=== PATIENT | female | born 1970 ===

== ENCOUNTER 2016-12-01 20:08 | Observation (INO) | payer OTHER ==
[2016-12-01 20:08] VITALS: BMI 27.4
--- NOTE | 2016-12-01 21:21 | ED PDOC ---
HPI: Chest Pain Time Seen by Provider: 12/01/16 20:57 Chief Complaint (Nursing): Pain, Chronic Chief Complaint (Provider): Chest Pain History Per: Patient History/Exam Limitations: no limitations Onset/Duration Of Symptoms: Hrs (since this morning) Current Symptoms Are (Timing): Still Present Severity: Moderate Quality: Pressure Associated Symptoms: Other (palpitations, dizziness, left arm numbness). denies : Syncope (near syncope, no LOC) Additional Complaint(s): Missy Medina is a 46 year old female, with a past medical history inclusive of CAD (s/p coronary stent placement and cardiac catheterization) and Rheumatic fever, who presents to the ED on 12/01/16 for the evaluation of moderate, left- sided chest pressure that she has experienced since earlier today. Associated palpitations, left arm numbness and dizziness also reported, in addition to an episode of near syncope; though patient denies a complete loss of consciousness. Of note, patient reportedly underwent cardiac catheterization yesterday, unchanged from previous catheterization. PMD: eJnifer Diaz Sleeve Baster: Vance Past Medical History Reviewed: Historical Data, Nursing Documentation, Vital Signs Vital Signs: Last Vital Signs Temp 98.2 F 12/01/16 20:16 Pulse 72 12/01/16 20:16 Resp 18 12/01/16 20:16 BP 122/80 12/01/16 20:16 Pulse Ox 98 12/01/16 22:32 - Medical History PMH: Asthma, CAD, Crohn's Disease, Fractures (right arm), Gall Bladder Disease ( removed 2002), HTN, Hyperlipidemia, Mitral Valve Prolapse, Pneumonia, Rheumatoid Arthritis Denies: Chronic Kidney Disease Other PMH: PID, ovarian cyst, Rheumatic Fever - Surgical History Surgical History: Appendectomy (at 8 years old), Cholecystectomy (2002), Coronary Stent (x1; Left circumflex (January 2016)), Tonsillectomy ("at young age") , (x1) Denies: Pacemaker Other surgeries: colonoscopy, hysterectomy, right forearm repair (hardware), cardiac catheterization - Family History Family History: States: Unknown Family Hx - Social History Ex-Smoker (has not smoked in the last 12 months): Yes Alcohol: Occasional Drugs: Denies - Immunization History Hx Tetanus Toxoid Vaccination: No Hx Influenza Vaccination: Yes Hx Pneumococcal Vaccination: No - Home Medications Home Medications: Ambulatory Orders Medication Instructions Recorded Aspirin [Ecotrin] 81 mg PO DAILY #0 tabec 06/25/16 Clopidogrel [Plavix] 75 mg PO DAILY #0 tab 06/25/16 Albuterol 0.083% [Albuterol 0.083% 1 inh INH PRN PRN 08/31/16 Inhal Orin (2.5 mg/3 ml) UD] Albuterol HFA [Ventolin HFA 90 2 puff IH PRN PRN #1 inhaler 09/02/16 mcg/actuation (8 g)] Prednisone [Deltasone] 5 mg PO DAILY 10/29/16 Nitroglycerin 0.4 mg SL Q5MIN PRN 11/02/16 - Allergies Allergies/Adverse Reactions: Allergies Allergy/AdvReac Type Severity Reaction Status Date / Time ceftriaxone Allergy RASH Verified 08/31/16 19:51 Iodine and Iodide Containing Allergy SHORTNESS Verified 08/31/16 19:51 Produc OF BREATH iohexol [From Omnipaque] AdvReac SWELLING Verified 08/31/16 19:51 Review of Systems ROS Statement: Except As Marked, All Systems Reviewed And Found Negative Cardiovascular: Positive for: Chest Pain (left-sided chest pressure), Palpitations Neurological: Positive for: Numbness (left arm), Dizziness (near syncope) Physical Exam - Reviewed Nursing Documentation Reviewed: Yes Vital Signs Reviewed: Yes - Physical Exam Appears: Positive for: Non-toxic, No Acute Distress Head Exam: Positive for: ATRAUMATIC, NORMOCEPHALIC Skin: Positive for: Normal Color, Warm, Dry Neck: Positive for: Normal, Painless ROM, Supple Cardiovascular/Chest: Positive for: Regular Rate, Rhythm. Negative for: Edema Respiratory: Positive for: Normal Breath Sounds. Negative for: Respiratory Distress Gastrointestinal/Abdominal: Positive for: Normal Exam, Soft. Negative for: Tenderness Extremity: Positive for: Normal ROM. Negative for: Tenderness, Swelling Neurologic/Psych: Positive for: Alert, Oriented (x3). Negative for: Motor/ Sensory Deficits - Laboratory Results Result Diagrams: 12/01/16 21:24 12/01/16 21:24 - ECG O2 Sat by Pulse Oximetry: 98 (RA) Pulse Ox Interpretation: Normal Medical Decision Making Medical Decision Makin:57 Initial Impression: chest pressure Initial Plan: * EKG * CT Head w/o Contrast * CXR * Labs * Troponin I * PT/INR * Reevaluation Scribe Attestation: Documented by Lizabeth Dowling, acting as a scribe for Jeramie Kent MD. Provider Scribe Attestation: All medical record entries made by the Scribe were at my direction and personally dictated by me. I have reviewed the chart and agree that the record accurately reflects my personal performance of the history, physical exam, medical decision making, and the department course for this patient. I have also personally directed, reviewed, and agree with the discharge instructions and disposition. Disposition - Clinical Impression Clinical Impression: Chest pain, Pre-syncope - Patient ED Disposition Is Patient to be Admitted: Yes - Disposition Disposition Time: 23:34 Condition: FAIR - Pt Status Changed To: Hospital Disposition Of: Observation - POA Present On Arrival: None
[2016-12-01 21:29] LABS: BASO # 0.1 K/uL (0.0-0.2); BASO % 0.6 % (0.0-2.0); EOS # 0.2 K/uL (0.0-0.7); EOS % 1.2 % (0.0-4.0); HEMATOCRIT 39.9 % (34.0-47.0); LYMPH # 3.9 K/uL (1.0-4.3); LYMPH % 29.2 % (20.0-40.0); MEAN CORPUSCULAR HEMOGLOBIN 28.9 pg (27.0-31.0); MEAN CORPUSCULAR HGB CONC 32.5 g/dL (33.0-37.0); MEAN PLATELET VOLUME 7.2 fl (7.2-11.7); MONO % 7.7 % (0.0-10.0); NEUT # 8.3 K/uL (1.8-7.0); NEUT % 61.3 % (50.0-75.0); NRBC % 0.1 % (0.0-0.0); RED CELL DISTRIBUTION WIDTH 13.9 % (11.5-14.5); WHITE BLOOD COUNT 13.5 K/uL (4.8-10.8)
[2016-12-01 21:46] LABS: ALB/GLOB RATIO 1.1 (1.0-2.1); ALKALINE PHOSPHATASE 79 U/L (38-126); ALT/SGPT 27 U/L (9-52); AST/SGOT 23 U/L (14-36); BILIRUBIN,TOTAL 0.6 mg/dl (0.2-1.3); BLOOD UREA NITROGEN 22 mg/dl (7-17); CALCIUM 9.4 mg/dL (8.4-10.2); CARBON DIOXIDE 19 mmol/L (22-30); CHLORIDE 107 mmol/L (98-107); GFR AFRICAN-AMERICAN > 60; GLUCOSE,RANDOM 91 mg/dL (65-105); POTASSIUM 3.6 MMOL/L (3.6-5.0); SODIUM 143 mmol/l (132-148); TOTAL PROTEIN 7.8 G/DL (6.3-8.2)
--- NOTE | 2016-12-01 22:16 | CT ---
EXAM: CT Head Without Intravenous Contrast. CLINICAL HISTORY: 46 years old, female; Signs and symptoms; Weakness, extremity; Left; Additional info: Dizziness, near syncope. Pt states: Left arm numbness. TECHNIQUE: Axial computed tomography images of the head/brain without intravenous contrast. This CT exam was performed using one or more of the following dose reduction techniques: automated exposure control, adjustment of the mA and/or kV according to patient size, and/or use of iterative reconstruction technique. Coronal and sagittal reformatted images were created and reviewed. COMPARISON: CT - HEAD W/O CONTRAST 02/25/2016 4:43:01 AM FINDINGS: Brain: Unremarkable. No hemorrhage. No significant white matter disease. No edema. Ventricles: Unremarkable. No ventriculomegaly. Bones/joints: Unremarkable. No acute fracture. Soft tissues: Unremarkable. Sinuses: Unremarkable as visualized. No acute sinusitis. Mastoid air cells: Unremarkable as visualized. No mastoid effusion. IMPRESSION: Normal head/brain CT.
[2016-12-02] MEDS: Sodium Chloride 0.9% 1,000 ML IV SCH ×2 (00:07→10:16)
--- NOTE | 2016-12-02 01:40 | CP.PCM.HP ---
History of Present Illness - History of Present Illness History of Present Illness: 45 yo F w PMHx of CAD s/p LCA stent placement (January), rheumatic heart disease , presented to ED with recurring moderate, left-sided chest pressure that worsened today with associated left arm numbness and dizziness. Patient also had an episode of near syncope; though denies loss of consciousness. Patient states left arm numbness/tingling originates from neck/head and goes throughout left arm. Patient states left-sided chest pressure is a pain she has been having for quite some time that has been evaluated extensively though no etiology has been found. Patient states left sided posterior headache present at this time as well. Nitrostat x 2 during the day, no real effect of pain. Patient denies abdominal pain, chills, fever, recent illnesses, diarrhea, urinary changes, or changes to meds/diet/stressors. PMD: Dr Diaz Tower Operator: Dr Woodard PMHx: CAD s/p stent (January), rheumatic heart disease Medications: Aspirin 81mg po daily, Plavix 75mg po daily, Nitrostat 0.4mg PRN Allergies : ceftriaxone, iodine (hives) SHx: appendectomy (1980), cholecystectomy (2002), tonsillectomy, total hysterectomy (2014), Stent placement (2015) SocHx: drinks wine socially; former social smoker, 2 cigarettes with wine for 22 yrs; denies illicit drug use; unemployed, lives with her son FHx: father, CAD/DM, ED Course: Vitals stable, afebrile EKG unremarkable CXR NAD CT Head - negative Labs notable for mild leukocytosis, troponin x 1 neg Nitrostat x 1 Present on Admission - Present on Admission Any Indicators Present on Admission: No Review of Systems - Review of Systems All systems: reviewed and no additional remarkable complaints except (mentioned in HPI) Past Patient History - Infectious Disease Hx of Infectious Diseases: None - Tetanus Immunizations Tetanus Immunization: Unknown - Past Medical History & Family History Past Medical History?: Yes - Past Social History Alcohol: Occasional Drugs: Denies - CARDIAC Hx Hypertension: Yes Hx Mitral Valve Prolapse: Yes Hx Pacemaker: No - PULMONARY Hx Asthma: Yes Hx Pneumonia: Yes - NEUROLOGICAL Hx Paralysis: No - HEENT Hx HEENT Problems: No - RENAL Hx Chronic Kidney Disease: No - ENDOCRINE/METABOLIC Hx Endocrine Disorders: No - INTEGUMENTARY Hx Dermatological Problems: No - MUSCULOSKELETAL/RHEUMATOLOGICAL Hx Fractures: Yes (right arm) Hx Rheumatoid Arthritis: Yes - GASTROINTESTINAL Hx Crohn's Disease: Yes Hx Gall Bladder Disease: Yes (removed 2002) - GENITOURINARY/GYNECOLOGICAL Hx Genitourinary Disorders: Yes (Ovarian cysts, PID, Hysterectomy) - PSYCHIATRIC Hx Emotional Abuse: No Hx Physical Abuse: No Hx Substance Use: No - SURGICAL HISTORY Hx Appendectomy: Yes (at 8 years old) Hx Cholecystectomy: Yes (2002) Hx Coronary Stent: Yes (x1; Left circumflex (January 2016)) Hx Tonsillectomy: Yes ("at young age") - ANESTHESIA Hx Anesthesia Reactions: No Hx Malignant Hyperthermia: No Meds Allergies/Adverse Reactions: Allergies Allergy/AdvReac Type Severity Reaction Status Date / Time ceftriaxone Allergy RASH Verified 08/31/16 19:51 Iodine and Iodide Containing Allergy SHORTNESS Verified 08/31/16 19:51 Produc OF BREATH iohexol [From Omnipaque] AdvReac SWELLING Verified 08/31/16 19:51 Physical Exam - Constitutional Appears: Well, Non-toxic, In Acute Distress (moderate discomfort) - Head Exam Head Exam: ATRAUMATIC, NORMAL INSPECTION, NORMOCEPHALIC - Eye Exam Eye Exam: EOMI, Normal appearance, PERRL - ENT Exam ENT Exam: Mucous Membranes Moist, Normal Exam - Neck Exam Neck exam: Positive for: Full Rom, Normal Inspection. Negative for: Meningismus , Tenderness - Respiratory Exam Respiratory Exam: Clear to Auscultation Bilateral, NORMAL BREATHING PATTERN. absent: Decreased Breath Sounds, Rales, Rhonchi, Wheezes - Cardiovascular Exam Cardiovascular Exam: REGULAR RHYTHM, RRR, +S1, +S2 - GI/Abdominal Exam GI & Abdominal Exam: Normal Bowel Sounds, Soft. absent: Distended, Firm, Rebound, Tenderness - Extremities Exam Extremities exam: Positive for: normal inspection, pedal pulses present. Negative for: calf tenderness, pedal edema - Back Exam Back exam: NORMAL INSPECTION - Neurological Exam Neurological exam: Alert, CN II-XII Intact, Oriented x3 - Expanded Neurological Exam Expanded Patient oriented to: person, place, time Cranial nerves: EOM's Intact: Normal, Tongue Deviation: Normal Neuro motor strength exam: Left Upper Extremity: 4 (though poor effort), Right Upper Extremity: 5, Left Lower Extremity: 5, Right Lower Extremity: 5 Coma Scale Eye Opening: SPONTANEOUS Coma Scale Motor Response: OBEYS COMMANDS Coma Scale Verbal: Oriented Coma Scale Total: 15 - Psychiatric Exam Psychiatric exam: Normal Affect, Normal Mood - Skin Skin Exam: Dry, Intact, Normal Color, Warm Results - Vital Signs Recent Vital Signs: Last Vital Signs Temp 98.2 F 12/01/16 20:16 Pulse 72 12/01/16 20:16 Resp 18 12/01/16 20:16 BP 122/80 12/01/16 20:16 Pulse Ox 98 12/01/16 23:34 - Labs Result Diagrams: 12/01/16 21:24 12/01/16 21:24 Assessment & Plan - Assessment and Plan (Free Text) Assessment: 45 yo F w PMHx of CAD s/p LCA stent placement (January), rheumatic heart disease , 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 * CT angio showed the origin of the LCX from the right sinus of Valsalva appears to be acute particularly with the upper/proximal edge/end of the PCI stent thus dynamic ostial stenosis of bending cannot be excluded. * Nuclear stress test 10/29/16 step-elizondo increase of symptoms were suggestive of ischemia though no objective evidence noted. 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 Denis Woodard, consulted, appreciate recommendations 2) Numbness/tingling of left upper extremity - Labs ordered for AM - Spurlings test was equivocal as it elicited pain with bilateral stressors - DDx includes vitamin def, cervical radiculopathy, thoracic outlet syndrome or other obstructing brachial plexus etiology, or brain lesion - CT Head unremarkable in ED 3) DVT Prophylaxis -Lovenox 40mg SC Daily
[2016-12-02 07:03] VITALS: TEMP 97.8
--- NOTE | 2016-12-02 07:08 | CARD ---
APPROVED REPORT EKG Measurement Heart [id number] <Conclusion> Normal sinus rhythm Cannot rule out Anterior infarct, age undetermined Abnormal ECG
[2016-12-02 07:52] LABS: BLOOD UREA NITROGEN 21 mg/dl (7-17); CALCIUM 8.7 mg/dL (8.4-10.2); CARBON DIOXIDE 23 mmol/L (22-30); CHLORIDE 110 mmol/L (98-107); CHOLESTEROL 172 mg/dL (0-199); GFR AFRICAN-AMERICAN > 60; GLUCOSE,RANDOM 96 mg/dL (65-105); POTASSIUM 3.6 MMOL/L (3.6-5.0); SODIUM 145 mmol/l (132-148)
[2016-12-02 08:17] LABS: THYROID STIMULATING HORMONE 1.75 mIU/ML (0.46-4.68)
--- NOTE | 2016-12-02 08:28 | CP.PCM.CON ---
History of Present Illness - History of Present Illness History of Present Illness: Full Note Dictated. Chest Pain (No objective evidence of myocardial ischemia) H/O LCX cor Stenting in 2013 Multiple somatic symptoms (e.g. head aches, dizziness, heart burn,legs buckling, near blackout) of uncertain origin Nuclear strss test, Cor AngioX2 have not shown any objective evidence of myocardial ischemia Continuous chest pain for 48 hrs without EKG changes and normal Troponin levels, lack of response to SL NTG with stable hemodynamic status strongly suggests noncoronary aetiology of this chest pain syndrom Will get an addl EKG to confirm persistent absence of ST-T changes and Q waves Serial troponin levels are being obtained Past Patient History - Infectious Disease Hx of Infectious Diseases: None - Tetanus Immunizations Tetanus Immunization: Unknown - Past Medical History & Family History Past Medical History?: Yes - Past Social History Alcohol: Occasional Drugs: Denies - CARDIAC Hx Hypertension: Yes Hx Mitral Valve Prolapse: Yes Hx Pacemaker: No - PULMONARY Hx Asthma: Yes Hx Pneumonia: Yes - NEUROLOGICAL Hx Paralysis: No - HEENT Hx HEENT Problems: No - RENAL Hx Chronic Kidney Disease: No - ENDOCRINE/METABOLIC Hx Endocrine Disorders: No - INTEGUMENTARY Hx Dermatological Problems: No - MUSCULOSKELETAL/RHEUMATOLOGICAL Hx Fractures: Yes (right arm) Hx Rheumatoid Arthritis: Yes - GASTROINTESTINAL Hx Crohn's Disease: Yes Hx Gall Bladder Disease: Yes (removed 2002) - GENITOURINARY/GYNECOLOGICAL Hx Genitourinary Disorders: Yes (Ovarian cysts, PID, Hysterectomy) - PSYCHIATRIC Hx Emotional Abuse: No Hx Physical Abuse: No Hx Substance Use: No - SURGICAL HISTORY Hx Appendectomy: Yes (at 8 years old) Hx Cholecystectomy: Yes (2002) Hx Coronary Stent: Yes (x1; Left circumflex (January 2016)) Hx Tonsillectomy: Yes ("at young age") - ANESTHESIA Hx Anesthesia Reactions: No Hx Malignant Hyperthermia: No Meds Allergies/Adverse Reactions: Allergies Allergy/AdvReac Type Severity Reaction Status Date / Time ceftriaxone Allergy RASH Verified 08/31/16 19:51 Iodine and Iodide Containing Allergy SHORTNESS Verified 08/31/16 19:51 Produc OF BREATH iohexol [From Omnipaque] AdvReac SWELLING Verified 08/31/16 19:51 - Medications Medications: Current Medications Aspirin (Ecotrin) 81 mg PO DAILY DEB Clopidogrel Bisulfate (Plavix) 75 mg PO DAILY DEB Enoxaparin Sodium (Lovenox) 40 mg SC DAILY DEB PRN Reason: Protocol Sodium Chloride (Sodium Chloride 0.9%) 1,000 mls @ 100 mls/hr IV .Q10H DEB Stop: 12/02/16 23:46 Last Admin: 12/02/16 00:07 Dose: 100 mls/hr Nitroglycerin (Nitrostat Sl Tab) 0.4 mg SL Q5MIN PRN PRN Reason: chest pain x 3 doses Results - Vital Signs Recent Vital Signs: Last Vital Signs Temp 97.8 F 12/02/16 07:02 Pulse 63 12/02/16 07:02 Resp 17 12/02/16 07:02 BP 104/47 L 12/02/16 07:02 Pulse Ox 96 12/02/16 07:02 - Labs Result Diagrams: 12/01/16 21:24 12/02/16 07:16 Labs: Laboratory Results - last 24 hr 12/02/16 07:16 Sodium 145 Potassium 3.6 Chloride 110 H Carbon Dioxide 23 Anion Gap 16 BUN 21 H Creatinine 0.5 L Est GFR ( Amer) > 60 Est GFR (Non-Af Amer) > 60 Random Glucose 96 Calcium 8.7 Triglycerides 81 D Cholesterol 172 LDL Cholesterol Direct 106 HDL Cholesterol 38
--- NOTE | 2016-12-02 08:28 | RAD ---
HISTORY: chest pain COMPARISON: Comparison is made to 08/31/2016 TECHNIQUE: Chest PA and lateral FINDINGS: LUNGS: No active pulmonary disease. PLEURA: The cardiac silhouette is mildly enlarged. CARDIOVASCULAR: Normal. OSSEOUS STRUCTURES: No significant abnormalities. VISUALIZED UPPER ABDOMEN: Normal. OTHER FINDINGS: None. IMPRESSION: No active disease. The cardiac silhouette is mildly enlarged.
[2016-12-02 08:45] LABS: HEMATOCRIT 36.1 % (34.0-47.0); MEAN CELL VOLUME 88.7 fl (81.0-99.0); MEAN CORPUSCULAR HEMOGLOBIN 29.2 pg (27.0-31.0); MEAN CORPUSCULAR HGB CONC 32.9 g/dL (33.0-37.0); RED CELL DISTRIBUTION WIDTH 14.2 % (11.5-14.5); WHITE BLOOD COUNT 7.8 K/uL (4.8-10.8)
[2016-12-02] MEDS ORDERED: Enoxaparin 40 mg Syringe SC SCH (09:00)
--- NOTE | 2016-12-02 12:25 | CON ---
DATE: 12/02/2016 The patient is being hospitalized from the Emergency Room under Dr. Menon ' care on 12/02/2016. HISTORY OF PRESENT ILLNESS: This 46-year-old female is known to me. She arrived in the Emergency Room complaining of a left pectoral pain which she describes as a balloon inflating, which also then spreads to the left side of her neck and to her left shoulder and down her left arm. The pain, by her account, has continued virtually unabated for the last 48 hours. It waxes and wanes, but has never left her. She denies any particular physical activity that precipitates it. She has a long medical history that includes a stenting of her left circumflex artery in late 2013. Subsequently, she remained without any symptoms for almost a year and then the symptoms of left pectoral discomfort returned and mimicked the initial symptoms before insertion of the stent and acute myocardial infarction was ruled out, was sent for a coronary angiogram promptly, which turned out to be negative for any evidence of stenotic lesions in coronary arteries and left circumflex artery stent was patent. 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 It was found to be passing behind the aorta. Because the chest discomfort continued, she eventually was subjected to a nuclear stress test during which she developed chest pain while exercising at the level of stage I of Serjio protocol , but neither ST changes of ischemia nor abnormal sestamibi distribution indicative of effort induced myocardial ischemia was detected. Because her symptoms were so convincing, even though there was no EKG or SPECT evidence of ischemia, she underwent a second coronary angiogram on 11/02, which also showed no evidence of coronary stenosis and a well functioning left ventricle. This was at the end of 10/2016. Subsequently, the patient has had periods of chest discomfort quite unconnected to physical activity. This particular episode that brought her to the Emergency Room has persisted for almost 48 hours with no relief after taking sublingual nitroglycerin. She continues to experience this discomfort, without any area of tenderness on her chest wall. The patient also describes multiple somatic symptoms such as a burning sensation in the retrosternal area, an urge to burp and nauseous feeling, as well as lightheadedness that nearly made her pass out, sudden buckling of her legs, but she has not fallen and there has been no syncopal episode. PHYSICAL EXAMINATION: GENERAL: This is a young female distraught at her symptoms and being hospitalized repeatedly. VITAL SIGNS: Heart rate of 68 beats per minute, regular, and a blood pressure of 100/70 mmHg. There were no orthostatic changes to her blood pressure. NECK: Her JVP was not elevated. EXTREMITIES: There was no edema over lower extremity. The pedal pulses were well felt. There were no carotid bruits. HEART: The apex was vaguely felt in the fifth space. The first and second heart sounds were normal. There was no murmur, no gallop. LUNGS: No rales. ABDOMEN: Soft. Liver and spleen were not palpable. DIAGNOSTIC DATA: Her electrocardiogram taken on admission yesterday showed sinus rhythm at 75 beats per minute with poor R-wave progression from V2-V3 which is most likely due to improper placement of lead V3 on chest wall. Numerous earlier electrocardiograms do not show any evidence of an anterior wall infarct. Her troponin levels x 2 were negative for any evidence of myocyte injury. Her BUN and creatinine were 21 and 0.5 mg percent. Her electrolytes were essentially normal. Her lipid profile and TSH were normal as well. IMPRESSION AND PLAN: No objective evidence of myocardial ischemia in a patient with known coronary artery disease requiring coronary stenting more than 2-1/2 years back, abnormal origin of left circumflex artery with multiple somatic symptoms which are quite unconnected to her cardiac symptoms. The fact that the patient has had virtually unrelenting chest pain for 48 hours without any hemodynamic instability, without any ST-T abnormalities, without any troponin indicator of myocyte injury, strongly goes against the possibility that her symptoms are due to myocardial ischemia. I have discussed her case at length with the resident. She may benefit from workup to rule out connective tissue disorder or the possibility of cervical radiculopathy. Another strong possibility is that this could be of a psychosomatic origin due to multiple tests that the patient has endured in an attempt to establish absence of myocardial ischemia causing her symptoms. Bobby Woodard MD cc: 23 TT: 12/02/2016 12:25:32 Confirmation # [id number] Dictation # [id number] MTDD
--- NOTE | 2016-12-02 12:51 | CARD ---
APPROVED REPORT EKG Measurement Heart [id number] [place] [id number] <Conclusion> Normal sinus rhythm Inferior infarct, age undetermined Abnormal ECG
[2016-12-02 13:00] VITALS: BP 102/62; PULSE 75; RESP 20; O2SAT 98
--- NOTE | 2016-12-02 16:37 | CP.PCM.DIS ---
Provider - Provider Date of Admission: 12/01/16 23:08 Attending physician: Odette Menon MD Primary care physician: Dr. Diaz Consults: Dr. Woodard-Cardiology Time Spent in preparation of Discharge (in minutes): 45 Diagnosis - Discharge Diagnosis (1) Chest pain Status: Resolved Hospital Course - Lab Results Lab Results: Most Recent Lab Values WBC 7.8 K/uL (4.8-10.8) 12/02/16 06:00 RBC 4.06 Mil/uL (3.80-5.20) 12/02/16 06:00 Hgb 11.9 g/dL (12.0-16.0) L 12/02/16 06:00 Hct 36.1 % (34.0-47.0) 12/02/16 06:00 MCV 88.7 fl (81.0-99.0) 12/02/16 06:00 MCH 29.2 pg (27.0-31.0) 12/02/16 06:00 MCHC 32.9 g/dL (33.0-37.0) L 12/02/16 06:00 RDW 14.2 % (11.5-14.5) 12/02/16 06:00 Plt Count 283 K/uL (130-400) 12/02/16 06:00 MPV 7.2 fl (7.2-11.7) 12/01/16 21:24 Neut % (Auto) 61.3 % (50.0-75.0) 12/01/16 21:24 Lymph % (Auto) 29.2 % (20.0-40.0) 12/01/16 21:24 Ashe % (Auto) 7.7 % (0.0-10.0) 12/01/16 21:24 Eos % (Auto) 1.2 % (0.0-4.0) 12/01/16 21:24 Baso % (Auto) 0.6 % (0.0-2.0) 12/01/16 21:24 Neut # 8.3 K/uL (1.8-7.0) H 12/01/16 21:24 Lymph # 3.9 K/uL (1.0-4.3) 12/01/16 21:24 Ashe # 1.0 K/uL (0.0-0.8) H 12/01/16 21:24 Eos # 0.2 K/uL (0.0-0.7) 12/01/16 21:24 Baso # 0.1 K/uL (0.0-0.2) 12/01/16 21:24 PT 10.3 SECONDS (9.6-11.2) 12/01/16 21:24 INR 0.99 (0.92-1.08) 12/01/16 21:24 Sodium 145 mmol/l (132-148) 12/02/16 07:16 Potassium 3.6 MMOL/L (3.6-5.0) 12/02/16 07:16 Chloride 110 mmol/L (98-107) H 12/02/16 07:16 Carbon Dioxide 23 mmol/L (22-30) 12/02/16 07:16 Anion Gap 16 (10-20) 12/02/16 07:16 BUN 21 mg/dl (7-17) H 12/02/16 07:16 Creatinine 0.5 mg/dL (0.7-1.2) L 12/02/16 07:16 Est GFR ( Amer) > 60 12/02/16 07:16 Est GFR (Non-Af Amer) > 60 12/02/16 07:16 Random Glucose 96 mg/dL (65-105) 12/02/16 07:16 Calcium 8.7 mg/dL (8.4-10.2) 12/02/16 07:16 Total Bilirubin 0.6 mg/dl (0.2-1.3) 12/01/16 21:24 AST 23 U/L (14-36) 12/01/16 21:24 ALT 27 U/L (9-52) 12/01/16 21:24 Alkaline Phosphatase 79 U/L (38-126) 12/01/16 21:24 Troponin I < 0.0120 ng/mL (0.00-0.120) 12/02/16 07:16 Total Protein 7.8 G/DL (6.3-8.2) 12/01/16 21:24 Albumin 4.1 g/dL (3.5-5.0) 12/01/16 21:24 Globulin 3.7 gm/dL (2.2-3.9) 12/01/16 21:24 Albumin/Globulin Ratio 1.1 (1.0-2.1) 12/01/16 21:24 Triglycerides 81 mg/DL (0-149) D 12/02/16 07:16 Cholesterol 172 mg/dL (0-199) 12/02/16 07:16 LDL Cholesterol Direct 106 mg/dL (0-129) 12/02/16 07:16 HDL Cholesterol 38 MG/DL (30-70) 12/02/16 07:16 Vitamin B12 390 pg/mL (239-931) 12/02/16 07:16 TSH 3rd Generation 1.75 mIU/ML (0.46-4.68) 12/02/16 07:16 - Hospital Course Hospital Course: 45 year old female with PMHx of CAD s/p LCA stent placement (January), rheumatic heart disease, presented to ED with recurring moderate, left-sided chest pressure that worsened yesterday with associated left arm numbness and dizziness. Dr. Woodard cardiology was consulted, EKG was ordered and no new changes noted. [address] ordered in ED- normal head/ brain CT. Patient's symptoms have improved. Patient may benefit from outpatient physical therapy. Case discussed in length with patient. Patient to follow up with Dr. Diaz and Dr. Woodard as outpatient. Discharge Exam - Head Exam Head Exam: ATRAUMATIC, NORMAL INSPECTION, NORMOCEPHALIC - Eye Exam Eye Exam: EOMI, Normal appearance - ENT Exam ENT Exam: Mucous Membranes Moist - Respiratory Exam Respiratory Exam: NORMAL BREATHING PATTERN. absent: Rales, Rhonchi, Wheezes - Cardiovascular Exam Cardiovascular Exam: REGULAR RHYTHM, +S1, +S2 - GI/Abdominal Exam GI & Abdominal Exam: Normal Bowel Sounds, Soft. absent: Tenderness - Extremities Exam Extremities exam: normal inspection - Back Exam Back exam: NORMAL INSPECTION - Neurological Exam Neurological exam: Alert, CN II-XII Intact, Oriented x3 - Psychiatric Exam Psychiatric exam: Normal Affect, Normal Mood - Skin Skin Exam: Dry, Normal Color, Warm Discharge Plan - Follow Up Plan Condition: GOOD Disposition: HOME/ ROUTINE Additional Instructions: Patient to follow up with Dr. Diaz for schedule appointment next week Patient to follow up with Dr. Woodard cardiology Medications: Nitroglycerin 0.4 mg Sublingual PRN Albuterol 2.5 mg/3 mL Neb Prednisone 5mg PO daily Aspirin 81 mg PO daily Clopidogrel 75 mg PO daily Albuterol HFA 2 puff IH PRN Referrals: Jenifer Diaz MD [Family Provider] -
[2016-12-02 19:10] LABS: FOLATE > 20.0 ng/mL
== END 2016-12-02 18:00 | disposition home or self-care (01) ==
LOC: H.ER 20:08 → H.ERHOLD 23:08 → H.MEDSURG1 12-02 16:01
PROVIDERS: ADMIT Family Medicine Geriatric Medicine; ATTEND Family Medicine Geriatric Medicine
DX: R07.89 Other chest pain (principal); R55 Syncope and collapse; E78.5 Hyperlipidemia, unspecified; I10 Essential (primary) hypertension; I25.10 Atherosclerotic heart disease of native coronary artery without angina pectoris; I34.1 Nonrheumatic mitral (valve) prolapse; I00 Rheumatic fever without heart involvement; K50.90 Crohn's disease, unspecified, without complications; J45.909 Unspecified asthma, uncomplicated; M06.9 Rheumatoid arthritis, unspecified; Z79.82 Long term (current) use of aspirin; Z87.891 Personal history of nicotine dependence; Z95.5 Presence of coronary angioplasty implant and graft

== ENCOUNTER 2017-01-11 18:00 | Emergency (ER) | payer OTHER ==
[2017-01-11 18:00] VITALS: BMI 27.4
[2017-01-11 18:07] VITALS: BP 134/82; PULSE 78; RESP 20; TEMP 98.1; O2SAT 98
--- NOTE | 2017-01-11 18:32 | ED PDOC ---
Upper Extremity Pain/Injury Time Seen by Provider: 01/11/17 18:16 Chief Complaint (Nursing): Upper Extremity Problem/Injury Chief Complaint (Provider): bilateral hand pain History Per: Patient History/Exam Limitations: no limitations Onset/Duration Of Symptoms: Days (3-4 months) Current Symptoms Are (Timing): Still Present Quality: "Pain" Severity: Moderate Pain Scale Rating Of: 10 Additional Complaint(s): 46 year old female with a pertinent medical history of coronary artery disease and questionable arthritis has been experiencing bilateral hand and finger pain for the past 3-4x months. She reports that she was taking steroids for her symptoms but ran out 3-4x weeks ago, but they were only giving her mild relief. She has also tried taking ibuprofen and motrin with no relief and reports that she cannot move her thumbs because of the pain. She denies any injury to the area, and she denies having any numbness or tingling. No pain elsewhere. Same pain she has been having. PMD: Jenifer Diaz MD Past Medical History Reviewed: Historical Data, Nursing Documentation, Vital Signs Vital Signs: Last Vital Signs Temp 98.1 F 01/11/17 18:04 Pulse 78 01/11/17 18:04 Resp 20 01/11/17 18:04 BP 134/82 01/11/17 18:04 Pulse Ox 98 01/11/17 18:04 - Medical History PMH: Arthritis, Asthma, Bronchitis, CAD, Crohn's Disease, Fractures (right arm) , Gall Bladder Disease (removed 2002), HTN, Hyperlipidemia, Mitral Valve Prolapse, Pneumonia, Rheumatoid Arthritis Denies: HIV, Chronic Kidney Disease - Surgical History Surgical History: Appendectomy (at 8 years old), Cholecystectomy (2002), Coronary Stent (x1; Left circumflex (January 2016)), Tonsillectomy ("at young age") , (x1) Denies: Pacemaker - Family History Family History: States: Unknown Family Hx - Social History Alcohol: None Drugs: Denies - Immunization History Hx Tetanus Toxoid Vaccination: No Hx Influenza Vaccination: Yes Hx Pneumococcal Vaccination: No - Home Medications Home Medications: Ambulatory Orders Medication Instructions Recorded Aspirin [Ecotrin] 81 mg PO DAILY #0 tabec 06/25/16 Clopidogrel [Plavix] 75 mg PO DAILY #0 tab 06/25/16 Albuterol 0.083% [Albuterol 0.083% 1 inh INH PRN PRN 08/31/16 Inhal Orin (2.5 mg/3 ml) UD] Albuterol HFA [Ventolin HFA 90 2 puff IH PRN PRN #1 inhaler 09/02/16 mcg/actuation (8 g)] Prednisone [Deltasone] 5 mg PO DAILY 10/29/16 Nitroglycerin 0.4 mg SL Q5MIN PRN 11/02/16 predniSONE [predniSONE Tab] 20 mg PO DAILY 5 Days 01/11/17 - Allergies Allergies/Adverse Reactions: Allergies Allergy/AdvReac Type Severity Reaction Status Date / Time ceftriaxone Allergy RASH Verified 01/11/17 18:03 Iodine and Iodide Containing Allergy SHORTNESS Verified 01/11/17 18:03 Produc OF BREATH iohexol [From Omnipaque] AdvReac SWELLING Verified 01/11/17 18:03 Review of Systems ROS Statement: Except As Marked, All Systems Reviewed And Found Negative Cardiovascular: Negative for: Chest Pain Respiratory: Negative for: Shortness of Breath Musculoskeletal: Positive for: Hand Pain (bilateral hand and finger pain). Negative for: Neck Pain, Shoulder Pain, Arm Pain Neurological: Negative for: Numbness (no tingling) Physical Exam - Reviewed Nursing Documentation Reviewed: Yes Vital Signs Reviewed: Yes - Physical Exam Appears: Positive for: Non-toxic, Uncomfortable, In Acute Distress (moderate painful distress) Head Exam: Positive for: ATRAUMATIC, NORMOCEPHALIC Skin: Positive for: Normal Color, Warm, Dry Cardiovascular/Chest: Positive for: Regular Rate, Rhythm Respiratory: Positive for: Normal Breath Sounds. Negative for: Respiratory Distress Pulses-Radial (L): 2+ Pulses-Radial (R): 2+ Extremity: Positive for: Tenderness, Capillary Refill (wnl), Other (bilateral hands: diffuse tenderness to palpation. Right thumb: abrasion medially towards tip. Right index finger: abrasion to lateral surface towards tip. Right middle finger: abrasion to lateral surface towards tip. Left thumb: abrasion medially towards tip. No swelling. Normal radial pulses). Negative for: Normal ROM ( limited due to pain in hands) Neurologic/Psych: Positive for: Alert, Oriented (3x) - ECG O2 Sat by Pulse Oximetry: 98 (RA) Pulse Ox Interpretation: Normal - Progress ED Course And Treament: 1957: Chronic pain. Taking steroids which helped. Will rx prednisone for 5 days, 20mg daily. Fu with pcp. Medical Decision Making Medical Decision Makin:16 Initial impression: 46 year old female with bilateral hand pain Initial plan: * morphine 4mg IM * reevaluation Scribe Attestation: Documented by Edwige Teague, acting as a scribe for Lewis Koch MD. Provider Scribe Attestation: All medical record entries made by the Scribe were at my direction and personally dictated by me. I have reviewed the chart and agree that the record accurately reflects my personal performance of the history, physical exam, medical decision making, and the department course for this patient. I have also personally directed, reviewed, and agree with the discharge instructions and disposition. Disposition - Clinical Impression Clinical Impression: Chronic pain - Patient ED Disposition Is Patient to be Admitted: No Counseled Patient/Family Regarding: Diagnosis, Need For Followup, Rx Given - Disposition Referrals: Farhana Martinez MD [Primary Care Provider] - 01/12/17 Disposition: Routine/Home Disposition Time: 19:58 Condition: FAIR Additional Instructions: Return if not better in 3 days. Prescriptions: predniSONE [predniSONE Tab] 20 mg PO DAILY 5 Days Instructions: Chronic Pain (ED)
[2017-01-11] MEDS ORDERED: Oxycodone/Acetaminophen 5/325 mg Tab PO ONE (19:39)
[2017-01-11] MEDS ORDERED: Oxycodone/Acetaminophen 5/325 mg Tab ONE (19:45)
== END 2017-01-11 20:20 | disposition home or self-care (01) ==
LOC: H.ER 18:00
DX: G89.29 Other chronic pain (principal); M79.642 Pain in left hand; M79.641 Pain in right hand

== ENCOUNTER 2017-01-26 18:37 | Emergency (ER) | payer OTHER ==
[2017-01-26 18:37] VITALS: BMI 27.4
[2017-01-26 18:58] VITALS: TEMP 98.3; O2SAT 100
[2017-01-26 19:58] LABS: BASO # 0.1 K/uL (0.0-0.2); BASO % 0.5 % (0.0-2.0); EOS # 0.1 K/uL (0.0-0.7); HEMATOCRIT 39.7 % (34.0-47.0); LYMPH # 3.2 K/uL (1.0-4.3); LYMPH % 27.9 % (20.0-40.0); MEAN CELL VOLUME 88.4 fl (81.0-99.0); MEAN CORPUSCULAR HEMOGLOBIN 28.9 pg (27.0-31.0); MEAN CORPUSCULAR HGB CONC 32.7 g/dL (33.0-37.0); MEAN PLATELET VOLUME 7.2 fl (7.2-11.7); MONO # 0.8 K/uL (0.0-0.8); MONO % 7.1 % (0.0-10.0); NEUT # 7.3 K/uL (1.8-7.0); NEUT % 63.5 % (50.0-75.0); RED CELL DISTRIBUTION WIDTH 13.9 % (11.5-14.5); WHITE BLOOD COUNT 11.4 K/uL (4.8-10.8)
[2017-01-26 20:08] LABS: ALB/GLOB RATIO 1.2 (1.0-2.1); ALKALINE PHOSPHATASE 68 U/L (38-126); ALT/SGPT 27 U/L (9-52); AST/SGOT 35 U/L (14-36); BILIRUBIN,TOTAL 0.8 mg/dl (0.2-1.3); BLOOD UREA NITROGEN 24 mg/dl (7-17); CALCIUM 9.7 mg/dL (8.4-10.2); CARBON DIOXIDE 25 mmol/L (22-30); CHLORIDE 106 mmol/L (98-107); GFR AFRICAN-AMERICAN > 60; GLUCOSE,RANDOM 85 mg/dL (65-105); LIPASE 43 U/L (23-300); POTASSIUM 4.4 MMOL/L (3.6-5.0); SODIUM 141 mmol/l (132-148); TOTAL PROTEIN 8.5 G/DL (6.3-8.2)
--- NOTE | 2017-01-26 21:37 | ED PDOC ---
HPI: Chest Pain Time Seen by Provider: 01/26/17 19:15 Chief Complaint (Nursing): Chest Pain Chief Complaint (Provider): Chest Pain History Per: Patient History/Exam Limitations: no limitations Onset/Duration Of Symptoms: Days (ongoing for 2 days) Current Symptoms Are (Timing): Constant Severity: Moderate Quality: "Pain" Associated Symptoms: denies: Dyspnea, Syncope, Other (dizziness) Exacerbating Factors: None Nitro Therapy Administered: Per Own Supply, No Relief Additional Complaint(s): Missy Medina is a 46 year old female, with a past medical history of coronary artery disease, who presents to the emergency department for the evaluation of constant, non-exacerbating left-sided chest pain, radiating to her left shoulder, that the patient has been experiencing for 2 days. Patient takes Aspirin and Plavix daily. Nitrostat was taken prior to arrival, but provided no relief, prompting her visit to the emergency room. Denies dizziness , shortness of breath, or syncope. Old chart was reviewed showing that the patient was admit 2 months ago under cardiology who did an extensive workup, inclusive of imaging and a cardiac catheterization. Cardiology believed patient' s symptoms to be somatic in nature and recommended a connective tissue workup. Of note, patient had a coronary stent placed several years ago. PMD: Jenifer Diaz Past Medical History Reviewed: Historical Data, Nursing Documentation, Vital Signs Vital Signs: Last Vital Signs Temp 98.3 F 01/26/17 18:55 Pulse 67 01/26/17 21:10 Resp 16 01/26/17 21:10 BP 118/80 01/26/17 21:10 Pulse Ox 100 01/26/17 21:58 - Medical History PMH: Arthritis, Asthma, Bronchitis, CAD, Crohn's Disease, Fractures (right arm) , Gall Bladder Disease (removed 2002), HTN, Hyperlipidemia, Mitral Valve Prolapse, Pneumonia, Rheumatoid Arthritis Denies: HIV, Chronic Kidney Disease - Surgical History Surgical History: Appendectomy (at 8 years old), Cholecystectomy (2002), Coronary Stent (x1; Left circumflex (January 2016)), Tonsillectomy ("at young age") , (x1) Denies: Pacemaker - Family History Family History: States: No Known Family Hx - Living Arrangements Living Arrangements: With Family - Social History Current smoker - smoking cessation education provided: No - Immunization History Hx Tetanus Toxoid Vaccination: No Hx Influenza Vaccination: Yes Hx Pneumococcal Vaccination: No - Home Medications Home Medications: Ambulatory Orders Medication Instructions Recorded Aspirin [Ecotrin] 81 mg PO DAILY 01/28/17 Clopidogrel [Plavix] 75 mg PO DAILY 01/28/17 Nitroglycerin [Nitrostat] 0.4 mg SL Q5MIN PRN 01/28/17 DULoxetine [Cymbalta] 30 mg PO HS #30 ecc 02/01/17 Gabapentin [Neurontin] 600 mg PO TID #30 tablet 02/01/17 traMADol [Ultram] 50 mg PO Q6 PRN #30 tab 02/01/17 - Allergies Allergies/Adverse Reactions: Allergies Allergy/AdvReac Type Severity Reaction Status Date / Time ceftriaxone Allergy RASH Verified 01/11/17 18:03 Iodine and Iodide Containing Allergy SHORTNESS Verified 01/11/17 18:03 Produc OF BREATH iohexol [From Omnipaque] AdvReac SWELLING Verified 01/11/17 18:03 Review of Systems ROS Statement: Except As Marked, All Systems Reviewed And Found Negative Cardiovascular: Positive for: Chest Pain (L-sided) Respiratory: Negative for: Shortness of Breath Musculoskeletal: Positive for: Shoulder Pain (L) Neurological: Negative for: Dizziness, Other (syncope) Physical Exam - Reviewed Nursing Documentation Reviewed: Yes Vital Signs Reviewed: Yes - Physical Exam Appears: Positive for: Non-toxic, No Acute Distress Head Exam: Positive for: ATRAUMATIC, NORMOCEPHALIC Skin: Positive for: Normal Color, Warm, Dry Eye Exam: Positive for: Normal appearance, EOMI, PERRL Neck: Positive for: Normal, Painless ROM, Supple Cardiovascular/Chest: Positive for: Regular Rate, Rhythm. Negative for: Chest Non Tender (reproducible, left-sided chest wall tenderness), Edema, Murmur Respiratory: Positive for: Normal Breath Sounds. Negative for: Respiratory Distress Gastrointestinal/Abdominal: Positive for: Normal Exam, Soft. Negative for: Tenderness Back: Positive for: Normal Inspection. Negative for: L CVA Tenderness, R CVA Tenderness Extremity: Positive for: Normal ROM, Tenderness (reproducible left shoulder tenderness). Negative for: Swelling Neurologic/Psych: Positive for: Alert, Oriented, Mood/Affect (anxious affect and appearance) - Laboratory Results Result Diagrams: 01/26/17 19:52 01/26/17 19:52 - ECG O2 Sat by Pulse Oximetry: 100 (RA) Pulse Ox Interpretation: Normal - Radiology X-Ray: Interpreted by Me, Viewed By Me, Read By Radiologist X-Ray Interpretation: No Acute Disease Nexus Criteria: Negative Medical Decision Making Medical Decision Makin:15 Initial Impression: * Chest X-Ray * Left Shoulder X-Ray * Complete Blood Count * Comprehensive Metabolic Panel * Lipase * Troponin I * Morphine 2 mg IV * Reevaluation 19:45 Troponin I came back negative. Chest x-ray reviewed by provider, which came back with unremarkable results. 2 milligrams of Morphine provided the patient with significant improvement. 21:02 Patient is choosing to sign out against medical advice. I have personally explained to the patient that this may result in worsening of current condition and the inability to exclude other diagnoses. Patient has verbalized understanding of these risks and still wishes to refuse further testing and sign out AMA. The patient is alert, oriented, and shows the mental capacity to make clear decisions regarding her health at this time. In light of her decision to sign out AMA, the patient was urged to follow up with their PMD or clinic [facility]. Patient has been advised that they should return to the emergency department immediately if her condition begins to change or worsen in any way. Scribe Attestation: Documented by Fer Purdy, acting as a scribe for Ronald Marie III, MD. Provider Scribe Attestation: All medical record entries made by the Scribe were at my direction and personally dictated by me. I have reviewed the chart and agree that the record accurately reflects my personal performance of the history, physical exam, medical decision making, and the department course for this patient. I have also personally directed, reviewed, and agree with the discharge instructions and disposition. Disposition - Clinical Impression Clinical Impression: Chest pain, Left against medical advice - Patient ED Disposition Is Patient to be Admitted: No Counseled Patient/Family Regarding: Studies Performed, Diagnosis, Need For Followup - Disposition Disposition: Against Medical Advice Disposition Time: 21:00 Condition: STABLE
[2017-01-26 21:43] VITALS: BP 118/80; PULSE 67; RESP 16
--- NOTE | 2017-01-27 11:00 | RAD ---
HISTORY: SOB COMPARISON: Comparison chest 12/01/2016 TECHNIQUE: Chest PA and lateral FINDINGS: LUNGS: No acute consolidation. . Vague nodular density seen right upper lobe between the right posterior 4th and 5th ribs. This most likely represents summation of shadow artifact (as this was not visualized on chest radiograph 12/01/2016) however the possibility of a small parenchymal nodule should be excluded. Followup nonemergent CT scan of the chest recommended. PLEURA: No significant pleural effusion identified. No pneumothorax apparent. CARDIOVASCULAR: Heart size is upper limits of normal. OSSEOUS STRUCTURES: Minor multilevel degenerative spondylosis of the thoracic spine. VISUALIZED UPPER ABDOMEN: Normal. OTHER FINDINGS: None. IMPRESSION: No acute consolidation. . Vague nodular density seen right upper lobe between the right posterior 4th and 5th ribs. This could represent summation of shadow artifact however the possibility of a small parenchymal nodule should be excluded. Followup nonemergent CT scan of the chest recommended. Note that this report was placed in PA review folder for followup.
--- NOTE | 2017-01-27 13:16 | RAD ---
PROCEDURE: Radiographs of the Left Shoulder HISTORY: L shoulder pain COMPARISON: No prior. FINDINGS: BONES: Normal. No fracture. JOINTS: Normal. Glenohumeral and acromioclavicular joints preserved. No osteoarthritis. SOFT TISSUES: Normal. OTHER FINDINGS: None. IMPRESSION: Normal radiographs of the left shoulder.
--- NOTE | 2017-01-28 18:56 | CARD ---
APPROVED REPORT EKG Measurement Heart [id number] <Conclusion> Normal sinus rhythm Cannot rule out Anterior infarct, age undetermined Abnormal ECG
== END 2017-01-26 21:45 | disposition left against medical advice (07) ==
LOC: H.ER 18:37 → H.ERHOLD 21:02 → UNDOADMOB 21:02 → UNDODISOB 21:43
DX: R07.9 Chest pain, unspecified (principal)

== ENCOUNTER 2017-01-28 14:20 | Inpatient (IN) | payer OTHER ==
[2017-01-28 14:20] VITALS: BMI 27.4
--- NOTE | 2017-01-28 15:26 | RAD ---
HISTORY: Chest pressure COMPARISON: Comparison is made to 01/26/2017 FINDINGS: LUNGS: No active pulmonary disease. PLEURA: No significant pleural effusion identified, no pneumothorax apparent. CARDIOVASCULAR: Normal. OSSEOUS STRUCTURES: No significant abnormalities. VISUALIZED UPPER ABDOMEN: Normal. OTHER FINDINGS: None. IMPRESSION: No active disease.
[2017-01-28 15:54] LABS: HEMATOCRIT 39.9 % (34.0-47.0); MEAN CELL VOLUME 89.3 fl (81.0-99.0); MEAN CORPUSCULAR HEMOGLOBIN 29.2 pg (27.0-31.0); MEAN CORPUSCULAR HGB CONC 32.7 g/dL (33.0-37.0); RED CELL DISTRIBUTION WIDTH 14.1 % (11.5-14.5); WHITE BLOOD COUNT 11.8 K/uL (4.8-10.8)
[2017-01-28 16:05] LABS: ALB/GLOB RATIO 1.2 (1.0-2.1); ALKALINE PHOSPHATASE 59 U/L (38-126); ALT/SGPT 26 U/L (9-52); AST/SGOT 38 U/L (14-36); BLOOD UREA NITROGEN 22 mg/dl (7-17); CALCIUM 9.3 mg/dL (8.4-10.2); CARBON DIOXIDE 24 mmol/L (22-30); CHLORIDE 104 mmol/L (98-107); GFR AFRICAN-AMERICAN > 60; GLUCOSE,RANDOM 130 mg/dL (65-105); SODIUM 142 mmol/l (132-148); TOTAL PROTEIN 8.6 G/DL (6.3-8.2)
[2017-01-28 16:20] LABS: POTASSIUM 4.1 MMOL/L (3.6-5.0)
--- NOTE | 2017-01-28 17:57 | ED PDOC ---
HPI: Chest Pain Time Seen by Provider: 01/28/17 14:36 Chief Complaint (Nursing): Chest Pain Chief Complaint (Provider): Left sided chest pain x 4 days History Per: Patient History/Exam Limitations: no limitations Onset/Duration Of Symptoms: Days Current Symptoms Are (Timing): Still Present Severity: Severe Pain Scale Rating Of: 10 Front/Back of Body, Lg (Color): 1 - Pain, burning Quality: Sharp, Burning Associated Symptoms: denies: Nausea, Dyspnea, Diaphoresis, Syncope Modifying Factors: None Exacerbating Factors: Movement Additional Complaint(s): Pt was seen in ER 2 days ago and left AMA. Pt states she was unable to stay because she was with her son. Pt states the pain continued the lsat 2 days and she has been taking motrin at home but it is not helping. Denies similar in the past. Past Medical History Reviewed: Historical Data, Nursing Documentation, Vital Signs Vital Signs: Last Vital Signs Temp 98.4 F 01/28/17 14:35 Pulse 82 01/28/17 15:01 Resp 19 01/28/17 14:35 BP 118/64 01/28/17 14:35 Pulse Ox 100 01/28/17 17:58 - Medical History PMH: Arthritis, Asthma, Bronchitis, CAD, Crohn's Disease, Fractures (right arm) , Gall Bladder Disease (removed 2002), HTN, Hyperlipidemia, Mitral Valve Prolapse, Pneumonia, Rheumatoid Arthritis Denies: HIV, Chronic Kidney Disease - Surgical History Surgical History: Appendectomy (at 8 years old), Cholecystectomy (2002), Coronary Stent (x1; Left circumflex (January 2016)), Tonsillectomy ("at young age") , (x1) Denies: Pacemaker - Family History Family History: States: Unknown Family Hx - Immunization History Hx Tetanus Toxoid Vaccination: No Hx Influenza Vaccination: Yes Hx Pneumococcal Vaccination: No - Home Medications Home Medications: Ambulatory Orders Medication Instructions Recorded Aspirin [Ecotrin] 81 mg PO DAILY #0 tabec 06/25/16 Clopidogrel [Plavix] 75 mg PO DAILY #0 tab 06/25/16 Albuterol 0.083% [Albuterol 0.083% 1 inh INH PRN PRN 08/31/16 Inhal Orin (2.5 mg/3 ml) UD] Albuterol HFA [Ventolin HFA 90 2 puff IH PRN PRN #1 inhaler 09/02/16 mcg/actuation (8 g)] Prednisone [Deltasone] 5 mg PO DAILY 10/29/16 Nitroglycerin 0.4 mg SL Q5MIN PRN 11/02/16 predniSONE [predniSONE Tab] 20 mg PO DAILY 5 Days 01/11/17 - Allergies Allergies/Adverse Reactions: Allergies Allergy/AdvReac Type Severity Reaction Status Date / Time ceftriaxone Allergy RASH Verified 01/11/17 18:03 Iodine and Iodide Containing Allergy SHORTNESS Verified 01/11/17 18:03 Produc OF BREATH iohexol [From Omnipaque] AdvReac SWELLING Verified 01/11/17 18:03 Review of Systems ROS Statement: Except As Marked, All Systems Reviewed And Found Negative Constitutional: Negative for: Fever, Chills Cardiovascular: Positive for: Chest Pain Physical Exam - Reviewed Nursing Documentation Reviewed: Yes Vital Signs Reviewed: Yes - Physical Exam Appears: Positive for: Well, Non-toxic, No Acute Distress Head Exam: Positive for: ATRAUMATIC, NORMAL INSPECTION, NORMOCEPHALIC Skin: Positive for: Normal Color, Warm, DRY Eye Exam: Positive for: Normal appearance, PERRL ENT: Positive for: Normal ENT Inspection Neck: Positive for: Normal, Painless ROM Cardiovascular/Chest: Positive for: Regular Rate, Rhythm, Murmur Respiratory: Positive for: CNT, Normal Breath Sounds Gastrointestinal/Abdominal: Positive for: Normal Exam, Bowel Sounds, Soft Back: Positive for: Normal Inspection Extremity: Positive for: Normal ROM Neurologic/Psych: Positive for: Alert, Oriented - Laboratory Results Result Diagrams: 01/28/17 15:25 01/28/17 15:25 - ECG O2 Sat by Pulse Oximetry: 100 Pulse Ox Interpretation: Normal Medical Decision Making Medical Decision Making: On re-evaluation pt reports pain going down the left arm with swelling. No fever /chills. Admission for chest pain - Telemetry Disposition - Clinical Impression Clinical Impression: Chest pain at rest, Left arm swelling - Patient ED Disposition Is Patient to be Admitted: Yes - Disposition Disposition Time: 17:59 Condition: GOOD - Pt Status Changed To: Hospital Disposition Of: Inpatient - Admit Certification Admit to Inpatient:: After my assessment, the patient will require hospitalization for at least two midnights. This is because of the severity of symptoms shown, intensity of services needed, and/or the medical risk in this patient being treated as an outpatient. - POA Present On Arrival: None
--- NOTE | 2017-01-28 18:56 | CP.PCM.HP ---
History of Present Illness - History of Present Illness History of Present Illness: This is a 46 yo female with pmhx of rheumatic fever, CAD s/p LCA stent placement (Jan, 2016) presents to ED for sudden onset, left sternal border throbbing, 8/10 chest pain; radiating to left shoulder/arm for past couple of days has been taking motrin with temporary relief. Patient reports chest pain similar to previous chest pain, when patient required catheterization. Not association with food. Pt was seen and evaluated in [facility] ED two nights ago with same complaints, and left AMA when told she was being admitted because she had to take her son to his concert for school the next morning. Pt is presenting today with the same complaints, pt has had a lot of Ed visits with same complaint and have had thorough cardiac work up. Today at ED during the evaluation for inpatient admission, pt left arm appears to be swollen compared to the right arm, made ED PA aware to order duplex of upper extremity to rule out DVT. Otherwise patient denies nausea, vomiting, fever, chills,dizziness, weakness, numbness, palpitations, headache. Denies cough, runny nose, sore throat, diarrhea, constipation. Denies recent travel hx or sick contact. . 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: Dr Biggs Allergy: ceftriaxone, iodine (hives) PMHx: as above SHx: appendectomy (1980), cholecystectomy (2002), tonsillectomy, total hysterectomy (2014), Stent placement (2015) SocHx: drinks wine socially; former social smoker, 2 cigarettes with wine for 22 yrs; denies illicit drug use; unemployed, lives with her son FHx: father, CAD, Present on Admission - Present on Admission Any Indicators Present on Admission: No Review of Systems - Review of Systems All systems: reviewed and no additional remarkable complaints except Review of Systems: per HPI Past Patient History - Infectious Disease Hx of Infectious Diseases: None - Tetanus Immunizations Tetanus Immunization: Unknown - Past Medical History & Family History Past Medical History?: Yes - Past Social History Smoking Status: Never Smoked - CARDIAC Hx Hypertension: Yes Hx Mitral Valve Prolapse: Yes Hx Pacemaker: No - PULMONARY Hx Asthma: Yes Hx Bronchitis: Yes Hx Pneumonia: Yes - NEUROLOGICAL Hx Dizziness: Yes - HEENT Hx HEENT Problems: No - RENAL Hx Chronic Kidney Disease: No - ENDOCRINE/METABOLIC Hx Endocrine Disorders: No - HEMATOLOGICAL/ONCOLOGICAL Hx Human Immunodeficiency Virus (HIV): No - INTEGUMENTARY Hx Dermatological Problems: No - MUSCULOSKELETAL/RHEUMATOLOGICAL Hx Arthritis: Yes Hx Fractures: Yes (right arm) Hx Rheumatoid Arthritis: Yes - GASTROINTESTINAL Hx Crohn's Disease: Yes Hx Gall Bladder Disease: Yes (removed 2002) - GENITOURINARY/GYNECOLOGICAL Hx Genitourinary Disorders: Yes (Ovarian cysts, PID, Hysterectomy) - PSYCHIATRIC Hx Psychophysiologic Disorder: No Hx Substance Use: No - SURGICAL HISTORY Hx Appendectomy: Yes (at 8 years old) Hx Cholecystectomy: Yes (2002) Hx Coronary Stent: Yes (x1; Left circumflex (January 2016)) Hx Tonsillectomy: Yes ("at young age") - ANESTHESIA Hx Anesthesia: Yes Hx Anesthesia Reactions: No Hx Malignant Hyperthermia: No Meds Allergies/Adverse Reactions: Allergies Allergy/AdvReac Type Severity Reaction Status Date / Time ceftriaxone Allergy RASH Verified 01/11/17 18:03 Iodine and Iodide Containing Allergy SHORTNESS Verified 01/11/17 18:03 Produc OF BREATH iohexol [From Omnipaque] AdvReac SWELLING Verified 01/11/17 18:03 Results - Vital Signs Recent Vital Signs: Last Vital Signs Temp 98.3 F 01/28/17 18:52 Pulse 78 01/28/17 18:52 Resp 18 01/28/17 18:52 BP 118/66 01/28/17 18:52 Pulse Ox 99 01/28/17 18:52 - Labs Result Diagrams: 01/28/17 15:25 01/28/17 15:25 Assessment & Plan - Assessment and Plan (Free Text) Assessment: This is a 45 yo female with pmhx of rheumatic fever, CAD s/p LCA stent placement will be admitted to telemetry for chest pain. Plan: Plan: 1)Chest pain, r/o ACS -stable -admit to telemetry -heart healthy diet -vitals -reviewed labs: troponin x 1 neg; slight elevation of BUN [22] -reviewed myocardial perfusion report [02/09/16]: there is reversible defect noted in the mid anterior wall and apical wall suggestive of ischemia; left ventricle systolic function is normal; ef 60-65% -reviewed RL [01/06/16]: normal left atrium, left ventricle; ef 50%; no vegetations, no pfos; moderate mitral and tricuspid regurgitation; mild to moderate aortic regurgitation; no thrombus, mildly atherosclerotic aorta -morphine prn for pain -c/w aspirin and plavix -f/u troponin x2 -Off note: last cardiology note on pt recommends a connective tissue work up, pt cardiology believe pt's symptoms to be somatic in nature and not cardiac 2) Left Arm Swelling f/u DVT of upper extremity Morphine 4mg Q6hrs for pain 8-10 Toradol Q6hrs for pain 4-7 3)CAD, s/p stent LCA in 01/18 -reviewed myocardial perfusion scan, RL, catheterization reports -c/w ASA, plavix 4)Prophylactic measures: -DVT: lovenox 40mg SC -GI; not indicated Diet- Heart Healthy
--- NOTE | 2017-01-28 19:56 | US ---
EXAM: US Duplex Left Upper Extremity Veins CLINICAL HISTORY: 46 years old, female; Signs and symptoms; Swelling of limb; Upper extremity, left; Additional info: Pain, swelling TECHNIQUE: Real-time ultrasound scan of the veins of the left upper extremity with color Doppler flow, spectral waveform analysis and compression. EXAM DATE/TIME: 01/28/2017 6:13 PM COMPARISON: There are no prior studies for comparison. FINDINGS: Deep veins: Jugular, subclavian, axillary, brachial, ulnar and radial veins were examined. Superficial veins: Cephalic and antecubital veins were also imaged. The basilic vein could not be identified. All veins examined are compressible. There are no intraluminal filling defects. There is expected blood flow on Doppler imaging. There is change in waveform with augmentation. Soft tissues: There is a heterogeneous collection in the left antecubital fossa. This measures approximately 2.7 x 0.9 x 2.4 cm Impression: No deep venous thrombosis in the visualized vascular segments of the lower extremity; complex collection in the left antecubital fossa
[2017-01-29] MEDS: Clindamycin 300 MG in Sodium Chloride 0.9% 100 ML IVPB SCH ×3 (01:02→16:21)
[2017-01-29] MEDS: Enoxaparin 40 mg Syringe SC SCH (08:26)
--- NOTE | 2017-01-29 11:41 | RAD ---
PROCEDURE: Left elbow dated 01/29/2017 HISTORY: elbow pain and swelling COMPARISON: . No prior study available for comparison however correlation made with radiographs right elbow 01/08/2012. TECHNIQUE: Three standard views of the left elbow performed FINDINGS: Current study reveals no definitive radiographic evidence of acute displaced fracture nor dislocation. Them appears to be small joint effusion with dorsal soft tissue swelling. Rule out posttraumatic soft tissue swelling however the possibility of a posttraumatic or nonspecific inflammatory - infectious olecranon bursitis should be excluded. Consider followup MRI if further evaluation is required IMPRESSION: No definitive radiographic evidence of acute displaced fracture nor dislocation. Them appears to be small joint effusion with dorsal soft tissue swelling. Rule out posttraumatic soft tissue swelling however the possibility of a posttraumatic or nonspecific inflammatory - infectious olecranon bursitis should be excluded. Consider followup MRI if further evaluation is required Note that the this report was placed in PA review folder followup
--- NOTE | 2017-01-29 13:37 | CP.PCM.PN ---
Subjective - Date & Time of Evaluation Date of Evaluation: 01/29/17 Time of Evaluation: 10:15 - Subjective Subjective: Patient seen and examined at bedside, in acute pain in left upper chest, armpit radiated to left arm. Afebrile, + redeness localized in left elbow. Patient states that this pain is different to prior episodes of chest pain that she had in the past. Troponin x 3 negatives. Denies: recent fall, recent viral infection, palpitations, dizziness, SOB. Patient described pain as burning associated numbness and swollen in left arm. Objective - Vital Signs/Intake and Output Vital Signs (last 24 hours): Temp Pulse Resp BP Pulse Ox 98.3 F 70 18 98/60 L 95 01/29/17 12:37 01/29/17 12:37 01/29/17 12:37 01/29/17 12:37 01/29/17 12:37 - Medications Medications: Current Medications Aspirin (Ecotrin) 81 mg PO DAILY [facility] [place] Last Admin: 01/29/17 08:26 Dose: 81 mg Clopidogrel Bisulfate (Plavix) 75 mg PO DAILY [facility] Last Admin: 01/29/17 08:26 Dose: 75 mg Enoxaparin Sodium (Lovenox) 40 mg SC DAILY [facility] PRN Reason: Protocol Last Admin: 01/29/17 08:26 Dose: 40 mg Clindamycin Phosphate 300 mg/ (Sodium Chloride) 102 mls @ 102 mls/hr IVPB Q8 [facility] Last Admin: 01/29/17 08:25 Dose: 102 mls/hr Ketorolac Tromethamine (Toradol) 30 mg IVP Q6 PRN PRN Reason: Pain, moderate (4-7) Last Admin: 01/29/17 08:24 Dose: 30 mg Morphine Sulfate (Morphine) 4 mg IVP Q4 PRN PRN Reason: Pain, severe (8-10) Nitroglycerin (Nitrostat Sl Tab) 0.4 mg SL Q5MIN PRN PRN Reason: chest pain - Constitutional Appears: In Acute Distress (secondary to pain in left upper chest, armpit, arm) - Head Exam Head Exam: ATRAUMATIC, NORMOCEPHALIC - Eye Exam Eye Exam: PERRL - ENT Exam ENT Exam: Mucous Membranes Moist - Neck Exam Neck Exam: Full ROM - Respiratory Exam Respiratory Exam: NORMAL BREATHING PATTERN. absent: Rhonchi, Wheezes - Cardiovascular Exam Cardiovascular Exam: RRR, +S1, +S2. absent: JVD - GI/Abdominal Exam GI & Abdominal Exam: Soft, Normal Bowel Sounds. absent: Tenderness - Extremities Exam Additional comments: left elbow: + erythema, swelling, warmth, ROM limited due to pain. - Neurological Exam Neurological Exam: Alert, Oriented x3 - Skin Skin Exam: Erythema (left elbow) Assessment and Plan - Assessment and Plan (Free Text) Plan: 46 yo F admitted with chest pain and left arm pain. Chest pain etiology likely MSK ACS ruled out ( Troponin x3 negatives) pain management: Morphine/toradol. will transfer pt to Med/Surg. Left arm pain limited ROM due to gregory Doppler: negative for DVT ( No deep venous thrombosis in the visualized vascular segments of the lower extremity; complex collection in the left antecubital fossa) likely neuropathy pain will consult Neuro for futrher evaluation. Left elbow swelling etiology: skin abscess/cellulitis vs Joint ( septic/inflammatory arthritis). left elbow X-ray: No definitive radiographic evidence of acute displaced fracture nor dislocation. Them appears to be small joint effusion with dorsal soft tissue swelling. Rule out posttraumatic soft tissue swelling however the possibility of a posttraumatic or nonspecific inflammatory - infectious olecranon bursitis should be excluded. Consider followup MRI if further eval. Ortho Consult: Dr. Almeida, input appreciated. Clindamycin 300 mg IV q 8 hrs. NSAIDs (Toradol 30 mg IV q 8hrs) Labs: ESR: mildly increased (34), mild leukocytosis, uric acid WNL F/U CRP, lyme serology continue to monitor. 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 -c/w ASA, plavix DVT prophylaxis SCD Lovenox 40 mg SC daily
[2017-01-29] MEDS: Saccharomyces Boulardi 250 mg Cap PO SCH (16:21)
--- NOTE | 2017-01-29 21:04 | CP.PCM.CON ---
History of Present Illness - History of Present Illness History of Present Illness: Mrs. Medina is a 46-year-old woman with a past medical history of rheumatic fever, CAD (s/p stent placement), who initially presented to the ED complaining of left sided chest pain. 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 She states that her joints are painful and swollen and she has developed deviation of her fingers. At times, the hands become cold and turn dark blue colored. She has a rash on her face that becomes erythematous. She has a skin rash on her hands, where the skin cracks and this had responded to a steroid taper in the past. She also complains of neck pain on the left side and states that the pain radiates down the left shoulder and arm region. She denies headaches, visual changes, nausea, vertigo, vomiting, weakness other than described. She does admit to sensory changes in her upper and lower extremity on the left side. Review of Systems - Review of Systems All systems: reviewed and no additional remarkable complaints except Past Patient History - Infectious Disease Hx of Infectious Diseases: None - Tetanus Immunizations Tetanus Immunization: Unknown - Past Medical History & Family History Past Medical History?: Yes - Past Social History Smoking Status: Never Smoked - CARDIAC Hx Hypertension: Yes Hx Mitral Valve Prolapse: Yes Hx Pacemaker: No - PULMONARY Hx Asthma: Yes Hx Bronchitis: Yes Hx Pneumonia: Yes - NEUROLOGICAL Hx Neurological Disorder: No - HEENT Hx HEENT Problems: No - RENAL Hx Chronic Kidney Disease: No - ENDOCRINE/METABOLIC Hx Endocrine Disorders: No - HEMATOLOGICAL/ONCOLOGICAL Hx Blood Disorders: No Hx AIDS: No Hx Human Immunodeficiency Virus (HIV): No - INTEGUMENTARY Hx Dermatological Problems: No - MUSCULOSKELETAL/RHEUMATOLOGICAL Hx Arthritis: Yes Hx Falls: No Hx Fractures: Yes (right arm) Hx Rheumatoid Arthritis: Yes - GASTROINTESTINAL Hx Crohn's Disease: Yes Hx Gall Bladder Disease: Yes (removed 2002) - GENITOURINARY/GYNECOLOGICAL Hx Genitourinary Disorders: Yes (Ovarian cysts, Hysterectomy) - PSYCHIATRIC Hx Psychophysiologic Disorder: No Hx Substance Use: No - SURGICAL HISTORY Hx Appendectomy: Yes (at 8 years old) Hx Cholecystectomy: Yes (2002) Hx Coronary Stent: Yes (x1; Left circumflex (January 2016)) Hx Tonsillectomy: Yes ("at young age") - ANESTHESIA Hx Anesthesia: Yes Hx Anesthesia Reactions: No Hx Malignant Hyperthermia: No Meds Allergies/Adverse Reactions: Allergies Allergy/AdvReac Type Severity Reaction Status Date / Time ceftriaxone Allergy RASH Verified 01/11/17 18:03 Iodine and Iodide Containing Allergy SHORTNESS Verified 01/11/17 18:03 Produc OF BREATH iohexol [From Omnipaque] AdvReac SWELLING Verified 01/11/17 18:03 - Medications Medications: Current Medications Aspirin (Ecotrin) 81 mg PO DAILY [facility] Last Admin: 01/29/17 08:26 Dose: 81 mg Clopidogrel Bisulfate (Plavix) 75 mg PO DAILY [facility] Last Admin: 01/29/17 08:26 Dose: 75 mg Enoxaparin Sodium (Lovenox) 40 mg SC DAILY [facility] PRN Reason: Protocol Last Admin: 01/29/17 08:26 Dose: 40 mg Gabapentin (Neurontin) 300 mg PO TID [facility] Clindamycin Phosphate 300 mg/ (Sodium Chloride) 102 mls @ 102 mls/hr IVPB Q8 [facility] Last Admin: 01/29/17 16:21 Dose: 102 mls/hr Ketorolac Tromethamine (Toradol) 30 mg IVP Q8 [facility] Last Admin: 01/29/17 18:02 Dose: 30 mg Morphine Sulfate (Morphine) 4 mg IVP Q4 PRN PRN Reason: Pain, severe (8-10) Last Admin: 01/29/17 16:22 Dose: 4 mg Nitroglycerin (Nitrostat Sl Tab) 0.4 mg SL Q5MIN PRN PRN Reason: chest pain Saccharomyces Boulardii (Florastor) 250 mg PO BID [facility] Last Admin: 01/29/17 16:21 Dose: 250 mg Physical Exam - Constitutional Appears: Well - Head Exam Head Exam: ATRAUMATIC, NORMAL INSPECTION, NORMOCEPHALIC - Eye Exam Eye Exam: EOMI, Normal appearance, PERRL Pupil Exam: NORMAL ACCOMODATION, PERRL - ENT Exam ENT Exam: Mucous Membranes Moist, Normal Exam - Neck Exam Neck exam: Positive for: Tenderness - Respiratory Exam Respiratory Exam: Clear to Auscultation Bilateral, NORMAL BREATHING PATTERN - Cardiovascular Exam Cardiovascular Exam: REGULAR RHYTHM, +S1, +S2 - GI/Abdominal Exam GI & Abdominal Exam: Normal Bowel Sounds, Soft. absent: Tenderness - Rectal Exam Rectal Exam: Deferred - Extremities Exam Additional comments: Bilateral hand Reynauds. Rash at the left elbow region with erythema and underlying edema. Fingers of the left hand are deviated toward the ulnar region. - Back Exam Back exam: NORMAL INSPECTION - Neurological Exam Neurological exam: Alert, CN II-XII Intact, Normal Gait, Oriented x3 - Expanded Neurological Exam Expanded Patient oriented to: person, place, time Cranial nerves: EOM's Intact: Normal, Facial Sensation: Normal Cerebellar Function: Finger to Nose: Normal, Heel to Miller: Normal Upper motor neuron: Babinski Sign: Normal Sensory exam: Lower Extremity 2 Point Discrimination: Abnormal Left, Lower Extremity Light Touch: Abnormal Left, Lower Extremity Pin Prick: Abnormal Left, Lower Extremity Temperature: Abnormal Left, Upper Extremity 2 Point Discrimination: Abnormal Left, Upper Extremity Light Touch: Abnormal Left, Upper Extremity Pin Prick: Abnormal Left, Upper Extremity Temperature: Abnormal Left Neuro motor strength exam: Left Upper Extremity: 4, Right Upper Extremity: 5, Left Lower Extremity: 5, Right Lower Extremity: 5 DTR: Achilles Tendon Left: 3+, Achilles Tendon Right: 2+, Bicep Left: 3+, Bicep Right: 2+, Brachioradialis Left: 3+, Brachioradialis Right: 2+, Patellar Left: 3 +, Patellar Right: 2+, Tricep Left: 3+, Tricep Right: 2+ - Psychiatric Exam Psychiatric exam: Normal Affect, Normal Mood - Skin Skin Exam: Erythema, Petechiae, Rash, Warm Results - Vital Signs Recent Vital Signs: Last Vital Signs Temp 98.3 F 01/29/17 18:50 Pulse 81 01/29/17 18:50 Resp 20 01/29/17 18:50 BP 109/71 01/29/17 18:50 Pulse Ox 96 01/29/17 18:50 - Labs Result Diagrams: 01/28/17 15:25 01/28/17 15:25 Assessment & Plan (1) Left-sided weakness Assessment and Plan: The weakness on the left side seems to be related to the painful joints and swelling. However, the pain she describes is also neuropathic and she seems to have hyper-reflexia on the left side. I recommend gabapentin for the pain at 300 mg TID. For evaluation, an MRI of the brain and neck with and without contrast is recommended. Furthermore, the patient should be worked up for auto- immune disease and possible infectious etiology. Thank you for this consultation. Status: Acute Priority: High
[2017-01-29 22:29] LABS: RBC URINE 9 /hpf (0-3); URINE BILIRUBIN SMALL (NEGATIVE); URINE BLOOD NEGATIVE (NEGATIVE); URINE COLOR YELLOW (YELLOW); URINE GLUCOSE (UA) NEG (Normal); URINE KETONE NEGATIVE (NEGATIVE); URINE LEUKOCYTE ESTERASE NEG Leu/uL (Negative); URINE PROTEIN 30 mg/dL (NEGATIVE); WBC CLUMPS MANY /hpf; WBC URINE 190 /hpf (0-5)
[2017-01-30] MEDS: Clindamycin 300 MG in Sodium Chloride 0.9% 100 ML IVPB SCH ×3 (00:03→17:48)
[2017-01-30] MEDS ORDERED: Sodium Chloride 0.9% 0 ML IV ONE (09:16)
[2017-01-30] MEDS ORDERED: Gadodiamide 287 MG/ML VIAL (15ML) IV ONE (09:16)
[2017-01-30] MEDS: Saccharomyces Boulardi 250 mg Cap PO SCH ×2 (10:12→17:04)
[2017-01-30] MEDS: Enoxaparin 40 mg Syringe SC SCH (12:12)
--- NOTE | 2017-01-30 12:45 | MRI ---
PROCEDURE: MRI brain dated 01/22/2017 HISTORY: Headache, left arm swelling COMPARISON: Comparison made with CT scan brain dated 12/01/2016 TECHNIQUE: Multiplanar, multisequence MR images of the brain were obtained without intravenous contrast enhancement. FINDINGS: HEMORRHAGE: No acute parenchymal, subarachnoid or extra-axial hemorrhage. The no hemosiderin deposition identified on gradient echo weighted sequence. DWI: No evidence of an acute or early subacute infarction diffusion-weighted imaging. . BRAIN PARENCHYMA: No mass effect or edema. No atrophy or chronic microvascular ischemic changes. VENTRICLES: Ventricular and sulcal size are within range of normal for this patient's stated age. Oropeza oropeza oropzea CRANIUM: Unremarkable. ORBITS: Grossly unremarkable. PARANASAL SINUSES/MASTOIDS: Partial opacification of the mastoid air complexes bilaterally consistent with mastoiditis. Clinical correlation recommended. . VASCULAR SYSTEM: Major vascular flow voids at skull base are patent. OTHER FINDINGS: None. IMPRESSION: No acute intracranial hemorrhage or infarct. Partial opacification both mastoid air complexes consistent with mastoiditis. Clinical correlation recommended
--- NOTE | 2017-01-30 13:17 | MRI ---
PROCEDURE: MRI cervical spine 01/30/2017 HISTORY: Shooting pain left arm COMPARISON: No prior TECHNIQUE: Multiecho multiplanar sequences were performed through the cervical spine without the use of intravenous contrast. Study is limited by motion artifact. FINDINGS: Current study reveals no acute compression fractures no retropulsed fragments. The vertebral bodies exhibit normal stature. Vertebral bodies and facets normally aligned. Mild multilevel degenerative spondylosis. At the C2-C3 level, there is mild age related disc desiccation. Disc space height maintained. No disc herniation or significant disc bulge. Facet joints are slightly prominent. Central canal and exit foramina appear adequate. At the C3-C4 level, there is mild disc desiccation. Disc space height maintained. The minor broad-based bulge of the posterior annulus results in some flattening of the ventral surface of the thecal sac however does not cause any significant canal compromise nor cord compression. The facets also slightly prominent left greater than right. Exit foramina are adequate. At the C4-C5 level, there is mild disc desiccation. Disc space height maintained. Minimal broad-based bulge of the posterior annulus on contiguous with slightly overgrown uncovertebral joints. Facets also slightly hypertrophic. Central canal appears adequate. Left exit foramen is adequate. Right exit foramen is marginal to adequate. At the C5-C6 level, there is new disc desiccation. Disc space height maintained. Minor broad-based disc bulge ridge complex contiguous with slightly overgrown uncovertebral joints. Facets are mildly hypertrophic left greater than right. Central canal and exit foramina appear adequate. There are no intrinsic signal changes seen within the visualized spinal cord. Cervicomedullary junction unremarkable. Impression: Minor multilevel degenerative spondylosis without significant canal no foraminal compromise. No evidence of cord significant cord compression.
--- NOTE | 2017-01-30 14:00 | CP.PCM.PN ---
Subjective - Date & Time of Evaluation Date of Evaluation: 01/30/17 Time of Evaluation: 11:15 - Subjective Subjective: Patient seen at bedside, c/o moderate pain at this time in left armpit/arm. She states that she is feeling a little bit better, the redness in left elbow has been significantly improving w/ Clindamycin, but continues with the pain. Afebrile overnight. ROS: Denies: SOB, palpitations, cough, sore throat, abdominal pain, N/V/D. Pt was started on Gabapentin yesterday by Neurologist for neuropathy pain. Autoimmune work up to F/U. Objective - Vital Signs/Intake and Output Vital Signs (last 24 hours): Temp Pulse Resp BP Pulse Ox 97.7 F 66 18 96/57 L 96 01/30/17 07:36 01/30/17 07:36 01/30/17 07:36 01/30/17 07:36 01/30/17 07:36 - Medications Medications: Current Medications Aspirin (Ecotrin) 81 mg PO DAILY [facility] Last Admin: 01/30/17 12:14 Dose: 81 mg Clopidogrel Bisulfate (Plavix) 75 mg PO DAILY [facility] Last Admin: 01/30/17 12:13 Dose: 75 mg Enoxaparin Sodium (Lovenox) 40 mg SC DAILY [facility] PRN Reason: Protocol Last Admin: 01/30/17 12:12 Dose: 40 mg Gabapentin (Neurontin) 300 mg PO TID [facility] Last Admin: 01/30/17 10:13 Dose: 300 mg Clindamycin Phosphate 300 mg/ (Sodium Chloride) 102 mls @ 102 mls/hr IVPB Q8 [facility] Last Admin: 01/30/17 11:06 Dose: 102 mls/hr Ketorolac Tromethamine (Toradol) 30 mg IVP Q8 [facility] Last Admin: 01/30/17 09:14 Dose: 30 mg Morphine Sulfate (Morphine) 4 mg IVP Q4 PRN PRN Reason: Pain, severe (8-10) Last Admin: 01/30/17 13:17 Dose: 4 mg Nitroglycerin (Nitrostat Sl Tab) 0.4 mg SL Q5MIN PRN PRN Reason: chest pain Saccharomyces Boulardii (Florastor) 250 mg PO BID [facility] Last Admin: 01/30/17 10:12 Dose: 250 mg - Additional Findings Additional findings: Constitutional Appears: In Acute Distress (secondary to pain in left upper chest, armpit, arm) - Head Exam Head Exam: ATRAUMATIC, NORMOCEPHALIC - Eye Exam Eye Exam: PERRL - ENT Exam ENT Exam: Mucous Membranes Moist - Neck Exam Neck Exam: Full ROM - Respiratory Exam Respiratory Exam: NORMAL BREATHING PATTERN. absent: Rhonchi, Wheezes - Cardiovascular Exam Cardiovascular Exam: RRR, +S1, +S2. absent: JVD - GI/Abdominal Exam GI & Abdominal Exam: Soft, Normal Bowel Sounds. absent: Tenderness - Extremities Exam Additional comments: left elbow: erythema improved, + swelling, +warmth, ROM limited due to pain. - Neurological Exam Neurological Exam: Alert, Oriented x3 - Skin Skin Exam: Erythema (left elbow) improved Assessment and Plan - Assessment and Plan (Free Text) Plan: 46 yo F admitted with chest pain and left arm pain. Left arm pain etiology unclear, ? brachial plexopathies limited ROM due to pain Doppler: negative for DVT ( No deep venous thrombosis in the visualized vascular segments of the lower extremity; complex collection in the left antecubital fossa) likely neuropathy pain Neuro Dr. Larry on board. Gabapentin 300 mg TID as per Neuro recommendation. will start steroid ( Prednisone 60mg PO daily), d/c toradol Flexeril 10 mg PO HS. F/U labs for autoimmune diseases. Left elbow swelling etiology: skin abscess/cellulitis vs Joint ( septic/inflammatory arthritis). improving with ABx IV left elbow X-ray: No definitive radiographic evidence of acute displaced fracture nor dislocation. Them appears to be small joint effusion with dorsal soft tissue swelling. Rule out posttraumatic soft tissue swelling however the possibility of a posttraumatic or nonspecific inflammatory - infectious olecranon bursitis should be excluded. Consider followup MRI if further eval. Ortho Consult: Dr. Almeida, input appreciated. Clindamycin 300 mg IV q 8 hrs. c/w pain management: Morphine Labs: ESR: mildly increased (34), CRP elevated, mild leukocytosis, uric acid WNL F/U CRP, lyme serology continue to monitor. 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 -c/w ASA, plavix DVT prophylaxis SCD Lovenox 40 mg SC daily
--- NOTE | 2017-01-30 15:37 | CP.PCM.PN ---
Objective - Vital Signs/Intake and Output Vital Signs (last 24 hours): Temp Pulse Resp BP Pulse Ox 97.7 F 66 18 96/57 L 96 01/30/17 07:36 01/30/17 07:36 01/30/17 07:36 01/30/17 07:36 01/30/17 07:36 - Medications Medications: Current Medications Aspirin (Ecotrin) 81 mg PO DAILY [facility] Last Admin: 01/30/17 12:14 Dose: 81 mg Clopidogrel Bisulfate (Plavix) 75 mg PO DAILY [facility] Last Admin: 01/30/17 12:13 Dose: 75 mg Cyclobenzaprine HCl (Flexeril) 10 mg PO [facility] Enoxaparin Sodium (Lovenox) 40 mg SC DAILY [facility] PRN Reason: Protocol Last Admin: 01/30/17 12:12 Dose: 40 mg Gabapentin (Neurontin) 300 mg PO TID [facility] Last Admin: 01/30/17 10:13 Dose: 300 mg Clindamycin Phosphate 300 mg/ (Sodium Chloride) 102 mls @ 102 mls/hr IVPB Q8 [facility] Last Admin: 01/30/17 11:06 Dose: 102 mls/hr Morphine Sulfate (Morphine) 4 mg IVP Q4 PRN PRN Reason: Pain, severe (8-10) Last Admin: 01/30/17 13:17 Dose: 4 mg Nitroglycerin (Nitrostat Sl Tab) 0.4 mg SL Q5MIN PRN PRN Reason: chest pain Prednisone (Prednisone Tab) 60 mg PO DAILY [facility] Saccharomyces Boulardii (Florastor) 250 mg PO BID [facility] Last Admin: 01/30/17 10:12 Dose: 250 mg
--- NOTE | 2017-01-30 17:58 | CP.PCM.PN ---
Subjective - Date & Time of Evaluation Date of Evaluation: 01/30/17 Time of Evaluation: 17:56 - Subjective Subjective: Mrs. Medina was seen and examined today at bedside. She continued to complain of muscular and soft tissue pain in the neck, left chest and arm. I discussed the benign results of the MRI of the brain and neck with her and told her that she definitely does not have MS. Objective - Vital Signs/Intake and Output Vital Signs (last 24 hours): Temp Pulse Resp BP Pulse Ox 97.6 F 67 20 107/68 98 01/30/17 16:39 01/30/17 16:39 01/30/17 16:39 01/30/17 16:39 01/30/17 16:39 - Medications Medications: Current Medications Aspirin (Ecotrin) 81 mg PO DAILY [facility] Last Admin: 01/30/17 12:14 Dose: 81 mg Clopidogrel Bisulfate (Plavix) 75 mg PO DAILY [facility] Last Admin: 01/30/17 12:13 Dose: 75 mg Cyclobenzaprine HCl (Flexeril) [address] [facility] Enoxaparin Sodium (Lovenox) 40 mg SC DAILY [facility] PRN Reason: Protocol Last Admin: 01/30/17 12:12 Dose: 40 mg Gabapentin (Neurontin) 300 mg PO TID [facility] Last Admin: 01/30/17 17:05 Dose: 300 mg Clindamycin Phosphate 300 mg/ (Sodium Chloride) 102 mls @ 102 mls/hr IVPB Q8 [facility] Last Admin: 01/30/17 17:48 Dose: 102 mls/hr Morphine Sulfate (Morphine) 4 mg IVP Q4 PRN PRN Reason: Pain, severe (8-10) Last Admin: 01/30/17 13:17 Dose: 4 mg Nitroglycerin (Nitrostat Sl Tab) 0.4 mg SL Q5MIN PRN PRN Reason: chest pain Prednisone (Prednisone Tab) 60 mg PO DAILY [facility] Saccharomyces Boulardii (Florastor) 250 mg PO BID [facility] Last Admin: 01/30/17 17:04 Dose: 250 mg - Neurological Exam Additional comments: Neurologically unchanged compared with previous examination. Assessment and Plan (1) Left-sided weakness Assessment & Plan: Likely due to the pain she is having, which may be rheumatologic or infectious in origin. No further recommendations from a neurological perspective at this time until the underlying cause is managed. Status: Acute
[2017-01-31 05:15] LABS: RBC URINE 3 /hpf (0-3); URINE BACTERIA RARE (<OCC); URINE BILIRUBIN NEGATIVE (NEGATIVE); URINE BLOOD NEGATIVE (NEGATIVE); URINE COLOR YELLOW (YELLOW); URINE GLUCOSE (UA) NEG (Normal); URINE KETONE NEGATIVE (NEGATIVE); URINE LEUKOCYTE ESTERASE NEG Leu/uL (Negative); URINE PROTEIN NEGATIVE (NEGATIVE); URINE UROBILINOGEN 0.2-1.0 mg/dL (0.2-1.0); WBC URINE < 1 /hpf (0-5)
[2017-01-31 07:24] LABS: HEMATOCRIT 37.8 % (34.0-47.0); MEAN CELL VOLUME 89.2 fl (81.0-99.0); MEAN CORPUSCULAR HEMOGLOBIN 29.5 pg (27.0-31.0); MEAN CORPUSCULAR HGB CONC 33.1 g/dL (33.0-37.0); RED CELL DISTRIBUTION WIDTH 13.6 % (11.5-14.5)
[2017-01-31] MEDS: Clindamycin 300 MG in Sodium Chloride 0.9% 100 ML IVPB SCH ×2 (09:02)
[2017-01-31] MEDS: Saccharomyces Boulardi 250 mg Cap PO SCH ×2 (09:03→16:52)
[2017-01-31] MEDS: Enoxaparin 40 mg Syringe SC SCH (09:03)
[2017-01-31] MEDS: Docusate-Senna 50 mg-8.6 mg Tab PO SCH ×2 (09:05→21:32)
[2017-01-31 15:32] VITALS: RESP 18
--- NOTE | 2017-01-31 16:01 | CP.PCM.PN ---
Subjective - Date & Time of Evaluation Date of Evaluation: 01/31/17 Time of Evaluation: 09:45 - Subjective Subjective: Patient seen and examined at bedside, states that she could not sleep well last night due to the pain. she decribed the pain as burning and pressure localized to left armpit and radiated to left arm and neck/jaw. Afebrile during hospitalization, erythema in elbow improving. Denies: SOB, FERGUSON, abdominal pain, N/V/D. PO diet well tolerated. Yesterday Prednisone was started, as well as flexeril. Objective - Vital Signs/Intake and Output Vital Signs (last 24 hours): Temp Pulse Resp BP Pulse Ox 98.4 F 91 H 18 112/67 96 01/31/17 15:31 01/31/17 15:31 01/31/17 15:31 01/31/17 15:31 01/31/17 15:31 - Medications Medications: Current Medications Aspirin (Ecotrin) 81 mg PO DAILY [facility] Last Admin: 01/31/17 09:03 Dose: 81 mg Clopidogrel Bisulfate (Plavix) 75 mg PO DAILY [facility] Last Admin: 01/31/17 09:03 Dose: 75 mg Cyclobenzaprine HCl (Flexeril) 10 mg PO HS [facility] Last Admin: 01/30/17 22:18 Dose: 10 mg Enoxaparin Sodium (Lovenox) 40 mg SC DAILY [facility] PRN Reason: Protocol Last Admin: 01/31/17 09:03 Dose: 40 mg Gabapentin (Neurontin) 300 mg PO TID [facility] Last Admin: 01/31/17 13:09 Dose: 300 mg Clindamycin Phosphate 300 mg/ (Sodium Chloride) 102 mls @ 102 mls/hr IVPB Q8 [facility] Last Admin: 01/31/17 09:02 Dose: 102 mls/hr Morphine Sulfate (Morphine) 4 mg IVP Q4 PRN PRN Reason: Pain, severe (8-10) Last Admin: 01/31/17 12:19 Dose: 4 mg Nitroglycerin (Nitrostat Sl Tab) 0.4 mg SL Q5MIN PRN PRN Reason: chest pain Prednisone (Prednisone Tab) 60 mg PO DAILY [facility] Last Admin: 01/31/17 09:03 Dose: 60 mg Saccharomyces Boulardii (Florastor) 250 mg PO BID [facility] Last Admin: 01/31/17 09:03 Dose: 250 mg Senna/Docusate Sodium (Senokot S 50 Mg-8.6 Mg) 2 tab PO HS [facility] Last Admin: 01/31/17 09:05 Dose: 2 tab - Labs Labs: 01/31/17 06:30 - Additional Findings Additional findings: Constitutional Appears: In Acute Distress (secondary to pain in left upper chest, armpit, arm) - Head Exam Head Exam: ATRAUMATIC, NORMOCEPHALIC - Eye Exam Eye Exam: PERRL - ENT Exam ENT Exam: Mucous Membranes Moist - Neck Exam Neck Exam: Full ROM - Respiratory Exam Respiratory Exam: NORMAL BREATHING PATTERN. absent: Rhonchi, Wheezes - Cardiovascular Exam Cardiovascular Exam: RRR, +S1, +S2. absent: JVD - GI/Abdominal Exam GI & Abdominal Exam: Soft, Normal Bowel Sounds. absent: Tenderness - Extremities Exam Additional comments: left elbow: erythema improved, + swelling, +warmth, ROM limited due to pain. - Neurological Exam Neurological Exam: Alert, Oriented x3 - Skin Skin Exam: Erythema (left elbow) improved Assessment and Plan - Assessment and Plan (Free Text) Plan: 46 yo F admitted with chest pain and left arm pain. Left arm pain etiology unclear, ? brachial plexopathies limited ROM due to pain Doppler: negative for DVT ( No deep venous thrombosis in the visualized vascular segments of the lower extremity; complex collection in the left antecubital fossa) likely neuropathy pain Neuro Dr. Larry on board Gabapentin 300 mg TID as per Neuro recommendation. c/w Prednisone 60mg PO daily Flexeril 10 mg PO HS. will consult Pain management for possible neck block F/U labs for autoimmune diseases. Left elbow swelling etiology: skin abscess/cellulitis vs Joint ( septic/inflammatory arthritis). improving with ABx IV left elbow X-ray: No definitive radiographic evidence of acute displaced fracture nor dislocation. Them appears to be small joint effusion with dorsal soft tissue swelling. Rule out posttraumatic soft tissue swelling however the possibility of a posttraumatic or nonspecific inflammatory - infectious olecranon bursitis should be excluded. Consider followup MRI if further eval. Ortho Consult: Dr. Almeida, input appreciated. will change Clindamycin to PO (300 mg Q8Hrs) c/w pain management: Morphine Labs: ESR: mildly increased (34), CRP elevated, mild leukocytosis, uric acid WNL F/U lyme serology continue to monitor. 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 -c/w ASA, plavix DVT prophylaxis SCD Lovenox 40 mg SC daily
[2017-01-31] MEDS ORDERED: DiphenhydrAMINE 50 mg/ml Inj IVP ONE (20:50)
--- NOTE | 2017-02-01 08:22 | CP.PCM.CON ---
History of Present Illness - History of Present Illness History of Present Illness: 46 yo woman w/ acute on chronic neck/shoulder/bilateral arm pain is referred for pain management. Patient has a history of CAD, s/p stent, but this current episode has been determined to be non-cardiac. She denies a chronic pain history but does state this has been bothering her for more than a year. The arms can become cold/edematous, with weakness and numbness, and are always painful. She denies any identifiable triggers or trauma. Since admission she's been placed on Neurontin, which she denies taking before. She's on Plavix. Past Patient History - Infectious Disease Hx of Infectious Diseases: None - Tetanus Immunizations Tetanus Immunization: Unknown - Past Medical History & Family History Past Medical History?: Yes - Past Social History Smoking Status: Never Smoked - CARDIAC Hx Hypertension: Yes Hx Mitral Valve Prolapse: Yes Hx Pacemaker: No - PULMONARY Hx Asthma: Yes Hx Bronchitis: Yes Hx Pneumonia: Yes - NEUROLOGICAL Hx Neurological Disorder: No - HEENT Hx HEENT Problems: No - RENAL Hx Chronic Kidney Disease: No - ENDOCRINE/METABOLIC Hx Endocrine Disorders: No - HEMATOLOGICAL/ONCOLOGICAL Hx Blood Disorders: No Hx AIDS: No Hx Human Immunodeficiency Virus (HIV): No - INTEGUMENTARY Hx Dermatological Problems: No - MUSCULOSKELETAL/RHEUMATOLOGICAL Hx Arthritis: Yes Hx Falls: No Hx Fractures: Yes (right arm) Hx Rheumatoid Arthritis: Yes - GASTROINTESTINAL Hx Crohn's Disease: Yes Hx Gall Bladder Disease: Yes (removed 2002) - GENITOURINARY/GYNECOLOGICAL Hx Genitourinary Disorders: Yes (Ovarian cysts, Hysterectomy) - PSYCHIATRIC Hx Psychophysiologic Disorder: No Hx Substance Use: No - SURGICAL HISTORY Hx Appendectomy: Yes (at 8 years old) Hx Cholecystectomy: Yes (2002) Hx Coronary Stent: Yes (x1; Left circumflex (January 2016)) Hx Tonsillectomy: Yes ("at young age") - ANESTHESIA Hx Anesthesia: Yes Hx Anesthesia Reactions: No Hx Malignant Hyperthermia: No Meds Allergies/Adverse Reactions: Allergies Allergy/AdvReac Type Severity Reaction Status Date / Time ceftriaxone Allergy RASH Verified 01/11/17 18:03 Iodine and Iodide Containing Allergy SHORTNESS Verified 01/11/17 18:03 Produc OF BREATH iohexol [From Omnipaque] AdvReac SWELLING Verified 01/11/17 18:03 - Medications Medications: Current Medications Aspirin (Ecotrin) 81 mg PO DAILY [facility] Last Admin: 01/31/17 09:03 Dose: 81 mg Clindamycin HCl (Cleocin) 300 mg PO Q8 [facility] Last Admin: 02/01/17 01:04 Dose: 300 mg Clopidogrel Bisulfate (Plavix) 75 mg PO DAILY [facility] Last Admin: 01/31/17 09:03 Dose: 75 mg Cyclobenzaprine HCl (Flexeril) 10 mg PO HS [facility] Last Admin: 01/31/17 21:32 Dose: 10 mg Enoxaparin Sodium (Lovenox) 40 mg SC DAILY [facility] PRN Reason: Protocol Last Admin: 01/31/17 09:03 Dose: 40 mg Gabapentin (Neurontin) 300 mg PO BID [facility] Gabapentin (Neurontin) 600 mg PO [facility] Last Admin: 01/31/17 21:32 Dose: 600 mg Morphine Sulfate (Morphine) 4 mg IVP Q6 PRN PRN Reason: Pain, severe (8-10) Last Admin: 02/01/17 07:11 Dose: 4 mg Nitroglycerin (Nitrostat Sl Tab) 0.4 mg SL Q5MIN PRN PRN Reason: chest pain Prednisone (Prednisone Tab) 60 mg PO DAILY [facility] Last Admin: 01/31/17 09:03 Dose: 60 mg Saccharomyces Boulardii (Florastor) 250 mg PO BID [facility] Last Admin: 01/31/17 16:52 Dose: 250 mg Senna/Docusate Sodium (Senokot S 50 Mg-8.6 Mg) 2 tab PO [facility] Last Admin: 01/31/17 21:32 Dose: 2 tab Physical Exam - Neck Exam Neck exam: Positive for: Normal Inspection, Tenderness - Respiratory Exam Respiratory Exam: Clear to Auscultation Bilateral - Cardiovascular Exam Cardiovascular Exam: REGULAR RHYTHM - GI/Abdominal Exam GI & Abdominal Exam: Soft Results - Vital Signs Recent Vital Signs: Last Vital Signs Temp 97.6 F 02/01/17 08:16 Pulse 67 02/01/17 08:16 Resp 18 02/01/17 08:16 BP 90/55 L 02/01/17 08:16 Pulse Ox 99 02/01/17 08:16 - Labs Result Diagrams: 01/31/17 06:30 01/28/17 15:25 Labs: Laboratory Results - last 24 hr 01/31/17 11:55 Hepatitis C Antibody Negative Assessment & Plan (1) Left arm swelling Assessment and Plan: 46 yo woman w/ acute on chronic pain involving the upper extremities. Patient is not a candidate for injection due to anticoagulation, Plavix, so management will involve titration of neuropathic medications and therapy. MRI's of brain and cervical spine didn't reveal significant pathologies that would explain her presentation. Her exam also doesn't suggest cervical radiculopathy. It's possible that she may have complex regional pain syndrome vs other neuropathies. - titrate NEurontin as tolerated, can increase to 600mg q8h - trial of Cymbalta 30mg qhs, titrate to 60mg as tolerated - can consider Tramadol for outpatient management - f/u neuro rec's Status: Acute
--- NOTE | 2017-02-01 08:42 | CON ---
DATE: 01/29/2017 REASON FOR CONSULTATION: Left elbow pain and numbness. HISTORY OF PRESENT ILLNESS: A 46-year-old female who woke up with pain diffusely over her left upper extremity a couple of days ago. Localizes the pain diffusely in her axilla, elbow, left chest wall. Also, complaining of numbness of all digits. The patient denies trauma to the extremity. Denies fevers or night sweats. She has a history of a rheumatoid fever as a child. PMH of CAD. PAST MEDICAL HISTORY: The patient has a history of coronary artery disease and stent placement. PHYSICAL EXAMINATION: Left upper extremity, there is mild diffuse erythema over the proximal forearm, dorsal elbow and mid arm level. No swelling noted. Compartments are soft. The patient has painless range of motion of elbow, 0- 140 degrees, with no instability. She has weakness in hand intrinsics, wrist extensor muscles, elbow extension and wrist extension. Distal pulses +2. She wrist with passive range of motion _ Shoulder forward flexion is 160 degrees abduction, 100 degrees external rotation, 90 degrees internal rotation 45 degrees. Elbow x-ray was seen and reviewed, shows no fracture, dislocation or joint effusion. ASSESSMENT: Left upper extremity pain, most likely secondary neuropathic pain, rule out brachial plexopathy. PLAN: I discussed the above findings with the patient and primary team. There is low suspicion for septic joint. Recommended she be evaluated by neurology and rheumatology for possible autoimmune disease versus neuropathic pain. No orthopedic surgical intervention needed at this time. Christo Almeida M.D. cc: [id number] TT: 01/29/2017 22:11:44 Confirmation # [id number] Dictation # [id number] ritika SAEED
[2017-02-01] MEDS: Enoxaparin 40 mg Syringe SC SCH (08:45)
[2017-02-01] MEDS: Saccharomyces Boulardi 250 mg Cap PO SCH (08:45)
--- NOTE | 2017-02-01 11:30 | CP.PCM.DIS ---
Provider - Provider Date of Admission: 01/29/17 14:11 Attending physician: Jenifer Diaz MD Hospital Course - Lab Results Lab Results: Most Recent Lab Values WBC 11.0 K/uL (4.8-10.8) H 01/31/17 06:30 RBC 4.24 Mil/uL (3.80-5.20) 01/31/17 06:30 Hgb 12.5 g/dL (12.0-16.0) 01/31/17 06:30 Hct 37.8 % (34.0-47.0) 01/31/17 06:30 MCV 89.2 fl (81.0-99.0) 01/31/17 06:30 MCH 29.5 pg (27.0-31.0) 01/31/17 06:30 MCHC 33.1 g/dL (33.0-37.0) 01/31/17 06:30 RDW 13.6 % (11.5-14.5) 01/31/17 06:30 Plt Count 339 K/uL (130-400) 01/31/17 06:30 ESR 34 mm/hr (0-20) H 01/28/17 20:35 Sodium 142 mmol/l (132-148) 01/28/17 15:25 Potassium 4.1 MMOL/L (3.6-5.0) 01/28/17 15:25 Chloride 104 mmol/L (98-107) 01/28/17 15:25 Carbon Dioxide 24 mmol/L (22-30) 01/28/17 15:25 Anion Gap 18 (10-20) 01/28/17 15:25 BUN 22 mg/dl (7-17) H 01/28/17 15:25 Creatinine 0.5 mg/dL (0.7-1.2) L 01/28/17 15:25 Est GFR ( Amer) > 60 01/28/17 15:25 Est GFR (Non-Af Amer) > 60 01/28/17 15:25 Random Glucose 130 mg/dL (65-105) H 01/28/17 15:25 Uric Acid 5.7 mg/Dl (2.2-7.5) 01/29/17 06:30 Calcium 9.3 mg/dL (8.4-10.2) 01/28/17 15:25 Total Bilirubin 1.0 mg/dl (0.2-1.3) 01/28/17 15:25 AST 38 U/L (14-36) H 01/28/17 15:25 ALT 26 U/L (9-52) 01/28/17 15:25 Alkaline Phosphatase 59 U/L (38-126) 01/28/17 15:25 Total Creatine Kinase 68 U/L (30-135) 01/29/17 06:30 Troponin I < 0.0120 ng/mL (0.00-0.120) 01/29/17 07:25 C-React Prot High Sens 14.69 mg/L (1.00-3.00) H 01/29/17 06:30 Total Protein 8.6 G/DL (6.3-8.2) H 01/28/17 15:25 Albumin 4.6 g/dL (3.5-5.0) 01/28/17 15:25 Globulin 3.9 gm/dL (2.2-3.9) 01/28/17 15:25 Albumin/Globulin Ratio 1.2 (1.0-2.1) 01/28/17 15:25 Urine Color Yellow (YELLOW) 01/31/17 04:37 Urine Clarity Clear (Clear) 01/31/17 04:37 Urine pH 7.0 (5.0-8.0) 01/31/17 04:37 Ur Specific [place] 1.013 (1.003-1.030) 01/31/17 04:37 Urine Protein Negative mg/dL (NEGATIVE) 01/31/17 04:37 Urine Glucose (UA) Neg mg/dL (Normal) 01/31/17 04:37 Urine Ketones Negative mg/dL (NEGATIVE) 01/31/17 04:37 Urine Blood Negative (NEGATIVE) 01/31/17 04:37 Urine Nitrate Negative (NEGATIVE) 01/31/17 04:37 Urine Bilirubin Negative (NEGATIVE) 01/31/17 04:37 Urine Urobilinogen 0.2-1.0 mg/dL (0.2-1.0) 01/31/17 04:37 Ur Leukocyte Esterase Neg Karen/uL (Negative) 01/31/17 04:37 Urine RBC (Auto) 3 /hpf (0-3) 01/31/17 04:37 Urine WBC Clumps (Auto) Many /hpf (NONE) H 01/29/17 22:07 Urine Microscopic WBC < 1 /hpf (0-5) 01/31/17 04:37 Ur Squamous Epith Cells 1 /hpf (0-5) 01/31/17 04:37 Urine Bacteria Rare (<OCC) 01/31/17 04:37 Urine Yeast (Budding) Mod /hpf (NEGATIVE) H 01/29/17 22:07 Hepatitis C Antibody Negative (NEGATIVE) 01/31/17 11:55 Discharge Exam - Head Exam Head Exam: ATRAUMATIC, NORMAL INSPECTION, NORMOCEPHALIC Discharge Plan - Follow Up Plan Condition: GOOD Disposition: HOME/ ROUTINE
[2017-02-01 15:55] VITALS: BP 124/77; PULSE 75; TEMP 97.3; O2SAT 92
[2017-02-01 18:37] LABS: Interpretation Negative (Negative)
[2017-02-01 18:37] LABS: RNP Interpretation Negative (Negative)
[2017-02-02 04:31] LABS: HB E AB Nonreactive (Nonreactive)
[2017-02-02 04:57] LABS: HB E AG Nonreactive (Nonreactive)
[2017-02-02 22:21] LABS: RHEUMATOID FACTOR 8 IU/mL (<14)
[2017-02-03 00:08] LABS: SM ANTIBODY <1.0 NEG AI (<1.0 NEGATIVE)
[2017-02-03 01:45] LABS: DNA AB (DS) CRITH NEGATIVE (NEGATIVE)
[2017-02-03 08:23] LABS: HLA-B27 ANTIGEN Negative (Negative)
[2017-02-03 08:23] LABS: LYME DISEASE SCREEN <0.90 index
[2017-02-03 13:35] LABS: RETICULIN AB IGA NEGATIVE (NEGATIVE)
[2017-02-04 03:48] LABS: MYOCARDIAL AB IF NEGATIVE (NEGATIVE); PARIETAL CELL AB 20.2 U
== END 2017-02-01 16:43 | disposition home or self-care (01) | DRG 19 ==
LOC: H.ER 14:20 → H.ERHOLD 17:47 → H.TEL 21:47 → OBSVTOIN 01-29 14:11 → H.MEDSURG1 01-29 18:37
PROVIDERS: ADMIT Family Medicine; ATTEND Family Medicine
DX: G54.0 Brachial plexus disorders (principal); K50.90 Crohn's disease, unspecified, without complications; I10 Essential (primary) hypertension; M25.422 Effusion, left elbow; G62.9 Polyneuropathy, unspecified; I25.10 Atherosclerotic heart disease of native coronary artery without angina pectoris; Z95.5 Presence of coronary angioplasty implant and graft; R53.1 Weakness; E78.5 Hyperlipidemia, unspecified; I34.1 Nonrheumatic mitral (valve) prolapse; J45.909 Unspecified asthma, uncomplicated; M06.9 Rheumatoid arthritis, unspecified; Z88.3 Allergy status to other anti-infective agents; Z91.041 Radiographic dye allergy status; M19.90 Unspecified osteoarthritis, unspecified site

== ENCOUNTER 2017-03-23 15:09 | Emergency (ER) | payer OTHER ==
[2017-03-23 15:10] VITALS: BMI 27.4
[2017-03-23 15:54] VITALS: BP 122/65; PULSE 78; RESP 16; TEMP 98.2; O2SAT 100
[2017-03-23 17:17] LABS: BASO % 0.3 % (0.0-2.0); EOS # 0.2 K/uL (0.0-0.7); EOS % 1.3 % (0.0-4.0); LYMPH # 2.6 K/uL (1.0-4.3); LYMPH % 22.4 % (20.0-40.0); MEAN CELL VOLUME 89.9 fl (81.0-99.0); MEAN CORPUSCULAR HEMOGLOBIN 28.8 pg (27.0-31.0); MEAN PLATELET VOLUME 7.5 fl (7.2-11.7); MONO # 0.9 K/uL (0.0-0.8); MONO % 7.4 % (0.0-10.0); NEUT # 7.9 K/uL (1.8-7.0); NEUT % 68.6 % (50.0-75.0); RED CELL DISTRIBUTION WIDTH 13.8 % (11.5-14.5); WHITE BLOOD COUNT 11.6 K/uL (4.8-10.8)
--- NOTE | 2017-03-23 17:23 | ED PDOC ---
HPI: General Adult Time Seen by Provider: 03/23/17 15:57 Chief Complaint (Nursing): Upper Extremity Problem/Injury Chief Complaint (Provider): b/l arm pain Additional Complaint(s): 46yo F in ED for eval of b/l arm pain noted 3 ago. pt has hx of various joint or body pain. Pt was admitted in January for chest pain. Pt was r/o for acute cardiac disease, but has a hx of CAD. Pt is currently being assessed for MS and RSD. Pt currently admits tthe pain in her arm radiaited to her chest-describes it as achy sharp. takes torodol form pain mngt specialist, but states its not working, Past Medical History Reviewed: Historical Data, Nursing Documentation, Vital Signs Vital Signs: Last Vital Signs Temp 98.2 F 03/23/17 15:51 Pulse 78 03/23/17 15:51 Resp 16 03/23/17 15:51 BP 122/65 03/23/17 15:51 Pulse Ox 100 03/23/17 17:26 - Medical History PMH: Arthritis, Asthma, Bronchitis, CAD, Crohn's Disease, Fractures (right arm) , Gall Bladder Disease (removed 2002), HTN, Hyperlipidemia, Mitral Valve Prolapse, Pneumonia, Rheumatoid Arthritis Denies: HIV, Chronic Kidney Disease - Surgical History Surgical History: Appendectomy (at 8 years old), Cholecystectomy (2002), Coronary Stent (x1; Left circumflex (January 2016)), Tonsillectomy ("at young age") , (x1) Denies: Pacemaker - Family History Family History: States: Unknown Family Hx - Immunization History Hx Tetanus Toxoid Vaccination: No Hx Influenza Vaccination: Yes Hx Pneumococcal Vaccination: No - Home Medications Home Medications: Ambulatory Orders Medication Instructions Recorded Aspirin [Ecotrin] 81 mg PO DAILY 01/28/17 Clopidogrel [Plavix] 75 mg PO DAILY 01/28/17 traMADol [Ultram] 50 mg PO Q6 PRN #30 tab 02/01/17 Gabapentin [Neurontin] 600 mg PO HS 03/23/17 predniSONE [predniSONE Tab] 20 mg PO BID #16 tab 03/23/17 - Allergies Allergies/Adverse Reactions: Allergies Allergy/AdvReac Type Severity Reaction Status Date / Time ceftriaxone Allergy RASH Verified 01/11/17 18:03 Iodine and Iodide Containing Allergy SHORTNESS Verified 05/09/17 18:03 Produc OF BREATH iohexol [From Omnipaque] AdvReac SWELLING Verified 01/11/17 18:03 Review of Systems ROS Statement: Except As Marked, All Systems Reviewed And Found Negative Constitutional: Negative for: Fever, Chills, Weakness, Malaise Respiratory: Negative for: Cough, Shortness of Breath Musculoskeletal: Positive for: Arm Pain Physical Exam - Reviewed Nursing Documentation Reviewed: Yes Vital Signs Reviewed: Yes - Physical Exam Appears: Positive for: Non-toxic, No Acute Distress, Uncomfortable Skin: Positive for: Normal Color, Warm, DRY Neck: Positive for: Normal, Painless ROM Cardiovascular/Chest: Positive for: Regular Rate, Rhythm Respiratory: Positive for: CNT, Normal Breath Sounds Gastrointestinal/Abdominal: Positive for: Normal Exam, Bowel Sounds, Soft. Negative for: Tenderness Back: Positive for: Normal Inspection Extremity: Positive for: Normal ROM, Swelling (mild noted to left arm, warmth noted tenderness to joints noted on left. right tenderness noted to elbow. no straeaking no wamrth.) Neurologic/Psych: Positive for: Alert, Oriented - Laboratory Results Result Diagrams: 03/23/17 16:55 03/23/17 16:55 - ECG O2 Sat by Pulse Oximetry: 100 - Progress ED Course And Treament: will draw labs: cbc/cmp/ESR/CRP/ Medical Decision Making Medical Decision Making: PT improved somewhat in ED. Family medicine consulted on case, suggest pt to have putpt f/u and pt is advised to have neurology f.u for further eval. pt will be d/c with prednsione and advised to continue monitoring with pain mgnt. Disposition - Clinical Impression Clinical Impression: Joint pain - Patient ED Disposition Is Patient to be Admitted: No Counseled Patient/Family Regarding: Studies Performed, Diagnosis, Need For Followup, Rx Given - Disposition Referrals: [facility] [Outside] Disposition: Routine/Home Disposition Time: 19:07 Condition: STABLE Prescriptions: predniSONE [predniSONE Tab] 20 mg PO BID #16 tab Instructions: Arthritis (ED)
[2017-03-23 17:33] LABS: ALB/GLOB RATIO 1.3 (1.0-2.1); ALKALINE PHOSPHATASE 65 U/L (38-126); ALT/SGPT 34 U/L (9-52); AST/SGOT 22 U/L (14-36); BILIRUBIN,TOTAL 0.3 mg/dl (0.2-1.3); BLOOD UREA NITROGEN 20 mg/dl (7-17); CALCIUM 9.8 mg/dL (8.4-10.2); CARBON DIOXIDE 28 mmol/L (22-30); GFR AFRICAN-AMERICAN > 60; GLUCOSE,RANDOM 81 mg/dL (65-105); TOTAL PROTEIN 7.9 G/DL (6.3-8.2)
[2017-03-23 18:14] LABS: CHLORIDE 105 mmol/L (98-107); POTASSIUM 3.6 MMOL/L (3.6-5.0); SODIUM 144 mmol/l (132-148)
--- NOTE | 2017-03-24 10:07 | RAD ---
PROCEDURE: Radiographs of the Right Shoulder HISTORY: pain COMPARISON: No prior. FINDINGS: BONES: Normal. No fracture. JOINTS: Normal. Glenohumeral and acromioclavicular joints preserved. No osteoarthritis. SOFT TISSUES: Small calcification adjacent to the humeral head consistent with calcific tendonitis OTHER FINDINGS: None. IMPRESSION: Small calcification adjacent to the humeral head consistent with calcific tendonitis
--- NOTE | 2017-03-24 10:07 | RAD ---
PROCEDURE: Radiographs of the Left Shoulder HISTORY: shoulder pain COMPARISON: No prior. FINDINGS: BONES: Normal. No fracture. JOINTS: Normal. Glenohumeral and acromioclavicular joints preserved. No osteoarthritis. SOFT TISSUES: Normal. OTHER FINDINGS: None. IMPRESSION: Normal radiographs of the left shoulder.
--- NOTE | 2017-03-24 10:09 | RAD ---
HISTORY: CP COMPARISON: 01/28/2017 TECHNIQUE: Chest PA and lateral FINDINGS: LUNGS: No active pulmonary disease. PLEURA: No significant pleural effusion identified. No pneumothorax apparent. CARDIOVASCULAR: Normal. OSSEOUS STRUCTURES: No significant abnormalities. VISUALIZED UPPER ABDOMEN: Normal. OTHER FINDINGS: None. IMPRESSION: No active disease.
--- NOTE | 2017-03-24 13:04 | CARD ---
APPROVED REPORT EKG Measurement Heart [id number] <Conclusion> Normal sinus rhythm Possible Inferior infarct, age undetermined Abnormal ECG
== END 2017-03-23 19:08 | disposition home or self-care (01) ==
LOC: H.ER 15:09
DX: M25.50 Pain in unspecified joint (principal); E78.5 Hyperlipidemia, unspecified; I10 Essential (primary) hypertension; I25.10 Atherosclerotic heart disease of native coronary artery without angina pectoris; I34.1 Nonrheumatic mitral (valve) prolapse; J45.909 Unspecified asthma, uncomplicated; K50.90 Crohn's disease, unspecified, without complications; Z79.82 Long term (current) use of aspirin; Z95.5 Presence of coronary angioplasty implant and graft

== ENCOUNTER 2017-04-17 00:51 | Observation (INO) | payer OTHER ==
[2017-04-17 00:52] VITALS: BMI 27.4
--- NOTE | 2017-04-17 01:45 | ED PDOC ---
HPI: Chest Pain Time Seen by Provider: 04/17/17 01:06 Chief Complaint (Nursing): Chest Pain Chief Complaint (Provider): Chest pain History Per: Patient History/Exam Limitations: no limitations Onset/Duration Of Symptoms: Hrs (3 hrs ago) Current Symptoms Are (Timing): Still Present Severity: Moderate Pain Scale Rating Of: 7 Quality: Sharp, Tightness, "Pain" Modifying Factors: None Exacerbating Factors: None Additional History Per: Patient Additional Complaint(s): 46 y/o female with medical history significant for rheumatic fever, CAD s/p LCA stent placement (Jan, 2016) presents to ED for sudden onset, mid sternal border throbbing, 7/10 chest pain; radiating to left breast and upper chest to her throat. States pain started about 3hrs ago, she took 1 tablet of Tramadol which did not help so decided to come to ED given her extensive cardiac problems. Denies any associated sob, dizziness, nausea, vomiting, numbness or tingling Past Medical History Vital Signs: Last Vital Signs Temp 98.9 F 04/17/17 01:12 Pulse 66 04/17/17 01:32 Resp 16 04/17/17 01:12 BP 110/68 04/17/17 01:32 Pulse Ox 100 04/17/17 03:08 - Medical History PMH: Arthritis, Asthma, Bronchitis, CAD, Crohn's Disease, Fractures (right arm) , Gall Bladder Disease (removed 2002), HTN, Hyperlipidemia, Mitral Valve Prolapse, Pneumonia, Rheumatoid Arthritis Denies: HIV, Chronic Kidney Disease - Surgical History Surgical History: Appendectomy (at 8 years old), Cholecystectomy (2002), Coronary Stent (x1; Left circumflex (January 2016)), Tonsillectomy ("at young age") , (x1) Denies: Pacemaker - Family History Family History: States: Unknown Family Hx - Immunization History Hx Tetanus Toxoid Vaccination: No Hx Influenza Vaccination: Yes Hx Pneumococcal Vaccination: No - Home Medications Home Medications: Ambulatory Orders Medication Instructions Recorded Aspirin [Ecotrin] 81 mg PO DAILY 01/28/17 Clopidogrel [Plavix] 75 mg PO DAILY 01/28/17 traMADol [Ultram] 50 mg PO Q6 PRN #30 tab 02/01/17 Gabapentin [Neurontin] 600 mg PO HS 03/23/17 predniSONE [predniSONE Tab] 20 mg PO BID #16 tab 03/23/17 - Allergies Allergies/Adverse Reactions: Allergies Allergy/AdvReac Type Severity Reaction Status Date / Time ceftriaxone Allergy RASH Verified 01/11/17 18:03 Iodine and Iodide Containing Allergy SHORTNESS Verified 01/11/17 18:03 Produc OF BREATH iohexol [From Omnipaque] AdvReac SWELLING Verified 01/11/17 18:03 MARLEE Risk Score for UA/NSTEMI - MARLEE Risk Score Age > 64: NO 3 or more CAD Risk Factors: YES Aspirin use in past 7 days: YES MARLEE Score: 2 Risk %: 8% Review of Systems Constitutional: Negative for: Fever, Chills Eyes: Negative for: Pain, Vision Change Cardiovascular: Positive for: Chest Pain. Negative for: Palpitations, Light Headedness Respiratory: Negative for: Shortness of Breath, SOB with Exertion Gastrointestinal: Negative for: Nausea, Abdominal Pain Genitourinary Female: Negative for: Dysuria, Frequency Neurological: Negative for: Weakness, Numbness Physical Exam - Physical Exam Appears: Positive for: Uncomfortable Head Exam: Positive for: ATRAUMATIC, NORMOCEPHALIC Skin: Positive for: Normal Color. Negative for: Rash Cardiovascular/Chest: Positive for: Regular Rate, Rhythm, Murmur. Negative for : Chest Non Tender, JVD Respiratory: Positive for: Normal Breath Sounds. Negative for: Decreased Breath Sounds, Accessory Muscle Use, Wheezing Gastrointestinal/Abdominal: Positive for: Normal Exam, Bowel Sounds, Soft. 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 preg pain medication Re-evaluation Time: 02:40 Condition: Improving,but remains with symptoms Disposition - Clinical Impression Clinical Impression: Atypical chest pain - Patient ED Disposition Is Patient to be Admitted: Yes - Disposition Disposition Time: 03:10 Condition: FAIR - Pt Status Changed To: Hospital Disposition Of: Observation
[2017-04-17 02:09] LABS: HEMOGLOBIN 12.6 g/dL (12.0-16.0); MEAN CELL VOLUME 89.3 fl (81.0-99.0); MEAN CORPUSCULAR HGB CONC 33.6 g/dL (33.0-37.0); RBC 4.21 Mil/uL (3.80-5.20); RED CELL DISTRIBUTION WIDTH 13.9 % (11.5-14.5); WHITE BLOOD COUNT 9.7 K/uL (4.8-10.8)
[2017-04-17 02:33] LABS: BLOOD UREA NITROGEN 18 mg/dl (7-17); CALCIUM 9.5 mg/dL (8.4-10.2); GFR AFRICAN-AMERICAN > 60; GFR NON-AFRICAN AMERICAN > 60
[2017-04-17 02:34] LABS: ALB/GLOB RATIO 1.1 (1.0-2.1); ALBUMIN 3.9 g/dL (3.5-5.0); ALT/SGPT 25 U/L (9-52); AST/SGOT 24 U/L (14-36)
[2017-04-17 04:07] VITALS: BP 133/71; PULSE 68; RESP 18; TEMP 98; O2SAT 99
--- NOTE | 2017-04-17 08:55 | RAD ---
HISTORY: chest pain COMPARISON: No prior. FINDINGS: LUNGS: No active pulmonary disease. PLEURA: No significant pleural effusion identified, no pneumothorax apparent. CARDIOVASCULAR: Normal. OSSEOUS STRUCTURES: No significant abnormalities. VISUALIZED UPPER ABDOMEN: Normal. OTHER FINDINGS: None. IMPRESSION: No active disease.
== END 2017-04-17 03:10 | disposition left against medical advice (07) ==
LOC: H.ER 00:51 → H.ERHOLD 02:59
PROVIDERS: ADMIT Family Medicine Geriatric Medicine; ATTEND Family Medicine Geriatric Medicine
DX: R07.89 Other chest pain (principal); I10 Essential (primary) hypertension; E78.5 Hyperlipidemia, unspecified; I34.1 Nonrheumatic mitral (valve) prolapse; I25.10 Atherosclerotic heart disease of native coronary artery without angina pectoris; Z95.5 Presence of coronary angioplasty implant and graft; K50.90 Crohn's disease, unspecified, without complications; M06.9 Rheumatoid arthritis, unspecified; J45.909 Unspecified asthma, uncomplicated; Z79.02 Long term (current) use of antithrombotics/antiplatelets; Z79.82 Long term (current) use of aspirin; Z91.041 Radiographic dye allergy status

== ENCOUNTER 2017-05-14 22:54 | Emergency (ER) | payer OTHER ==
[2017-05-14 22:54] VITALS: BMI 27.4
[2017-05-14] MEDS ORDERED: Sodium Chloride 0.9% 1,000 ML IV STA (23:05)
[2017-05-14] MEDS ORDERED: DiphenhydrAMINE 50 mg/ml Inj IVP STA (23:05)
--- NOTE | 2017-05-14 23:11 | ED PDOC ---
HPI: Allergic Reaction Time Seen by Provider: 05/14/17 23:02 Chief Complaint (Nursing): Allergic Reaction Chief Complaint (Provider): allergic reaction. History Per: Patient History/Exam Limitations: no limitations Additional Complaint(s): 46yo F in ED for acute allergic reaction-states at 530pm she at [employer] restaurant she always goes to and ate meal she always eats, but developed acuter urticaria. took Benadryl 1 tab, but states it did not work for her. She fell asleep and upon waking noted rash worsened and with itching to throat. pt denies SOB, abdominal pain, swelling to lips, eye lids, hands/feet, vomiting nausea confusion or Chest pain. no hx of known food allergies no contact with new detergents, soaps or lotions. Past Medical History Reviewed: Historical Data, Nursing Documentation, Vital Signs Vital Signs: Last Vital Signs Temp 97.8 F 05/14/17 22:59 Pulse 68 05/14/17 22:59 Resp 20 05/14/17 22:59 BP 113/77 05/14/17 22:59 Pulse Ox 99 05/14/17 22:59 - Medical History PMH: Arthritis, Asthma, Bronchitis, CAD, Crohn's Disease, Fractures (right arm) , Gall Bladder Disease (removed 2002), HTN, Hyperlipidemia, Mitral Valve Prolapse, Pneumonia, Rheumatoid Arthritis Denies: HIV, Chronic Kidney Disease - Surgical History Surgical History: Appendectomy (at 8 years old), Cholecystectomy (2002), Coronary Stent (x1; Left circumflex (January 2016)), Tonsillectomy ("at young age") , (x1) Denies: Pacemaker - Family History Family History: States: Unknown Family Hx - Immunization History Hx Tetanus Toxoid Vaccination: No Hx Influenza Vaccination: Yes Hx Pneumococcal Vaccination: No - Home Medications Home Medications: Ambulatory Orders Medication Instructions Recorded Aspirin [Ecotrin] 81 mg PO DAILY 01/28/17 Clopidogrel [Plavix] 75 mg PO DAILY 01/28/17 traMADol [Ultram] 50 mg PO Q6 PRN #30 tab 02/01/17 Gabapentin [Neurontin] 600 mg PO HS 03/23/17 predniSONE [predniSONE Tab] 20 mg PO BID #16 tab 03/23/17 Famotidine [Pepcid] 20 mg PO BID #16 tab 05/14/17 predniSONE [predniSONE Tab] 20 mg PO BID #8 tab 05/14/17 - Allergies Allergies/Adverse Reactions: Allergies Allergy/AdvReac Type Severity Reaction Status Date / Time ceftriaxone Allergy RASH Verified 01/11/17 18:03 Iodine and Iodide Containing Allergy SHORTNESS Verified 01/11/17 18:03 Produc OF BREATH iohexol [From Omnipaque] AdvReac SWELLING Verified 01/11/17 18:03 Review of Systems ROS Statement: Except As Marked, All Systems Reviewed And Found Negative Skin: Positive for: Lesions Physical Exam - Reviewed Nursing Documentation Reviewed: Yes Vital Signs Reviewed: Yes - Physical Exam Appears: Positive for: Non-toxic, Uncomfortable Head Exam: Positive for: ATRAUMATIC, NORMAL INSPECTION, NORMOCEPHALIC Skin: Positive for: Warm, Rash (uticaria noted diffuse body) Eye Exam: Positive for: Normal appearance, EOMI, PERRL. Negative for: Periorbital swelling, Periorbital tenderness ENT: Positive for: Normal ENT Inspection, Other (uvula normal appearing. ). Negative for: Pharyngeal Erythema, Tonsillar Swelling Cardiovascular/Chest: Positive for: Regular Rate, Rhythm Respiratory: Positive for: CNT, Normal Breath Sounds Gastrointestinal/Abdominal: Positive for: Normal Exam, Bowel Sounds, Soft Back: Positive for: Normal Inspection Extremity: Positive for: Normal ROM Neurologic/Psych: Positive for: Alert, Oriented - ECG O2 Sat by Pulse Oximetry: 99 - Progress ED Course And Treament: impression: acute allergic reaction will give solumedrol 125mg NS 1L Benadryl 50mg and pepcid 20mg IV. Disposition - Clinical Impression Clinical Impression: Allergic reaction - Patient ED Disposition Is Patient to be Admitted: Transfer of Care Counseled Patient/Family Regarding: Studies Performed, Diagnosis, Need For Followup, Rx Given - Disposition Referrals: [facility] [Provider Group] Disposition: Routine/Home Disposition Time: 00:00 Condition: STABLE Additional Instructions: please see an social media developer to asses what you are allergic to. take pepcid twice a day, prednisone twice a day and Benadryl as needed for itching. if you develop significant swelling/itching or inability/difficulty breathing to return to the ER Prescriptions: Famotidine [Pepcid] 20 mg PO BID #16 tab predniSONE [predniSONE Tab] 20 mg PO BID #8 tab Instructions: Urticaria (ED), Food Allergy (ED), Anaphylaxis (ED) Forms: [facility] (Azeri) Patient Signed Over To: Jackie Leger (allergic-reval)
[2017-05-15 00:16] VITALS: BP 101/63; PULSE 63; RESP 18; TEMP 98; O2SAT 100
== END 2017-05-15 00:32 | disposition home or self-care (01) ==
LOC: H.ER 22:54
DX: T78.40XA Allergy, unspecified, initial encounter (principal); E78.5 Hyperlipidemia, unspecified; I10 Essential (primary) hypertension; I34.1 Nonrheumatic mitral (valve) prolapse; J45.909 Unspecified asthma, uncomplicated; K50.90 Crohn's disease, unspecified, without complications; Z79.82 Long term (current) use of aspirin; Z95.5 Presence of coronary angioplasty implant and graft
CPT/HCPCS: 96374; 96375; 99282; J1200; J2930; J7040

== ENCOUNTER 2017-05-23 18:53 | Observation (INO) | payer OTHER ==
[2017-05-23 18:53] VITALS: BMI 27.4
[2017-05-23 20:23] LABS: BASO % 0.2 % (0.0-2.0); EOS # 0.1 K/uL (0.0-0.7); LYMPH # 3.8 K/uL (1.0-4.3); LYMPH % 27.1 % (20.0-40.0); MEAN CELL VOLUME 89.7 fl (81.0-99.0); MEAN CORPUSCULAR HEMOGLOBIN 29.4 pg (27.0-31.0); MEAN CORPUSCULAR HGB CONC 32.7 g/dL (33.0-37.0); MEAN PLATELET VOLUME 7.5 fl (7.2-11.7); MONO # 1.1 K/uL (0.0-0.8); MONO % 7.8 % (0.0-10.0); NEUT # 8.9 K/uL (1.8-7.0); NEUT % 63.9 % (50.0-75.0); NRBC % 0.1 % (0.0-0.0); RED CELL DISTRIBUTION WIDTH 13.6 % (11.5-14.5); WHITE BLOOD COUNT 13.9 K/uL (4.8-10.8)
[2017-05-23 20:30] LABS: BLOOD UREA NITROGEN 21 mg/dl (7-17); CALCIUM 9.7 mg/dL (8.4-10.2); CARBON DIOXIDE 25 mmol/L (22-30); CHLORIDE 107 mmol/L (98-107); GFR AFRICAN-AMERICAN > 60; GLUCOSE,RANDOM 92 mg/dL (65-105); POTASSIUM 4.1 MMOL/L (3.6-5.0); SODIUM 143 mmol/l (132-148)
--- NOTE | 2017-05-23 20:32 | ED PDOC ---
HPI: Chest Pain Time Seen by Provider: 05/23/17 19:43 Chief Complaint (Nursing): Chest Pain Chief Complaint (Provider): Chest Pain/Lightheadedness History Per: Patient History/Exam Limitations: no limitations Onset/Duration Of Symptoms: Days Current Symptoms Are (Timing): Still Present Additional Complaint(s): Missy Medina is a 46 year old female with a history of CAD and a drug- eluting stent that presents to the ED with a chief complaint of chest pain with shortness of breath, dizziness, lightheadedness, and occasional blurred vision that has been ongoing for a few days. Patient reports that her shortness of breath has been waking her up from her sleep, and that the pain she is feeling in her chest is somewhat similar to the pain she experienced when having her stent placed. Past Medical History Reviewed: Historical Data, Nursing Documentation, Vital Signs Vital Signs: Last Vital Signs Temp 98.0 F 05/23/17 18:58 Pulse 78 05/23/17 18:58 Resp 16 05/23/17 18:58 BP 132/75 05/23/17 18:58 Pulse Ox 100 05/23/17 20:46 - Medical History PMH: Arthritis, Asthma, Bronchitis, CAD, Crohn's Disease, Fractures (right arm) , Gall Bladder Disease (removed 2002), HTN, Hyperlipidemia, Mitral Valve Prolapse, Pneumonia, Rheumatoid Arthritis Denies: HIV, Chronic Kidney Disease - Surgical History Surgical History: Appendectomy (at 8 years old), Cholecystectomy (2002), Coronary Stent (x1; Left circumflex (January 2016)), Tonsillectomy ("at young age") , (x1) Denies: Pacemaker - Family History Family History: States: Unknown Family Hx - Immunization History Hx Tetanus Toxoid Vaccination: No Hx Influenza Vaccination: Yes Hx Pneumococcal Vaccination: No - Home Medications Home Medications: Ambulatory Orders Medication Instructions Recorded Aspirin [Ecotrin] 81 mg PO DAILY 01/28/17 Clopidogrel [Plavix] 75 mg PO DAILY 01/28/17 traMADol [Ultram] 50 mg PO Q6 PRN #30 tab 02/01/17 Gabapentin [Neurontin] 600 mg PO HS 03/23/17 predniSONE [predniSONE Tab] 20 mg PO BID #16 tab 03/23/17 Famotidine [Pepcid] 20 mg PO BID #16 tab 09/09/17 predniSONE [predniSONE Tab] 20 mg PO BID #8 tab 05/14/17 - Allergies Allergies/Adverse Reactions: Allergies Allergy/AdvReac Type Severity Reaction Status Date / Time ceftriaxone Allergy RASH Verified 05/23/17 18:56 Iodine and Iodide Containing Allergy SHORTNESS Verified 05/23/17 18:56 Produc OF BREATH iohexol [From Omnipaque] AdvReac SWELLING Verified 05/23/17 18:56 Review of Systems Eyes: Positive for: Other (occasional blurred vision) Cardiovascular: Positive for: Chest Pain, Light Headedness Respiratory: Positive for: Shortness of Breath Neurological: Positive for: Dizziness Physical Exam - Reviewed Nursing Documentation Reviewed: Yes Vital Signs Reviewed: Yes - Physical Exam Appears: Positive for: Non-toxic. Negative for: No Acute Distress (Patient is in mild anxious distress.) Head Exam: Positive for: ATRAUMATIC, NORMOCEPHALIC Skin: Positive for: Normal Color, Warm Eye Exam: Positive for: Normal appearance, EOMI, PERRL Cardiovascular/Chest: Positive for: Regular Rate, Rhythm. Negative for: Murmur Respiratory: Positive for: Normal Breath Sounds. 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 Negative for: Motor/Sensory Deficits, Aphasia, Facial Droop - Laboratory Results Result Diagrams: 05/23/17 20:15 05/23/17 20:15 - ECG O2 Sat by Pulse Oximetry: 100 (RA) Pulse Ox Interpretation: Normal Medical Decision Making Medical Decision Making: Impression: r/o ACS vs. Electrolyte Imbalance vs. Dehydration Plan: * CT Head w/o contrast * Chest X-Ray * EKG * CBC * BMP * Troponin I * BNP * PTT * PT * Urine Drug Screen * Urinalysis * Toradol 15 mg IV * Antivert 50 mg PO * Reglan 10 mg IV * Reevaluation 2200 Pt. c/o of less dizziness. Pt. already took ASA today. Spoke with Dr. Hanna regarding admission. Scribe Attestation: Documented by Dianne Lopez, acting as a scribe for Leon William MD. Provider Scribe Attestation: All medical record entries made by the Scribe were at my direction and personally dictated by me. I have reviewed the chart and agree that the record accurately reflects my personal performance of the history, physical exam, medical decision making, and the department course for this patient. I have also personally directed, reviewed, and agree with the discharge instructions and disposition. Disposition - Clinical Impression Clinical Impression: Chest pain - Patient ED Disposition Is Patient to be Admitted: No - Disposition Disposition Time: 22:00 (.) Condition: STABLE Forms: [facility] (Yakut)
[2017-05-23 20:43] LABS: RBC URINE 4 /hpf (0-3); URINE BACTERIA RARE (<OCC); URINE BILIRUBIN NEGATIVE (NEGATIVE); URINE BLOOD NEGATIVE (NEGATIVE); URINE COLOR YELLOW (YELLOW); URINE GLUCOSE (UA) NEG (Normal); URINE KETONE NEGATIVE (NEGATIVE); URINE LEUKOCYTE ESTERASE NEG Leu/uL (Negative); URINE PROTEIN NEGATIVE (NEGATIVE); URINE UROBILINOGEN 0.2-1.0 mg/dL (0.2-1.0); WBC URINE 5 /hpf (0-5)
[2017-05-23 20:44] LABS: PARTIAL THROMBOPLASTIN TIME 31.5 Seconds (25.6-37.1)
--- NOTE | 2017-05-23 22:24 | CT ---
EXAM: CT Head Without Intravenous Contrast CLINICAL HISTORY: 46 years old, female; Signs and symptoms; Dizziness; Additional info: Dizziness, blurred vision TECHNIQUE: Axial computed tomography images of the head/brain without intravenous contrast. All CT scans at this facility use one or more dose reduction techniques, viz.: automated exposure control; ma/kV adjustment per patient size (including targeted exams where dose is matched to indication; i.e. head); or iterative reconstruction technique. Coronal and sagittal reformatted images were created and reviewed. COMPARISON: CT - HEAD W/O CONTRAST 12/01/2016 9:36:58 PM FINDINGS: Brain: No acute intracranial hemorrhage. No significant white matter disease. No edema. Persistent basal ganglia calcifications. Ventricles: No significant ventriculomegaly. Bones: No acute displaced fracture. Sinuses: Unremarkable as visualized. No acute sinusitis. Mastoid air cells: Unremarkable as visualized. No mastoid effusion. IMPRESSION: No acute intracranial hemorrhage, or suspicious mass effect. Basal ganglia mineralization is prominent considering the patient's age. Still, this may be physiologic. Other considerations are prior infection, thyroid/parathyroid disease or inherited metabolic conditions.
--- NOTE | 2017-05-23 22:32 | CP.PCM.HP ---
History of Present Illness - History of Present Illness History of Present Illness: 46 year old female with a history of rheumatic fever, CAD s/p LCA stent placement (Jan, 2016) and regional complex pain presents to the ED with a chief complaint of chest pain with shortness of breath, dizziness, lightheadedness, and occasional blurred vision that has been ongoing for a few days. Patient reports that her shortness of breath has been waking her up from her sleep, and that the pain she is feeling in her chest is somewhat similar to the pain she experienced when having her stent placed. Denies any fever, chills, nausea, abdominal pain (states pain is more upper part of abdomen and under the breast) , change in bowel habits PMD: Dr Diaz [employer] Teacher: Dr Woodard Allergy: ceftriaxone, iodine (hives) PMHx: as above SHx: appendectomy (1980), cholecystectomy (2002), tonsillectomy, total hysterectomy (2014), Stent placement (2015) SocHx: drinks wine socially; former social smoker, 2 cigarettes with wine for 22 yrs; denies illicit drug use; unemployed, lives with her son FHx: father, CAD, Present on Admission - Present on Admission Any Indicators Present on Admission: No Review of Systems - Review of Systems All systems: reviewed and no additional remarkable complaints except Past Patient History - Infectious Disease Hx of Infectious Diseases: None - Tetanus Immunizations Tetanus Immunization: Unknown - Past Medical History & Family History Past Medical History?: Yes - Past Social History Smoking Status: Never Smoked - CARDIAC Hx Hypertension: Yes Hx Mitral Valve Prolapse: Yes Hx Pacemaker: No - PULMONARY Hx Asthma: Yes Hx Bronchitis: Yes Hx Pneumonia: Yes - NEUROLOGICAL Hx Neurological Disorder: No - HEENT Hx HEENT Problems: No - RENAL Hx Chronic Kidney Disease: No - ENDOCRINE/METABOLIC Hx Endocrine Disorders: No - HEMATOLOGICAL/ONCOLOGICAL Hx Human Immunodeficiency Virus (HIV): No - INTEGUMENTARY Hx Dermatological Problems: No - MUSCULOSKELETAL/RHEUMATOLOGICAL Hx Arthritis: Yes Hx Fractures: Yes (right arm) Hx Rheumatoid Arthritis: Yes - GASTROINTESTINAL Hx Crohn's Disease: Yes Hx Gall Bladder Disease: Yes (removed 2002) - GENITOURINARY/GYNECOLOGICAL Hx Genitourinary Disorders: Yes (Ovarian cysts, Hysterectomy) - PSYCHIATRIC Hx Psychophysiologic Disorder: No Hx Substance Use: No - SURGICAL HISTORY Hx Appendectomy: Yes (at 8 years old) Hx Cholecystectomy: Yes (2002) Hx Coronary Stent: Yes (x1; Left circumflex (January 2016)) Hx Tonsillectomy: Yes ("at young age") - ANESTHESIA Hx Anesthesia: Yes Hx Anesthesia Reactions: No Hx Malignant Hyperthermia: No Meds Allergies/Adverse Reactions: Allergies Allergy/AdvReac Type Severity Reaction Status Date / Time ceftriaxone Allergy RASH Verified 05/23/17 18:56 Iodine and Iodide Containing Allergy SHORTNESS Verified 05/23/17 18:56 Produc OF BREATH iohexol [From Omnipaque] AdvReac SWELLING Verified 05/23/17 18:56 Physical Exam - Constitutional Appears: Non-toxic, No Acute Distress - Head Exam Head Exam: ATRAUMATIC, NORMOCEPHALIC - Eye Exam Eye Exam: EOMI, Normal appearance, PERRL. absent: Nystagmus Pupil Exam: NORMAL ACCOMODATION - ENT Exam ENT Exam: Mucous Membranes Moist - Neck Exam Neck exam: Positive for: Full Rom. Negative for: Lymphadenopathy, Meningismus - Respiratory Exam Respiratory Exam: Clear to Auscultation Bilateral, NORMAL BREATHING PATTERN. absent: Rhonchi, Wheezes - Cardiovascular Exam Cardiovascular Exam: REGULAR RHYTHM, +S1, +S2 - GI/Abdominal Exam GI & Abdominal Exam: Normal Bowel Sounds, Soft. absent: Tenderness - Extremities Exam Extremities exam: Negative for: calf tenderness, pedal edema - Neurological Exam Neurological exam: Alert, CN II-XII Intact, Oriented x3 - Psychiatric Exam Psychiatric exam: Anxious Results - Vital Signs Recent Vital Signs: Last Vital Signs Temp 98.0 F 05/23/17 18:58 Pulse 78 05/23/17 18:58 Resp 16 05/23/17 18:58 BP 132/75 05/23/17 18:58 Pulse Ox 100 05/23/17 22:07 - Labs Result Diagrams: 05/23/17 20:15 05/23/17 20:15 Labs: Laboratory Results - last 24 hr 05/23/17 05/23/17 05/23/17 20:15 20:15 20:15 WBC 13.9 H RBC 4.35 Hgb 12.8 Hct 39.0 MCV 89.7 MCH 29.4 MCHC 32.7 L RDW 13.6 Plt Count 312 MPV 7.5 Neut % (Auto) 63.9 Lymph % (Auto) 27.1 [place] % (Auto) 7.8 Eos % (Auto) 1.0 Baso % (Auto) 0.2 Neut # 8.9 H Lymph # 3.8 [place] # 1.1 H Eos # 0.1 Baso # 0.0 PT 10.8 INR 1.1 APTT 31.5 Sodium 143 Potassium 4.1 Chloride 107 Carbon Dioxide 25 Anion Gap 16 BUN 21 H Creatinine 0.5 L Est GFR ( Amer) > 60 Est GFR (Non-Af Amer) > 60 Random Glucose 92 Calcium 9.7 Troponin I < 0.0120 NT-Pro-B Natriuret Pep 14.9 Urine Color Urine Clarity Urine pH Ur Specific [place] Urine Protein Urine Glucose (UA) Urine Ketones Urine Blood Urine Nitrate Urine Bilirubin Urine Urobilinogen Ur Leukocyte Esterase Urine RBC (Auto) Urine Microscopic WBC Ur Squamous Epith Cells Urine Bacteria Urine Opiates Screen Urine Methadone Screen Ur Barbiturates Screen Ur Phencyclidine Scrn Ur Amphetamines Screen U Benzodiazepines Scrn U Oth Cocaine Metabols U Cannabinoids Screen 05/23/17 05/23/17 20:15 20:15 WBC RBC Hgb Hct MCV MCH MCHC RDW Plt Count MPV Neut % (Auto) Lymph % (Auto) [place] % (Auto) Eos % (Auto) Baso % (Auto) Neut # Lymph # [place] # Eos # Baso # PT INR APTT Sodium Potassium Chloride Carbon Dioxide Anion Gap BUN Creatinine Est GFR ( Amer) Est GFR (Non-Af Amer) Random Glucose Calcium Troponin I NT-Pro-B Natriuret Pep Urine Color Yellow Urine Clarity Cloudy Urine pH 7.0 Ur Specific [place] 1.018 Urine Protein Negative Urine Glucose (UA) Neg Urine Ketones Negative Urine Blood Negative Urine Nitrate Negative Urine Bilirubin Negative Urine Urobilinogen 0.2-1.0 Ur Leukocyte Esterase Neg Urine RBC (Auto) 4 H Urine Microscopic WBC 5 Ur Squamous Epith Cells 3 Urine Bacteria Rare Urine Opiates Screen Negative Urine Methadone Screen Negative Ur Barbiturates Screen Negative Ur Phencyclidine Scrn Negative Ur Amphetamines Screen Negative U Benzodiazepines Scrn Negative U Oth Cocaine Metabols Negative U Cannabinoids Screen Negative Assessment & Plan - Assessment and Plan (Free Text) Assessment: 46 year old female with a history of rheumatic fever, CAD s/p LCA stent placement (Jan, 2016) and regional complex pain being admitted for ACS rule out Plan: 1. chest pain EKG unchanged from previous trop X1 neg, f/u remaining 2 2. Dizziness PE WNL, meli's negative Ct head shows : no acute findings, but a prominent basal ganglia that could be physiologic consider outpatient neurology follow up 3)CAD, s/p stent LCA in 01/18 -reviewed myocardial perfusion scan, RL, catheterization reports -c/w ASA, plavix 4)Prophylactic measures: -DVT: lovenox 40mg SC -GI; not indicated Diet- Heart Healthy
[2017-05-24] MEDS ORDERED: Influenza Vaccine 18yr & older 0.5 ML/45 MCG SYR IM ONE (07:07)
--- NOTE | 2017-05-24 08:12 | CARD ---
APPROVED REPORT EKG Measurement Heart [id number] OR [id number] <Conclusion> Normal sinus rhythm Cannot rule out Anterior infarct, age undetermined Abnormal ECG
[2017-05-24] MEDS ORDERED: Enoxaparin 40 mg Syringe SC SCH (09:00)
--- NOTE | 2017-05-24 10:22 | CP.PCM.PN ---
Subjective - Date & Time of Evaluation Date of Evaluation: 05/24/17 Time of Evaluation: 08:30 Objective - Vital Signs/Intake and Output Vital Signs (last 24 hours): Temp Pulse Resp BP Pulse Ox 97.7 F 67 20 90/57 L 98 05/24/17 08:27 05/24/17 08:27 05/24/17 08:27 05/24/17 08:27 05/24/17 08:27 Intake and Output: 05/24/17 05/24/17 06:59 18:59 Intake Total 120 Balance 120 - Medications Medications: Current Medications Aspirin (Ecotrin) 81 mg PO DAILY DEB Clopidogrel Bisulfate (Plavix) 75 mg PO DAILY DEB Enoxaparin Sodium (Lovenox) 40 mg SC DAILY DEB PRN Reason: Protocol Famotidine (Pepcid) 20 mg PO BID DEB Gabapentin (Neurontin) 600 mg PO HS DEB Meclizine HCl (Antivert) 12.5 mg PO DAILY PRN PRN Reason: Dizziness Prednisone (Prednisone Tab) 20 mg PO BID DEB Tramadol HCl (Ultram) 50 mg PO Q6 PRN PRN Reason: Pain, severe (8-10) Last Admin: 05/24/17 02:40 Dose: 50 mg - Labs Labs: 05/23/17 20:15 05/23/17 20:15 PT 10.8 Seconds (9.8-13.1) 05/23/17 20:15 INR 1.1 (0.9-1.2) 05/23/17 20:15 APTT 31.5 Seconds (25.6-37.1) 05/23/17 20:15
--- NOTE | 2017-05-24 12:20 | CP.PCM.DIS ---
Provider - Provider Date of Admission: 05/23/17 22:05 Attending physician: Odette Menon MD Primary care physician: Dr. Diaz Time Spent in preparation of Discharge (in minutes): 30 Hospital Course - Lab Results Lab Results: Most Recent Lab Values WBC 13.9 K/uL (4.8-10.8) H 05/23/17 20:15 RBC 4.35 Mil/uL (3.80-5.20) 05/23/17 20:15 Hgb 12.8 g/dL (12.0-16.0) 05/23/17 20:15 Hct 39.0 % (34.0-47.0) 05/23/17 20:15 MCV 89.7 fl (81.0-99.0) 05/23/17 20:15 MCH 29.4 pg (27.0-31.0) 05/23/17 20:15 MCHC 32.7 g/dL (33.0-37.0) L 05/23/17 20:15 RDW 13.6 % (11.5-14.5) 05/23/17 20:15 Plt Count 312 K/uL (130-400) 05/23/17 20:15 MPV 7.5 fl (7.2-11.7) 05/23/17 20:15 Neut % (Auto) 63.9 % (50.0-75.0) 05/23/17 20:15 Lymph % (Auto) 27.1 % (20.0-40.0) 05/23/17 20:15 [place] % (Auto) 7.8 % (0.0-10.0) 05/23/17 20:15 Eos % (Auto) 1.0 % (0.0-4.0) 05/23/17 20:15 Baso % (Auto) 0.2 % (0.0-2.0) 05/23/17 20:15 Neut # 8.9 K/uL (1.8-7.0) H 05/23/17 20:15 Lymph # 3.8 K/uL (1.0-4.3) 05/23/17 20:15 [place] # 1.1 K/uL (0.0-0.8) H 05/23/17 20:15 Eos # 0.1 K/uL (0.0-0.7) 05/23/17 20:15 Baso # 0.0 K/uL (0.0-0.2) 05/23/17 20:15 PT 10.8 Seconds (9.8-13.1) 05/23/17 20:15 INR 1.1 (0.9-1.2) 05/23/17 20:15 APTT 31.5 Seconds (25.6-37.1) 05/23/17 20:15 Sodium 143 mmol/l (132-148) 05/23/17 20:15 Potassium 4.1 MMOL/L (3.6-5.0) 05/23/17 20:15 Chloride 107 mmol/L (98-107) 05/23/17 20:15 Carbon Dioxide 25 mmol/L (22-30) 05/23/17 20:15 Anion Gap 16 (10-20) 05/23/17 20:15 BUN 21 mg/dl (7-17) H 05/23/17 20:15 Creatinine 0.5 mg/dL (0.7-1.2) L 05/23/17 20:15 Est GFR ( Amer) > 60 05/23/17 20:15 Est GFR (Non-Af Amer) > 60 05/23/17 20:15 Random Glucose 92 mg/dL (65-105) 05/23/17 20:15 Calcium 9.7 mg/dL (8.4-10.2) 05/23/17 20:15 Troponin I < 0.0120 ng/mL (0.00-0.120) 05/24/17 04:30 NT-Pro-B Natriuret Pep 14.9 pg/ml (0-450) 05/23/17 20:15 Urine Color Yellow (YELLOW) 05/23/17 20:15 Urine Clarity Cloudy (Clear) 05/23/17 20:15 Urine pH 7.0 (5.0-8.0) 05/23/17 20:15 Ur Specific [place] 1.018 (1.003-1.030) 05/23/17 20:15 Urine Protein Negative mg/dL (NEGATIVE) 05/23/17 20:15 Urine Glucose (UA) Neg mg/dL (Normal) 05/23/17 20:15 Urine Ketones Negative mg/dL (NEGATIVE) 05/23/17 20:15 Urine Blood Negative (NEGATIVE) 05/23/17 20:15 Urine Nitrate Negative (NEGATIVE) 05/23/17 20:15 Urine Bilirubin Negative (NEGATIVE) 05/23/17 20:15 Urine Urobilinogen 0.2-1.0 mg/dL (0.2-1.0) 05/23/17 20:15 Ur Leukocyte Esterase Neg [place]/uL (Negative) 05/23/17 20:15 Urine RBC (Auto) 4 /hpf (0-3) H 05/23/17 20:15 Urine Microscopic WBC 5 /hpf (0-5) 05/23/17 20:15 Ur Squamous Epith Cells 3 /hpf (0-5) 05/23/17 20:15 Urine Bacteria Rare (<OCC) 05/23/17 20:15 Urine Opiates Screen Negative (NEGATIVE) 05/23/17 20:15 Urine Methadone Screen Negative (NEGATIVE) 05/23/17 20:15 Ur Barbiturates Screen Negative (NEGATIVE) 05/23/17 20:15 Ur Phencyclidine Scrn Negative (NEGATIVE) 05/23/17 20:15 Ur Amphetamines Screen Negative (NEGATIVE) 05/23/17 20:15 U Benzodiazepines Scrn Negative (NEGATIVE) 05/23/17 20:15 U Oth Cocaine Metabols Negative (NEGATIVE) 05/23/17 20:15 U Cannabinoids Screen Negative (NEGATIVE) 05/23/17 20:15 - Hospital Course Hospital Course: 46 year old female with a history of CAD s/p LCA stent placement (Jan, 2016), rheumatic fever and regional complex pain syndrome presents to [facility] on 05/23/17 w / complaint of chest pain with shortness of breath and dizziness for few days. Pt had EKG, CXR and head CT done yesterday which shows no acute pathology. 2 sets of troponin were negative. Echo has been done today; reports is pending and to be followed up with PCP. Pt had cadiac catheterization done on 11/09/16, which shows normal LV function with an EF of 60%. Pt reports no chest pain, dyspnea or dizziness this AM. Pt is advised to f/u with PCP within 1 week. - Date & Time of H&P Date of H&P: 05/24/17 Time of H&P: 12:20 Discharge Exam - Head Exam Head Exam: ATRAUMATIC, NORMOCEPHALIC - Eye Exam Eye Exam: Normal appearance - ENT Exam ENT Exam: Mucous Membranes Moist, Normal Exam - Neck Exam Neck exam: Full Rom, Normal Inspection - Respiratory Exam Respiratory Exam: Clear to PA & Lateral, NORMAL BREATHING PATTERN. absent: Wheezes - Cardiovascular Exam Cardiovascular Exam: REGULAR RHYTHM, +S1, +S2 - GI/Abdominal Exam GI & Abdominal Exam: Normal Bowel Sounds, Soft. absent: Tenderness - Extremities Exam Extremities exam: normal inspection Additional comments: No calf tenderness or pedal edema. - Neurological Exam Neurological exam: Alert, Oriented x3 - Psychiatric Exam Psychiatric exam: Normal Affect, Normal Mood - Skin Skin Exam: Normal Color Discharge Plan - Follow Up Plan Condition: STABLE Disposition: HOME/ ROUTINE Additional Instructions: Follow up with your primary care physician and pain management.
[2017-05-24 12:29] VITALS: BP 103/61; PULSE 70; RESP 18; TEMP 98.2; O2SAT 100
--- NOTE | 2017-05-24 13:14 | RAD ---
HISTORY: cp, sob, dizziness COMPARISON: 04/17/2017. TECHNIQUE: Chest PA and lateral FINDINGS: LUNGS: No active pulmonary disease. PLEURA: No significant pleural effusion identified. No pneumothorax apparent. CARDIOVASCULAR: No radiographic findings to suggest acute or significant cardiovascular disease. OSSEOUS STRUCTURES: No significant abnormalities. VISUALIZED UPPER ABDOMEN: Normal. OTHER FINDINGS: None. IMPRESSION: No active disease. No significant interval change compared to the prior examination(s). No preliminary report provided by emergency department personnel.
--- NOTE | 2017-05-24 15:55 | CARD ---
APPROVED REPORT EXAM: Two-dimensional and M-mode echocardiogram with Doppler and color Doppler. Other Information Quality : GoodRhythm : NSR INDICATION Dyspnea Chest Pain 2D DIMENSIONS IVSd1.09 (0.7-1.1cm)LVDd4.66 (3.9-5.9cm) LVOT Diameter2.19 (1.8-2.4cm)PWd1.04 (0.7-1.1cm) IVSs1.60 (0.8-1.2cm)LVDs3.00 (2.5-4.0cm) FS (%) 35.6 %PWs1.65 (0.8-1.2cm) M-Mode DIMENSIONS Left Atrium (MM)3.02 (2.5-4.0cm)IVSd1.07 (0.7-1.1cm) Aortic Root2.52 (2.2-3.7cm)LVDd4.91 (4.0-5.6cm) Aortic Cusp Exc.1.39 (1.5-2.0cm)PWd1.14 (0.7-1.1cm) IVSs1.64 cmFS (%) 41 % LVDs2.92 (2.0-3.8cm)PWs1.74 cm Aortic Valve AoV Peak Agcnaxde376.6cm/sAoV VTI48.9cmAO Peak GR.23mmHg LVOT Peak Jzjxndvx954.9cm/sLVOT VTI31.51cmAO Mean GR.13mmHg ERIK (VMAX)1.69jz3ICG (VTI)1.87iz1SM P 1/2 Umcw815rl Mitral Valve MV E Yjeblwew621.6cm/sMV DECEL [id number] A Ehmzxgep34.6cm/s MV TJD45hlB/A ratio1.3MVA (PHT)3.77cm2 TDI Lateral E' Peak V12.71cm/sMedial E' Peak V14.50cm/sE/Lateral E'8.2 E/Medial E'7.1 Pulmonary Valve PV Peak Szwnqfjc807.1cm/s Tricuspid Valve TR Peak Wemwwykg556ty/sRAP EKFTEGJJ10khToJP Peak Gr.21mmHg EGNV70diCl LEFT VENTRICLE The left ventricle is normal size. There is normal left ventricular wall thickness. The left ventricular function is normal. The left ventricular ejection fraction is within the normal range. The Ejection Fraction is 60-65%. There is normal LV segmental wall motion. The left ventricular diastolic function is normal. No left ventricle thrombus noted on this study. There is no mass noted in the left ventricle. RIGHT VENTRICLE The right ventricle is normal size. There is normal right ventricular wall thickness. The right ventricular systolic function is normal. ATRIA The left atrium size is normal. The right atrium size is normal. The interatrial septum is intact with no evidence for an atrial septal defect. AORTIC VALVE The aortic valve is normal in structure and function. There is trace to mild aortic regurgitation. There is mild valvular aortic stenosis. There is no aortic valvular vegetation. MITRAL VALVE The mitral valve is normal in structure and function. There is no evidence of mitral valve prolapse. There is no mitral valve stenosis. There is no mitral valve regurgitation noted. TRICUSPID VALVE The tricuspid valve is normal in structure and function. There is no tricuspid valve regurgitation noted. There is no tricuspid valve prolapse or vegetation. There is no tricuspid valve stenosis. PULMONIC VALVE The pulmonary valve is normal in structure and function. There is no pulmonic valvular regurgitation. There is no pulmonic valvular stenosis. GREAT VESSELS The aortic root is normal in size. The IVC is normal in size and collapses >50% with inspiration. PERICARDIAL EFFUSION The pericardium appears normal. There is no pleural effusion. <Conclusion> The left ventricle is normal size. The left ventricular function is normal. The left ventricular ejection fraction is within the normal range. The Ejection Fraction is 60-65%. There is trace to mild aortic regurgitation. There is mild valvular aortic stenosis.
== END 2017-05-24 14:34 | disposition home or self-care (01) ==
LOC: H.ER 18:53 → H.ERHOLD 22:05 → H.TEL 05-24 03:23
PROVIDERS: ADMIT Family Medicine Geriatric Medicine; ATTEND Family Medicine Geriatric Medicine
DX: R07.89 Other chest pain (principal); E78.5 Hyperlipidemia, unspecified; Z87.01 Personal history of pneumonia (recurrent); I00 Rheumatic fever without heart involvement; I10 Essential (primary) hypertension; I25.10 Atherosclerotic heart disease of native coronary artery without angina pectoris; I34.1 Nonrheumatic mitral (valve) prolapse; J45.909 Unspecified asthma, uncomplicated; K50.90 Crohn's disease, unspecified, without complications; M06.9 Rheumatoid arthritis, unspecified; Z79.02 Long term (current) use of antithrombotics/antiplatelets; Z79.82 Long term (current) use of aspirin; Z79.899 Other long term (current) drug therapy; Z82.49 Family history of ischemic heart disease and other diseases of the circulatory system; Z87.891 Personal history of nicotine dependence; Z90.49 Acquired absence of other specified parts of digestive tract; Z90.710 Acquired absence of both cervix and uterus; Z95.5 Presence of coronary angioplasty implant and graft; H53.8 Other visual disturbances; M19.90 Unspecified osteoarthritis, unspecified site; R42 Dizziness and giddiness
CPT/HCPCS: 36415; 70450; 71020; 80048; 80324; 80345; 80346; 80349; 80353; 80358; 80361; 81003; 83880; 83992; 84484; 85025; 85610; 85730; 90471; 93005; 93306; 96374; 96375; 99282; G0378; J1650; J1885; J2270; J2765; Q2035

== ENCOUNTER 2017-06-09 19:16 | Emergency (ER) | payer OTHER ==
[2017-06-09 19:16] VITALS: BMI 27.4
[2017-06-09 19:36] VITALS: BP 121/65; PULSE 64; RESP 16; TEMP 98.2; O2SAT 97
[2017-06-09] MEDS ORDERED: Sodium Chloride 0.9% 1,000 ML IV STA (20:07)
[2017-06-09 20:39] LABS: BASO % 0.4 % (0.0-2.0); EOS # 0.2 K/uL (0.0-0.7); EOS % 1.9 % (0.0-4.0); HEMATOCRIT 37.3 % (34.0-47.0); LYMPH # 3.2 K/uL (1.0-4.3); LYMPH % 32.3 % (20.0-40.0); MEAN CELL VOLUME 89.9 fl (81.0-99.0); MEAN CORPUSCULAR HEMOGLOBIN 29.6 pg (27.0-31.0); MEAN CORPUSCULAR HGB CONC 32.9 g/dL (33.0-37.0); MEAN PLATELET VOLUME 7.2 fl (7.2-11.7); MONO # 0.7 K/uL (0.0-0.8); NEUT # 5.8 K/uL (1.8-7.0); NEUT % 58.4 % (50.0-75.0); RED CELL DISTRIBUTION WIDTH 13.6 % (11.5-14.5)
[2017-06-09 20:47] LABS: RBC URINE 1 /hpf (0-3); URINE BILIRUBIN NEGATIVE (NEGATIVE); URINE BLOOD NEGATIVE (NEGATIVE); URINE COLOR YELLOW (YELLOW); URINE GLUCOSE (UA) NEG (Normal); URINE KETONE NEGATIVE (NEGATIVE); URINE LEUKOCYTE ESTERASE NEG Leu/uL (Negative); URINE PROTEIN NEGATIVE (NEGATIVE); WBC URINE 1 /hpf (0-5)
[2017-06-09 20:56] LABS: BLOOD UREA NITROGEN 27 mg/dl (7-17); CALCIUM 9.5 mg/dL (8.4-10.2); CARBON DIOXIDE 23 mmol/L (22-30); CHLORIDE 108 mmol/L (98-107); GFR AFRICAN-AMERICAN > 60; GLUCOSE,RANDOM 91 mg/dL (65-105); POTASSIUM 4.1 MMOL/L (3.6-5.0); SODIUM 145 mmol/l (132-148)
== END 2017-06-09 22:54 | disposition home or self-care (01) ==
LOC: H.ER 19:16
DX: R42 Dizziness and giddiness (principal)
CPT/HCPCS: 80048; 81003; 81025; 85025; 93005; 96361; 96374; 99283; J2060; J7040

== ENCOUNTER 2017-06-28 10:10 | Emergency (ER) | payer OTHER ==
[2017-06-28 10:10] VITALS: BMI 27.4
[2017-06-28 10:37] VITALS: BP 115/61; PULSE 75; RESP 19; TEMP 97; O2SAT 98
--- NOTE | 2017-06-28 11:00 | ED PDOC ---
HPI: Back Time Seen by Provider: 06/28/17 10:41 Chief Complaint (Nursing): Back Pain Chief Complaint (Provider): back pain History Per: Patient Additional Complaint(s): 46 year old female presents to ED with pain to low back for the past 6 days. Patient states she took tramadol this morning but this did not help the pain. Patient denies any radiation of pain to lower extremities and she denies any bowel or bladder dysfunction. She rates current pain as 9/10. Past Medical History Reviewed: Historical Data, Nursing Documentation, Vital Signs Vital Signs: Last Vital Signs Temp 97.0 F L 06/28/17 10:31 Pulse 75 06/28/17 10:31 Resp 19 06/28/17 10:31 BP 115/61 06/28/17 10:31 Pulse Ox 98 06/28/17 10:31 - Medical History PMH: Arthritis, Asthma, Bronchitis, CAD, Crohn's Disease, HTN, Hyperlipidemia, Mitral Valve Prolapse, Pneumonia, Chronic Kidney Disease, Rheumatoid Arthritis - Surgical History Surgical History: Appendectomy (at 8 years old), Cholecystectomy (2002), Coronary Stent (x1; Left circumflex (January 2016)), Tonsillectomy ("at young age") , (x1) Denies: Pacemaker Other surgeries: hysterectomy - Family History Family History: States: Unknown Family Hx - Living Arrangements Living Arrangements: With Family - Social History Current smoker - smoking cessation education provided: No Alcohol: Social Drugs: Denies - Home Medications Home Medications: Ambulatory Orders Medication Instructions Recorded Aspirin [Ecotrin] 81 mg PO DAILY 01/28/17 Clopidogrel [Plavix] 75 mg PO DAILY 01/28/17 Gabapentin [Neurontin] 600 mg PO HS 03/23/17 Meclizine [Meclizine*] 25 mg PO Q6 #30 tab 06/09/17 Metaxalone [Skelaxin] 800 mg PO TID PRN #20 tablet 06/28/17 Naproxen [Naprosyn] 500 mg PO BID #20 tab 06/28/17 Prednisone 50 mg PO DAILY #5 tablet 06/28/17 traMADol [Ultram] 50 mg PO TID PRN #15 tab 06/28/17 - Allergies Allergies/Adverse Reactions: Allergies Allergy/AdvReac Type Severity Reaction Status Date / Time ceftriaxone Allergy RASH Verified 06/09/17 19:34 Iodine and Iodide Containing Allergy SHORTNESS Verified 06/09/17 19:34 Produc OF BREATH iohexol [From Omnipaque] AdvReac SWELLING Verified 06/09/17 19:34 Review of Systems ROS Statement: Except As Marked, All Systems Reviewed And Found Negative Constitutional: Negative for: Fever Gastrointestinal: Negative for: Vomiting Genitourinary Female: Negative for: Dysuria, Frequency, Incontinence Musculoskeletal: Positive for: Back Pain Neurological: Negative for: Weakness, Numbness, Incoordination, Headache, Dizziness Physical Exam - Reviewed Nursing Documentation Reviewed: Yes Vital Signs Reviewed: Yes - Physical Exam Appears: Positive for: Well, Non-toxic, No Acute Distress Skin: Negative for: Rash Eye Exam: Positive for: Normal appearance Cardiovascular/Chest: Positive for: Regular Rate, Rhythm Respiratory: Positive for: Normal Breath Sounds Gastrointestinal/Abdominal: Positive for: Soft. Negative for: Tenderness, Distended, Guarding, Rebound Back: Positive for: Vertebral Tenderness (diffuse muscle spasm and tenderness across lower lumbar region) Extremity: Positive for: Normal ROM Neurologic/Psych: Positive for: Alert, Oriented - ECG O2 Sat by Pulse Oximetry: 98 Pulse Ox Interpretation: Normal - Other Rad L/S Spine X-ray X-Ray: Interpreted by Me, Viewed By Me X-Ray Interpretation: no fx, no dis Medical Decision Making Medical Decision Makin46 year old female with low back pain Plan: L/S Spine X-ray IM toradol PO valium 1 percocet Patient reports improvement pain after meds given in ED. Prescriptions given for Skelaxin, Naprosyn and prednisone. Patient was referred to orthopedist on- call for follow-up. Disposition - Clinical Impression Clinical Impression: Back strain - Patient ED Disposition Is Patient to be Admitted: No Counseled Patient/Family Regarding: Studies Performed, Diagnosis, Need For Followup, Rx Given - Disposition Referrals: Lon Gallagher MD [Primary Care Provider] - Negrito Cárdenas III, MD [Staff Provider] - Disposition: Routine/Home Disposition Time: 12:24 Condition: IMPROVED Additional Instructions: Take prescription medications as directed as needed for pain. Follow-up with primary doctor or orthopedist for any persistent symptoms. Prescriptions: Metaxalone [Skelaxin] 800 mg PO TID PRN #20 tablet PRN Reason: Muscle Pain Naproxen [Naprosyn] 500 mg PO BID #20 tab Prednisone 50 mg PO DAILY #5 tablet traMADol [Ultram] 50 mg PO TID PRN #15 tab PRN Reason: Pain, Moderate (4-7) Instructions: Muscle Spasm (ED), Back Pain (ED) Forms: [employer] ([employer]) Results - Lab Results Lab Results: 06/28/17 11:18 Urine Color Yellow Urine Clarity Slighty-cloudy Urine pH 8.0 Ur Specific [place] 1.020 Urine Protein 30 Urine Glucose (UA) Neg Urine Ketones 20 Urine Blood Negative Urine Nitrate Negative Urine Bilirubin Negative Urine Urobilinogen 0.2-1.0 Ur Leukocyte Esterase Neg Urine RBC (Auto) 2 Urine Microscopic WBC 2 Ur Squamous Epith Cells 1 Urine Bacteria Rare
[2017-06-28] MEDS ORDERED: diaZEpam 10 mg/2 ml Inj IM STA (11:04)
[2017-06-28] MEDS ORDERED: Oxycodone/Acetaminophen 5/325 mg Tab PO STA (11:04)
[2017-06-28] MEDS ORDERED: Oxycodone/Acetaminophen 5/325 mg Tab ONE (11:09)
--- NOTE | 2017-06-28 12:01 | RAD ---
PROCEDURE: Radiographs of the Lumbar Spine. HISTORY: pain COMPARISON: No prior. FINDINGS: BONES: Normal alignment. No listhesis. No fracture. DISC SPACES: Unremarkable. OTHER FINDINGS: None. IMPRESSION: Unremarkable radiographs of the lumbar spine.
[2017-06-28 12:16] LABS: RBC URINE 2 /hpf (0-3); URINE BACTERIA RARE (<OCC); URINE BILIRUBIN NEGATIVE (NEGATIVE); URINE BLOOD NEGATIVE (NEGATIVE); URINE COLOR YELLOW (YELLOW); URINE GLUCOSE (UA) NEG (Normal); URINE KETONE 20 mg/dL (NEGATIVE); URINE LEUKOCYTE ESTERASE NEG Leu/uL (Negative); URINE PROTEIN 30 mg/dL (NEGATIVE); URINE UROBILINOGEN 0.2-1.0 mg/dL (0.2-1.0); WBC URINE 2 /hpf (0-5)
== END 2017-06-28 12:47 | disposition home or self-care (01) ==
LOC: H.ER 10:10 → SUPCPDRO 10:10 → H.ER 12:47
DX: M54.5 Low back pain (principal); E78.5 Hyperlipidemia, unspecified; I12.9 Hypertensive chronic kidney disease with stage 1 through stage 4 chronic kidney disease, or unspecified chronic kidney disease; I25.10 Atherosclerotic heart disease of native coronary artery without angina pectoris; I34.1 Nonrheumatic mitral (valve) prolapse; J45.909 Unspecified asthma, uncomplicated; K50.90 Crohn's disease, unspecified, without complications; M06.9 Rheumatoid arthritis, unspecified; Z79.82 Long term (current) use of aspirin; Z95.5 Presence of coronary angioplasty implant and graft
CPT/HCPCS: 72100; 81003; 81025; 96372; 99282; J1885

== ENCOUNTER 2017-08-11 20:35 | Emergency (ER) | payer OTHER ==
[2017-08-11 20:36] VITALS: BMI 27.4
[2017-08-11] MEDS ORDERED: Sodium Chloride 0.9% 1,000 ML IV STA (21:36)
[2017-08-11] MEDS ORDERED: Albuterol-Ipratrop 3 mg / 0.5 (3 ml) UD INH STA (21:36)
[2017-08-11] MEDS ORDERED: Albuterol-Ipratrop 3 mg / 0.5 (3 ml) UD ONE (22:02)
--- NOTE | 2017-08-11 22:34 | ED PDOC ---
HPI: CCC, URI, Sore Throat Time Seen by Provider: 08/11/17 20:54 Chief Complaint (Nursing): Cough, Cold, Congestion Chief Complaint (Provider): Coughing, bodyaches, fever History Per: Patient History/Exam Limitations: no limitations Onset/Duration Of Symptoms: Days Current Symptoms Are (Timing): Still Present Location Of Pain: None Ear Symptoms: Bilateral: None Additional Complaint(s): 46 yo female with history of asthma presents with cough x 3 days, fever up to 102.0 and bodyahces. Pt took motrin 1 hour [employer]. Pt states she also took an albuterol treatment at home which did not help SOB or cough. Past Medical History Reviewed: Historical Data, Nursing Documentation, Vital Signs Vital Signs: Last Vital Signs Temp 98.7 F 08/11/17 23:34 Pulse 102 H 08/11/17 20:40 Resp 16 08/11/17 20:40 BP 142/85 08/11/17 20:40 Pulse Ox 96 08/11/17 22:34 - Medical History PMH: Arthritis, Asthma, Bronchitis, CAD, Crohn's Disease, Fractures (right arm) , Gall Bladder Disease (removed 2002), HTN, Hyperlipidemia, Mitral Valve Prolapse, Pneumonia, Chronic Kidney Disease, Rheumatoid Arthritis Denies: HIV - Surgical History Surgical History: Appendectomy (at 8 years old), Cholecystectomy (2002), Coronary Stent (x1; Left circumflex (January 2016)), Tonsillectomy ("at young age") , (x1) Denies: Pacemaker - Family History Family History: States: No Known Family Hx - Living Arrangements Living Arrangements: With Family - Social History Current smoker - smoking cessation education provided: No - Immunization History Hx Tetanus Toxoid Vaccination: No Hx Influenza Vaccination: Yes Hx Pneumococcal Vaccination: No - Home Medications Home Medications: Ambulatory Orders Medication Instructions Recorded Aspirin [Ecotrin] 81 mg PO DAILY 01/28/17 Clopidogrel [Plavix] 75 mg PO DAILY 01/28/17 Gabapentin [Neurontin] 600 mg PO HS 03/23/17 Meclizine [Meclizine*] 25 mg PO Q6 #30 tab 06/09/17 Metaxalone [Skelaxin] 800 mg PO TID PRN #20 tablet 06/28/17 Naproxen [Naprosyn] 500 mg PO BID #20 tab 06/28/17 Prednisone 50 mg PO DAILY #5 tablet 06/28/17 traMADol [Ultram] 50 mg PO TID PRN #15 tab 06/28/17 oxyCODONE [oxyCODONE Immediate 5 mg PO Q6 PRN #10 tab 07/01/17 Release Tab] predniSONE [Prednisone] 40 mg PO DAILY #10 tab 07/01/17 Azithromycin 250 mg PO DAILY #6 tab 08/12/17 predniSONE [predniSONE Tab] 20 mg PO DAILY #12 tab 08/12/17 - Allergies Allergies/Adverse Reactions: Allergies Allergy/AdvReac Type Severity Reaction Status Date / Time ceftriaxone Allergy RASH Verified 06/09/17 19:34 Iodine and Iodide Containing Allergy SHORTNESS Verified 06/09/17 19:34 Produc OF BREATH iohexol [From Omnipaque] AdvReac SWELLING Verified 06/09/17 19:34 Review of Systems ROS Statement: Except As Marked, All Systems Reviewed And Found Negative Constitutional: Positive for: Fever, Chills Respiratory: Positive for: Cough, Shortness of Breath Physical Exam - Reviewed Nursing Documentation Reviewed: Yes Vital Signs Reviewed: Yes - Physical Exam Appears: Positive for: Well, Non-toxic, No Acute Distress Head Exam: Positive for: ATRAUMATIC, NORMAL INSPECTION, NORMOCEPHALIC Skin: Positive for: Normal Color, Warm, DRY Eye Exam: Positive for: Normal appearance ENT: Positive for: Normal ENT Inspection Neck: Positive for: Normal, Painless ROM Cardiovascular/Chest: Positive for: Regular Rate, Rhythm Respiratory: Positive for: Wheezing. Negative for: Normal Breath Sounds, Accessory Muscle Use Back: Positive for: Normal Inspection Extremity: Positive for: Normal ROM Neurologic/Psych: Positive for: Alert, Oriented - Laboratory Results Result Diagrams: 08/11/17 22:50 08/11/17 22:50 - ECG O2 Sat by Pulse Oximetry: 96 Pulse Ox Interpretation: Normal Disposition - Clinical Impression Clinical Impression: Acute bronchitis - Patient ED Disposition Is Patient to be Admitted: No Counseled Patient/Family Regarding: Diagnosis, Need For Followup, Rx Given - Disposition Disposition: Routine/Home Disposition Time: : Condition: GOOD Prescriptions: Azithromycin 250 mg PO DAILY #6 tab predniSONE [predniSONE Tab] 20 mg PO DAILY #12 tab Instructions: Acute Bronchitis (ED) Forms: [employer] (Andorran)
[2017-08-11 22:59] LABS: BASO # 0.1 K/uL (0.0-0.2); EOS # 0.3 K/uL (0.0-0.7); EOS % 2.6 % (0.0-4.0); HEMATOCRIT 38.2 % (34.0-47.0); LYMPH # 1.9 K/uL (1.0-4.3); LYMPH % 16.9 % (20.0-40.0); MEAN CELL VOLUME 89.4 fl (81.0-99.0); MEAN CORPUSCULAR HEMOGLOBIN 29.2 pg (27.0-31.0); MEAN CORPUSCULAR HGB CONC 32.6 g/dL (33.0-37.0); MEAN PLATELET VOLUME 7.6 fl (7.2-11.7); MONO # 0.8 K/uL (0.0-0.8); MONO % 7.5 % (0.0-10.0); RED CELL DISTRIBUTION WIDTH 13.8 % (11.5-14.5); WHITE BLOOD COUNT 11.2 K/uL (4.8-10.8)
[2017-08-11 23:10] LABS: BILIRUBIN,TOTAL 0.8 mg/dl (0.2-1.3); CALCIUM 9.6 mg/dL (8.4-10.2); CARBON DIOXIDE 24 mmol/L (22-30); CHLORIDE 107 mmol/L (98-107); GFR AFRICAN-AMERICAN > 60; GLUCOSE,RANDOM 72 mg/dL (65-105); SODIUM 143 mmol/l (132-148)
[2017-08-11 23:19] LABS: ALB/GLOB RATIO 1.2 (1.0-2.1); ALKALINE PHOSPHATASE 55 U/L (38-126); ALT/SGPT 29 U/L (9-52); AST/SGOT 32 U/L (14-36); BLOOD UREA NITROGEN 22 mg/dl (7-17); POTASSIUM 4.2 MMOL/L (3.6-5.0); TOTAL PROTEIN 8.3 G/DL (6.3-8.2)
[2017-08-12 02:37] VITALS: BP 132/70; PULSE 74; RESP 17; TEMP 98.1; O2SAT 97
--- NOTE | 2017-08-12 11:03 | RAD ---
HISTORY: cough, fever COMPARISON: Comparison chest 05/23/2017. TECHNIQUE: Chest PA and lateral FINDINGS: LUNGS: Elevation right hemidiaphragm also appears be some very mild possibly due to eventration. Also appears to be some mild compressive type atelectasis right lung base. Small area of linear scarring along the left lateral lower lung field extending towards the pleural surface. PLEURA: No significant pleural effusion identified. No pneumothorax apparent. CARDIOVASCULAR: Normal. OSSEOUS STRUCTURES: No significant abnormalities. VISUALIZED UPPER ABDOMEN: Normal. OTHER FINDINGS: None. IMPRESSION: Elevation right hemidiaphragm also appears be some very mild possibly due to eventration. Also appears to be some mild compressive type atelectasis right lung base. Small area of linear scarring along the left lateral lower lung field extending towards the pleural surface.
== END 2017-08-12 02:41 | disposition home or self-care (01) ==
LOC: H.ER 20:35
DX: J20.9 Acute bronchitis, unspecified (principal); E78.5 Hyperlipidemia, unspecified; I12.9 Hypertensive chronic kidney disease with stage 1 through stage 4 chronic kidney disease, or unspecified chronic kidney disease; I25.10 Atherosclerotic heart disease of native coronary artery without angina pectoris; I34.1 Nonrheumatic mitral (valve) prolapse; J45.909 Unspecified asthma, uncomplicated; K50.90 Crohn's disease, unspecified, without complications; M06.9 Rheumatoid arthritis, unspecified; Z79.82 Long term (current) use of aspirin; Z95.5 Presence of coronary angioplasty implant and graft
CPT/HCPCS: 71020; 80053; 85025; 87804; 94640; 96374; 99282; J2930; J7040

== ENCOUNTER 2017-09-09 16:48 | Emergency (ER) | payer OTHER ==
[2017-09-09 16:48] VITALS: BMI 27.4
[2017-09-09 17:04] VITALS: O2SAT 99
[2017-09-09] MEDS ORDERED: Sodium Chloride 0.9% 1,000 ML IV STA (17:29)
[2017-09-09 18:00] LABS: BASO % 0.4 % (0.0-2.0); EOS # 0.3 K/uL (0.0-0.7); EOS % 2.3 % (0.0-4.0); HEMOGLOBIN 12.4 g/dL (12.0-16.0); LYMPH # 3.1 K/uL (1.0-4.3); LYMPH % 26.9 % (20.0-40.0); MEAN CELL VOLUME 90.1 fl (81.0-99.0); MEAN CORPUSCULAR HEMOGLOBIN 29.4 pg (27.0-31.0); MEAN CORPUSCULAR HGB CONC 32.6 g/dL (33.0-37.0); MEAN PLATELET VOLUME 7.3 fl (7.2-11.7); MONO # 0.8 K/uL (0.0-0.8); MONO % 6.9 % (0.0-10.0); NEUT # 7.2 K/uL (1.8-7.0); NEUT % 63.5 % (50.0-75.0); NRBC % 0.1 % (0.0-0.0); RBC 4.22 Mil/uL (3.80-5.20); RED CELL DISTRIBUTION WIDTH 13.5 % (11.5-14.5); WHITE BLOOD COUNT 11.4 K/uL (4.8-10.8)
[2017-09-09 18:04] LABS: BLOOD UREA NITROGEN 22 mg/dl (7-17); CALCIUM 9.7 mg/dL (8.4-10.2); GFR AFRICAN-AMERICAN > 60; GFR NON-AFRICAN AMERICAN > 60
[2017-09-09 18:06] LABS: PROTHROMBIN TIME 11.2 Seconds (9.8-13.1)
--- NOTE | 2017-09-09 18:06 | ED PDOC ---
HPI: Chest Pain Time Seen by Provider: 09/09/17 17:14 Chief Complaint (Nursing): Chest Pain Chief Complaint (Provider): Chest Pain History Per: Patient History/Exam Limitations: no limitations Onset/Duration Of Symptoms: Days (x3 days) Current Symptoms Are (Timing): Still Present Additional Complaint(s): 46 y/o female with past medical history of coronary artery disease and valvular heart disease presents to the ED complaining of ongoing left sided chest pain x 3days that radiates to the left shoulder and arms. Pain occurs in intervals of 5 -6 minutes with each episode lasting for about 2-3 seconds. Pain is sharp and comes without any cause and then resolves on its own. Patient states taking Nitroglycerin without relief. Patient reports having her Coronary stem replaced by Dr. Woodard. EKG was taken last year which showed she is stable and her bloodwork from 2 months ago shows normal liver and renal function and normal CBC. Patient is allergic to IV contrast and Glucophage. Patient notes dizziness but denies vomiting, diarrhea, cough, body aches or any further medical complaints. Preschool Adviser: Dr. Biggs and Dr. Woodard PMD: Jenifer Diaz MD Past Medical History Vital Signs: Last Vital Signs Temp 97.3 F L 09/09/17 17:02 Pulse 74 09/09/17 17:24 Resp 18 09/09/17 17:02 BP 125/81 09/09/17 17:02 Pulse Ox 99 09/09/17 18:47 - Medical History PMH: Arthritis, Asthma, Bronchitis, CAD, Crohn's Disease, Fractures (right arm) , Gall Bladder Disease (removed 2002), HTN, Hyperlipidemia, Mitral Valve Prolapse, Pneumonia, Chronic Kidney Disease, Rheumatoid Arthritis Denies: HIV Other PMH: valvular heart disease - Surgical History Surgical History: Appendectomy (at 8 years old), Cholecystectomy (2002), Coronary Stent (x1; Left circumflex (January 2016)), Tonsillectomy ("at young age") , (x1) Denies: Pacemaker - Family History Family History: States: Unknown Family Hx - Living Arrangements Living Arrangements: With Family - Social History Current smoker - smoking cessation education provided: No (Quit smoking when found out about coronary artery disease) Alcohol: None Drugs: Denies - Immunization History Hx Tetanus Toxoid Vaccination: No Hx Influenza Vaccination: Yes Hx Pneumococcal Vaccination: No - Home Medications Home Medications: Ambulatory Orders Medication Instructions Recorded Aspirin [Ecotrin] 81 mg PO DAILY 01/28/17 Clopidogrel [Plavix] 75 mg PO DAILY 01/28/17 Gabapentin [Neurontin] 600 mg PO HS 03/23/17 Meclizine [Meclizine*] 25 mg PO Q6 #30 tab 06/09/17 Metaxalone [Skelaxin] 800 mg PO TID PRN #20 tablet 06/28/17 Naproxen [Naprosyn] 500 mg PO BID #20 tab 06/28/17 Prednisone 50 mg PO DAILY #5 tablet 06/28/17 traMADol [Ultram] 50 mg PO TID PRN #15 tab 06/28/17 oxyCODONE [oxyCODONE Immediate 5 mg PO Q6 PRN #10 tab 07/01/17 Release Tab] predniSONE [Prednisone] 40 mg PO DAILY #10 tab 07/01/17 Azithromycin 250 mg PO DAILY #6 tab 08/12/17 predniSONE [predniSONE Tab] 20 mg PO DAILY #12 tab 08/12/17 - Allergies Allergies/Adverse Reactions: Allergies Allergy/AdvReac Type Severity Reaction Status Date / Time ceftriaxone Allergy RASH Verified 06/09/17 19:34 Iodine and Iodide Containing Allergy SHORTNESS Verified 06/09/17 19:34 Produc OF BREATH iohexol [From Omnipaque] AdvReac SWELLING Verified 06/09/17 19:34 Wells Criteria for PE - Wells Criteria for Pulmonary Embolism Clinical Signs and Symptoms of DVT: No P.E is #1 Diagnosis, or Equally Likely: No Heart Rate >100: No Immobilization at least 3 days;Surgery previous 4 weeks: No Previous, objectively diagnosed PE or DVT: No Hemoptysis: No Malignancy w/treatment within 6 months, or palliative: No Total Score: 0 Review of Systems ROS Statement: Except As Marked, All Systems Reviewed And Found Negative (As oer HPI, otherwise negative) Constitutional: Negative for: Other (Body ache) Cardiovascular: Positive for: Chest Pain Respiratory: Negative for: Cough Gastrointestinal: Negative for: Nausea, Vomiting Neurological: Positive for: Dizziness Physical Exam - Reviewed Nursing Documentation Reviewed: Yes Vital Signs Reviewed: Yes - Physical Exam Appears: Positive for: Well, Non-toxic, No Acute Distress Head Exam: Positive for: ATRAUMATIC, NORMAL INSPECTION, NORMOCEPHALIC Skin: Positive for: Normal Color, Warm, Dry Eye Exam: Positive for: Normal appearance ENT: Positive for: Normal ENT Inspection Neck: Positive for: Normal, Painless ROM, Supple (no rigidity) Cardiovascular/Chest: Positive for: Regular Rate, Rhythm. Negative for: Murmur Respiratory: Positive for: Normal Breath Sounds. Negative for: Accessory Muscle Use, Respiratory Distress Gastrointestinal/Abdominal: Positive for: Normal Exam, Soft Back: Positive for: Normal Inspection Extremity: Positive for: Normal ROM. Negative for: Pedal Edema, Deformity Neurologic/Psych: Positive for: Alert, Oriented (x3) - Laboratory Results Result Diagrams: 09/09/17 17:49 09/09/17 17:49 - ECG ECG Rhythm: Positive for: Sinus Rhythm (Normal Sinus Rhythm with access rate of 75) O2 Sat by Pulse Oximetry: 99 (RA) Pulse Ox Interpretation: Normal Medical Decision Making Medical Decision Making: Time: 17:27 Initial Impression: Atypical chest pain with history of coronary artery disease and valvular heart disease Plan: EKG BMP Troponin CBC w/ diff D Dimer PTT Prothrombin Time Chest x-ray Sodium Chloride 1L IV Ground Support Equipment Fitter Cont IV Insertion (saline lock) Time: 18:00 Chest x-ray FINDINGS: LUNGS: No active pulmonary disease. PLEURA: No significant pleural effusion identified. No pneumothorax apparent. CARDIOVASCULAR: Normal. OSSEOUS STRUCTURES: No significant abnormalities. VISUALIZED UPPER ABDOMEN: Normal. OTHER FINDINGS: None. IMPRESSION: No active disease. No significant interval change compared to the prior examination(s). Scribe Attestation: Documented by Holley Anderson acting as a scribe for Irasema Enrique MD. Scribe Attestation: All medical record entries made by the Scribe were at my direction and personally dictated by me. I have reviewed the chart and agree that the record accurately reflects my personal performance of the history, physical exam, medical decision making, and the department course for this patient. I have also personally directed, reviewed, and agree with the discharge instructions and disposition. 9.15p - patient has been stable since arrival. labs is significant only for d- dimer of 245. Patient does not have symptoms, physical findings or other results that support the presence of a PE/DVT. Her chest pain are unprovoked by exertion. She does not have tachycardia and is hemodynamically stable. Reassured patient that she should continue her outpatient followup at the [facility] and with Dr. Woodard. Disposition - Clinical Impression Clinical Impression: Atypical chest pain, Dizziness - Patient ED Disposition Is Patient to be Admitted: No Doctor Will See Patient In The: Office Counseled Patient/Family Regarding: Diagnosis, Need For Followup - Disposition Referrals: [facility] [Outside] [facility] [Outside] [facility] [place] [Outside] Bobby Woodard MD [Staff Provider] - Disposition: Routine/Home Disposition Time: 21:00 Condition: STABLE Instructions: Chest Pain (ED), Dizziness (ED) Forms: [employer] (Jordanian) - POA Present On Arrival: None
--- NOTE | 2017-09-09 18:09 | RAD ---
HISTORY: Chest pain. COMPARISON: 08/11/2017 TECHNIQUE: Chest PA and lateral FINDINGS: LUNGS: No active pulmonary disease. PLEURA: No significant pleural effusion identified. No pneumothorax apparent. CARDIOVASCULAR: Normal. OSSEOUS STRUCTURES: No significant abnormalities. VISUALIZED UPPER ABDOMEN: Normal. OTHER FINDINGS: None. IMPRESSION: No active disease. No significant interval change compared to the prior examination(s).
[2017-09-09 22:27] VITALS: BP 129/77; PULSE 82; RESP 16; TEMP 98
--- NOTE | 2017-09-10 12:16 | CARD ---
APPROVED REPORT EKG Measurement Heart [id number] <Conclusion> Normal sinus rhythm Normal ECG
== END 2017-09-09 21:42 | disposition home or self-care (01) ==
LOC: H.ER 16:48
DX: R07.89 Other chest pain (principal); R42 Dizziness and giddiness; E78.5 Hyperlipidemia, unspecified; I12.9 Hypertensive chronic kidney disease with stage 1 through stage 4 chronic kidney disease, or unspecified chronic kidney disease; I25.10 Atherosclerotic heart disease of native coronary artery without angina pectoris; I34.1 Nonrheumatic mitral (valve) prolapse; J45.909 Unspecified asthma, uncomplicated; K50.90 Crohn's disease, unspecified, without complications; M06.9 Rheumatoid arthritis, unspecified; N18.9 Chronic kidney disease, unspecified; Z79.82 Long term (current) use of aspirin; Z87.891 Personal history of nicotine dependence; Z95.5 Presence of coronary angioplasty implant and graft
CPT/HCPCS: 71046; 80048; 84484; 85025; 85378; 85610; 85730; 93005; 96360; 99283; J1885; J7040

== ENCOUNTER 2017-09-17 15:05 | Emergency (ER) | payer OTHER ==
[2017-09-17 15:05] VITALS: BMI 27.4
[2017-09-17 15:19] VITALS: BP 129/76; PULSE 82; RESP 16; TEMP 97.6; O2SAT 100
[2017-09-17] MEDS ORDERED: Oxycodone/Acetaminophen 5/325 mg Tab PO STA ×2 (15:26→15:31)
--- NOTE | 2017-09-17 15:47 | RAD ---
PROCEDURE: Left Hand Radiographs. HISTORY: trauma COMPARISON: None. FINDINGS: BONES: No acute fracture. JOINTS: Unremarkable. SOFT TISSUES: Normal. OTHER FINDINGS: None. IMPRESSION: No demonstrated fracture or dislocation.
--- NOTE | 2017-09-17 16:10 | ED PDOC ---
HPI: General Adult Time Seen by Provider: 09/17/17 15:14 Chief Complaint (Nursing): Finger,Hand,&Wrist Past Medical History Vital Signs: Last Vital Signs Temp 97.6 F 09/17/17 15:18 Pulse 82 09/17/17 15:18 Resp 16 09/17/17 15:18 BP 129/76 09/17/17 15:18 Pulse Ox 100 09/17/17 15:18 - Medical History PMH: Arthritis, Asthma, Bronchitis, CAD, Crohn's Disease, Fractures (right arm) , Gall Bladder Disease (removed 2002), HTN, Hyperlipidemia, Mitral Valve Prolapse, Pneumonia, Chronic Kidney Disease, Rheumatoid Arthritis Denies: HIV - Surgical History Surgical History: Appendectomy (at 8 years old), Cholecystectomy (2002), Coronary Stent (x1; Left circumflex (January 2016)), Tonsillectomy ("at young age") , (x1) Denies: Pacemaker - Family History Family History: States: Unknown Family Hx - Immunization History Hx Tetanus Toxoid Vaccination: No Hx Influenza Vaccination: Yes Hx Pneumococcal Vaccination: No - Home Medications Home Medications: Ambulatory Orders Medication Instructions Recorded Aspirin [Ecotrin] 81 mg PO DAILY 01/28/17 Clopidogrel [Plavix] 75 mg PO DAILY 01/28/17 Gabapentin [Neurontin] 600 mg PO HS 03/23/17 Meclizine [Meclizine*] 25 mg PO Q6 #30 tab 06/09/17 Metaxalone [Skelaxin] 800 mg PO TID PRN #20 tablet 06/28/17 Naproxen [Naprosyn] 500 mg PO BID #20 tab 06/28/17 Prednisone 50 mg PO DAILY #5 tablet 06/28/17 traMADol [Ultram] 50 mg PO TID PRN #15 tab 06/28/17 oxyCODONE [oxyCODONE Immediate 5 mg PO Q6 PRN #10 tab 07/01/17 Release Tab] predniSONE [Prednisone] 40 mg PO DAILY #10 tab 07/01/17 Azithromycin 250 mg PO DAILY #6 tab 08/12/17 predniSONE [predniSONE Tab] 20 mg PO DAILY #12 tab 08/12/17 Methylprednisolone [Medrol Dose 4 mg PO DAILY #21 mg 09/17/17 Pack (21 tabs)] - Allergies Allergies/Adverse Reactions: Allergies Allergy/AdvReac Type Severity Reaction Status Date / Time ceftriaxone Allergy RASH Verified 06/09/17 19:34 Iodine and Iodide Containing Allergy SHORTNESS Verified 06/09/17 19:34 Produc OF BREATH iohexol [From Omnipaque] AdvReac SWELLING Verified 06/09/17 19:34 - ECG O2 Sat by Pulse Oximetry: 100 Disposition - Clinical Impression Clinical Impression: Arthralgia - Patient ED Disposition Is Patient to be Admitted: No - Disposition Referrals: [facility] [Outside] Disposition: Routine/Home Disposition Time: 15:45 Condition: STABLE Prescriptions: Methylprednisolone [Medrol Dose Pack (21 tabs)] 4 mg PO DAILY #21 mg Instructions: Arthralgia (ED) Forms: [facility] Villagomez (Nepali), [facility] ED School/Work Excuse
--- NOTE | 2017-09-17 16:13 | ED PDOC ---
Upper Extremity Pain/Injury Time Seen by Provider: 09/17/17 15:14 Chief Complaint (Nursing): Finger,Hand,&Wrist Chief Complaint (Provider): Left Hand Pain History Per: Patient History/Exam Limitations: no limitations Onset/Duration Of Symptoms: Other (x4 weeks) Current Symptoms Are (Timing): Still Present Quality: "Pain" Exacerbating Factor(s): Other (worse in the morning) Additional Complaint(s): 46 year old female with a past medical history of arthritis presents to the ED complaining of atraumatic pain to the left 4th and 5th digit x4 weeks. The patient states that the pain is worse in the morning and has worsened over the past few weeks. Patient has increased pain with extension of fingers. Denies numbness, tingling. PMD: Jenifer Diaz Past Medical History Reviewed: Historical Data, Nursing Documentation, Vital Signs Vital Signs: Last Vital Signs Temp 97.6 F 09/17/17 15:18 Pulse 82 09/17/17 15:18 Resp 16 09/17/17 15:18 BP 129/76 09/17/17 15:18 Pulse Ox 100 09/17/17 15:18 - Medical History PMH: Arthritis, Asthma, Bronchitis, CAD, Crohn's Disease, Fractures (right arm) , Gall Bladder Disease (removed 2002), HTN, Hyperlipidemia, Mitral Valve Prolapse, Pneumonia, Chronic Kidney Disease, Rheumatoid Arthritis Denies: HIV - Surgical History Surgical History: Appendectomy (at 8 years old), Cholecystectomy (2002), Coronary Stent (x1; Left circumflex (January 2016)), Tonsillectomy ("at young age") , (x1) Denies: Pacemaker - Family History Family History: States: No Known Family Hx - Immunization History Hx Tetanus Toxoid Vaccination: No Hx Influenza Vaccination: Yes Hx Pneumococcal Vaccination: No - Home Medications Home Medications: Ambulatory Orders Medication Instructions Recorded Aspirin [Ecotrin] 81 mg PO DAILY 01/28/17 Clopidogrel [Plavix] 75 mg PO DAILY 01/28/17 Gabapentin [Neurontin] 600 mg PO HS 03/23/17 Meclizine [Meclizine*] 25 mg PO Q6 #30 tab 06/09/17 Metaxalone [Skelaxin] 800 mg PO TID PRN #20 tablet 06/28/17 Naproxen [Naprosyn] 500 mg PO BID #20 tab 06/28/17 Prednisone 50 mg PO DAILY #5 tablet 06/28/17 traMADol [Ultram] 50 mg PO TID PRN #15 tab 06/28/17 oxyCODONE [oxyCODONE Immediate 5 mg PO Q6 PRN #10 tab 07/01/17 Release Tab] predniSONE [Prednisone] 40 mg PO DAILY #10 tab 07/01/17 Azithromycin 250 mg PO DAILY #6 tab 08/12/17 predniSONE [predniSONE Tab] 20 mg PO DAILY #12 tab 08/12/17 Methylprednisolone [Medrol Dose 4 mg PO DAILY #21 mg 09/17/17 Pack (21 tabs)] - Allergies Allergies/Adverse Reactions: Allergies Allergy/AdvReac Type Severity Reaction Status Date / Time ceftriaxone Allergy RASH Verified 06/09/17 19:34 Iodine and Iodide Containing Allergy SHORTNESS Verified 06/09/17 19:34 Produc OF BREATH iohexol [From Omnipaque] AdvReac SWELLING Verified 06/09/17 19:34 Review of Systems Musculoskeletal: Positive for: Hand Pain (pain to left 4th and 5th digits) Neurological: Negative for: Numbness (denies numbness and tingling to left 4th and 5th digit) Physical Exam - Reviewed Nursing Documentation Reviewed: Yes Vital Signs Reviewed: Yes - Physical Exam Appears: Positive for: Non-toxic, No Acute Distress Head Exam: Positive for: ATRAUMATIC, NORMAL INSPECTION, NORMOCEPHALIC Skin: Positive for: Normal Color, Warm, Dry. Negative for: Rash Eye Exam: Positive for: Normal appearance, EOMI, PERRL. Negative for: Nystagmus Pulses-Radial (L): 2+ Pulses-Radial (R): 2+ Extremity: Positive for: Normal ROM (limited ROM of left hand secondary to pain) , Tenderness (less than 2 seconds), Capillary Refill (less than 2 seconds to all fingers). Negative for: Deformity (no deformity to 4th and 5th digit), Swelling Neurologic/Psych: Positive for: Alert, Oriented, Gait - ECG O2 Sat by Pulse Oximetry: 100 (RA) Medical Decision Making Medical Decision Makin Initial Impression 46 year old female presenting with pain to the left 4th and 5th digit Initial Plan: * Percocet 5/325 mg Tab 1 tab PO * RAD Left Hand * Reevaluation Documented by Josefina Martinez acting as a scribe for Bharath Ordaz PA-C. All medical record entries made by the Scribe were at my direction and personally dictated by me. I have reviewed the chart and agree that the record accurately reflects my personal performance of the history, physical exam, medical decision making, and the department course for this patient. I have also personally directed, reviewed, and agree with the discharge instructions and disposition. Disposition - Clinical Impression Clinical Impression: Arthralgia - Patient ED Disposition Is Patient to be Admitted: No - Disposition Referrals: [facility] [Outside] Disposition: Routine/Home Disposition Time: 17:00 Condition: STABLE Prescriptions: Methylprednisolone [Medrol Dose Pack (21 tabs)] 4 mg PO DAILY #21 mg Instructions: Arthralgia (ED) Forms: Emiliano Villagomez (Filipino), [facility] ED School/Work Excuse
== END 2017-09-17 17:24 | disposition home or self-care (01) ==
LOC: H.ER 15:05
DX: M19.049 Primary osteoarthritis, unspecified hand (principal)

== ENCOUNTER 2017-10-01 11:38 | Observation (INO) | payer OTHER ==
[2017-10-01 11:38] VITALS: BMI 27.4
[2017-10-01] MEDS ORDERED: Morphine 4 MG/ML VIAL IVP STA (12:32)
--- NOTE | 2017-10-01 12:33 | ED PDOC ---
HPI: General Adult Time Seen by Provider: 10/01/17 12:06 Chief Complaint (Nursing): Upper Extremity Problem/Injury History Per: Patient Additional Complaint(s): Pt. states for the past 3 days she's had L sided-mid sternal chest pain radiating into her L arm associated with nausea. Reports symptoms were slightly relieved with her sublingual nitro yesterday but then returned. Pain is worsened with movement of L shoulder. Denies trauma, numbness, tingling, SOB, COLLAZO, palpitations. Past Medical History Reviewed: Historical Data, Nursing Documentation, Vital Signs Vital Signs: Last Vital Signs Temp 97.9 F 10/01/17 11:59 Pulse 72 10/01/17 17:47 Resp 16 10/01/17 16:14 BP 108/69 10/01/17 16:14 Pulse Ox 95 10/01/17 17:47 - Medical History PMH: Arthritis, Asthma, Bronchitis, CAD, Crohn's Disease, Fractures (right arm) , Gall Bladder Disease (removed 2002), HTN, Hyperlipidemia, Mitral Valve Prolapse, Pneumonia, Chronic Kidney Disease, Rheumatoid Arthritis Denies: HIV - Surgical History Surgical History: Appendectomy (at 8 years old), Cholecystectomy (2002), Coronary Stent (x1; Left circumflex (January 2016)), Tonsillectomy ("at young age") , (x1) Denies: Pacemaker - Family History Family History: States: [place] (Father had [place] at 50 y/o), CAD - Immunization History Hx Tetanus Toxoid Vaccination: No Hx Influenza Vaccination: Yes Hx Pneumococcal Vaccination: No - Home Medications Home Medications: Ambulatory Orders Medication Instructions Recorded Aspirin [Ecotrin] 81 mg PO DAILY 01/28/17 Clopidogrel [Plavix] 75 mg PO DAILY 01/28/17 - Allergies Allergies/Adverse Reactions: Allergies Allergy/AdvReac Type Severity Reaction Status Date / Time ceftriaxone Allergy RASH Verified 06/09/17 19:34 Iodine and Iodide Containing Allergy SHORTNESS Verified 06/09/17 19:34 Produc OF BREATH iohexol [From Omnipaque] AdvReac SWELLING Verified 06/09/17 19:34 Review of Systems ROS Statement: Except As Marked, All Systems Reviewed And Found Negative Cardiovascular: Positive for: Chest Pain Musculoskeletal: Positive for: Shoulder Pain Physical Exam - Physical Exam Appears: Positive for: Well, Non-toxic, No Acute Distress Skin: Positive for: Normal Color, Warm. Negative for: Rash Eye Exam: Positive for: Normal appearance Neck: Positive for: Normal, Painless ROM Cardiovascular/Chest: Positive for: Regular Rate, Rhythm, Chest Non Tender Respiratory: Positive for: Normal Breath Sounds. Negative for: Wheezing, Respiratory Distress Pulses-Radial (L): 2+ Pulses-Radial (R): 2+ Gastrointestinal/Abdominal: Positive for: Normal Exam, Soft. Negative for: Tenderness Back: Positive for: Normal Inspection. Negative for: L CVA Tenderness, R CVA Tenderness Extremity: Positive for: Normal ROM (FROM actively of L shoulder but with pain; no tenderness to LUE) Neurologic/Psych: Positive for: Alert, Oriented. Negative for: Aphasia, Facial Droop - Laboratory Results Result Diagrams: 10/01/17 12:50 10/01/17 12:50 - ECG ECG: Positive for: Interpreted By Me ECG Rhythm: Positive for: Sinus Rhythm. Negative for: ST/T Changes Rate: 72 O2 Sat by Pulse Oximetry: 95 - Radiology X-Ray: Interpreted by Me (CXR) X-Ray Interpretation: No Acute Disease - Progress ED Course And Treament: Labs ordered. Dilaudid 0.5mg IV, zofran 4mg IV, ASA 324mg chew ordered. Case d/w Dr. Huff and arrangements made for 23 hr observation. Medical Decision Making Medical Decision Making: Pt. with multiple cardiac risk factors and will require serial troponins to r/o cardiac etiology. Disposition - Clinical Impression Clinical Impression: Chest pain - Patient ED Disposition Is Patient to be Admitted: Yes - Disposition Disposition Time: 13:07 Condition: STABLE - Pt Status Changed To: Hospital Disposition Of: Observation MARLEE Risk Score for UA/NSTEMI - MARLEE Risk Score Age > 64: NO 3 or more CAD Risk Factors: YES Known CAD (Stenosis greater than 50%): NO Aspirin use in past 7 days: YES Severe Angina: YES EKG ST changes greater than 0.5mm: NO MARLEE Score: 3 % risk at 14 days of: all cause mortality, new or recurrent [place], or severe recurrent ischemia requiring urgen revascularization: 13%
[2017-10-01] MEDS ORDERED: HYDROmorphone 0.5 mg/0.5 ml ISec IVP STA ×2 (12:52→16:01)
[2017-10-01] MEDS ORDERED: HYDROmorphone 0.5 mg/0.5 ml ISec ONE (12:59)
[2017-10-01 13:06] LABS: BASO % 0.3 % (0.0-2.0); EOS # 0.2 K/uL (0.0-0.7); EOS % 2.1 % (0.0-4.0); HEMOGLOBIN 13.2 g/dL (12.0-16.0); LYMPH % 27.2 % (20.0-40.0); MEAN CELL VOLUME 88.7 fl (81.0-99.0); MEAN CORPUSCULAR HEMOGLOBIN 29.4 pg (27.0-31.0); MEAN CORPUSCULAR HGB CONC 33.1 g/dL (33.0-37.0); MEAN PLATELET VOLUME 7.4 fl (7.2-11.7); MONO # 0.9 K/uL (0.0-0.8); MONO % 12.5 % (0.0-10.0); NEUT # 4.2 K/uL (1.8-7.0); NEUT % 57.9 % (50.0-75.0); RBC 4.48 Mil/uL (3.80-5.20); RED CELL DISTRIBUTION WIDTH 13.3 % (11.5-14.5); WHITE BLOOD COUNT 7.3 K/uL (4.8-10.8)
[2017-10-01 13:19] LABS: ALB/GLOB RATIO 1.2 (1.0-2.1); ALBUMIN 4.3 g/dL (3.5-5.0); ALT/SGPT 29 U/L (9-52); AST/SGOT 22 U/L (14-36); BLOOD UREA NITROGEN 19 mg/dl (7-17); CALCIUM 9.6 mg/dL (8.4-10.2); GFR AFRICAN-AMERICAN > 60; GFR NON-AFRICAN AMERICAN > 60
[2017-10-01 13:30] LABS: PROTHROMBIN TIME 11.4 Seconds (9.8-13.1)
[2017-10-01 14:47] LABS: PARTIAL THROMBOPLASTIN TIME 35.6 Seconds (25.6-37.1)
--- NOTE | 2017-10-01 15:17 | RAD ---
HISTORY: chest pain COMPARISON: Comparison chest 09/09/2017 FINDINGS: LUNGS: No active pulmonary disease. Persistent elevation right hemidiaphragm possibly due to eventration. PLEURA: No significant pleural effusion identified, no pneumothorax apparent. CARDIOVASCULAR: Heart appears mildly is enlarged enlarged unchanged from prior exam OSSEOUS STRUCTURES: No significant abnormalities. VISUALIZED UPPER ABDOMEN: Normal. OTHER FINDINGS: None. IMPRESSION: No active disease.
--- NOTE | 2017-10-01 16:45 | CP.PCM.HP ---
History of Present Illness - History of Present Illness History of Present Illness: 46 yo ,f, PMhx/o rheumatic fever, CAD s/p LCA stent placement (Jan, 2016) presents to ED c/o retrosternal chest pain started 3 days ago, radiated to left arm and to the left breast(under breast), pinching sensation or electrical sensation, lasting seconds in occs , but is almost constant since yesterday night, reporting that she was not almost able to sleep last nigh due to pain and last night it was associated with dizziness and left arm numbness and heaviness. Pain is alleviated with Ibuprofen for about 3 hours by starts again, and yesterday she tried 2 nitroglycerin that alleviated the pain x 4 hours. Patient reports that this is a different and new pain and it is similar to the chest pain she had 1 week before she had coronary catheterization in 2016. She also reports SOB on exertion and reports is able to walk only 2 blocks and SOB on flat position (orthopnea). Reports hx/o dizziness, positional for the last 2 months, no room spinning sensation and patient has had to sleep with 6 pillows to avoid dizziness for the last 2 months. Denies fever,headache,n,v, body aches, PND, cough, runny nose, nasal congestion, head trauma, chest trauma , denies relation of chest pain with food or worsening of pain in flat position , hearthburn, pedal edema. Reports +sick contact her son with flu last week treated with tramiflu PMD: Dr Diaz Food Service Coordinator: Dr Biggs Allergy: ceftriaxone, iodine (hives) PMHx: as above Meds: Aspirin, Plavix SHx: appendectomy (1980), cholecystectomy (2002), tonsillectomy, total hysterectomy (2014), Stent placement (2015) SocHx: drinks wine socially; former social smoker, 2 cigarettes with wine for 12 -13 years. Quit 3 years ago ; denies illicit drug use; working [employer], lives with her son FHx: Mother DM.father, CAD, , [place] at age 53 ED course Vs: normal Labs normal, troponin x1 normal. Imaging: EKG: Hr: 76. occs PVC. no acute ischemic changes, CXR normal Meds: Aspirin, Dilaudid x 1 dose Present on Admission - Present on Admission Any Indicators Present on Admission: No History of DVT/PE: No History of Uncontrolled Diabetes: No Review of Systems - Cardiovascular Cardiovascular: As Per HPI, Chest Pain - Respiratory Respiratory: As Per HPI - Gastrointestinal Gastrointestinal: As Per HPI Past Patient History - Infectious Disease Hx of Infectious Diseases: None - Tetanus Immunizations Tetanus Immunization: Unknown - Past Medical History & Family History Past Medical History?: Yes - Past Social History Smoking Status: Never Smoked - CARDIAC Hx Hypertension: Yes Hx Mitral Valve Prolapse: Yes Hx Pacemaker: No - PULMONARY Hx Asthma: Yes Hx Bronchitis: Yes Hx Pneumonia: Yes - NEUROLOGICAL Hx Neurological Disorder: No - HEENT Hx HEENT Problems: No - RENAL Hx Chronic Kidney Disease: Yes - ENDOCRINE/METABOLIC Hx Endocrine Disorders: No - HEMATOLOGICAL/ONCOLOGICAL Hx Human Immunodeficiency Virus (HIV): No - INTEGUMENTARY Hx Dermatological Problems: No - MUSCULOSKELETAL/RHEUMATOLOGICAL Hx Arthritis: Yes Hx Fractures: Yes (right arm) Hx Rheumatoid Arthritis: Yes - GASTROINTESTINAL Hx Crohn's Disease: Yes Hx Gall Bladder Disease: Yes (removed 2002) - GENITOURINARY/GYNECOLOGICAL Hx Genitourinary Disorders: Yes (Ovarian cysts, Hysterectomy) - PSYCHIATRIC Hx Psychophysiologic Disorder: No Hx Substance Use: No - SURGICAL HISTORY Hx Appendectomy: Yes (at 8 years old) Hx Cholecystectomy: Yes (2002) Hx Coronary Stent: Yes (x1; Left circumflex (January 2016)) Hx Hysterectomy: Yes Hx Tonsillectomy: Yes ("at young age") - ANESTHESIA Hx Anesthesia: Yes Hx Anesthesia Reactions: No Hx Malignant Hyperthermia: No Meds Allergies/Adverse Reactions: Allergies Allergy/AdvReac Type Severity Reaction Status Date / Time ceftriaxone Allergy RASH Verified 06/09/17 19:34 Iodine and Iodide Containing Allergy SHORTNESS Verified 06/09/17 19:34 Produc OF BREATH iohexol [From Omnipaque] AdvReac SWELLING Verified 06/09/17 19:34 Physical Exam - Constitutional Appears: Non-toxic, No Acute Distress - Head Exam Head Exam: ATRAUMATIC, NORMOCEPHALIC - Eye Exam Eye Exam: EOMI, Normal appearance, PERRL. absent: Nystagmus, Scleral icterus Pupil Exam: PERRL - ENT Exam ENT Exam: Mucous Membranes Moist - Neck Exam Neck exam: Positive for: Full Rom, Normal Inspection - Respiratory Exam Respiratory Exam: Clear to Auscultation Bilateral. absent: Rales, Rhonchi, Wheezes - Cardiovascular Exam Cardiovascular Exam: REGULAR RHYTHM, +S1, +S2 - GI/Abdominal Exam GI & Abdominal Exam: Normal Bowel Sounds, Soft. absent: Tenderness - Extremities Exam Extremities exam: Positive for: normal inspection. Negative for: calf tenderness, pedal edema - Back Exam Back exam: NORMAL INSPECTION - Neurological Exam Neurological exam: Alert, Normal Gait, Oriented x3, Reflexes Normal - Expanded Neurological Exam Expanded Cranial nerves: EOM's Intact: Normal, Facial Palsey w/Forehead Movement: Normal , Facial Sensation: Normal, Nystagmus: Normal, Tongue Deviation: Normal Upper motor neuron: Babinski Sign: Normal, Tomi Neglect: Normal Neuro motor strength exam: Left Upper Extremity: 5, Right Upper Extremity: 5, Left Lower Extremity: 5, Right Lower Extremity: 5 DTR: Patellar Left: 0, Patellar Right: 0 - Psychiatric Exam Psychiatric exam: Normal Affect, Normal Mood - Skin Skin Exam: Intact Results - Vital Signs Recent Vital Signs: Last Vital Signs Temp 97.9 F 10/01/17 11:59 Pulse 71 10/01/17 16:14 Resp 16 10/01/17 16:14 BP 108/69 10/01/17 16:14 Pulse Ox 95 10/01/17 16:14 - Labs Result Diagrams: 10/01/17 12:50 10/01/17 12:50 Labs: Laboratory Results - last 24 hr 10/01/17 10/01/17 10/01/17 12:50 12:50 12:50 WBC 7.3 RBC 4.48 Hgb 13.2 Hct 39.7 MCV 88.7 MCH 29.4 MCHC 33.1 RDW 13.3 Plt Count 281 MPV 7.4 Neut % (Auto) 57.9 Lymph % (Auto) 27.2 [place] % (Auto) 12.5 H Eos % (Auto) 2.1 Baso % (Auto) 0.3 Neut # 4.2 Lymph # 2.0 [place] # 0.9 H Eos # 0.2 Baso # 0.0 PT 11.4 INR 1.0 APTT 35.6 Sodium 140 Potassium 3.7 Chloride 104 Carbon Dioxide 23 Anion Gap 17 BUN 19 H Creatinine 0.5 L Est GFR ( Amer) > 60 Est GFR (Non-Af Amer) > 60 Random Glucose 85 Calcium 9.6 Total Bilirubin 0.7 AST 22 ALT 29 Alkaline Phosphatase 71 Troponin I < 0.0120 Total Protein 8.0 Albumin 4.3 Globulin 3.7 Albumin/Globulin Ratio 1.2 Assessment & Plan - Assessment and Plan (Free Text) Plan: Assessment/Plan 46 yo ,f, PMhx/o rheumatic fever, CAD s/p LCA stent placement (Jan, 2016) presents to ED 1) Chest pain -To r/o ACS -Admit Telemetry -troponin 1 normal. f/u troponin x2 -CXR normal -EKG: Hr: 76. occs PVC. no acute ischemic changes -Tylenol mild pain -Motrin Moderate pain -Toradol sev pain -EKG 6 pm, EKG tomorrow morning -Echo 05/2017 : LV nl size, EF 60-65%, trace mild Ao regurg, mild Ao stenosis. -DC plavix -TSH 1.75 11/2016. f/u TSH -HgbA1c 6.1 06/2016 -duplex US left arm 2) Dizziness -may secondary to BPPV vs anxiety -cervical spine MRI 01/29/17: minor multilevel degenerativ spondylosis w/o significant canal no foraminal compromise. -Brain MRI 01/29/17 no acute intrac hermorrheage, partial opacif both mastoid air complexes consistent with mastoiditis no evidence of cord significant cord compression. -ortostatic vital signs -Meclizine 25 mg PO Q 8h PRN 3) CAD, s/p stent LCA in 01/18 -reviewed myocardial perfusion scan, RL, catheterization reports -Dc plavix -c/w aspirin -Echo 05/2017 : LV nl size, EF 60-65%, trace mild Ao regurg, mild Ao stenosis. -Consider Food Service Coordinator consult if abnormal trop or ECG 4) Hx/o Rheumatic fever -As per patient when she was a child had f/u with Food Service Coordinator and Penicillin treatment monthly 5) DVT Prophylaxis -Lovenox 40 mg sc daily
[2017-10-01] MEDS: Enoxaparin 40 mg Syringe SC SCH (17:56)
[2017-10-01] MEDS ORDERED: HYDROmorphone 0.5 mg/0.5 ml ISec IVP ONE (22:41)
[2017-10-02] MEDS: Enoxaparin 40 mg Syringe SC SCH (08:22)
[2017-10-02 08:35] VITALS: TEMP 98.1; O2SAT 95
--- NOTE | 2017-10-02 10:53 | CP.PCM.DIS ---
Provider - Provider Date of Admission: 10/01/17 16:03 Attending physician: Odette Menon MD Primary care physician: Dr. Joseph Diaz. Time Spent in preparation of Discharge (in minutes): 40 Diagnosis - Discharge Diagnosis (1) Pain in left arm Status: Acute Priority: Low Onset Date: ~09/27/17 Comment: Acute, improved with medications. US vein of left upper extremity showed NO DVT. (2) Chest pain Status: Acute Onset Date: ~09/27/17 Comment: Acute. EKG and CXR unremarkable. Troponin negative x2. F/U with PMD in 2 days. Hospital Course - Lab Results Lab Results: Most Recent Lab Values WBC 7.3 K/uL (4.8-10.8) 10/01/17 12:50 RBC 4.48 Mil/uL (3.80-5.20) 10/01/17 12:50 Hgb 13.2 g/dL (12.0-16.0) 10/01/17 12:50 Hct 39.7 % (34.0-47.0) 10/01/17 12:50 MCV 88.7 fl (81.0-99.0) 10/01/17 12:50 MCH 29.4 pg (27.0-31.0) 10/01/17 12:50 MCHC 33.1 g/dL (33.0-37.0) 10/01/17 12:50 RDW 13.3 % (11.5-14.5) 10/01/17 12:50 Plt Count 281 K/uL (130-400) 10/01/17 12:50 MPV 7.4 fl (7.2-11.7) 10/01/17 12:50 Neut % (Auto) 57.9 % (50.0-75.0) 10/01/17 12:50 Lymph % (Auto) 27.2 % (20.0-40.0) 10/01/17 12:50 [place] % (Auto) 12.5 % (0.0-10.0) H 10/01/17 12:50 Eos % (Auto) 2.1 % (0.0-4.0) 10/01/17 12:50 Baso % (Auto) 0.3 % (0.0-2.0) 10/01/17 12:50 Neut # 4.2 K/uL (1.8-7.0) 10/01/17 12:50 Lymph # 2.0 K/uL (1.0-4.3) 10/01/17 12:50 [place] # 0.9 K/uL (0.0-0.8) H 10/01/17 12:50 Eos # 0.2 K/uL (0.0-0.7) 10/01/17 12:50 Baso # 0.0 K/uL (0.0-0.2) 10/01/17 12:50 PT 11.4 Seconds (9.8-13.1) 10/01/17 12:50 INR 1.0 (0.9-1.2) 10/01/17 12:50 APTT 35.6 Seconds (25.6-37.1) 10/01/17 12:50 Sodium 140 mmol/l (132-148) 10/01/17 12:50 Potassium 3.7 MMOL/L (3.6-5.0) 10/01/17 12:50 Chloride 104 mmol/L (98-107) 10/01/17 12:50 Carbon Dioxide 23 mmol/L (22-30) 10/01/17 12:50 Anion Gap 17 (10-20) 10/01/17 12:50 BUN 19 mg/dl (7-17) H 10/01/17 12:50 Creatinine 0.5 mg/dl (0.7-1.2) L 10/01/17 12:50 Est GFR ( Amer) > 60 10/01/17 12:50 Est GFR (Non-Af Amer) > 60 10/01/17 12:50 Random Glucose 85 mg/dL (65-105) 10/01/17 12:50 Calcium 9.6 mg/dL (8.4-10.2) 10/01/17 12:50 Total Bilirubin 0.7 mg/dl (0.2-1.3) 10/01/17 12:50 AST 22 U/L (14-36) 10/01/17 12:50 ALT 29 U/L (9-52) 10/01/17 12:50 Alkaline Phosphatase 71 U/L (38-126) 10/01/17 12:50 Troponin I < 0.0120 ng/mL (0.00-0.120) 10/02/17 07:00 Total Protein 8.0 G/DL (6.3-8.2) 10/01/17 12:50 Albumin 4.3 g/dL (3.5-5.0) 10/01/17 12:50 Globulin 3.7 gm/dL (2.2-3.9) 10/01/17 12:50 Albumin/Globulin Ratio 1.2 (1.0-2.1) 10/01/17 12:50 Triglycerides 88 mg/DL (0-149) 10/01/17 16:49 Cholesterol 194 mg/dL (0-199) 10/01/17 16:49 LDL Cholesterol Direct 124 mg/dL (0-129) 10/01/17 16:49 HDL Cholesterol 43 MG/DL (30-70) 10/01/17 16:49 TSH 3rd Generation 1.16 mIU/ML (0.46-4.68) 10/01/17 16:49 - Hospital Course Hospital Course: 46 y/o F with a PMHx of rheumatic fever, CAD s/p LCA stent placement (Jan, 2016 ) and Vertigo was admitted for evaluation and management of chest pain and L upper extremity pain. EKG and CXR were unremarkable, troponin neg x3. Duplex US of L upper extremity showed NO DVT. Pt stable, still complaining of L upper arm pain and dizziness, afebrile, tolerating PO. Pt is discharged, with instructions to take Tylenol for pain relief. E-mail was sent for follow-up arrangement on Tuesday10/04/[address] Diaz at [facility]. --Pt taking Aspirin and plavix, needs to be evaluated about medication cessation , due to the possibility of performing nerve block for regional pain relief. - Date & Time of H&P Date of H&P: 10/01/17 Time of H&P: 16:45 Discharge Exam - Head Exam Head Exam: ATRAUMATIC, NORMOCEPHALIC - Eye Exam Eye Exam: EOMI, Normal appearance - ENT Exam ENT Exam: Mucous Membranes Moist - Neck Exam Neck exam: Full Rom - Respiratory Exam Respiratory Exam: Clear to PA & Lateral, NORMAL BREATHING PATTERN, UNREMARKABLE - Cardiovascular Exam Cardiovascular Exam: REGULAR RHYTHM, +S1, +S2 - GI/Abdominal Exam GI & Abdominal Exam: Soft, Unremarkable - Neurological Exam Neurological exam: Alert, Oriented x3 Discharge Plan - Discharge Medications Prescriptions: Acetaminophen [Tylenol 325mg tab] 650 mg PO Q8 #30 tab - Follow Up Plan Condition: STABLE Disposition: HOME/ ROUTINE Instructions: Chest Pain (DC), Costochondritis (DC) Additional Instructions: -Pt will be contacted in order to f/u with PMD, Dr Diaz on 10/04/17 at the [facility]. -Take Tylenol 650mg Tab for pain, follow conservative management with warm compresses for pain relief.
[2017-10-02 12:30] VITALS: BP 101/66; PULSE 72; RESP 20
--- NOTE | 2017-10-02 13:22 | US ---
PROCEDURE: Left upper extremity venous Doppler 09/24/2017 HISTORY: chest pain radiated to left arm COMPARISON: Comparison made with prior study five hundred twenty-six 2017. TECHNIQUE: Duplex interrogation deep veins left upper extremity including the left internal jugular vein performed FINDINGS: Current study reveals no evidence of the DVT within the visualized left internal jugular, subclavian, axillary, brachial, basilic and cephalic veins. Note that the ulnar vein not visualized. Radial vein patent. . IMPRESSION: No evidence of DVT visualized deep veins left upper extremity as above. Note that the ulnar vein not visualized on this study
--- NOTE | 2017-10-03 13:01 | CARD ---
APPROVED REPORT EKG Measurement Heart [id number] <Conclusion> Normal sinus rhythm Nonspecific T wave abnormality Abnormal ECG
== END 2017-10-02 14:15 | disposition home or self-care (01) ==
LOC: H.ER 11:38 → H.ERHOLD 16:03 → H.TEL 22:10
PROVIDERS: ADMIT Family Medicine Geriatric Medicine; ATTEND Family Medicine Geriatric Medicine
DX: R07.89 Other chest pain (principal); E78.5 Hyperlipidemia, unspecified; I12.9 Hypertensive chronic kidney disease with stage 1 through stage 4 chronic kidney disease, or unspecified chronic kidney disease; I25.10 Atherosclerotic heart disease of native coronary artery without angina pectoris; I34.1 Nonrheumatic mitral (valve) prolapse; J45.909 Unspecified asthma, uncomplicated; K50.90 Crohn's disease, unspecified, without complications; M06.9 Rheumatoid arthritis, unspecified; N18.9 Chronic kidney disease, unspecified; Z79.02 Long term (current) use of antithrombotics/antiplatelets; Z79.82 Long term (current) use of aspirin; Z87.01 Personal history of pneumonia (recurrent); Z87.891 Personal history of nicotine dependence; Z90.49 Acquired absence of other specified parts of digestive tract; Z90.710 Acquired absence of both cervix and uterus; Z95.5 Presence of coronary angioplasty implant and graft; K82.9 Disease of gallbladder, unspecified; M19.90 Unspecified osteoarthritis, unspecified site; N83.209 Unspecified ovarian cyst, unspecified side
CPT/HCPCS: 36415; 71045; 80053; 80061; 84443; 84484; 85025; 85610; 85730; 93971; 96372; 96374; 99285; G0378; J1170; J1650; J1885; J2405

== ENCOUNTER 2017-10-16 17:56 | Emergency (ER) | payer OTHER ==
[2017-10-16 17:56] VITALS: BMI 27.4
[2017-10-16 18:17] VITALS: BP 135/77; PULSE 78; RESP 20; TEMP 98; O2SAT 99
--- NOTE | 2017-10-16 20:09 | ED PDOC ---
HPI: Trauma/Fall - HPI Time Seen by Provider: 10/16/17 19:51 Chief Complaint (Nursing): Rib Injury Chief Complaint (Provider): Rib pain History Per: Patient History/Exam Limitations: no limitations Injury Occurred (Timing): Days Ago: (2) Additional Complaint(s): Pt states she tripped and fell 2 days ago, landed on L side and hit R face on sidewalk. Denies LOC, neck pain. Now c/o L rib/breast pain, worse with deep breaths, not relieved with Motrin at home. Past Medical History Reviewed: Nursing Documentation, Vital Signs Vital Signs: Last Vital Signs Temp 98.0 F 10/16/17 18:13 Pulse 78 10/16/17 18:13 Resp 20 10/16/17 18:13 BP 135/77 10/16/17 18:13 Pulse Ox 99 10/16/17 18:13 - Medical History PMH: Arthritis, Asthma, Bronchitis, CAD, Crohn's Disease, Fractures (right arm) , Gall Bladder Disease (removed 2002), HTN, Hypercholesterolemia, Hyperlipidemia , Mitral Valve Prolapse, Pneumonia, Chronic Kidney Disease, Rheumatoid Arthritis Denies: HIV - Surgical History Surgical History: Appendectomy (at 8 years old), Cholecystectomy (2002), Coronary Stent (x1; Left circumflex (January 2016)), Tonsillectomy ("at young age") , (x1) Denies: Pacemaker - Family History Family History: States: Unknown Family Hx, [place] (Father had [place] at 50 y/o), CAD - Social History Current smoker - smoking cessation education provided: No Alcohol: None - Immunization History Hx Tetanus Toxoid Vaccination: No Hx Influenza Vaccination: Yes Hx Pneumococcal Vaccination: No - Home Medications Home Medications: Ambulatory Orders Medication Instructions Recorded Aspirin [Ecotrin] 81 mg PO DAILY 01/28/17 Acetaminophen [Tylenol 325mg tab] 650 mg PO Q8 #30 tab 10/02/17 Doxepin [Sinequan] 10 mg PO DAILY 10/18/17 Gabapentin [Neurontin] 100 mg PO DAILY 10/18/17 - Allergies Allergies/Adverse Reactions: Allergies Allergy/AdvReac Type Severity Reaction Status Date / Time ceftriaxone Allergy RASH Verified 10/19/17 09:48 Iodine and Iodide Containing Allergy SHORTNESS Verified 10/19/17 09:48 Produc OF BREATH iohexol [From Omnipaque] AdvReac SWELLING Verified 10/19/17 09:48 Review of Systems Constitutional: Negative for: Fever, Chills Cardiovascular: Positive for: Other (Chest wall pain). Negative for: Chest Pain , Palpitations Respiratory: Negative for: Cough, Shortness of Breath Gastrointestinal: Negative for: Nausea, Vomiting, Abdominal Pain, Diarrhea Genitourinary Female: Negative for: Dysuria, Hematuria Musculoskeletal: Negative for: Neck Pain, Back Pain Skin: Negative for: Rash, Lesions Neurological: Negative for: Weakness, Numbness, Incoordination, Altered Mental Status, Headache, Dizziness Physical Exam - Reviewed Nursing Documentation Reviewed: Yes Vital Signs Reviewed: Yes - Physical Exam Appears: Positive for: Uncomfortable Head Exam: Positive for: ATRAUMATIC, NORMAL INSPECTION Skin: Positive for: Normal Color, Warm, Dry Eye Exam: Positive for: Normal appearance, EOMI, PERRL ENT: Positive for: Other (Superficial abrasion R face, no ecchymosis, no deformity) Neck: Positive for: Normal, Painless ROM, Supple Cardiovascular/Chest: Positive for: Regular Rate, Rhythm, Other (L BREAST: TTP lower L breast, no ecchymosis, no erythema, no deformity). Negative for: Chest Non Tender (TTP L lower anterior rib, no crepitus, no point tenderness, no ecchymosis) Respiratory: Positive for: Normal Breath Sounds. Negative for: Rales, Rhonchi, Wheezing Gastrointestinal/Abdominal: Positive for: Normal Exam Extremity: Positive for: Normal ROM Neurologic/Psych: Positive for: Alert, media consultant outside sales II-XII, Oriented. Negative for: Motor/Sensory Deficits - ECG O2 Sat by Pulse Oximetry: 99 Medical Decision Making Medical Decision Makin yo female s/p fall with L breast/rib pain. - XR L ribs - CXR - Toradol Accession No. : [id number] Patient Name / ID : SOPHIE PERRY / [id number] Exam Date : 10/16/2017 20:31:54 ( Approved ) Study Comment : Sex / Age : F / 47Y Creator : Chidi Dominguez MD Dictator : Chidi Dominguez MD Employment Coach : Iron Worker : Chidi Dominguez MD Approver2 : Report Date : 10/17/2017 11:25:51 My Comment : PROCEDURE: Radiographs of the Chest and Left Ribs. HISTORY: L anterior rib pain, s/p fall COMPARISON: 10/01/2017. TECHNIQUE: Frontal radiograph of the chest and multiple oblique radiographs of the left ribs were obtained. FINDINGS: LEFT RIBS: No fracture or focal lesion visualized. LUNGS: Clear. PLEURA: No pneumothorax or pleural fluid. CARDIOVASCULAR: Normal sized heart. No pulmonary vascular congestion. OTHER FINDINGS: None. IMPRESSION: Unremarkable radiographs of the chest and left ribs. No left rib fracture. Disposition - Clinical Impression Clinical Impression: Rib contusion, Contusion of left breast - Disposition Referrals: [facility] [Outside] Disposition: Routine/Home Disposition Time: 22:00 Condition: STABLE Instructions: Contusion in Adults (ED), Rib Contusion (ED) Forms: Runteq (Kiswahili)
--- NOTE | 2017-10-17 11:27 | RAD ---
PROCEDURE: Radiographs of the Chest and Left Ribs. HISTORY: L anterior rib pain, s/p fall COMPARISON: 10/01/2017. TECHNIQUE: Frontal radiograph of the chest and multiple oblique radiographs of the left ribs were obtained. FINDINGS: LEFT RIBS: No fracture or focal lesion visualized. LUNGS: Clear. PLEURA: No pneumothorax or pleural fluid. CARDIOVASCULAR: Normal sized heart. No pulmonary vascular congestion. OTHER FINDINGS: None. IMPRESSION: Unremarkable radiographs of the chest and left ribs. No left rib fracture. Concordant results with the preliminary interpretation rendered by the emergency department physician procedure.
== END 2017-10-16 22:32 | disposition home or self-care (01) ==
LOC: H.ER 17:56
DX: S20.219A Contusion of unspecified front wall of thorax, initial encounter (principal); S20.02XA Contusion of left breast, initial encounter; J45.909 Unspecified asthma, uncomplicated; K50.90 Crohn's disease, unspecified, without complications; N18.9 Chronic kidney disease, unspecified; Z79.82 Long term (current) use of aspirin; Z95.5 Presence of coronary angioplasty implant and graft; I25.10 Atherosclerotic heart disease of native coronary artery without angina pectoris; E78.00 Pure hypercholesterolemia, unspecified; I12.9 Hypertensive chronic kidney disease with stage 1 through stage 4 chronic kidney disease, or unspecified chronic kidney disease; W01.0XXA Fall on same level from slipping, tripping and stumbling without subsequent striking against object, initial encounter
CPT/HCPCS: 71101; 81025; 96372; 99282; J1885

== ENCOUNTER 2017-10-19 07:36 | Day surgery (SDC) | payer OTHER ==
[2017-10-18 11:26] VITALS: BMI 28.6
[2017-10-19] MEDS ORDERED: Dexamethasone 4 mg/1 ml ONE (09:44)
[2017-10-19] MEDS ORDERED: Iohexol 300 10 ML ONE (09:44)
[2017-10-19] MEDS ORDERED: Bupivacaine HCl 0.25% PF (10 ml) Inj ONE (09:45)
[2017-10-19] MEDS ORDERED: Lidocaine 1% Inj (20ml) ONE (09:45)
[2017-10-19] MEDS ORDERED: DiphenhydrAMINE 50 mg/ml Inj IVP STA ×2 (10:07)
[2017-10-19] MEDS ORDERED: DiphenhydrAMINE 50 mg/ml Inj IVP ONE (10:27)
[2017-10-19] MEDS ORDERED: Propofol 10 mg/ml Inj (20 ML) ONE ×2 (10:37→10:55)
[2017-10-19] MEDS ORDERED: Lactated Ringer's 1,000 ML IV ONE (10:45)
[2017-10-19] MEDS ORDERED: Bupivacaine HCl 0.25% PF (10 ml) Inj IJ ONE (10:50)
[2017-10-19] MEDS ORDERED: Iohexol 300 10 ML IJ ONE (10:50)
[2017-10-19] MEDS ORDERED: Dexamethasone 4 mg/1 ml IJ ONE (10:50)
--- NOTE | 2017-10-19 12:43 | OP ---
PROCEDURE DATE: 10/19/2017 PREOPERATIVE DIAGNOSIS: Left arm complex regional pain syndrome. POSTOPERATIVE DIAGNOSIS: Left arm complex regional pain syndrome. PROCEDURE: Left stellate ganglion block. ANESTHESIOLOGIST: Dr. Cutler. SURGEON: Dr. Barrios. TYPE OF ANESTHESIA: Monitored anesthesia care. COMPLICATIONS: None. SPECIMENS: None. PROCEDURE: As follows. After, we had discussion of the procedure with the patient including its risks, benefits, alternative, outcome data, possibility of no effect or increased pain, the patient consented to the procedure. She denies any recent infections, bleeding tendencies or being on anticoagulants. Decision was then made to proceed to the OR. The patient had previously been taking Plavix, but has not been on it for more than a month as instructed by her primary care physician. The patient was then transferred onto the fluoroscopy table in a supine position with a shoulder roll underneath her shoulders. The left neck was prepped and draped in a usual sterile fashion and sterile technique was adhered during the entire procedure. The pedicle over the left C6 transverse process was visualized. This is determined to be the target. The skin overlying this area was infiltrated with 1% lidocaine using a 25-gauge needle. Subsequently, a 25-gauge 3.5-inch spinal needle was incrementally advanced under fluoroscopic guidance until bony contact was made with the target areas. Aspiration was negative for air or blood or . Approximately 0.5 mL of Isovue contrast was injected to rule out intravenous uptake. After doing so, approximately 12 mL of Decadron and 0.25% Marcaine solution was gradually injected. The solution was seen migrating down to the T1 vertebra. At the end of the case, the neck was cleaned and dried; bandage was applied. The patient was then transferred to the recovery area in good condition without any signs of LOCK CORNER MACHINE OPERATOR toxicity or new neurological deficits. She will have a followup in the office in approximately 2 to 4 weeks. En-Davy Barrios MD
[2017-10-19] MEDS ORDERED: Oxycodone/Acetaminophen 5/325 mg Tab PO ONE ×2 (13:15→15:00)
[2017-10-19 13:43] VITALS: RESP 20
[2017-10-19 15:11] VITALS: BP 112/65; PULSE 81; TEMP 98.4; O2SAT 95
--- NOTE | 2017-10-19 15:12 | RAD ---
PROCEDURE: Fluoroscopy up to 1 hr. HISTORY: PAIN MANAGEMENT COMPARISON: None TECHNIQUE: Standard protocol for this study/examination. FINDINGS: Total fluoroscopic time (continuous mode) utilized during the procedure: 35.0 seconds.Total exam DLP: 6.69 (mGy) IMPRESSION: Less than 1 hr fluoroscopic time utilized during performance of the procedure.
== END 2017-10-19 16:00 | disposition home or self-care (01) ==
LOC: H.OPSURG 07:36
PROVIDERS: ATTEND Anesthesiology
DX: G90.512 Complex regional pain syndrome I of left upper limb (principal); I25.119 Atherosclerotic heart disease of native coronary artery with unspecified angina pectoris; M19.042 Primary osteoarthritis, left hand; M19.041 Primary osteoarthritis, right hand; K21.9 Gastro-esophageal reflux disease without esophagitis; Z87.891 Personal history of nicotine dependence
CPT/HCPCS: 64510; J1100; J1170; J1200; J2001; J2405; J2704; J3010; J7120; Q9967

== ENCOUNTER 2017-11-18 08:21 | Day surgery (SDC) | payer OTHER ==
[2017-11-18 09:08] VITALS: BMI 28.3
[2017-11-18] MEDS ORDERED: methylPREDNISolone Depo 80 mg/ml Inj ONE (09:58)
[2017-11-18] MEDS ORDERED: Iohexol 300 10 ML ONE (09:58)
[2017-11-18] MEDS ORDERED: Bupivacaine HCl 0.25% PF (10 ml) Inj ONE (09:59)
[2017-11-18] MEDS ORDERED: Lidocaine 1% Inj (20ml) ONE (09:59)
[2017-11-18] MEDS ORDERED: DiphenhydrAMINE 50 mg/ml Inj ONE (10:11)
[2017-11-18] MEDS ORDERED: Propofol 10 mg/ml Inj (20 ML) ONE (10:14)
[2017-11-18] MEDS ORDERED: Lactated Ringer's 500 ML IV ONE (10:29)
[2017-11-18] MEDS ORDERED: Lactated Ringer's 1,000 ML IV SCH (11:00)
[2017-11-18] MEDS: HYDROmorphone 0.5 mg/0.5 ml ISec IVP PRN ×4 (11:10→12:07)
[2017-11-18 11:14] VITALS: RESP 18
--- NOTE | 2017-11-18 12:33 | OP ---
PROCEDURE DATE: 11/18/2017 PREOPERATIVE DIAGNOSIS: Left arm complex regional pain syndrome. POSTOPERATIVE DIAGNOSIS: Left arm complex regional pain syndrome. PROCEDURE: Left stellate ganglion nerve block. ANESTHESIOLOGIST: Morales Andrews MD SURGEON: Sylvester Barrios MD TYPE OF ANESTHESIA: Monitored anesthesia care. COMPLICATIONS: None. SPECIMENS: None. DESCRIPTION OF PROCEDURE: As follows. After, we had discussion of the procedure with the patient including its risks, benefits, alternative, outcome data, possibility of no effect or increased pain, the patient consented to the procedure. She denied any recent infections, bleeding tendencies or being on anticoagulants. Decision was then made to proceed to the OR. The patient was placed on a fluoroscopy table in a supine position with a shoulder roll underneath her shoulders blades. The left neck was prepped and draped in a usual sterile fashion and sterile technique was adhered during the entire procedure. The target is at the transition of the vertebral body and transverse body on the left side of the C6 vertebrae. The skin overlying this area was infiltrated with 1% lidocaine using a 25-gauge needle. Subsequently, a 25-gauge 3.5-inch spinal needle was incrementally advanced under fluoroscopic guidance until bony contact was made. Approximately 3 mm was withdrawn and after negative aspiration, approximately 1 mL of Isovue contrast was injected to rule out intravenous spread or any placement of the needle. After doing so, approximately 10 mL of 0.25% Marcaine and 80 mg of Depo-Medrol was gradually injected. The contrast was shown to spread down to the T1 level on the left side. At the end of procedure, the patient's was cleaned and dried; bandage was applied. The patient was then transferred to the recovery area in good condition without any signs of AERONAUTICAL TEST ENGINEER toxicity or any new neurological deficits. She will follow up in the office in approximately 2 to 4 weeks. Sylvester Barrios MD
[2017-11-18 12:55] VITALS: O2SAT 96
--- NOTE | 2017-11-18 13:36 | RAD ---
PROCEDURE: Intraoperative fluoroscopy HISTORY: PAIN MANAGEMENT COMPARISON: Not available TECHNIQUE: Intraoperative fluoroscopy was provided for epidural pain management. Total time of fluoroscopy was 20.4 seconds. FINDINGS: Two fluoroscopic spot films are submitted. IMPRESSION: Fluoroscopy provided.
[2017-11-18 13:49] VITALS: BP 118/66; PULSE 81; TEMP 97.7
== END 2017-11-18 13:45 | disposition home or self-care (01) ==
LOC: H.OPSURG 08:21
PROVIDERS: ATTEND Anesthesiology
DX: G90.512 Complex regional pain syndrome I of left upper limb (principal); I25.10 Atherosclerotic heart disease of native coronary artery without angina pectoris; J45.909 Unspecified asthma, uncomplicated; F32.9 Major depressive disorder, single episode, unspecified
CPT/HCPCS: 64520; J1040; J1170; J1200; J2001; J2405; J2704; J7120; Q9967

== ENCOUNTER 2017-12-09 18:33 | Emergency (ER) | payer OTHER ==
[2017-12-09 18:34] VITALS: BMI 28.3
[2017-12-09 18:53] VITALS: BP 116/71; PULSE 88; RESP 16; TEMP 98.3; O2SAT 97
[2017-12-09] MEDS ORDERED: Lidocaine 5% Patch TD STA (20:40)
[2017-12-09] MEDS ORDERED: Oxycodone/Acetaminophen 5/325 mg Tab PO STA ×2 (20:45→23:42)
[2017-12-09] MEDS ORDERED: Oxycodone/Acetaminophen 5/325 mg Tab ONE ×2 (20:52→23:56)
[2017-12-09] MEDS ORDERED: Lidocaine 5% Patch TD ONE (20:53)
--- NOTE | 2017-12-09 21:00 | ED PDOC ---
HPI: General Adult Time Seen by Provider: 12/09/17 19:35 Chief Complaint (Nursing): Back Pain Chief Complaint (Provider): Chronic shoulder and neck pain History Per: Patient History/Exam Limitations: no limitations Onset/Duration Of Symptoms: Days (chronic), Worse Since (x4 days) Current Symptoms Are (Timing): Still Present Recently: Treated By A Physician Additional Complaint(s): Missy Medina is a 47 year old female, with a past medical history of HTN, CAD , asthma, chronic kidney disease and Crohn's disease, who presents to the emergency department complaining of a worsening severe chronic neck and shoulder pain over the last x4 days. Patient reports pain radiates to the left hand and fingers as well to the left chest and breast. Patient follows up with pain management Dr. Lanza who has been doing injections in her neck. However, she states they haven't been working and is scheduled to undergo surgical placement stimulator to control the pain. She is taking her regular medications with no relief. She denies any new injury, recent illness or stressors. PMD: Clinic Past Medical History Reviewed: Historical Data, Nursing Documentation, Vital Signs Vital Signs: Last Vital Signs Temp 98.3 F 12/09/17 18:49 Pulse 88 12/09/17 18:49 Resp 16 12/09/17 18:49 BP 116/71 12/09/17 18:49 Pulse Ox 97 12/09/17 21:06 - Medical History PMH: Arthritis, Asthma, Bronchitis, CAD, Crohn's Disease, Fractures (right arm) , Gall Bladder Disease (removed 2002), HTN, Hypercholesterolemia, Hyperlipidemia , Mitral Valve Prolapse, Pneumonia, Chronic Kidney Disease, Rheumatoid Arthritis Denies: HIV - Surgical History Surgical History: Appendectomy (at 8 years old), Cholecystectomy (2002), Coronary Stent (x1; Left circumflex (January 2016)), Tonsillectomy ("at young age") , (x1) Denies: Pacemaker - Family History Family History: States: Unknown Family Hx, [place] (Father had [place] at 50 y/o), CAD - Immunization History Hx Tetanus Toxoid Vaccination: No Hx Influenza Vaccination: Yes Hx Pneumococcal Vaccination: No - Home Medications Home Medications: Ambulatory Orders Medication Instructions Recorded Aspirin [Ecotrin] 81 mg PO DAILY 01/28/17 Doxepin [Sinequan] 10 mg PO DAILY 10/18/17 Gabapentin [Neurontin] 100 mg PO DAILY 10/18/17 Acetaminophen [Tylenol 325mg tab] 650 mg PO Q8 PRN 11/18/17 oxyCODONE/Acetaminophen [Percocet 1 tab PO QID PRN #10 tab 12/09/17 5/325 mg Tab] - Allergies Allergies/Adverse Reactions: Allergies Allergy/AdvReac Type Severity Reaction Status Date / Time ceftriaxone Allergy RASH Verified 11/18/17 09:08 Iodine and Iodide Containing Allergy SHORTNESS Verified 11/18/17 09:08 Produc OF BREATH iohexol [From Omnipaque] AdvReac SWELLING Verified 11/18/17 09:08 Review of Systems ROS Statement: Except As Marked, All Systems Reviewed And Found Negative Cardiovascular: Positive for: Other (left chest and breast pain) Musculoskeletal: Positive for: Neck Pain, Shoulder Pain (left), Arm Pain (left) , Hand Pain (left) Physical Exam - Reviewed Nursing Documentation Reviewed: Yes Vital Signs Reviewed: Yes - Physical Exam Appears: Positive for: Non-toxic, In Acute Distress (moderate painful distress, tearful) Head Exam: Positive for: ATRAUMATIC, NORMOCEPHALIC Skin: Positive for: Warm, Dry Neck: Positive for: Limited ROM, Trachea Midline. Negative for: Normal ( diffused tenderness to palpation of left side of neck all the way down to her hand. Seems out of proportion.), Painless ROM, Supple Cardiovascular/Chest: Negative for: Chest Non Tender (tenderness to palpation to left anterior chest wall. ) Extremity: Positive for: Tenderness (diffused tenderness to palpation of left hand) Neurologic/Psych: Positive for: Alert. Negative for: Motor/Sensory Deficits - Laboratory Results Result Diagrams: 12/09/17 23:09 12/09/17 23:09 - ECG O2 Sat by Pulse Oximetry: 97 (RA) Pulse Ox Interpretation: Normal Medical Decision Making Medical Decision Making: Initial Impression: Acute on chronic pain Initial Plan: --Flexeril 10 mg PO --Lidoderm 1 ea TD --Morphine 4 mg IVP --Percocet 5/325 mg tab 1 tab PO --Toradol 30 mg IV --Tylenol 325mg tab 975 mg PO --Reevaluation -Called placed to Dr. Barrios, pain management. 20:47 -Discussed case with Dr. Barrios, pain management, who recommends trial of Percocet and can be discharged with 10 tablets of percocet and follow up with him on Tuesday On reeval pt still in pain. IV decadron, Valium PO and Gabapentin PO ordered as per STOP protocol 2330 Pt reports feeling better. Appears to move neck and LEFT shoulder better. Stable for DC with pain management follow up. Scribe Attestation: Documented by Channing Thompson, acting as a scribe for Jackie Thomas MD Provider Scribe Attestation: All medical record entries made by the Scribe were at my direction and personally dictated by me. I have reviewed the chart and agree that the record accurately reflects my personal performance of the history, physical exam, medical decision making, and the department course for this patient. I have also personally directed, reviewed, and agree with the discharge instructions and disposition. Disposition - Clinical Impression Clinical Impression: Complex regional pain syndrome Counseled Patient/Family Regarding: Studies Performed, Diagnosis, Need For Followup - Disposition Referrals: Sylvester Barrios MD [Staff Provider] - 12/12/17 Disposition: Routine/Home Disposition Time: 23:42 Condition: IMPROVED Additional Instructions: PLEASE FOLLOW UP WITH DR BARRIOS TUESDAY Prescriptions: oxyCODONE/Acetaminophen [Percocet 5/325 mg Tab] 1 tab PO QID PRN #10 tab PRN Reason: Pain Instructions: Complex Regional Pain Syndrome
[2017-12-09] MEDS ORDERED: Dexamethasone 4 mg/1 ml IVP STA (22:00)
[2017-12-09] MEDS ORDERED: Dexamethasone 4 mg/1 ml ONE (22:07)
[2017-12-09 23:12] LABS: BASO % 0.2 % (0.0-2.0); EOS # 0.2 K/uL (0.0-0.7); EOS % 1.3 % (0.0-4.0); HEMOGLOBIN 13.1 g/dL (12.0-16.0); LYMPH # 3.3 K/uL (1.0-4.3); LYMPH % 22.3 % (20.0-40.0); MEAN CORPUSCULAR HEMOGLOBIN 29.8 pg (27.0-31.0); MEAN CORPUSCULAR HGB CONC 32.7 g/dL (33.0-37.0); MEAN PLATELET VOLUME 7.7 fl (7.2-11.7); MONO # 0.9 K/uL (0.0-0.8); MONO % 6.1 % (0.0-10.0); NEUT # 10.3 K/uL (1.8-7.0); NEUT % 70.1 % (50.0-75.0); RBC 4.39 Mil/uL (3.80-5.20); RED CELL DISTRIBUTION WIDTH 13.5 % (11.5-14.5); WHITE BLOOD COUNT 14.7 K/uL (4.8-10.8)
[2017-12-09 23:25] LABS: ALB/GLOB RATIO 1.1 (1.0-2.1); ALBUMIN 4.2 g/dL (3.5-5.0); ALT/SGPT 28 U/L (9-52); AST/SGOT 20 U/L (14-36); BLOOD UREA NITROGEN 25 mg/dl (7-17); CALCIUM 9.5 mg/dL (8.4-10.2); GFR AFRICAN-AMERICAN > 60; GFR NON-AFRICAN AMERICAN > 60
[2017-12-09 23:28] LABS: PROTHROMBIN TIME 11.8 Seconds (9.8-13.1)
[2017-12-09 23:29] LABS: INR 1.1 (0.9-1.2); PARTIAL THROMBOPLASTIN TIME 30.2 Seconds (25.6-37.1)
== END 2017-12-10 | disposition home or self-care (01) ==
LOC: H.ER 18:33
DX: G90.50 Complex regional pain syndrome I, unspecified (principal); E78.00 Pure hypercholesterolemia, unspecified; G89.29 Other chronic pain; I12.9 Hypertensive chronic kidney disease with stage 1 through stage 4 chronic kidney disease, or unspecified chronic kidney disease; K50.90 Crohn's disease, unspecified, without complications; M06.9 Rheumatoid arthritis, unspecified; Z95.5 Presence of coronary angioplasty implant and graft
CPT/HCPCS: 80053; 81025; 83735; 84100; 85025; 85610; 85730; 96374; 99283; J1100; J1885

== ENCOUNTER 2017-12-27 09:40 | Observation (INO) | payer OTHER ==
[2017-12-27 10:03] VITALS: RESP 18
[2017-12-27] MEDS ORDERED: Sodium Chloride 0.9% 1,000 ML IV STA (10:05)
--- NOTE | 2017-12-27 10:18 | ED PDOC ---
Upper Extremity Pain/Injury Time Seen by Provider: 12/27/17 09:52 Chief Complaint (Nursing): Upper Extremity Problem/Injury Chief Complaint (Provider): Upper Extremity Problem/Injury History Per: Patient History/Exam Limitations: no limitations Onset/Duration Of Symptoms: Other (chronic) Additional Complaint(s): Missy Medina is a 47 years old female with history of complex regional pain syndrome presents to the ED after she was referred by her PMD for evaluation of left side neck and shoulder pain. Patient states she has taken Percocet yesterday with no relief. PMD: Jenifer Diaz Past Medical History Reviewed: Historical Data, Nursing Documentation, Vital Signs Vital Signs: Last Vital Signs Temp 97.9 F 12/27/17 09:57 Pulse 69 12/27/17 09:57 Resp 18 12/27/17 09:57 BP 122/75 12/27/17 09:57 Pulse Ox 97 12/27/17 09:57 - Medical History PMH: Arthritis, Asthma, Bronchitis, CAD, Crohn's Disease, Fractures (right arm) , Gall Bladder Disease (removed 2002), HTN, Hypercholesterolemia, Hyperlipidemia , Mitral Valve Prolapse, Pneumonia, Chronic Kidney Disease, Rheumatoid Arthritis Denies: HIV - Surgical History Surgical History: Appendectomy (at 8 years old), Cholecystectomy (2002), Coronary Stent (x1; Left circumflex (January 2016)), Tonsillectomy ("at young age") , (x1) Denies: Pacemaker - Family History Family History: States: Unknown Family Hx, [place] (Father had [place] at 50 y/o), CAD - Social History Current smoker - smoking cessation education provided: Yes Alcohol: None Drugs: Denies - Immunization History Hx Tetanus Toxoid Vaccination: No Hx Influenza Vaccination: Yes Hx Pneumococcal Vaccination: No - Home Medications Home Medications: Ambulatory Orders Medication Instructions Recorded Aspirin [Ecotrin] 81 mg PO DAILY 01/28/17 Doxepin [Sinequan] 10 mg PO HS 10/18/17 oxyCODONE/Acetaminophen [Percocet 1 tab PO QID PRN #10 tab 12/09/17 5/325 mg Tab] Gabapentin [Neurontin] 600 mg PO Q8 12/27/17 Morphine [Morphine Immediate 15 mg PO Q8 PRN 12/27/17 Release Tab] - Allergies Allergies/Adverse Reactions: Allergies Allergy/AdvReac Type Severity Reaction Status Date / Time ceftriaxone Allergy RASH Verified 11/18/17 09:08 Iodine and Iodide Containing Allergy SHORTNESS Verified 11/18/17 09:08 Produc OF BREATH iohexol [From Omnipaque] AdvReac SWELLING Verified 11/18/17 09:08 Review of Systems ROS Statement: Except As Marked, All Systems Reviewed And Found Negative Musculoskeletal: Positive for: Neck Pain (left), Shoulder Pain (left) Physical Exam - Reviewed Nursing Documentation Reviewed: Yes Vital Signs Reviewed: Yes - Physical Exam Appears: Positive for: Non-toxic, No Acute Distress Head Exam: Positive for: ATRAUMATIC, NORMOCEPHALIC Neck: Positive for: Supple Extremity: Positive for: Tenderness (left paracervical region) Neurologic/Psych: Positive for: Alert, Oriented - ECG O2 Sat by Pulse Oximetry: 97 (RA) Pulse Ox Interpretation: Normal Medical Decision Making Medical Decision Making: Time: 1004 Initial Plan: --Urine --NaCl 1,000mL IV Time:1008 Case was discussed with Dr. Barrios and epidural injection will be performed today. Scribe Attestation: Documented by Ronit Gregorio, acting as a scribe for Jeramie Kent MD Provider Scribe Attestation: All medical record entries made by the Scribe were at my direction and personally dictated by me. I have reviewed the chart and agree that the record accurately reflects my personal performance of the history, physical exam, medical decision making, and the department course for this patient. I have also personally directed, reviewed, and agree with the discharge instructions and disposition Disposition - Clinical Impression Clinical Impression: Complex regional pain syndrome - Patient ED Disposition Is Patient to be Admitted: Yes - Disposition Disposition Time: 10:38 Condition: FAIR Forms: [employer] (Danish) - Pt Status Changed To: Hospital Disposition Of: Observation - POA Present On Arrival: None
[2017-12-27] MEDS ORDERED: methylPREDNISolone Depo 80 mg/ml Inj ONE (11:18)
[2017-12-27] MEDS ORDERED: Bupivacaine HCl 0.25% PF (30 ml) Inj ONE (11:19)
[2017-12-27] MEDS ORDERED: Iohexol 300 10 ML ONE (11:19)
[2017-12-27] MEDS ORDERED: Lidocaine Hydrochloride 10 ML INJ ONE (11:19)
[2017-12-27] MEDS ORDERED: DiphenhydrAMINE 50 mg/ml Inj ONE (11:50)
[2017-12-27] MEDS ORDERED: Midazolam 2 MG/2 ML VIAL ONE ×2 (11:50)
[2017-12-27] MEDS ORDERED: Iohexol 240 (10 ml) IVP ONE (11:58)
[2017-12-27] MEDS ORDERED: Lidocaine 1% PF (5ml) Amp INJ ONE (11:58)
[2017-12-27] MEDS ORDERED: Bupivacaine HCl 0.25% PF (30 ml) Inj IJ ONE (11:58)
[2017-12-27] MEDS ORDERED: methylPREDNISolone Depo 80 mg/ml Inj IM ONE (11:58)
[2017-12-27] MEDS ORDERED: Lactated Ringer's 1,000 ML IV SCH (12:30)
--- NOTE | 2017-12-27 12:38 | RAD ---
PROCEDURE: Cervical epidural HISTORY: PAIN MANAGEMENT COMPARISON: None TECHNIQUE: Submitted images from the current procedure: 2.0 FINDINGS: Total fluoroscopic time (continuous mode) utilized during the procedure 49.0 (seconds). Total exam DLP: (mGy) 12.2 IMPRESSION: Less than 1 hr fluoroscopic time utilized during performance of the procedure.
[2017-12-27] MEDS: HYDROmorphone 0.5 mg/0.5 ml ISec IVP PRN ×2 (13:00→13:30)
--- NOTE | 2017-12-27 14:31 | OP ---
PROCEDURE DATE: 12/27/2017 PREOPERATIVE DIAGNOSIS: Cervical spondylosis. POSTOPERATIVE DIAGNOSIS: Cervical spondylosis. PROCEDURE: Left C3, C4 and C5 medial branch nerve block. SURGEON: Sylvester Barrios MD TYPE OF ANESTHESIA: Monitored anesthesia care. ANESTHESIOLOGIST: Dr. Cutler. COMPLICATIONS: None. SPECIMENS: None. DESCRIPTION OF PROCEDURE: As follows. After we had discussion of the procedure with the patient including its risks, benefits, alternatives, outcome data, possibility of no effect or increased pain, the patient consented to the procedure. She had been suffering from intractable neck pain and left arm pain. She is status post cervical stimulator trial at without significant relief. She had come in to the ER with intractable pain. The decision was then made to proceed to an emergency procedure to limit her pain. The patient was placed on the fluoroscopy table in a prone position using a head positioner. The neck was prepped and draped in the usual sterile fashion and sterile technique was adhered during the entire procedure. The C3, C4, and C5 vertebral levels were first identified in the anterior-posterior view. The medial branch nerves were located at the lateral facet border on the left side at the midpoint position of the vertebrae. The skin overlying the three above target areas was then infiltrated with 1% lidocaine using 25-gauge needle. Subsequently, a 22-gauge 3.5 inch spinal needle was then incrementally advanced under fluoroscopic guidance until the tip of the needle made bony contact with all three target areas. After satisfactory positioning of all three needles, approximately 0.5 mL of Isovue contrast was injected to rule out intravenous uptake. At this point, approximately 2 mL of 0.25% Marcaine and Depo-Medrol mixture was injected. At the end of the procedure, the needle was then removed and the patient's neck was cleaned and dried; bandage was applied. The patient was then transferred to recovery area in good condition without any signs of RESIDENTIAL REMODELING SUBCONTRACTOR toxicity or any neurological deficits. She will follow up in the office in approximately 2-4 weeks. Sylvester Barrios MD
[2017-12-27 15:05] VITALS: BP 112/67; PULSE 76; TEMP 98.2; O2SAT 100
== END 2017-12-27 15:05 | disposition home or self-care (01) ==
LOC: H.ER 09:40 → H.ERHOLD 10:05
PROVIDERS: ADMIT Anesthesiology; ATTEND Anesthesiology
DX: M47.812 Spondylosis without myelopathy or radiculopathy, cervical region (principal); M19.90 Unspecified osteoarthritis, unspecified site; J45.909 Unspecified asthma, uncomplicated; I25.10 Atherosclerotic heart disease of native coronary artery without angina pectoris; Z95.5 Presence of coronary angioplasty implant and graft; E78.00 Pure hypercholesterolemia, unspecified; E78.5 Hyperlipidemia, unspecified; I34.1 Nonrheumatic mitral (valve) prolapse; M06.9 Rheumatoid arthritis, unspecified; I12.9 Hypertensive chronic kidney disease with stage 1 through stage 4 chronic kidney disease, or unspecified chronic kidney disease; N18.9 Chronic kidney disease, unspecified
CPT/HCPCS: 64450; 99283; G0378; J1040; J1170; J1200; J2250; J3010; J7040; Q9966; Q9967

== ENCOUNTER 2018-02-22 14:00 | Observation (INO) | payer OTHER ==
[2018-02-22 14:00] VITALS: BMI 29.2
--- NOTE | 2018-02-22 15:03 | ED PDOC ---
HPI: Abdomen Time Seen by Provider: 02/22/18 14:43 Chief Complaint (Nursing): Abdominal Pain Chief Complaint (Provider): dizziness vomiting History Per: Patient History/Exam Limitations: no limitations Onset/Duration Of Symptoms: Days (3), Gradual Current Symptoms Are (Timing): Still Present Severity: Severe Location Of Pain/Discomfort: Epigastric (radiating to back), LUQ Quality Of Discomfort: "Pain" ("nausea pain") Associated Symptoms: Nausea, Loss Of Appetite, Back Pain. denies: Fever, Chills , Diarrhea, Constipation, Urinary Symptoms Exacerbating Factors: Walking Alleviating Factors: None Additional Complaint(s): nonvertiginous dizziness associated with abd pain gradual onset two night ago last night associated with intractable vomiting, yellow stomach contents ( nonbilious nonbloody), and pressure-like chest pain LEFT sided worsening today and now too dizzy to walk. PMD Dr Jenifer Diaz ([facility]) Past Medical History Reviewed: Historical Data, Nursing Documentation, Vital Signs Vital Signs: Last Vital Signs Temp 98.1 F 02/23/18 12:00 Pulse 76 02/23/18 12:00 Resp 20 02/23/18 12:00 BP 97/53 L 02/23/18 12:00 Pulse Ox 96 02/23/18 12:00 - Medical History PMH: Arthritis, Asthma, Bronchitis, CAD, Crohn's Disease, Fractures (right arm) , Gall Bladder Disease (removed 2002), HTN, Hypercholesterolemia, Hyperlipidemia , Mitral Valve Prolapse, Pneumonia, Chronic Kidney Disease, Rheumatoid Arthritis Denies: HIV - Surgical History Surgical History: Appendectomy (at 8 years old), Cholecystectomy (2002), Coronary Stent (x1; Left circumflex (January 2016)), Tonsillectomy ("at young age") , (x1) Denies: Pacemaker - Family History Family History: States: Unknown Family Hx, [place] (Father had PR at 50 y/o), CAD - Social History Current smoker - smoking cessation education provided: No Alcohol: None Drugs: Denies - Immunization History Hx Tetanus Toxoid Vaccination: No Hx Influenza Vaccination: Yes Hx Pneumococcal Vaccination: No - Home Medications Home Medications: Ambulatory Orders Medication Instructions Recorded Aspirin [Ecotrin] 81 mg PO DAILY 01/28/17 Gabapentin [Neurontin] 600 mg PO Q8 12/27/17 Multivitamin [Multi-Vitamin Daily] 1 tab PO DAILY 01/17/18 oxyCODONE/Acetaminophen [Percocet 1 tab PO DAILY 01/17/18 5/325 mg Tab] Doxepin [Sinequan] 10 mg PO HS cap 01/18/18 Atorvastatin [Lipitor] 20 mg PO HS 02/22/18 - Allergies Allergies/Adverse Reactions: Allergies Allergy/AdvReac Type Severity Reaction Status Date / Time ceftriaxone Allergy RASH Verified 02/22/18 14:55 Iodine and Iodide Containing Allergy SHORTNESS Verified 02/22/18 14:55 Produc OF BREATH iohexol [From Omnipaque] AdvReac SWELLING Verified 02/22/18 14:55 Review of Systems ROS Statement: Except As Marked, All Systems Reviewed And Found Negative (and as per HPI) Constitutional: Positive for: Weakness, Malaise Cardiovascular: Positive for: Chest Pain, Light Headedness. Negative for: Edema Respiratory: Positive for: SOB with Exertion. Negative for: Cough Gastrointestinal: Positive for: Nausea, Vomiting, Abdominal Pain. Negative for : Diarrhea, Constipation, Melena Neurological: Positive for: Headache, Dizziness Physical Exam - Reviewed Nursing Documentation Reviewed: Yes Vital Signs Reviewed: Yes - Physical Exam Appears: Positive for: Uncomfortable, In Acute Distress (mild) Head Exam: Positive for: ATRAUMATIC, NORMOCEPHALIC Skin: Positive for: Warm, Dry Eye Exam: Positive for: EOMI, PERRL. Negative for: Nystagmus ENT: Positive for: Pharynx Is (clear), Other (tacky mucus membranes) Neck: Positive for: Painless ROM, Supple Cardiovascular/Chest: Positive for: Regular Rate, Rhythm, Chest Non Tender Respiratory: Positive for: Normal Breath Sounds. Negative for: Accessory Muscle Use, Respiratory Distress Gastrointestinal/Abdominal: Positive for: Bowel Sounds, Tenderness (epigastric) . Negative for: Mass, Distended, Guarding, Rebound Back: Positive for: Normal Inspection. Negative for: Decreased ROM Extremity: Positive for: Normal ROM. Negative for: Pedal Edema, Deformity Lymphatic: Negative for: Adenopathy Neurologic/Psych: Positive for: Alert, master yacht II-XII (intact), Oriented (x3), Gait (slow but stead). Negative for: Motor/Sensory Deficits, Aphasia, Facial Droop - Laboratory Results Result Diagrams: 02/23/18 04:55 06/21/18 05:01 - ECG ECG: Positive for: Interpreted By Me ECG Rhythm: Positive for: Normal ST Segment, Sinus Rhythm, Nonspecific Changes ( Qs inferior leads which are seen in previous EKG. Possible new T wave inversion V3.) O2 Sat by Pulse Oximetry: 98 Medical Decision Making Medical Decision Making: Labs unremarkable. Accession No. : [id number] Patient Name / ID : SOPHIE PERRY / [id number] Exam Date : 02/22/2018 15:53:59 ( Approved ) Study Comment : Sex / Age : F / 47Y Creator : Tera Landers MD Dictator : Tera Landers MD Protective Signal Repairer : Safety Counselor : Tera Landers MD Approver2 : Report Date : 02/22/2018 16:54:16 My Comment : PROCEDURE: CT HEAD WITHOUT CONTRAST. HISTORY: dizzy headache nausea COMPARISON: CT head dated 05/23/2017. TECHNIQUE: Axial computed tomography images were obtained through the head/brain without intravenous contrast. Radiation dose: Total exam DLP = 764.3 mGy-cm. This CT exam was performed using one or more of the following dose reduction techniques: Automated exposure control, adjustment of the mA and/or kV according to patient size, and/or use of iterative reconstruction technique. FINDINGS: HEMORRHAGE: No intracranial hemorrhage. BRAIN: No mass effect or edema. No atrophy or chronic microvascular ischemic changes. VENTRICLES: Unremarkable. No hydrocephalus. CALVARIUM: Unremarkable. PARANASAL SINUSES: Unremarkable as visualized. No significant inflammatory changes. MASTOID AIR CELLS: Unremarkable as visualized. No inflammatory changes. OTHER FINDINGS: None. IMPRESSION: No acute intracranial pathology. 445p Pt reports pain in abdomen and nausea worsening. CT abd/pel ordered. More useful with IV contrast. IV Reglan and Benadryl ordered. 1600 Pt reports itchy rash to upper chest and neck after CT. IV Benadryl and IV solumedrol ordered with improvement. [address] Paul FP resident for hospitalization for chest pain r /o ACS and intractable abdominal pain. Disposition - Clinical Impression Clinical Impression: Abdominal pain, Chest pain Counseled Patient/Family Regarding: Studies Performed, Diagnosis - Disposition Disposition Time: 18:40 Condition: FAIR - Pt Status Changed To: Hospital Disposition Of: Observation - POA Present On Arrival: None
[2018-02-22] MEDS ORDERED: Famotidine 20mg/50ml 20 MG/50 ML BAG IVPB ONE (15:06)
[2018-02-22 16:04] LABS: HEMOGLOBIN 12.3 g/dL (12.0-16.0); LYMPH % 25.2 % (20.0-40.0); MEAN CELL VOLUME 90.7 fl (81.0-99.0); MEAN CORPUSCULAR HEMOGLOBIN 29.9 pg (27.0-31.0); MEAN CORPUSCULAR HGB CONC 32.9 g/dL (33.0-37.0); MEAN PLATELET VOLUME 7.6 fl (7.2-11.7); MONO % 5.7 % (0.0-10.0); NEUT % 67.2 % (50.0-75.0); RBC 4.1 Mil/uL (3.80-5.20); RED CELL DISTRIBUTION WIDTH 13.7 % (11.5-14.5); WHITE BLOOD COUNT 11.6 K/uL (4.8-10.8)
[2018-02-22 16:05] LABS: BASO % 0.3 % (0.0-2.0); EOS # 0.2 K/uL (0.0-0.7); EOS % 1.6 % (0.0-4.0); LYMPH # 2.9 K/uL (1.0-4.3); MONO # 0.7 K/uL (0.0-0.8); NEUT # 7.8 K/uL (1.8-7.0)
[2018-02-22 16:18] LABS: ALB/GLOB RATIO 1.1 (1.0-2.1); ALBUMIN 4.1 g/dL (3.5-5.0); ALT/SGPT 28 U/L (9-52); AST/SGOT 28 U/L (14-36); BLOOD UREA NITROGEN 15 mg/dl (7-17); CALCIUM 9.1 mg/dL (8.4-10.2); GFR AFRICAN-AMERICAN > 60; GFR NON-AFRICAN AMERICAN > 60; LIPASE 80 U/L (23-300)
[2018-02-22 16:27] LABS: PARTIAL THROMBOPLASTIN TIME 32.7 Seconds (25.6-37.1); PROTHROMBIN TIME 11.4 Seconds (9.8-13.1)
--- NOTE | 2018-02-22 16:55 | CT ---
PROCEDURE: CT HEAD WITHOUT CONTRAST. HISTORY: dizzy headache nausea COMPARISON: CT head dated 05/23/2017. TECHNIQUE: Axial computed tomography images were obtained through the head/brain without intravenous contrast. Radiation dose: Total exam DLP = 764.3 mGy-cm. This CT exam was performed using one or more of the following dose reduction techniques: Automated exposure control, adjustment of the mA and/or kV according to patient size, and/or use of iterative reconstruction technique. FINDINGS: HEMORRHAGE: No intracranial hemorrhage. BRAIN: No mass effect or edema. No atrophy or chronic microvascular ischemic changes. VENTRICLES: Unremarkable. No hydrocephalus. CALVARIUM: Unremarkable. PARANASAL SINUSES: Unremarkable as visualized. No significant inflammatory changes. MASTOID AIR CELLS: Unremarkable as visualized. No inflammatory changes. OTHER FINDINGS: None. IMPRESSION: No acute intracranial pathology.
[2018-02-22] MEDS ORDERED: DiphenhydrAMINE 50 mg/ml Inj IVP STA ×2 (16:57→17:58)
[2018-02-22] MEDS ORDERED: DiphenhydrAMINE 50 mg/ml Inj ONE (17:02)
[2018-02-22] MEDS ORDERED: Iohexol 300 100 ML IJ ONE (17:19)
[2018-02-22] MEDS ORDERED: Sodium Chloride 0.9% 50 ML IV ONE (17:19)
--- NOTE | 2018-02-22 17:22 | RAD ---
HISTORY: chest pain dizzy COMPARISON: Chest radiograph dated 01/17/2018. FINDINGS: LUNGS: No active pulmonary disease. PLEURA: No significant pleural effusion identified, no pneumothorax apparent. CARDIOVASCULAR: Cardiomediastinal silhouette stably enlarged. OSSEOUS STRUCTURES: No significant abnormalities. VISUALIZED UPPER ABDOMEN: Normal. OTHER FINDINGS: None. IMPRESSION: No active disease.
--- NOTE | 2018-02-22 18:18 | CT ---
PROCEDURE: CT Abdomen and Pelvis with contrast HISTORY: abd pain COMPARISON: CT scan of the abdomen pelvis dated 04/29/2015. TECHNIQUE: Contrast dose: 90 mL Omnipaque 300 Radiation dose: Total exam DLP = 880.5 MGy-cm. This CT exam was performed using one or more of the following dose reduction techniques: Automated exposure control, adjustment of the mA and/or kV according to patient size, and/or use of iterative reconstruction technique. FINDINGS: LOWER THORAX: Unremarkable. LIVER: Hepatic steatosis. Too small characterize 3 mm hepatic dome hypodensity (series 3, image 23). No gross lesion or ductal dilatation. GALLBLADDER AND BILE DUCTS: Unremarkable. PANCREAS: Unremarkable. No gross lesion or ductal dilatation. SPLEEN: Unremarkable. ADRENALS: Unremarkable. No mass. KIDNEYS AND URETERS: Unremarkable. No hydronephrosis. No solid mass. VASCULATURE: Unremarkable. No aortic aneurysm. BOWEL: Unremarkable. No obstruction. No gross mural thickening. APPENDIX: Normal appendix. PERITONEUM: Unremarkable. No free fluid. No free air. LYMPH NODES: Unremarkable. No enlarged lymph nodes. BLADDER: Unremarkable. REPRODUCTIVE: Unremarkable. BONES: No acute fracture. OTHER FINDINGS: None. IMPRESSION: No acute abdominal pelvic pathology.
--- NOTE | 2018-02-22 20:12 | CP.PCM.HP ---
History of Present Illness - History of Present Illness History of Present Illness: CC: Abdominal pain/chest pain HPI: 47 y/o woman w/ pmh of CAD s/p LCA stent placement (Jan, 2016), rheumatic fever, complex regional pain syndrome s/p trial cervical spine stimulator placement and removed on 12/2017 presents to ED w/ abdominal pain and chest pain. Patient reports that 2 days ago she started w/ dizziness and then abdominal pain. Patient reports pain is epigastric, started 2 days ago, radiates to the back, w/ associated nausea and x1 episode of non-bloody/non- bilious vomit. Patient took TUMS w/o relief. Patient reported chest pressure after start of abdominal pain. The patient reports moderate frontal tension headache. Patient denies fever, chills, SOB, diarrhea, or dysuria. Reports 10 y/o son had strep throat less than 1 week ago. ED course Vs: 98.1 F, 68 beats/min, 117/62 mm Hg, resp 18, O2 98% room air CBC: 11.6>12.3/37.2<353 CMP: 141/3.7, 106/25, 15/0.4, glucose, 80, AST 28, ALT 28, alk phos 67 troponin <0.0120 lipase 80 PT 11.4 INR 1.0 aPTT 32.7 EKG: (preliminary) sinus rhythm, no acute ST elevation/depression, no prolonged LA, QRS, QT CXR: no active disease CT head w/o contrast: no acute intracranial pathology CT abdomen w/ IV contrast: no acute abdominal pelvic pathology Meds given: bentyl 20 mg PO, pepcid 20 mg IV, antivert 50 mg PO, solu-medrol 125 mg IV, reglan 10 mg PO, zofran 8 mg IV PMD: Dr Diaz Rrt: Dr Fabien Anderson PMH: CAD s/p LCA stent placement (Jan, 2016), rheumatic fever, complex regional pain syndrome s/p trial cervical spine stimulator placement and removed on 2017 Allergy: ceftriaxone, iodine Meds: see med list SHx: appendectomy (1980), cholecystectomy (2002), tonsillectomy, total hysterectomy (2014), Stent placement (2015), Trial of vervical spine stimulator placement and was removed on 12/2017 Fam: Mother DM; father, CAD, , [place] at age 53 SOC: denies smoking, alcohol, or illicit drug use ROS: 12 points assessed and negative unless otherwise reported in HPI Present on Admission - Present on Admission Any Indicators Present on Admission: No History of DVT/PE: No History of Uncontrolled Diabetes: No Urinary Catheter: No Decubitus Ulcer Present: No Review of Systems - Review of Systems All systems: reviewed and no additional remarkable complaints except - Constitutional Constitutional: Headache. absent: Chills, Fever - EENT Eyes: absent: Change in Vision - Cardiovascular Cardiovascular: As Per HPI, Chest Pain - Respiratory Respiratory: absent: Dyspnea - Gastrointestinal Gastrointestinal: Abdominal Pain, Nausea, Vomiting. absent: Diarrhea, Hematochezia, Melena - Genitourinary Genitourinary: absent: Dysuria - Integumentary Integumentary: absent: Rash - Neurological Neurological: Dizziness, Headaches. absent: Paresthesias, Syncope, Tingling Past Patient History - Infectious Disease Hx of Infectious Diseases: None - Tetanus Immunizations Tetanus Immunization: Unknown - Past Medical History & Family History Past Medical History?: Yes - Past Social History Alcohol: None Drugs: Denies - CARDIAC Hx Hypercholesterolemia: Yes Hx Hypertension: Yes Hx Mitral Valve Prolapse: Yes Hx Pacemaker: No - PULMONARY Hx Asthma: Yes Hx Bronchitis: Yes Hx Pneumonia: Yes - NEUROLOGICAL Hx Neurological Disorder: Yes Hx Dizziness: Yes Hx Paralysis: No - HEENT Hx HEENT Problems: No Other/Comment: wears for distance - RENAL Hx Chronic Kidney Disease: Yes - ENDOCRINE/METABOLIC Hx Endocrine Disorders: No - HEMATOLOGICAL/ONCOLOGICAL Hx Human Immunodeficiency Virus (HIV): No - INTEGUMENTARY Hx Dermatological Problems: No - MUSCULOSKELETAL/RHEUMATOLOGICAL Hx Arthritis: Yes Hx Fractures: Yes (right arm) Hx Rheumatoid Arthritis: Yes - GASTROINTESTINAL Hx Crohn's Disease: Yes Hx Gall Bladder Disease: Yes (removed 2002) - GENITOURINARY/GYNECOLOGICAL Hx Genitourinary Disorders: Yes (Ovarian cysts, Hysterectomy) Other/Comment: Hx Ovarian cysts and fibroids - PSYCHIATRIC Hx Psychophysiologic Disorder: No Hx Emotional Abuse: No Hx Physical Abuse: No Hx Substance Use: No - SURGICAL HISTORY Hx Appendectomy: Yes (at 8 years old) Hx Cholecystectomy: Yes (2002) Hx Coronary Stent: Yes (x1; Left circumflex (January 2016)) Hx Tonsillectomy: Yes ("at young age") - ANESTHESIA Hx Anesthesia: Yes Hx Anesthesia Reactions: No Hx Malignant Hyperthermia: No Meds Allergies/Adverse Reactions: Allergies Allergy/AdvReac Type Severity Reaction Status Date / Time ceftriaxone Allergy RASH Verified 02/22/18 14:55 Iodine and Iodide Containing Allergy SHORTNESS Verified 02/22/18 14:55 Produc OF BREATH iohexol [From Omnipaque] AdvReac SWELLING Verified 02/22/18 14:55 Physical Exam - Constitutional Appears: Non-toxic, No Acute Distress - Head Exam Head Exam: ATRAUMATIC, NORMAL INSPECTION, NORMOCEPHALIC - Eye Exam Eye Exam: Normal appearance - ENT Exam ENT Exam: Mucous Membranes Moist - Neck Exam Neck exam: Positive for: Full Rom. Negative for: Tenderness - Respiratory Exam Respiratory Exam: Clear to Auscultation Bilateral. absent: Accessory Muscle Use , Decreased Breath Sounds, Rales, Rhonchi, Wheezes, Respiratory Distress - Cardiovascular Exam Cardiovascular Exam: REGULAR RHYTHM. absent: Tachycardia - GI/Abdominal Exam GI & Abdominal Exam: Normal Bowel Sounds, Soft, Tenderness (epigastric). absent : Distended, Guarding, Rigid - Extremities Exam Extremities exam: Negative for: calf tenderness, pedal edema - Neurological Exam Neurological exam: Alert, Oriented x3 - Skin Skin Exam: Dry, Intact, Normal Color, Warm Results - Vital Signs Recent Vital Signs: Last Vital Signs Temp 98.1 F 02/22/18 14:09 Pulse 85 02/22/18 18:00 Resp 17 02/22/18 18:00 BP 127/85 02/22/18 18:00 Pulse Ox 98 02/22/18 17:04 - Labs Result Diagrams: 02/22/18 15:53 02/22/18 15:53 Labs: Laboratory Results - last 24 hr 02/22/18 02/22/18 02/22/18 15:06 15:15 15:53 WBC 11.6 H RBC 4.10 Hgb 12.3 Hct 37.2 MCV 90.7 MCH 29.9 MCHC 32.9 L RDW 13.7 Plt Count 353 D MPV 7.6 Neut % (Auto) 67.2 Lymph % (Auto) 25.2 [place] % (Auto) 5.7 Eos % (Auto) 1.6 Baso % (Auto) 0.3 Neut # (Auto) 7.8 H Lymph # (Auto) 2.9 [place] # (Auto) 0.7 Eos # (Auto) 0.2 Baso # (Auto) 0.0 PT INR APTT Sodium Potassium Chloride Carbon Dioxide Anion Gap BUN Creatinine Est GFR ( Amer) Est GFR (Non-Af Amer) POC Glucose (mg/dL) 71 Random Glucose Lactic Acid Calcium Phosphorus Magnesium Total Bilirubin AST ALT Alkaline Phosphatase Lactate Dehydrogenase Troponin I Total Protein Albumin Globulin Albumin/Globulin Ratio Lipase Blood Type O POSITIVE Antibody Screen Negative BBK History Checked Patient has bt 02/22/18 02/22/18 02/22/18 15:53 15:53 15:53 WBC RBC Hgb Hct MCV MCH MCHC RDW Plt Count MPV Neut % (Auto) Lymph % (Auto) [place] % (Auto) Eos % (Auto) Baso % (Auto) Neut # (Auto) Lymph # (Auto) [place] # (Auto) Eos # (Auto) Baso # (Auto) PT 11.4 INR 1.0 APTT 32.7 Sodium 141 Potassium 3.7 Chloride 106 Carbon Dioxide 25 Anion Gap 14 BUN 15 Creatinine 0.4 L Est GFR ( Amer) > 60 Est GFR (Non-Af Amer) > 60 POC Glucose (mg/dL) Random Glucose 80 Lactic Acid 0.6 L Calcium 9.1 Phosphorus 4.6 H Magnesium 2.1 Total Bilirubin 0.5 AST 28 ALT 28 Alkaline Phosphatase 67 Lactate Dehydrogenase 416 Troponin I < 0.0120 Total Protein 8.0 Albumin 4.1 Globulin 3.8 Albumin/Globulin Ratio 1.1 Lipase 80 Blood Type Antibody Screen BBK History Checked Assessment & Plan - Assessment and Plan (Free Text) Assessment: 47 y/o woman w/ pmh of CAD s/p LCA stent placement (Jan, 2016), rheumatic fever , complex regional pain syndrome s/p trial cervical spine stimulator placement and removed on 12/2017 presents to ED w/ abdominal pain and chest pain Plan: Chest pain - most likely from acid reflux, less likely cardiac but given Hx of CAD w/ stent , r/o ACS - Vs: 98.1 F, 68 beats/min, 117/62 mm Hg, resp 18, O2 98% room air - CBC: 11.6>12.3/37.2<353 - CMP: 141/3.7, 106/25, 15/0.4, glucose, 80, AST 28, ALT 28, alk phos 67 - troponin <0.0120 - lipase 80 - PT 11.4 - INR 1.0 - aPTT 32.7 - EKG: (preliminary) sinus rhythm, no acute ST elevation/depression, no prolonged LA, QRS, QT - CXR: no active disease - CT head w/o contrast: no acute intracranial pathology - CT abdomen w/ IV contrast: no acute abdominal pelvic pathology - Meds given: bentyl 20 mg PO, pepcid 20 mg IV, antivert 50 mg PO, solu-medrol 125 mg IV, reglan 10 mg PO, zofran 8 mg IV - f/u troponins x2 - f/u EKG - f/u CBC, BMP - monitor for acute changes - admit to Telemetry Abdominal pain - most likely from acid reflux, possible gastroenteritis due to sick contact - CBC: 11.6>12.3/37.2<353 - CMP: 141/3.7, 106/25, 15/0.4, glucose, 80, AST 28, ALT 28, alk phos 67 - troponin <0.0120 - lipase 80 - CT abdomen w/ IV contrast: no acute abdominal pelvic pathology - manage pain w/ tylenol 650 mg PO Q6h prn (moderate), toradol 30 mg IV Q6h prn (severe) - tolerating PO - f/u AM labs - monitor for acute changes CAD - c/w home medication Prophylactic measures - DVT lovenox 40 mg SC daily
[2018-02-23 05:56] LABS: BASO # 0.1 K/uL (0.0-0.2); BASO % 0.8 % (0.0-2.0); HEMOGLOBIN 12.9 g/dL (12.0-16.0); LYMPH # 1.2 K/uL (1.0-4.3); LYMPH % 7.5 % (20.0-40.0); MEAN CELL VOLUME 91.7 fl (81.0-99.0); MEAN CORPUSCULAR HEMOGLOBIN 30.5 pg (27.0-31.0); MEAN CORPUSCULAR HGB CONC 33.3 g/dL (33.0-37.0); MEAN PLATELET VOLUME 7.7 fl (7.2-11.7); MONO # 0.2 K/uL (0.0-0.8); MONO % 0.9 % (0.0-10.0); NEUT # 14.6 K/uL (1.8-7.0); NEUT % 90.8 % (50.0-75.0); PLATELET COUNT 356 K/uL (130-400); RBC 4.24 Mil/uL (3.80-5.20); RED CELL DISTRIBUTION WIDTH 13.5 % (11.5-14.5); WHITE BLOOD COUNT 16.1 K/uL (4.8-10.8)
[2018-02-23 06:05] LABS: BLOOD UREA NITROGEN 20 mg/dl (7-17); CALCIUM 9.5 mg/dL (8.4-10.2); GFR AFRICAN-AMERICAN > 60; GFR NON-AFRICAN AMERICAN > 60
--- NOTE | 2018-02-23 08:14 | CARD ---
APPROVED REPORT EKG Measurement Heart [id number] <Conclusion> Normal sinus rhythm Inferior infarct, age undetermined Cannot rule out Anterior infarct, age undetermined Abnormal ECG
[2018-02-23 08:17] VITALS: RESP 20
[2018-02-23] MEDS ORDERED: Enoxaparin 40 mg Syringe SC SCH (09:00)
--- NOTE | 2018-02-23 10:11 | CP.PCM.DIS ---
Provider - Provider Date of Admission: 02/22/18 18:43 Attending physician: Odette Menon MD Primary care physician: Dr. Diaz Consults: None Time Spent in preparation of Discharge (in minutes): 40 Diagnosis - Discharge Diagnosis (1) Non-cardiac chest pain Status: Acute (2) GERD (gastroesophageal reflux disease) Status: Acute (3) Abdominal pain Status: Acute Hospital Course - Lab Results Lab Results: Most Recent Lab Values WBC 16.1 K/uL (4.8-10.8) H 02/23/18 04:55 RBC 4.24 Mil/uL (3.80-5.20) 02/23/18 04:55 Hgb 12.9 g/dL (12.0-16.0) 02/23/18 04:55 Hct 38.8 % (34.0-47.0) 02/23/18 04:55 MCV 91.7 fl (81.0-99.0) 02/23/18 04:55 MCH 30.5 pg (27.0-31.0) 02/23/18 04:55 MCHC 33.3 g/dL (33.0-37.0) 02/23/18 04:55 RDW 13.5 % (11.5-14.5) 02/23/18 04:55 Plt Count 356 K/uL (130-400) 02/23/18 04:55 MPV 7.7 fl (7.2-11.7) 02/23/18 04:55 Neut % (Auto) 90.8 % (50.0-75.0) H 02/23/18 04:55 Lymph % (Auto) 7.5 % (20.0-40.0) L 02/23/18 04:55 [place] % (Auto) 0.9 % (0.0-10.0) 02/23/18 04:55 Eos % (Auto) 0.0 % (0.0-4.0) 02/23/18 04:55 Baso % (Auto) 0.8 % (0.0-2.0) 02/23/18 04:55 Neut # (Auto) 14.6 K/uL (1.8-7.0) H 02/23/18 04:55 Lymph # (Auto) 1.2 K/uL (1.0-4.3) 02/23/18 04:55 [place] # (Auto) 0.2 K/uL (0.0-0.8) 02/23/18 04:55 Eos # (Auto) 0.0 K/uL (0.0-0.7) 02/23/18 04:55 Baso # (Auto) 0.1 K/uL (0.0-0.2) 02/23/18 04:55 PT 11.4 Seconds (9.8-13.1) 02/22/18 15:53 INR 1.0 (0.9-1.2) 02/22/18 15:53 APTT 32.7 Seconds (25.6-37.1) 02/22/18 15:53 Sodium 144 mmol/l (132-148) 02/23/18 05:01 Potassium 3.9 MMOL/L (3.6-5.0) 02/23/18 05:01 Chloride 108 mmol/L (98-107) H 02/23/18 05:01 Carbon Dioxide 24 mmol/L (22-30) 02/23/18 05:01 Anion Gap 16 (10-20) 02/23/18 05:01 BUN 20 mg/dl (7-17) H 02/23/18 05:01 Creatinine 0.6 mg/dl (0.7-1.2) L 02/23/18 05:01 Est GFR ( Amer) > 60 02/23/18 05:01 Est GFR (Non-Af Amer) > 60 02/23/18 05:01 POC Glucose (mg/dL) 71 mg/dL (65-110) 02/22/18 15:06 Random Glucose 225 mg/dL (65-105) H 02/23/18 05:01 Lactic Acid 0.6 MMOL/L (0.7-2.1) L 02/22/18 15:53 Calcium 9.5 mg/dL (8.4-10.2) 02/23/18 05:01 Phosphorus 4.6 mg/dl (2.5-4.5) H 02/22/18 15:53 Magnesium 2.1 MG/DL (1.6-2.3) 02/22/18 15:53 Total Bilirubin 0.5 mg/dl (0.2-1.3) 02/22/18 15:53 AST 28 U/L (14-36) 02/22/18 15:53 ALT 28 U/L (9-52) 02/22/18 15:53 Alkaline Phosphatase 67 U/L (38-126) 02/22/18 15:53 Lactate Dehydrogenase 416 U/L (313-618) 02/22/18 15:53 Troponin I < 0.0120 ng/mL (0.00-0.120) 02/23/18 05:45 Total Protein 8.0 G/DL (6.3-8.2) 02/22/18 15:53 Albumin 4.1 g/dL (3.5-5.0) 02/22/18 15:53 Globulin 3.8 gm/dL (2.2-3.9) 02/22/18 15:53 Albumin/Globulin Ratio 1.1 (1.0-2.1) 02/22/18 15:53 Lipase 80 U/L (23-300) 02/22/18 15:53 Blood Type O POSITIVE 02/22/18 15:15 Antibody Screen Negative 02/22/18 15:15 BBK History Checked Patient has bt 02/22/18 15:15 - Hospital Course Hospital Course: 47 y/o woman w/ pmh of CAD s/p LCA stent placement (Jan, 2016), rheumatic fever , complex regional pain syndrome s/p trial cervical spine stimulator placement and removed on 12/2017 admitted to [facility] w/ abdominal pain and chest pain. Patient was given PPI, percocet and Xanax on floor, EKG reviewed, 3x troponin negative, CBC and CMP without any significant abnormality. Patient was advised to follow up with GI as out patient to r/o any possible cause of GI abnormalities (esophageal dysmotility, IBS vs IBD). Patient agrees and comfortable with discharge plan, all the questions were answered. ER precautions discussed with patient. Discharge Exam - Head Exam Head Exam: ATRAUMATIC, NORMAL INSPECTION, NORMOCEPHALIC - Eye Exam Eye Exam: Normal appearance - ENT Exam ENT Exam: Mucous Membranes Moist - Neck Exam Neck exam: Normal Inspection - Respiratory Exam Respiratory Exam: Clear to PA & Lateral, NORMAL BREATHING PATTERN - Cardiovascular Exam Cardiovascular Exam: REGULAR RHYTHM, +S1, +S2 - GI/Abdominal Exam GI & Abdominal Exam: Normal Bowel Sounds, Soft. absent: Distended, Rebound, Rigid, Tenderness - Extremities Exam Extremities exam: normal capillary refill, normal inspection - Back Exam Back exam: NORMAL INSPECTION. absent: CVA tenderness (L), CVA tenderness (R), muscle spasm - Neurological Exam Neurological exam: Alert, CN II-XII Intact, Oriented x3, Reflexes Normal - Psychiatric Exam Psychiatric exam: Normal Affect - Skin Skin Exam: Dry, Intact, Normal Color, Warm Discharge Plan - Follow Up Plan Condition: GOOD Disposition: HOME/ ROUTINE Instructions: Acute Abdomen (Belly Pain), Adult (DC), Chest Pain (DC) Additional Instructions: Follow up with Dr. Diaz on 03/07/18 at 9:20am Out patient GI referral for further evaluation and treatment of esophageal dysmotility ER precautions discussed with patient C/w home medications Referrals: Grant Cavanaugh MD [Medical Doctor] - Jenifer Diaz MD [Family Provider] -
[2018-02-23 10:31] LABS: BANDS 2 % (0-2); LYMPHOCYTE 5 % (20-50); MYELOCYTE 1 % (0-0); NEUTROPHIL 92 % (42-75); TOTAL CELLS COUNTED 100
[2018-02-23 10:33] LABS: PLATELET ESTIMATE NORMAL (NORMAL)
[2018-02-23 10:43] LABS: MONOCYTE 0 % (0-10)
[2018-02-23 12:24] VITALS: BP 97/53; PULSE 76; TEMP 98.1
[2018-02-23] MEDS ORDERED: Oxycodone/Acetaminophen 5/325 mg Tab PO STA (12:47)
[2018-02-23] MEDS ORDERED: Magnesium Hydroxide Susp 30 ml UD PO STA (13:01)
[2018-02-23] MEDS ORDERED: Pantoprazole 40 mg EC Tab PO ONE (19:49)
--- NOTE | 2018-02-24 08:33 | CARD ---
APPROVED REPORT EKG Measurement Heart [id number] <Conclusion> Normal sinus rhythm Inferior infarct, age undetermined Abnormal ECG
[2018-02-24 14:34] VITALS: O2SAT 98
== END 2018-02-23 16:00 | disposition home or self-care (01) ==
LOC: H.ER 14:00 → H.ERHOLD 18:43 → H.TEL 23:11
PROVIDERS: ADMIT Family Medicine Geriatric Medicine; ATTEND Family Medicine Geriatric Medicine
DX: R07.89 Other chest pain (principal); K21.9 Gastro-esophageal reflux disease without esophagitis; K50.90 Crohn's disease, unspecified, without complications; R10.13 Epigastric pain; G44.209 Tension-type headache, unspecified, not intractable; I34.1 Nonrheumatic mitral (valve) prolapse; I25.10 Atherosclerotic heart disease of native coronary artery without angina pectoris; E78.5 Hyperlipidemia, unspecified; E78.00 Pure hypercholesterolemia, unspecified; J45.909 Unspecified asthma, uncomplicated; I10 Essential (primary) hypertension; M06.9 Rheumatoid arthritis, unspecified; Z79.82 Long term (current) use of aspirin; Z95.5 Presence of coronary angioplasty implant and graft; Z91.041 Radiographic dye allergy status; Z87.01 Personal history of pneumonia (recurrent); Z90.49 Acquired absence of other specified parts of digestive tract; Z90.710 Acquired absence of both cervix and uterus
CPT/HCPCS: 36415; 70450; 71045; 74177; 80048; 80053; 81025; 82948; 83605; 83615; 83690; 83735; 84100; 84484; 85025; 85610; 85730; 86850; 86900; 87040; 93005; 96374; 99285; G0378; J1200; J1650; J1885; J2405; J2765; J2930; Q9967

== ENCOUNTER 2018-02-28 10:45 | Inpatient (IN) | payer OTHER ==
[2018-02-28 10:46] VITALS: BMI 29.2
[2018-02-28] MEDS ORDERED: Sodium Chloride 0.9% 1,000 ML IV STA (11:53)
[2018-02-28 12:27] LABS: SQUAMOUS EPITHIAL 29 /hpf (0-5); URINE BACTERIA RARE (<OCC); URINE BILIRUBIN NEGATIVE (NEGATIVE); URINE BLOOD SMALL (NEGATIVE); URINE CLARITY CLOUDY (Clear); URINE COLOR YELLOW (YELLOW); URINE GLUCOSE (UA) NEG (Normal); URINE LEUKOCYTE ESTERASE NEG Leu/uL (Negative); URINE PROTEIN NEGATIVE (NEGATIVE); URINE UROBILINOGEN 0.2-1.0 mg/dL (0.2-1.0)
[2018-02-28 12:35] LABS: ALB/GLOB RATIO 1.1 (1.0-2.1); ALBUMIN 4.6 g/dL (3.5-5.0); ALT/SGPT 22 U/L (9-52); AST/SGOT 22 U/L (14-36); BLOOD UREA NITROGEN 15 mg/dl (7-17); CALCIUM 9.3 mg/dL (8.4-10.2); GFR AFRICAN-AMERICAN > 60; GFR NON-AFRICAN AMERICAN > 60; LIPASE 37 U/L (23-300)
[2018-02-28 12:43] LABS: VENOUS BLOOD GAS BASE EXCESS -1.9 mmol/L (0.0-2.0); VENOUS BLOOD GAS PCO2 35 mmHg (40-60); VENOUS BLOOD GAS PO2 66 mm/Hg (30-55); VENOUS BLOOD PH 7.41 (7.32-7.43)
[2018-02-28 12:54] LABS: BASO % 0.2 % (0.0-2.0); EOS # 0.1 K/uL (0.0-0.7); EOS % 0.4 % (0.0-4.0); HEMOGLOBIN 13.1 g/dL (12.0-16.0); LYMPH # 2.2 K/uL (1.0-4.3); LYMPH % 9.8 % (20.0-40.0); MEAN CELL VOLUME 90.8 fl (81.0-99.0); MEAN CORPUSCULAR HEMOGLOBIN 30.4 pg (27.0-31.0); MEAN CORPUSCULAR HGB CONC 33.5 g/dL (33.0-37.0); MONO # 1.3 K/uL (0.0-0.8); MONO % 5.7 % (0.0-10.0); NEUT # 19.2 K/uL (1.8-7.0); NEUT % 83.9 % (50.0-75.0); NRBC % 0.1 % (0.0-0.0); PLATELET COUNT 303 K/uL (130-400); RBC 4.31 Mil/uL (3.80-5.20); RED CELL DISTRIBUTION WIDTH 13.8 % (11.5-14.5); WHITE BLOOD COUNT 22.9 K/uL (4.8-10.8)
[2018-02-28 13:14] LABS: INR 1.1 (0.9-1.2); PARTIAL THROMBOPLASTIN TIME 32.6 Seconds (25.6-37.1); PROTHROMBIN TIME 12.6 Seconds (9.8-13.1)
--- NOTE | 2018-02-28 13:14 | RAD ---
HISTORY: fever COMPARISON: Comparison made with chest radiograph 02/22/2018 TECHNIQUE: Chest PA and lateral FINDINGS: LUNGS: There appears to be some very minor linear atelectasis and or scarring changes in the left mid to lower lung zone. Lung maddox are otherwise clear. . PLEURA: No significant pleural effusion identified. No pneumothorax apparent. CARDIOVASCULAR: Normal. OSSEOUS STRUCTURES: No significant abnormalities. VISUALIZED UPPER ABDOMEN: Normal. OTHER FINDINGS: None. IMPRESSION: . Minor linear atelectasis and or scarring seen in the left mid to lower lung zone.
--- NOTE | 2018-02-28 13:42 | CT ---
PROCEDURE: CT HEAD WITHOUT CONTRAST. HISTORY: Headache and fever. COMPARISON: Comparison made with prior study 02/22/2018. TECHNIQUE: Axial computed tomography images were obtained through the head/brain without intravenous contrast. Radiation dose: Total exam DLP = 764.29 the mGy-cm. This CT exam was performed using one or more of the following dose reduction techniques: Automated exposure control, adjustment of the mA and/or kV according to patient size, and/or use of iterative reconstruction technique. FINDINGS: HEMORRHAGE: No intracranial hemorrhage. BRAIN: Questionable minimal chronic periventricular white matter ischemic changes. VENTRICLES: No obstructive hydrocephalus. CALVARIUM: Calvarium appears intact PARANASAL SINUSES: Unremarkable as visualized. No significant inflammatory changes. Mildly prominent adenoids. MASTOID AIR CELLS: Unremarkable as visualized. No inflammatory changes. OTHER FINDINGS: None. IMPRESSION: No acute intracranial hemorrhage.
[2018-02-28] MEDS ORDERED: Lidocaine 1% Inj (20ml) IJ ONE (13:55)
[2018-02-28] MEDS ORDERED: Lidocaine 1% MPF (30 ml) Inj ONE (13:57)
[2018-02-28 14:19] LABS: BANDS 1 % (0-2); EOSINOPHIL 2 % (0-7); LYMPHOCYTE 8 % (20-50); MONOCYTE 4 % (0-10); NEUTROPHIL 85 % (42-75); PLATELET ESTIMATE NORMAL (NORMAL); TOTAL CELLS COUNTED 100
[2018-02-28 14:33] LABS: FLUID TYPE SPINAL FLUID
--- NOTE | 2018-02-28 14:35 | ED PDOC ---
HPI: General Adult Time Seen by Provider: 02/28/18 11:46 Chief Complaint (Nursing): Upper Extremity Problem/Injury Chief Complaint (Provider): fever headache neck pain History Per: Patient History/Exam Limitations: no limitations Onset/Duration Of Symptoms: Days (2) Current Symptoms Are (Timing): Still Present Severity: Severe Recently: Hospitalized Additional Complaint(s): 47yo female has multiple medical problems presents c/o headache, neck pain and fever, body aches worsening x2 days. Denies syncope, sore throat, abdominal pain or cough. Has mild nausea. No rash. No sick contacts or recent travel. Recently admitted for chest pain, vomiting, felt better on discharge and states these symptoms are new and never prior experienced. Past Medical History Reviewed: Historical Data, Nursing Documentation, Vital Signs Vital Signs: Last Vital Signs Temp 98.5 F 03/01/18 13:00 Pulse 78 03/01/18 13:00 Resp 20 03/01/18 13:00 BP 98/59 L 03/01/18 13:00 Pulse Ox 94 L 03/01/18 13:00 - Medical History PMH: Arthritis, Asthma, Bronchitis, CAD, Crohn's Disease, Fractures (right arm) , Gall Bladder Disease (removed 2002), HTN, Hypercholesterolemia, Hyperlipidemia , Mitral Valve Prolapse, Pneumonia, Chronic Kidney Disease, Rheumatoid Arthritis Denies: HIV - Surgical History Surgical History: Appendectomy (at 8 years old), Cholecystectomy (2002), Coronary Stent (x1; Left circumflex (January 2016)), Tonsillectomy ("at young age") , (x1) Denies: Pacemaker - Family History Family History: States: Unknown Family Hx, RI (Father had RI at 50 y/o), CAD - Immunization History Hx Tetanus Toxoid Vaccination: No Hx Influenza Vaccination: Yes Hx Pneumococcal Vaccination: No - Home Medications Home Medications: Ambulatory Orders Medication Instructions Recorded Aspirin [Ecotrin] 81 mg PO DAILY 01/28/17 Gabapentin [Neurontin] 600 mg PO Q8 12/27/17 Multivitamin [Multi-Vitamin Daily] 1 tab PO DAILY 01/17/18 oxyCODONE/Acetaminophen [Percocet 1 tab PO Q8 PRN 01/17/18 5/325 mg Tab] Doxepin [Sinequan] 10 mg PO HS cap 01/18/18 Atorvastatin [Lipitor] 20 mg PO HS 02/22/18 - Allergies Allergies/Adverse Reactions: Allergies Allergy/AdvReac Type Severity Reaction Status Date / Time ceftriaxone Allergy RASH Verified 02/28/18 11:42 Iodine and Iodide Containing Allergy SHORTNESS Verified 02/28/18 11:42 Produc OF BREATH iohexol [From Omnipaque] AdvReac SWELLING Verified 02/28/18 11:42 Review of Systems Constitutional: Positive for: Fever, Chills, Weakness, Malaise ENT: Negative for: Nose Discharge, Throat Pain, Throat Swelling Cardiovascular: Negative for: Chest Pain, Palpitations Respiratory: Negative for: Cough, Shortness of Breath Gastrointestinal: Positive for: Nausea. Negative for: Abdominal Pain Genitourinary Female: Negative for: Dysuria, Frequency Musculoskeletal: Positive for: Neck Pain, Shoulder Pain, Other (body aches). Negative for: Arm Pain Skin: Negative for: Rash, Lesions Neurological: Positive for: Weakness, Headache, Dizziness. Negative for: Numbness, Confusion, Seizures Physical Exam - Reviewed Nursing Documentation Reviewed: Yes Vital Signs Reviewed: Yes - Physical Exam Appears: Positive for: Well, Non-toxic, No Acute Distress Head Exam: Positive for: ATRAUMATIC, NORMAL INSPECTION, NORMOCEPHALIC Skin: Positive for: Normal Color, Warm, DRY Eye Exam: Positive for: EOMI, Normal appearance, PERRL ENT: Positive for: Normal ENT Inspection Neck: Positive for: Decreased ROM, Pain On Movement Of Neck. Negative for: Painless ROM (+ nuchal tenderness) Cardiovascular/Chest: Positive for: Regular Rate, Rhythm Respiratory: Positive for: CNT, Normal Breath Sounds Gastrointestinal/Abdominal: Positive for: Soft. Negative for: Tenderness, Guarding Back: Positive for: Normal Inspection Extremity: Positive for: Normal ROM Neurologic/Psych: Positive for: Alert, Oriented. Negative for: Motor/Sensory Deficits - Laboratory Results Result Diagrams: 03/01/18 04:20 03/01/18 04:20 - ECG O2 Sat by Pulse Oximetry: 98 Medical Decision Making Medical Decision Makinyo female w headache, febrile rectally, will obtain bloodwork, r/o flu but likely to require LP Placed isolation. Labs reviewed reveal elevated WBC, normal lactate, neg flu and strep Procedure note Lumbar puncture Indication- headache, neck pain, fever, elev WBC, r/o meningitis Written consent obtained after risks including spinal leak, nerve damage or introduction of infection discussed Sterile technique used throughout Cleansed w chlorhexidine then betadine 7ml lidocaine infiltrated into L3L4 space spinal needle inserted on 3rd attempt clear CSF obtained 4 tubes sent to lab tolerated well. placed supine. Antibiotics initiated but allergic to Rocephin, d/w Dr Winston generation technologist ID he will see patient and order alternative Bacterial Antigens also ordered Admit FP service Dr Huff aware Disposition - Clinical Impression Clinical Impression: Meningitis - Patient ED Disposition Is Patient to be Admitted: Yes - Disposition Disposition Time: 14:30 Condition: STABLE - Pt Status Changed To: Hospital Disposition Of: Inpatient - Admit Certification Admit to Inpatient:: After my assessment, the patient will require hospitalization for at least two midnights. This is because of the severity of symptoms shown, intensity of services needed, and/or the medical risk in this patient being treated as an outpatient. - POA Present On Arrival: None
[2018-02-28 15:11] LABS: CSF APPEARANCE CLEAR/COLORLESS (CLEAR); CSF VOLUME 2 mL (0-1)
[2018-02-28 15:39] LABS: CSF MONO/MACROPHAGE 0 % (0-0)
--- NOTE | 2018-02-28 16:13 | CP.PCM.HP ---
<Oma Anderson - Last Filed: 02/28/18 17:44> History of Present Illness - History of Present Illness History of Present Illness: 47 y/o Female w/ pmh of CAD s/p LCA stent placement (Jan, 2016), rheumatic fever , complex regional pain syndrome s/p trial cervical spine stimulator placement and removed on 12/2017 presents to ED and admitted for evaluation and treatment of 1 day history of severe headache, fever and neck pain. As per patient, she woke up yesterday with severe headache, lightheadedness, and neck pain, patient took her Tm at home which was 103.0 F. Neck pain and headache was unresponsive to home percocet. Headache and neck pain is 10/10, sharp in nature, not associated with phonophobia or photophobia but reports generalized weakness and body aches. Patient denies any eye pain, nausea or vomiting, rash, chest pain, SOB, abdominal pain, urinary symptoms or diarrhea. Denies any recent travel, denies any sick contact at home. Sexually active with one partner in last 1 year , no protection use. 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 PMH: CAD s/p LCA stent placement (Jan, 2016), rheumatic fever, complex regional pain syndrome s/p trial cervical spine stimulator placement and removed on 2017 Allergy: ceftriaxone, iodine Meds: see med list SHx: appendectomy (1980), cholecystectomy (2002), tonsillectomy, total hysterectomy (2014), Stent placement (2015), Trial of vervical spine stimulator placement and was removed on 12/2017 Fam: Mother DM; father, CAD, , [place] at age 53 SOC: denies smoking, alcohol, or illicit drug use ROS: 12 points assessed and negative unless otherwise reported in HPI ED Course: VS: 102.1, HR 102, 100/70, RR 22, CBC: Significant for wbc 22.9 CMP: no significant changes UA: Negative Influenza A and B negative Group A negative CXR: Mild scarring seen in left lower lung CT head:No acute changes LP was done VDRL, Herpes S/p Vancomycin, IVF, Toradol Present on Admission - Present on Admission Any Indicators Present on Admission: No History of DVT/PE: No History of Uncontrolled Diabetes: No Urinary Catheter: No Decubitus Ulcer Present: No Past Patient History - Infectious Disease Hx of Infectious Diseases: None - Tetanus Immunizations Tetanus Immunization: Unknown - Past Medical History & Family History Past Medical History?: Yes - Past Social History Smoking Status: Current Some Days Smoker - CARDIAC Hx Hypercholesterolemia: Yes Hx Hypertension: Yes Hx Mitral Valve Prolapse: Yes Hx Pacemaker: No - PULMONARY Hx Asthma: Yes Hx Bronchitis: Yes Hx Pneumonia: Yes - NEUROLOGICAL Hx Neurological Disorder: Yes - HEENT Hx HEENT Problems: No - RENAL Hx Chronic Kidney Disease: Yes - ENDOCRINE/METABOLIC Hx Endocrine Disorders: No - HEMATOLOGICAL/ONCOLOGICAL Hx Human Immunodeficiency Virus (HIV): No - INTEGUMENTARY Hx Dermatological Problems: No - MUSCULOSKELETAL/RHEUMATOLOGICAL Hx Arthritis: Yes Hx Fractures: Yes (right arm) Hx Rheumatoid Arthritis: Yes - GASTROINTESTINAL Hx Crohn's Disease: Yes Hx Gall Bladder Disease: Yes (removed 2002) - GENITOURINARY/GYNECOLOGICAL Hx Genitourinary Disorders: Yes (Ovarian cysts, Hysterectomy) - PSYCHIATRIC Hx Psychophysiologic Disorder: No Hx Substance Use: No - SURGICAL HISTORY Hx Appendectomy: Yes (at 8 years old) Hx Cholecystectomy: Yes (2002) Hx Coronary Stent: Yes (x1; Left circumflex (January 2016)) Hx Tonsillectomy: Yes ("at young age") - ANESTHESIA Hx Anesthesia: Yes Hx Anesthesia Reactions: No Hx Malignant Hyperthermia: No Meds Allergies/Adverse Reactions: Allergies Allergy/AdvReac Type Severity Reaction Status Date / Time ceftriaxone Allergy RASH Verified 02/28/18 11:42 Iodine and Iodide Containing Allergy SHORTNESS Verified 02/28/18 11:42 Produc OF BREATH iohexol [From Omnipaque] AdvReac SWELLING Verified 02/28/18 11:42 Physical Exam - Constitutional Appears: No Acute Distress - Head Exam Head Exam: ATRAUMATIC, NORMOCEPHALIC Additional comments: No tenderness, no rashes - Eye Exam Eye Exam: Normal appearance, PERRL Pupil Exam: NORMAL ACCOMODATION - ENT Exam ENT Exam: Mucous Membranes Moist - Neck Exam Neck exam: Positive for: Full Rom, Normal Inspection. Negative for: Lymphadenopathy, Meningismus, Tenderness Additional comments: kernig sign and brudzinski sign negative - Cardiovascular Exam Cardiovascular Exam: REGULAR RHYTHM, +S1, +S2 Additional comments: small patch of urticaria - GI/Abdominal Exam GI & Abdominal Exam: Normal Bowel Sounds, Soft - Extremities Exam Extremities exam: Positive for: normal capillary refill, normal inspection. Negative for: pedal edema, tenderness - Back Exam Back exam: NORMAL INSPECTION. absent: CVA tenderness (L), CVA tenderness (R) - Neurological Exam Neurological exam: Alert, CN II-XII Intact, Oriented x3 - Psychiatric Exam Psychiatric exam: Normal Affect - Skin Skin Exam: Dry, Intact, Normal Color, Warm Results - Vital Signs Recent Vital Signs: Last Vital Signs Temp 102.1 F H 02/28/18 12:15 Pulse 102 H 02/28/18 12:15 Resp 22 02/28/18 12:15 BP 98/69 L 02/28/18 11:00 Pulse Ox 98 02/28/18 14:40 - Labs Result Diagrams: 02/28/18 12:45 02/28/18 12:15 Labs: Laboratory Results - last 24 hr 02/28/18 02/28/18 02/28/18 12:00 12:15 12:15 WBC RBC Hgb Hct MCV MCH MCHC RDW Plt Count MPV Neut % (Auto) Lymph % (Auto) [place] % (Auto) Eos % (Auto) Baso % (Auto) Neut # (Auto) Lymph # (Auto) [place] # (Auto) Eos # (Auto) Baso # (Auto) Neutrophils % (Manual) Band Neutrophils % Lymphocytes % (Manual) Monocytes % (Manual) Eosinophils % (Manual) Platelet Estimate RBC Morphology PT INR APTT pO2 66 H VBG pH 7.41 VBG pCO2 35 L VBG HCO3 23.3 VBG Total CO2 23.3 VBG O2 Sat (Calc) 97.6 H VBG Base Excess -1.9 L VBG Potassium 3.6 Sodium 135.0 138 Chloride 106.0 106 Glucose 105 Lactate 1.0 FiO2 21.0 Potassium 4.1 Carbon Dioxide 20 L Anion Gap 16 BUN 15 Creatinine 0.4 L Est GFR ( Amer) > 60 Est GFR (Non-Af Amer) > 60 Random Glucose 100 Calcium 9.3 Total Bilirubin 1.3 AST 22 ALT 22 Alkaline Phosphatase 73 Total Creatine Kinase Total Protein 8.7 H Albumin 4.6 Globulin 4.1 H Albumin/Globulin Ratio 1.1 Lipase 37 Venous Blood Potassium 3.6 Urine Color Yellow Urine Clarity Cloudy Urine pH 6.0 Ur Specific [place] 1.012 Urine Protein Negative Urine Glucose (UA) Neg Urine Ketones Negative Urine Blood Small Urine Nitrate Negative Urine Bilirubin Negative Urine Urobilinogen 0.2-1.0 Ur Leukocyte Esterase Neg Urine RBC (Auto) 3 Urine Microscopic WBC 5 Ur Squamous Epith Cells 29 H Urine Bacteria Rare Fluid Type CSF Volume CSF Appearance CSF WBC CSF RBC CSF Total Cell Counted CSF Neutrophils CSF Lymphocytes CSF Monos/Macrophages CSF Comment CSF Glucose CSF Total Protein Influenza Typ A,B (EIA) Grp A Beta Strep Ag 02/28/18 02/28/18 02/28/18 12:45 12:45 12:45 WBC 22.9 H RBC 4.31 Hgb 13.1 Hct 39.1 MCV 90.8 MCH 30.4 MCHC 33.5 RDW 13.8 Plt Count 303 MPV 7.0 L Neut % (Auto) 83.9 H Lymph % (Auto) 9.8 L [place] % (Auto) 5.7 Eos % (Auto) 0.4 Baso % (Auto) 0.2 Neut # (Auto) 19.2 H Lymph # (Auto) 2.2 [place] # (Auto) 1.3 H Eos # (Auto) 0.1 Baso # (Auto) 0.0 Neutrophils % (Manual) 85 H Band Neutrophils % 1 Lymphocytes % (Manual) 8 L Monocytes % (Manual) 4 Eosinophils % (Manual) 2 Platelet Estimate Normal RBC Morphology Normal PT 12.6 INR 1.1 APTT 32.6 pO2 VBG pH VBG pCO2 VBG HCO3 VBG Total CO2 VBG O2 Sat (Calc) VBG Base Excess VBG Potassium Sodium Chloride Glucose Lactate FiO2 Potassium Carbon Dioxide Anion Gap BUN Creatinine Est GFR ( Amer) Est GFR (Non-Af Amer) Random Glucose Calcium Total Bilirubin AST ALT Alkaline Phosphatase Total Creatine Kinase 36 Total Protein Albumin Globulin Albumin/Globulin Ratio Lipase Venous Blood Potassium Urine Color Urine Clarity Urine pH Ur Specific [place] Urine Protein Urine Glucose (UA) Urine Ketones Urine Blood Urine Nitrate Urine Bilirubin Urine Urobilinogen Ur Leukocyte Esterase Urine RBC (Auto) Urine Microscopic WBC Ur Squamous Epith Cells Urine Bacteria Fluid Type CSF Volume CSF Appearance CSF WBC CSF RBC CSF Total Cell Counted CSF Neutrophils CSF Lymphocytes CSF Monos/Macrophages CSF Comment CSF Glucose CSF Total Protein Influenza Typ A,B (EIA) Grp A Beta Strep Ag 02/28/18 02/28/18 02/28/18 12:50 13:00 14:22 WBC RBC Hgb Hct MCV MCH MCHC RDW Plt Count MPV Neut % (Auto) Lymph % (Auto) [place] % (Auto) Eos % (Auto) Baso % (Auto) Neut # (Auto) Lymph # (Auto) [place] # (Auto) Eos # (Auto) Baso # (Auto) Neutrophils % (Manual) Band Neutrophils % Lymphocytes % (Manual) Monocytes % (Manual) Eosinophils % (Manual) Platelet Estimate RBC Morphology PT INR APTT pO2 VBG pH VBG pCO2 VBG HCO3 VBG Total CO2 VBG O2 Sat (Calc) VBG Base Excess VBG Potassium Sodium Chloride Glucose Lactate FiO2 Potassium Carbon Dioxide Anion Gap BUN Creatinine Est GFR ( Amer) Est GFR (Non-Af Amer) Random Glucose Calcium Total Bilirubin AST ALT Alkaline Phosphatase Total Creatine Kinase Total Protein Albumin Globulin Albumin/Globulin Ratio Lipase Venous Blood Potassium Urine Color Urine Clarity Urine pH Ur Specific [place] Urine Protein Urine Glucose (UA) Urine Ketones Urine Blood Urine Nitrate Urine Bilirubin Urine Urobilinogen Ur Leukocyte Esterase Urine RBC (Auto) Urine Microscopic WBC Ur Squamous Epith Cells Urine Bacteria Fluid Type CSF Volume CSF Appearance CSF WBC CSF RBC CSF Total Cell Counted CSF Neutrophils CSF Lymphocytes CSF Monos/Macrophages CSF Comment CSF Glucose CSF Total Protein 44.0 Influenza Typ A,B (EIA) Negative for flu a/b Grp A Beta Strep Ag Negative 02/28/18 02/28/18 14:31 14:31 WBC RBC Hgb Hct MCV MCH MCHC RDW Plt Count MPV Neut % (Auto) Lymph % (Auto) [place] % (Auto) Eos % (Auto) Baso % (Auto) Neut # (Auto) Lymph # (Auto) [place] # (Auto) Eos # (Auto) Baso # (Auto) Neutrophils % (Manual) Band Neutrophils % Lymphocytes % (Manual) Monocytes % (Manual) Eosinophils % (Manual) Platelet Estimate RBC Morphology PT INR APTT pO2 VBG pH VBG pCO2 VBG HCO3 VBG Total CO2 VBG O2 Sat (Calc) VBG Base Excess VBG Potassium Sodium Chloride Glucose Lactate FiO2 Potassium Carbon Dioxide Anion Gap BUN Creatinine Est GFR ( Amer) Est GFR (Non-Af Amer) Random Glucose Calcium Total Bilirubin AST ALT Alkaline Phosphatase Total Creatine Kinase Total Protein Albumin Globulin Albumin/Globulin Ratio Lipase Venous Blood Potassium Urine Color Urine Clarity Urine pH Ur Specific [place] Urine Protein Urine Glucose (UA) Urine Ketones Urine Blood Urine Nitrate Urine Bilirubin Urine Urobilinogen Ur Leukocyte Esterase Urine RBC (Auto) Urine Microscopic WBC Ur Squamous Epith Cells Urine Bacteria Fluid Type Spinal fluid CSF Volume 2 H CSF Appearance Clear/colorless CSF WBC 3.0 CSF RBC 2.0 H CSF Total Cell Counted TEST NOT PERFORMED CSF Neutrophils 0 CSF Lymphocytes 2.0 H CSF Monos/Macrophages 0 CSF Comment Tube #4 CSF Glucose 59 CSF Total Protein Influenza Typ A,B (EIA) Grp A Beta Strep Ag Assessment & Plan - Assessment and Plan (Free Text) Assessment: 47 y/o Female w/ pmh of CAD s/p LCA stent placement (Jan, 2016), rheumatic fever , complex regional pain syndrome s/p trial cervical spine stimulator placement and removed on 12/2017 presents to ED and admitted for evaluation and treatment of 1 day history of severe headache, fever and neck pain. Headache, Neck pain and Fever - Possibly due to Meningitis vs migraine vs tension headache vs muscle spasms - Elevated WBC, Febrile - ID, Dr. Herndon consult, will follow recs - S/p Vanco in ER - Follow up LP/CSF result - Follow up VDRL, Herpes, HIV, blood Cx, Urine Cx - Pain management: Percocet and tylenol - Supportive management, Encourage PO intake - C/w Acyclovir 800mg Q8H CAD - Asymptomatic - C/w Statin - Hold Aspirin, Recent LP CSF DVT PPx - SCD for now (LP was done today) <Telma Hardin - Last Filed: 03/01/18 08:11> Results - Vital Signs Recent Vital Signs: Last Vital Signs Temp 98 F 03/01/18 05:01 Pulse 72 03/01/18 05:01 Resp 18 03/01/18 05:01 BP 93/56 L 03/01/18 05:01 Pulse Ox 95 03/01/18 05:01 - Labs Result Diagrams: 03/01/18 04:20 03/01/18 04:20 Labs: Laboratory Results - last 24 hr 02/28/18 02/28/18 02/28/18 12:00 12:15 12:15 WBC RBC Hgb Hct MCV MCH MCHC RDW Plt Count MPV Neut % (Auto) Lymph % (Auto) [place] % (Auto) Eos % (Auto) Baso % (Auto) Neut # (Auto) Lymph # (Auto) [place] # (Auto) Eos # (Auto) Baso # (Auto) Neutrophils % (Manual) Band Neutrophils % Lymphocytes % (Manual) Monocytes % (Manual) Eosinophils % (Manual) Platelet Estimate RBC Morphology PT INR APTT pO2 66 H VBG pH 7.41 VBG pCO2 35 L VBG HCO3 23.3 VBG Total CO2 23.3 VBG O2 Sat (Calc) 97.6 H VBG Base Excess -1.9 L VBG Potassium 3.6 Sodium 135.0 138 Chloride 106.0 106 Glucose 105 Lactate 1.0 FiO2 21.0 Potassium 4.1 Carbon Dioxide 20 L Anion Gap 16 BUN 15 Creatinine 0.4 L Est GFR ( Amer) > 60 Est GFR (Non-Af Amer) > 60 Random Glucose 100 Calcium 9.3 Phosphorus Magnesium Total Bilirubin 1.3 AST 22 ALT 22 Alkaline Phosphatase 73 Total Creatine Kinase Total Protein 8.7 H Albumin 4.6 Globulin 4.1 H Albumin/Globulin Ratio 1.1 Lipase 37 Venous Blood Potassium 3.6 Urine Color Yellow Urine Clarity Cloudy Urine pH 6.0 Ur Specific [place] 1.012 Urine Protein Negative Urine Glucose (UA) Neg Urine Ketones Negative Urine Blood Small Urine Nitrate Negative Urine Bilirubin Negative Urine Urobilinogen 0.2-1.0 Ur Leukocyte Esterase Neg Urine RBC (Auto) 3 Urine Microscopic WBC 5 Ur Squamous Epith Cells 29 H Urine Bacteria Rare Fluid Type CSF Volume CSF Appearance CSF WBC CSF RBC CSF Total Cell Counted CSF Neutrophils CSF Lymphocytes CSF Monos/Macrophages CSF Comment CSF Glucose CSF Total Protein HSV Source Description HIV-1 Ab Rapid Screen Influenza Typ A,B (EIA) H.influenzae Type B Ag N.meningitidis ACY/W135 N.meningi B/E.coli K1 Ag Grp A Beta Strep Ag Group B Strep Antigen S. pneumoniae Antigen 02/28/18 02/28/18 02/28/18 12:45 12:45 12:45 WBC 22.9 H RBC 4.31 Hgb 13.1 Hct 39.1 MCV 90.8 MCH 30.4 MCHC 33.5 RDW 13.8 Plt Count 303 MPV 7.0 L Neut % (Auto) 83.9 H Lymph % (Auto) 9.8 L [place] % (Auto) 5.7 Eos % (Auto) 0.4 Baso % (Auto) 0.2 Neut # (Auto) 19.2 H Lymph # (Auto) 2.2 [place] # (Auto) 1.3 H Eos # (Auto) 0.1 Baso # (Auto) 0.0 Neutrophils % (Manual) 85 H Band Neutrophils % 1 Lymphocytes % (Manual) 8 L Monocytes % (Manual) 4 Eosinophils % (Manual) 2 Platelet Estimate Normal RBC Morphology Normal PT 12.6 INR 1.1 APTT 32.6 pO2 VBG pH VBG pCO2 VBG HCO3 VBG Total CO2 VBG O2 Sat (Calc) VBG Base Excess VBG Potassium Sodium Chloride Glucose Lactate FiO2 Potassium Carbon Dioxide Anion Gap BUN Creatinine Est GFR ( Amer) Est GFR (Non-Af Amer) Random Glucose Calcium Phosphorus Magnesium Total Bilirubin AST ALT Alkaline Phosphatase Total Creatine Kinase 36 Total Protein Albumin Globulin Albumin/Globulin Ratio Lipase Venous Blood Potassium Urine Color Urine Clarity Urine pH Ur Specific [place] Urine Protein Urine Glucose (UA) Urine Ketones Urine Blood Urine Nitrate Urine Bilirubin Urine Urobilinogen Ur Leukocyte Esterase Urine RBC (Auto) Urine Microscopic WBC Ur Squamous Epith Cells Urine Bacteria Fluid Type CSF Volume CSF Appearance CSF WBC CSF RBC CSF Total Cell Counted CSF Neutrophils CSF Lymphocytes CSF Monos/Macrophages CSF Comment CSF Glucose CSF Total Protein HSV Source Description HIV-1 Ab Rapid Screen Influenza Typ A,B (EIA) H.influenzae Type B Ag N.meningitidis ACY/W135 N.meningi B/E.coli K1 Ag Grp A Beta Strep Ag Group B Strep Antigen S. pneumoniae Antigen 02/28/18 02/28/18 02/28/18 12:50 13:00 14:22 WBC RBC Hgb Hct MCV MCH MCHC RDW Plt Count MPV Neut % (Auto) Lymph % (Auto) [place] % (Auto) Eos % (Auto) Baso % (Auto) Neut # (Auto) Lymph # (Auto) [place] # (Auto) Eos # (Auto) Baso # (Auto) Neutrophils % (Manual) Band Neutrophils % Lymphocytes % (Manual) Monocytes % (Manual) Eosinophils % (Manual) Platelet Estimate RBC Morphology PT INR APTT pO2 VBG pH VBG pCO2 VBG HCO3 VBG Total CO2 VBG O2 Sat (Calc) VBG Base Excess VBG Potassium Sodium Chloride Glucose Lactate FiO2 Potassium Carbon Dioxide Anion Gap BUN Creatinine Est GFR ( Amer) Est GFR (Non-Af Amer) Random Glucose Calcium Phosphorus Magnesium Total Bilirubin AST ALT Alkaline Phosphatase Total Creatine Kinase Total Protein Albumin Globulin Albumin/Globulin Ratio Lipase Venous Blood Potassium Urine Color Urine Clarity Urine pH Ur Specific [place] Urine Protein Urine Glucose (UA) Urine Ketones Urine Blood Urine Nitrate Urine Bilirubin Urine Urobilinogen Ur Leukocyte Esterase Urine RBC (Auto) Urine Microscopic WBC Ur Squamous Epith Cells Urine Bacteria Fluid Type CSF Volume CSF Appearance CSF WBC CSF RBC CSF Total Cell Counted CSF Neutrophils CSF Lymphocytes CSF Monos/Macrophages CSF Comment CSF Glucose CSF Total Protein 44.0 HSV Source Description HIV-1 Ab Rapid Screen Influenza Typ A,B (EIA) Negative for flu a/b H.influenzae Type B Ag N.meningitidis ACY/W135 N.meningi B/E.coli K1 Ag Grp A Beta Strep Ag Negative Group B Strep Antigen S. pneumoniae Antigen 02/28/18 02/28/18 02/28/18 14:31 14:31 14:31 WBC RBC Hgb Hct MCV MCH MCHC RDW Plt Count MPV Neut % (Auto) Lymph % (Auto) [place] % (Auto) Eos % (Auto) Baso % (Auto) Neut # (Auto) Lymph # (Auto) [place] # (Auto) Eos # (Auto) Baso # (Auto) Neutrophils % (Manual) Band Neutrophils % Lymphocytes % (Manual) Monocytes % (Manual) Eosinophils % (Manual) Platelet Estimate RBC Morphology PT INR APTT pO2 VBG pH VBG pCO2 VBG HCO3 VBG Total CO2 VBG O2 Sat (Calc) VBG Base Excess VBG Potassium Sodium Chloride Glucose Lactate FiO2 Potassium Carbon Dioxide Anion Gap BUN Creatinine Est GFR ( Amer) Est GFR (Non-Af Amer) Random Glucose Calcium Phosphorus Magnesium Total Bilirubin AST ALT Alkaline Phosphatase Total Creatine Kinase Total Protein Albumin Globulin Albumin/Globulin Ratio Lipase Venous Blood Potassium Urine Color Urine Clarity Urine pH Ur Specific [place] Urine Protein Urine Glucose (UA) Urine Ketones Urine Blood Urine Nitrate Urine Bilirubin Urine Urobilinogen Ur Leukocyte Esterase Urine RBC (Auto) Urine Microscopic WBC Ur Squamous Epith Cells Urine Bacteria Fluid Type Spinal fluid CSF Volume 2 H CSF Appearance Clear/colorless CSF WBC 3.0 CSF RBC 2.0 H CSF Total Cell Counted TEST NOT PERFORMED CSF Neutrophils 0 CSF Lymphocytes 2.0 H CSF Monos/Macrophages 0 CSF Comment Tube #4 CSF Glucose 59 CSF Total Protein HSV Source Description Fluid HIV-1 Ab Rapid Screen Influenza Typ A,B (EIA) H.influenzae Type B Ag N.meningitidis ACY/W135 N.meningi B/E.coli K1 Ag Grp A Beta Strep Ag Group B Strep Antigen S. pneumoniae Antigen 02/28/18 03/01/18 03/01/18 17:00 04:20 04:20 WBC 17.3 H RBC 3.79 L Hgb 11.5 L Hct 35.1 MCV 92.4 MCH 30.3 MCHC 32.7 L RDW 13.8 Plt Count 262 MPV 7.2 Neut % (Auto) 77.9 H Lymph % (Auto) 13.7 L [place] % (Auto) 7.0 Eos % (Auto) 1.3 Baso % (Auto) 0.1 Neut # (Auto) 13.4 H Lymph # (Auto) 2.4 [place] # (Auto) 1.2 H Eos # (Auto) 0.2 Baso # (Auto) 0.0 Neutrophils % (Manual) Band Neutrophils % Lymphocytes % (Manual) Monocytes % (Manual) Eosinophils % (Manual) Platelet Estimate RBC Morphology PT INR APTT pO2 VBG pH VBG pCO2 VBG HCO3 VBG Total CO2 VBG O2 Sat (Calc) VBG Base Excess VBG Potassium Sodium Chloride Glucose Lactate FiO2 Potassium Carbon Dioxide Anion Gap BUN Creatinine Est GFR ( Amer) Est GFR (Non-Af Amer) Random Glucose Calcium Phosphorus Magnesium Total Bilirubin AST ALT Alkaline Phosphatase Total Creatine Kinase Total Protein Albumin Globulin Albumin/Globulin Ratio Lipase Venous Blood Potassium Urine Color Urine Clarity Urine pH Ur Specific [place] Urine Protein Urine Glucose (UA) Urine Ketones Urine Blood Urine Nitrate Urine Bilirubin Urine Urobilinogen Ur Leukocyte Esterase Urine RBC (Auto) Urine Microscopic WBC Ur Squamous Epith Cells Urine Bacteria Fluid Type CSF Volume CSF Appearance CSF WBC CSF RBC CSF Total Cell Counted CSF Neutrophils CSF Lymphocytes CSF Monos/Macrophages CSF Comment CSF Glucose CSF Total Protein HSV Source Description HIV-1 Ab Rapid Screen Non reactive Influenza Typ A,B (EIA) H.influenzae Type B Ag Negative N.meningitidis ACY/W135 Negative N.meningi B/E.coli K1 Ag Negative Grp A Beta Strep Ag Group B Strep Antigen Negative S. pneumoniae Antigen Negative 03/01/18 04:20 WBC RBC Hgb Hct MCV MCH MCHC RDW Plt Count MPV Neut % (Auto) Lymph % (Auto) [place] % (Auto) Eos % (Auto) Baso % (Auto) Neut # (Auto) Lymph # (Auto) [place] # (Auto) Eos # (Auto) Baso # (Auto) Neutrophils % (Manual) Band Neutrophils % Lymphocytes % (Manual) Monocytes % (Manual) Eosinophils % (Manual) Platelet Estimate RBC Morphology PT INR APTT pO2 VBG pH VBG pCO2 VBG HCO3 VBG Total CO2 VBG O2 Sat (Calc) VBG Base Excess VBG Potassium Sodium 142 Chloride 107 Glucose Lactate FiO2 Potassium 3.9 Carbon Dioxide 25 Anion Gap 14 BUN 16 Creatinine 0.6 L Est GFR ( Amer) > 60 Est GFR (Non-Af Amer) > 60 Random Glucose 102 Calcium 8.9 Phosphorus 5.2 H Magnesium 2.5 H Total Bilirubin 0.9 AST 25 ALT 29 Alkaline Phosphatase 64 Total Creatine Kinase Total Protein 7.0 Albumin 3.7 Globulin 3.3 Albumin/Globulin Ratio 1.1 Lipase Venous Blood Potassium Urine Color Urine Clarity Urine pH Ur Specific [place] Urine Protein Urine Glucose (UA) Urine Ketones Urine Blood Urine Nitrate Urine Bilirubin Urine Urobilinogen Ur Leukocyte Esterase Urine RBC (Auto) Urine Microscopic WBC Ur Squamous Epith Cells Urine Bacteria Fluid Type CSF Volume CSF Appearance CSF WBC CSF RBC CSF Total Cell Counted CSF Neutrophils CSF Lymphocytes CSF Monos/Macrophages CSF Comment CSF Glucose CSF Total Protein HSV Source Description HIV-1 Ab Rapid Screen Influenza Typ A,B (EIA) H.influenzae Type B Ag N.meningitidis ACY/W135 N.meningi B/E.coli K1 Ag Grp A Beta Strep Ag Group B Strep Antigen S. pneumoniae Antigen Attending/Attestation - Attestation I have personally seen and examined this patient.: Yes I have fully participated in the care of the patient.: Yes I have reviewed all pertinent clinical information: Yes
[2018-02-28] MEDS: Oxycodone/Acetaminophen 5/325 mg Tab PO PRN ×2 (17:21→23:09)
[2018-02-28] MEDS: Multivitamin With Minerals Tab PO SCH (18:29)
--- NOTE | 2018-02-28 19:12 | CP.PCM.PN ---
Subjective - Date & Time of Evaluation Date of Evaluation: 02/28/18 Time of Evaluation: 19:11 - Subjective Subjective: I D NOTE FULL CONSULT DICTATED BACTEREMIA ,R/O MENINGITIS,ENCEPHALITIS IN 47 YO FEMALE C HISTORY OF MULTIPLE MEDICAL PROBLEMS INCLUDING CEFTRIAXONE ALLERGY. HAVE STARTED Rx C VANCOMYCIN/ACYCLOVIR/AVELOX CALLED FOR PAIN EVALUATION AND MANAGEMENT AWAITING CULTURES AND BACTERIAL CULTURES Objective - Vital Signs/Intake and Output Vital Signs (last 24 hours): Temp Pulse Resp BP Pulse Ox 98.4 F 84 18 103/61 98 02/28/18 16:40 02/28/18 16:45 02/28/18 16:45 02/28/18 16:40 02/28/18 16:40 - Medications Medications: Current Medications Acetaminophen (Tylenol 325mg Tab) 650 mg PO Q4 PRN PRN Reason: Pain, moderate (4-7) Atorvastatin Calcium (Lipitor) 20 mg PO HS DEB Doxepin HCl (Sinequan) 10 mg PO HS DEB Gabapentin (Neurontin) 600 mg PO Q8 [facility] Last Admin: 02/28/18 18:29 Dose: 600 mg Acyclovir 800 mg/ Sodium (Chloride) 250 mls @ 250 mls/hr IVPB Q8 DEB PRN Reason: Protocol Last Admin: 02/28/18 18:28 Dose: 250 mls/hr Moxifloxacin HCl (Avelox Iv 400mg/250ml Ns) 400 mg in 250 mls @ 250 mls/hr IVPB DAILY DEB PRN Reason: Protocol Multivitamins/Minerals (Therapeutic-M Tab) 1 tab PO DAILY [facility] Last Admin: 02/28/18 18:29 Dose: 1 tab Oxycodone/Acetaminophen (Percocet 5/325 Mg Tab) 1 tab PO Q6 PRN PRN Reason: Pain, severe (8-10) Stop: 03/03/18 16:01 Last Admin: 02/28/18 17:21 Dose: 1 tab - Labs Labs: 02/28/18 12:45 02/28/18 12:15 PT 12.6 Seconds (9.8-13.1) 02/28/18 12:45 INR 1.1 (0.9-1.2) 02/28/18 12:45 APTT 32.6 Seconds (25.6-37.1) 02/28/18 12:45
[2018-02-28] MEDS ORDERED: Aztreonam 2 GM in Sodium Chloride 0.9% 100 ML IVPB SCH (21:00)
[2018-02-28 21:33] LABS: N MENINGITIS ACY/W135 NEGATIVE (NEGATIVE); N MENINGITIS B/ECOLI K1 NEGATIVE (NEGATIVE); STREP PNEUMONIAE NEGATIVE (NEGATIVE); STREPTOCOCCUS B NEGATIVE (NEGATIVE)
[2018-02-28] MEDS: Aztreonam 2 GM in Sodium Chloride 0.9% 100 ML IVPB SCH (23:09)
[2018-03-01] MEDS: Oxycodone/Acetaminophen 5/325 mg Tab PO PRN (05:28)
[2018-03-01 05:29] LABS: BASO % 0.1 % (0.0-2.0); EOS # 0.2 K/uL (0.0-0.7); EOS % 1.3 % (0.0-4.0); HEMOGLOBIN 11.5 g/dL (12.0-16.0); LYMPH # 2.4 K/uL (1.0-4.3); LYMPH % 13.7 % (20.0-40.0); MEAN CELL VOLUME 92.4 fl (81.0-99.0); MEAN CORPUSCULAR HEMOGLOBIN 30.3 pg (27.0-31.0); MEAN CORPUSCULAR HGB CONC 32.7 g/dL (33.0-37.0); MEAN PLATELET VOLUME 7.2 fl (7.2-11.7); MONO # 1.2 K/uL (0.0-0.8); NEUT # 13.4 K/uL (1.8-7.0); NEUT % 77.9 % (50.0-75.0); RBC 3.79 Mil/uL (3.80-5.20); RED CELL DISTRIBUTION WIDTH 13.8 % (11.5-14.5); WHITE BLOOD COUNT 17.3 K/uL (4.8-10.8)
[2018-03-01 06:23] LABS: ALBUMIN 3.7 g/dL (3.5-5.0); BLOOD UREA NITROGEN 16 mg/dl (7-17); CALCIUM 8.9 mg/dL (8.4-10.2); GFR AFRICAN-AMERICAN > 60; GFR NON-AFRICAN AMERICAN > 60
[2018-03-01 06:24] LABS: ALB/GLOB RATIO 1.1 (1.0-2.1); ALT/SGPT 29 U/L (9-52); AST/SGOT 25 U/L (14-36)
--- NOTE | 2018-03-01 08:02 | CP.PCM.CON ---
History of Present Illness - History of Present Illness History of Present Illness: Patient is well known to me from pain clinic. She's had a history of neck pain , headache, and left arm pain/swelling/stiffness whose etiology is not entirely clear. Cervical MRI and EMG/NCS have failed to show cervical radiculopathy. 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 She's responded the best to cervical medial branch nerve blocks which usually treat spondylotic diseases and facet syndrome. Plan was to repeat the injection but thus far insurance has denied the procedure. She had been doing relatively well and plan was to pursue the injection later in March. She's now admitted for fever + headache/neck pain. Pain is different than her usual headache, and is associated with fever and throat pain. Work-up is pending. LP was done. Past Patient History - Infectious Disease Hx of Infectious Diseases: None - Tetanus Immunizations Tetanus Immunization: Unknown - Past Medical History & Family History Past Medical History?: Yes - Past Social History Smoking Status: Current Some Days Smoker - CARDIAC Hx Hypercholesterolemia: Yes Hx Hypertension: Yes Hx Mitral Valve Prolapse: Yes Hx Pacemaker: No - PULMONARY Hx Asthma: Yes Hx Bronchitis: Yes Hx Pneumonia: Yes - NEUROLOGICAL Hx Neurological Disorder: Yes - HEENT Hx HEENT Problems: No - RENAL Hx Chronic Kidney Disease: Yes - ENDOCRINE/METABOLIC Hx Endocrine Disorders: No - HEMATOLOGICAL/ONCOLOGICAL Hx Human Immunodeficiency Virus (HIV): No - INTEGUMENTARY Hx Dermatological Problems: No - MUSCULOSKELETAL/RHEUMATOLOGICAL Hx Arthritis: Yes Hx Fractures: Yes (right arm) Hx Rheumatoid Arthritis: Yes - GASTROINTESTINAL Hx Crohn's Disease: Yes Hx Gall Bladder Disease: Yes (removed 2002) - GENITOURINARY/GYNECOLOGICAL Hx Genitourinary Disorders: Yes (Ovarian cysts, Hysterectomy) - PSYCHIATRIC Hx Psychophysiologic Disorder: No Hx Substance Use: No - SURGICAL HISTORY Hx Appendectomy: Yes (at 8 years old) Hx Cholecystectomy: Yes (2002) Hx Coronary Stent: Yes (x1; Left circumflex (January 2016)) Hx Tonsillectomy: Yes ("at young age") - ANESTHESIA Hx Anesthesia: Yes Hx Anesthesia Reactions: No Hx Malignant Hyperthermia: No Meds Allergies/Adverse Reactions: Allergies Allergy/AdvReac Type Severity Reaction Status Date / Time ceftriaxone Allergy RASH Verified 02/28/18 11:42 Iodine and Iodide Containing Allergy SHORTNESS Verified 02/28/18 11:42 Produc OF BREATH iohexol [From Omnipaque] AdvReac SWELLING Verified 02/28/18 11:42 - Medications Medications: Current Medications Acetaminophen (Tylenol 325mg Tab) 650 mg PO Q4 PRN PRN Reason: Pain, moderate (4-7) Atorvastatin Calcium (Lipitor) 20 mg PO HS [facility] Last Admin: 02/28/18 23:12 Dose: 20 mg Doxepin HCl (Sinequan) 10 mg PO HS [facility] Last Admin: 02/28/18 23:12 Dose: 10 mg Gabapentin (Neurontin) 600 mg PO Q8 [facility] Last Admin: 03/01/18 01:28 Dose: 600 mg Acyclovir 800 mg/ Sodium (Chloride) 250 mls @ 250 mls/hr IVPB Q8 DEB PRN Reason: Protocol Last Admin: 03/01/18 01:27 Dose: 250 mls/hr Vancomycin HCl 1 gm/ Sodium (Chloride) 250 mls @ 166.667 mls/hr IVPB Q12 DEB PRN Reason: Protocol Last Admin: 02/28/18 23:12 Dose: 166.667 mls/hr Aztreonam 2 gm/ Sodium (Chloride) 100 mls @ 100 mls/hr IVPB Q12 [facility] Last Admin: 02/28/18 23:09 Dose: 100 mls/hr Multivitamins/Minerals (Therapeutic-M Tab) 1 tab PO DAILY [facility] Last Admin: 02/28/18 18:29 Dose: 1 tab Oxycodone/Acetaminophen (Percocet 5/325 Mg Tab) 1 tab PO Q6 PRN PRN Reason: Pain, severe (8-10) Stop: 03/03/18 16:01 Last Admin: 03/01/18 05:28 Dose: 1 tab Physical Exam - Neck Exam Neck exam: Positive for: Meningismus, Tenderness Results - Vital Signs Recent Vital Signs: Last Vital Signs Temp 98 F 03/01/18 05:01 Pulse 72 03/01/18 05:01 Resp 18 03/01/18 05:01 BP 93/56 L 03/01/18 05:01 Pulse Ox 95 03/01/18 05:01 - Labs Result Diagrams: 03/01/18 04:20 03/01/18 04:20 Labs: Laboratory Results - last 24 hr 06/26/18 06/26/18 06/26/18 12:00 12:15 12:15 WBC RBC Hgb Hct MCV MCH MCHC RDW Plt Count MPV Neut % (Auto) Lymph % (Auto) [place] % (Auto) Eos % (Auto) Baso % (Auto) Neut # (Auto) Lymph # (Auto) [place] # (Auto) Eos # (Auto) Baso # (Auto) Neutrophils % (Manual) Band Neutrophils % Lymphocytes % (Manual) Monocytes % (Manual) Eosinophils % (Manual) Platelet Estimate RBC Morphology PT INR APTT pO2 66 H VBG pH 7.41 VBG pCO2 35 L VBG HCO3 23.3 VBG Total CO2 23.3 VBG O2 Sat (Calc) 97.6 H VBG Base Excess -1.9 L VBG Potassium 3.6 Sodium 135.0 138 Chloride 106.0 106 Glucose 105 Lactate 1.0 FiO2 21.0 Potassium 4.1 Carbon Dioxide 20 L Anion Gap 16 BUN 15 Creatinine 0.4 L Est GFR ( Amer) > 60 Est GFR (Non-Af Amer) > 60 Random Glucose 100 Calcium 9.3 Phosphorus Magnesium Total Bilirubin 1.3 AST 22 ALT 22 Alkaline Phosphatase 73 Total Creatine Kinase Total Protein 8.7 H Albumin 4.6 Globulin 4.1 H Albumin/Globulin Ratio 1.1 Lipase 37 Venous Blood Potassium 3.6 Urine Color Yellow Urine Clarity Cloudy Urine pH 6.0 Ur Specific [place] 1.012 Urine Protein Negative Urine Glucose (UA) Neg Urine Ketones Negative Urine Blood Small Urine Nitrate Negative Urine Bilirubin Negative Urine Urobilinogen 0.2-1.0 Ur Leukocyte Esterase Neg Urine RBC (Auto) 3 Urine Microscopic WBC 5 Ur Squamous Epith Cells 29 H Urine Bacteria Rare Fluid Type CSF Volume CSF Appearance CSF WBC CSF RBC CSF Total Cell Counted CSF Neutrophils CSF Lymphocytes CSF Monos/Macrophages CSF Comment CSF Glucose CSF Total Protein HSV Source Description HIV-1 Ab Rapid Screen Influenza Typ A,B (EIA) H.influenzae Type B Ag N.meningitidis ACY/W135 N.meningi B/E.coli K1 Ag Grp A Beta Strep Ag Group B Strep Antigen S. pneumoniae Antigen 02/28/18 02/28/18 02/28/18 12:45 12:45 12:45 WBC 22.9 H RBC 4.31 Hgb 13.1 Hct 39.1 MCV 90.8 MCH 30.4 MCHC 33.5 RDW 13.8 Plt Count 303 MPV 7.0 L Neut % (Auto) 83.9 H Lymph % (Auto) 9.8 L [place] % (Auto) 5.7 Eos % (Auto) 0.4 Baso % (Auto) 0.2 Neut # (Auto) 19.2 H Lymph # (Auto) 2.2 [place] # (Auto) 1.3 H Eos # (Auto) 0.1 Baso # (Auto) 0.0 Neutrophils % (Manual) 85 H Band Neutrophils % 1 Lymphocytes % (Manual) 8 L Monocytes % (Manual) 4 Eosinophils % (Manual) 2 Platelet Estimate Normal RBC Morphology Normal PT 12.6 INR 1.1 APTT 32.6 pO2 VBG pH VBG pCO2 VBG HCO3 VBG Total CO2 VBG O2 Sat (Calc) VBG Base Excess VBG Potassium Sodium Chloride Glucose Lactate FiO2 Potassium Carbon Dioxide Anion Gap BUN Creatinine Est GFR ( Amer) Est GFR (Non-Af Amer) Random Glucose Calcium Phosphorus Magnesium Total Bilirubin AST ALT Alkaline Phosphatase Total Creatine Kinase 36 Total Protein Albumin Globulin Albumin/Globulin Ratio Lipase Venous Blood Potassium Urine Color Urine Clarity Urine pH Ur Specific [place] Urine Protein Urine Glucose (UA) Urine Ketones Urine Blood Urine Nitrate Urine Bilirubin Urine Urobilinogen Ur Leukocyte Esterase Urine RBC (Auto) Urine Microscopic WBC Ur Squamous Epith Cells Urine Bacteria Fluid Type CSF Volume CSF Appearance CSF WBC CSF RBC CSF Total Cell Counted CSF Neutrophils CSF Lymphocytes CSF Monos/Macrophages CSF Comment CSF Glucose CSF Total Protein HSV Source Description HIV-1 Ab Rapid Screen Influenza Typ A,B (EIA) H.influenzae Type B Ag N.meningitidis ACY/W135 N.meningi B/E.coli K1 Ag Grp A Beta Strep Ag Group B Strep Antigen S. pneumoniae Antigen 02/28/18 02/28/18 02/28/18 12:50 13:00 14:22 WBC RBC Hgb Hct MCV MCH MCHC RDW Plt Count MPV Neut % (Auto) Lymph % (Auto) [place] % (Auto) Eos % (Auto) Baso % (Auto) Neut # (Auto) Lymph # (Auto) [place] # (Auto) Eos # (Auto) Baso # (Auto) Neutrophils % (Manual) Band Neutrophils % Lymphocytes % (Manual) Monocytes % (Manual) Eosinophils % (Manual) Platelet Estimate RBC Morphology PT INR APTT pO2 VBG pH VBG pCO2 VBG HCO3 VBG Total CO2 VBG O2 Sat (Calc) VBG Base Excess VBG Potassium Sodium Chloride Glucose Lactate FiO2 Potassium Carbon Dioxide Anion Gap BUN Creatinine Est GFR ( Amer) Est GFR (Non-Af Amer) Random Glucose Calcium Phosphorus Magnesium Total Bilirubin AST ALT Alkaline Phosphatase Total Creatine Kinase Total Protein Albumin Globulin Albumin/Globulin Ratio Lipase Venous Blood Potassium Urine Color Urine Clarity Urine pH Ur Specific [place] Urine Protein Urine Glucose (UA) Urine Ketones Urine Blood Urine Nitrate Urine Bilirubin Urine Urobilinogen Ur Leukocyte Esterase Urine RBC (Auto) Urine Microscopic WBC Ur Squamous Epith Cells Urine Bacteria Fluid Type CSF Volume CSF Appearance CSF WBC CSF RBC CSF Total Cell Counted CSF Neutrophils CSF Lymphocytes CSF Monos/Macrophages CSF Comment CSF Glucose CSF Total Protein 44.0 HSV Source Description HIV-1 Ab Rapid Screen Influenza Typ A,B (EIA) Negative for flu a/b H.influenzae Type B Ag N.meningitidis ACY/W135 N.meningi B/E.coli K1 Ag Grp A Beta Strep Ag Negative Group B Strep Antigen S. pneumoniae Antigen 02/28/18 02/28/18 02/28/18 14:31 14:31 14:31 WBC RBC Hgb Hct MCV MCH MCHC RDW Plt Count MPV Neut % (Auto) Lymph % (Auto) [place] % (Auto) Eos % (Auto) Baso % (Auto) Neut # (Auto) Lymph # (Auto) [place] # (Auto) Eos # (Auto) Baso # (Auto) Neutrophils % (Manual) Band Neutrophils % Lymphocytes % (Manual) Monocytes % (Manual) Eosinophils % (Manual) Platelet Estimate RBC Morphology PT INR APTT pO2 VBG pH VBG pCO2 VBG HCO3 VBG Total CO2 VBG O2 Sat (Calc) VBG Base Excess VBG Potassium Sodium Chloride Glucose Lactate FiO2 Potassium Carbon Dioxide Anion Gap BUN Creatinine Est GFR ( Amer) Est GFR (Non-Af Amer) Random Glucose Calcium Phosphorus Magnesium Total Bilirubin AST ALT Alkaline Phosphatase Total Creatine Kinase Total Protein Albumin Globulin Albumin/Globulin Ratio Lipase Venous Blood Potassium Urine Color Urine Clarity Urine pH Ur Specific [place] Urine Protein Urine Glucose (UA) Urine Ketones Urine Blood Urine Nitrate Urine Bilirubin Urine Urobilinogen Ur Leukocyte Esterase Urine RBC (Auto) Urine Microscopic WBC Ur Squamous Epith Cells Urine Bacteria Fluid Type Spinal fluid CSF Volume 2 H CSF Appearance Clear/colorless CSF WBC 3.0 CSF RBC 2.0 H CSF Total Cell Counted TEST NOT PERFORMED CSF Neutrophils 0 CSF Lymphocytes 2.0 H CSF Monos/Macrophages 0 CSF Comment Tube #4 CSF Glucose 59 CSF Total Protein HSV Source Description Fluid HIV-1 Ab Rapid Screen Influenza Typ A,B (EIA) H.influenzae Type B Ag N.meningitidis ACY/W135 N.meningi B/E.coli K1 Ag Grp A Beta Strep Ag Group B Strep Antigen S. pneumoniae Antigen 02/28/18 03/01/18 03/01/18 17:00 04:20 04:20 WBC 17.3 H RBC 3.79 L Hgb 11.5 L Hct 35.1 MCV 92.4 MCH 30.3 MCHC 32.7 L RDW 13.8 Plt Count 262 MPV 7.2 Neut % (Auto) 77.9 H Lymph % (Auto) 13.7 L [place] % (Auto) 7.0 Eos % (Auto) 1.3 Baso % (Auto) 0.1 Neut # (Auto) 13.4 H Lymph # (Auto) 2.4 [place] # (Auto) 1.2 H Eos # (Auto) 0.2 Baso # (Auto) 0.0 Neutrophils % (Manual) Band Neutrophils % Lymphocytes % (Manual) Monocytes % (Manual) Eosinophils % (Manual) Platelet Estimate RBC Morphology PT INR APTT pO2 VBG pH VBG pCO2 VBG HCO3 VBG Total CO2 VBG O2 Sat (Calc) VBG Base Excess VBG Potassium Sodium Chloride Glucose Lactate FiO2 Potassium Carbon Dioxide Anion Gap BUN Creatinine Est GFR ( Amer) Est GFR (Non-Af Amer) Random Glucose Calcium Phosphorus Magnesium Total Bilirubin AST ALT Alkaline Phosphatase Total Creatine Kinase Total Protein Albumin Globulin Albumin/Globulin Ratio Lipase Venous Blood Potassium Urine Color Urine Clarity Urine pH Ur Specific [place] Urine Protein Urine Glucose (UA) Urine Ketones Urine Blood Urine Nitrate Urine Bilirubin Urine Urobilinogen Ur Leukocyte Esterase Urine RBC (Auto) Urine Microscopic WBC Ur Squamous Epith Cells Urine Bacteria Fluid Type CSF Volume CSF Appearance CSF WBC CSF RBC CSF Total Cell Counted CSF Neutrophils CSF Lymphocytes CSF Monos/Macrophages CSF Comment CSF Glucose CSF Total Protein HSV Source Description HIV-1 Ab Rapid Screen Non reactive Influenza Typ A,B (EIA) H.influenzae Type B Ag Negative N.meningitidis ACY/W135 Negative N.meningi B/E.coli K1 Ag Negative Grp A Beta Strep Ag Group B Strep Antigen Negative S. pneumoniae Antigen Negative 03/01/18 04:20 WBC RBC Hgb Hct MCV MCH MCHC RDW Plt Count MPV Neut % (Auto) Lymph % (Auto) [place] % (Auto) Eos % (Auto) Baso % (Auto) Neut # (Auto) Lymph # (Auto) [place] # (Auto) Eos # (Auto) Baso # (Auto) Neutrophils % (Manual) Band Neutrophils % Lymphocytes % (Manual) Monocytes % (Manual) Eosinophils % (Manual) Platelet Estimate RBC Morphology PT INR APTT pO2 VBG pH VBG pCO2 VBG HCO3 VBG Total CO2 VBG O2 Sat (Calc) VBG Base Excess VBG Potassium Sodium 142 Chloride 107 Glucose Lactate FiO2 Potassium 3.9 Carbon Dioxide 25 Anion Gap 14 BUN 16 Creatinine 0.6 L Est GFR ( Amer) > 60 Est GFR (Non-Af Amer) > 60 Random Glucose 102 Calcium 8.9 Phosphorus 5.2 H Magnesium 2.5 H Total Bilirubin 0.9 AST 25 ALT 29 Alkaline Phosphatase 64 Total Creatine Kinase Total Protein 7.0 Albumin 3.7 Globulin 3.3 Albumin/Globulin Ratio 1.1 Lipase Venous Blood Potassium Urine Color Urine Clarity Urine pH Ur Specific [place] Urine Protein Urine Glucose (UA) Urine Ketones Urine Blood Urine Nitrate Urine Bilirubin Urine Urobilinogen Ur Leukocyte Esterase Urine RBC (Auto) Urine Microscopic WBC Ur Squamous Epith Cells Urine Bacteria Fluid Type CSF Volume CSF Appearance CSF WBC CSF RBC CSF Total Cell Counted CSF Neutrophils CSF Lymphocytes CSF Monos/Macrophages CSF Comment CSF Glucose CSF Total Protein HSV Source Description HIV-1 Ab Rapid Screen Influenza Typ A,B (EIA) H.influenzae Type B Ag N.meningitidis ACY/W135 N.meningi B/E.coli K1 Ag Grp A Beta Strep Ag Group B Strep Antigen S. pneumoniae Antigen Assessment & Plan - Assessment and Plan (Free Text) Assessment: 47 yo woman w/ acute on chronic neck pain/headache. Due to recent history of spinal cord stimulator trial and fever, meningitis will need to be ruled out. Stellate ganglion blocks and medial branch nerve blocks are away from the epidural and intrathecal space, and less likely to introduce infection to the CSF, but infectious etiology for the current presentation needs to be assessed first. - f/u ID recommendation - consider neurology consult - the current presentation could be an exacerbation of her usual neck pain, but will defer to ID for now - will consider repeat medial branch nerve blocks, which had helped the patient the most before, if cleared by ID - add low dose Morphine IV for breakthrough pain
--- NOTE | 2018-03-01 08:05 | CARD ---
APPROVED REPORT EKG Measurement Heart [id number] DC 160P25 [id number] <Conclusion> Normal sinus rhythm Possible Inferior infarct, age undetermined Abnormal ECG
[2018-03-01] MEDS ORDERED: Moxifloxacin IV 400mg/250ml NS 400 MG/250 ML BAG IVPB SCH (09:00)
--- NOTE | 2018-03-01 09:05 | CP.PCM.PN ---
<Oma Anderson - Last Filed: 03/01/18 11:15> Subjective - Date & Time of Evaluation Date of Evaluation: 03/01/18 Time of Evaluation: 07:45 - Subjective Subjective: Patient seen and examined this morning. NAD, but still c/o headache, and neck pain. Afebrile overnight, patient denies any chest pain, SOB, abdominal pain, urinary symptoms or weakness. Objective - Vital Signs/Intake and Output Vital Signs (last 24 hours): Temp Pulse Resp BP Pulse Ox 98.3 F 76 20 98/60 L 95 03/01/18 08:00 03/01/18 08:00 03/01/18 08:00 03/01/18 08:00 03/01/18 08:00 - Medications Medications: Current Medications Acetaminophen (Tylenol 325mg Tab) 650 mg PO Q4 PRN PRN Reason: Pain, moderate (4-7) Atorvastatin Calcium (Lipitor) 20 mg PO [facility] Last Admin: 02/28/18 23:12 Dose: 20 mg Doxepin HCl (Sinequan) 10 mg PO [facility] Last Admin: 02/28/18 23:12 Dose: 10 mg Gabapentin (Neurontin) 600 mg PO Q8 [facility] Last Admin: 03/01/18 01:28 Dose: 600 mg Acyclovir 800 mg/ Sodium (Chloride) 250 mls @ 250 mls/hr IVPB Q8 DEB PRN Reason: Protocol Last Admin: 03/01/18 01:27 Dose: 250 mls/hr Vancomycin HCl 1 gm/ Sodium (Chloride) 250 mls @ 166.667 mls/hr IVPB Q12 DEB PRN Reason: Protocol Last Admin: 02/28/18 23:12 Dose: 166.667 mls/hr Aztreonam 2 gm/ Sodium (Chloride) 100 mls @ 100 mls/hr IVPB Q12 [facility] Last Admin: 02/28/18 23:09 Dose: 100 mls/hr Morphine Sulfate (Morphine) 2 mg IVP Q4 PRN PRN Reason: Pain, severe (8-10) Multivitamins/Minerals (Therapeutic-M Tab) 1 tab PO DAILY [facility] Last Admin: 02/28/18 18:29 Dose: 1 tab Oxycodone/Acetaminophen (Percocet 5/325 Mg Tab) 1 tab PO Q6 PRN PRN Reason: Pain, severe (8-10) Stop: 03/03/18 16:01 Last Admin: 03/01/18 05:28 Dose: 1 tab - Labs Labs: 03/01/18 04:20 03/01/18 04:20 PT 12.6 Seconds (9.8-13.1) 02/28/18 12:45 INR 1.1 (0.9-1.2) 02/28/18 12:45 APTT 32.6 Seconds (25.6-37.1) 02/28/18 12:45 - Constitutional Appears: No Acute Distress - Head Exam Head Exam: NORMAL INSPECTION - Eye Exam Eye Exam: Normal appearance - ENT Exam ENT Exam: Mucous Membranes Moist Additional comments: Non tender , - Respiratory Exam Respiratory Exam: Clear to Ausculation Bilateral, NORMAL BREATHING PATTERN - Cardiovascular Exam Cardiovascular Exam: REGULAR RHYTHM - GI/Abdominal Exam GI & Abdominal Exam: Soft, Normal Bowel Sounds - Extremities Exam Extremities Exam: Normal Inspection - Back Exam Back Exam: absent: CVA tenderness (L), CVA tenderness (R) - Neurological Exam Neurological Exam: Alert, Awake, CN II-XII Intact, Oriented x3 - Psychiatric Exam Psychiatric exam: Anxious - Skin Skin Exam: Dry, Normal Color, Warm Assessment and Plan - Assessment and Plan (Free Text) Assessment: Headache, Neck pain and Fever - Possibly due to Meningitis/Encephalitis vs migraine vs tension headache vs muscle spasms - LP/CSF result: WBC 3.0, RBC 2, N 0, L 2, G 59, P 44 - ID, Dr. Herndon consult, recs appreciated - Dr. Barrios, Pain management consulted, "current presentation could be an exacerbation of her usual neck pain,will consider repeat medial branch nerve blocks, Consider Neuro consult" - Follow up VDRL, Herpes, blood Cx, Urine Cx - Pain management: Percocet and tylenol - Supportive management, Encourage PO intake - C/w Vanco 1gm IV Q12 day 1, Aztreonam 2gm Q12 day 1, Acyclovir 800mg Q8H day 1 (ID recommended AVELOX, unavailable at pharmacy so started on Aztreonam. Patient is allg to Ceftriaxone ), will follow ID recs - Neuro, Dr. Larry Consult, will follow recommendations CAD - Asymptomatic - C/w Statin - Hold Aspirin, Recent LP CSF, will restart from tomorrow DVT PPx - SCD for now (LP, will start anticoag tomorrow) <Telma Hardin - Last Filed: 03/01/18 13:28> Objective - Vital Signs/Intake and Output Vital Signs (last 24 hours): Temp Pulse Resp BP Pulse Ox 98.5 F 78 20 98/59 L 94 L 03/01/18 13:00 03/01/18 13:00 03/01/18 13:00 03/01/18 13:00 03/01/18 13:00 - Medications Medications: Current Medications Acetaminophen (Tylenol 325mg Tab) 650 mg PO Q4 PRN PRN Reason: Pain, moderate (4-7) Atorvastatin Calcium (Lipitor) 20 mg PO HS [facility] Last Admin: 02/28/18 23:12 Dose: 20 mg Doxepin HCl (Sinequan) 10 mg PO HS [facility] Last Admin: 02/28/18 23:12 Dose: 10 mg Gabapentin (Neurontin) 600 mg PO Q8 [facility] Last Admin: 03/01/18 09:34 Dose: 600 mg Acyclovir 800 mg/ Sodium (Chloride) 250 mls @ 250 mls/hr IVPB Q8 DEB PRN Reason: Protocol Last Admin: 03/01/18 09:35 Dose: 250 mls/hr Vancomycin HCl 1 gm/ Sodium (Chloride) 250 mls @ 166.667 mls/hr IVPB Q12 DEB PRN Reason: Protocol Last Admin: 03/01/18 10:44 Dose: 166.667 mls/hr Aztreonam 2 gm/ Sodium (Chloride) 100 mls @ 100 mls/hr IVPB Q12 [facility] Last Admin: 03/01/18 10:44 Dose: 100 mls/hr Morphine Sulfate (Morphine) 2 mg IVP Q4 PRN PRN Reason: Pain, severe (8-10) Last Admin: 03/01/18 09:40 Dose: 2 mg Multivitamins/Minerals (Therapeutic-M Tab) 1 tab PO DAILY [facility] Last Admin: 03/01/18 09:34 Dose: 1 tab Oxycodone/Acetaminophen (Percocet 5/325 Mg Tab) 1 tab PO Q6 PRN PRN Reason: Pain, severe (8-10) Stop: 03/03/18 16:01 Last Admin: 03/01/18 05:28 Dose: 1 tab - Labs Labs: 03/01/18 04:20 03/01/18 04:20 PT 12.6 Seconds (9.8-13.1) 02/28/18 12:45 INR 1.1 (0.9-1.2) 02/28/18 12:45 APTT 32.6 Seconds (25.6-37.1) 02/28/18 12:45 Attending/Attestation - Attestation I have personally seen and examined this patient.: Yes I have fully participated in the care of the patient.: Yes I have reviewed all pertinent clinical information, including history, physical exam and plan: Yes Notes (Text): 03/01/18 13:27 Attending Note - Attestation - Patient seen and examined. Case discussed with resident. ID following. Neuro consult pending. WBC trending down. Agree with findings and plan.
[2018-03-01] MEDS: Multivitamin With Minerals Tab PO SCH (09:34)
[2018-03-01] MEDS: Aztreonam 2 GM in Sodium Chloride 0.9% 100 ML IVPB SCH ×2 (10:44→21:48)
[2018-03-01] MEDS: Benzocaine/Menthol (Cepacol) Lozenge PO PRN ×2 (17:19→20:17)
--- NOTE | 2018-03-01 17:57 | CP.PCM.PN ---
Subjective - Date & Time of Evaluation Date of Evaluation: 03/01/18 Time of Evaluation: 17:57 - Subjective Subjective: i d temp decreased to 99.8 bacterial antigens are negative as well as cultures dc droplet isolation Objective - Vital Signs/Intake and Output Vital Signs (last 24 hours): Temp Pulse Resp BP Pulse Ox 99.8 F H 86 20 109/67 96 03/01/18 15:52 03/01/18 15:52 03/01/18 15:52 03/01/18 15:52 03/01/18 15:52 - Medications Medications: Current Medications Acetaminophen (Tylenol 325mg Tab) 650 mg PO Q4 PRN PRN Reason: Pain, moderate (4-7) Aspirin (Ecotrin) 81 mg PO DAILY [facility] Atorvastatin Calcium (Lipitor) 20 mg PO HS [facility] Last Admin: 02/28/18 23:12 Dose: 20 mg Benzocaine/Menthol (Cepacol Sore Throat) 1 asha PO Q3 PRN PRN Reason: Sore Throat Last Admin: 03/01/18 17:19 Dose: 1 asha Doxepin HCl (Sinequan) 10 mg PO HS [facility] Last Admin: 02/28/18 23:12 Dose: 10 mg Enoxaparin Sodium (Lovenox) 40 mg SC DAILY [facility] PRN Reason: Protocol Gabapentin (Neurontin) 600 mg PO Q8 [facility] Last Admin: 03/01/18 17:19 Dose: 600 mg Acyclovir 800 mg/ Sodium (Chloride) 250 mls @ 250 mls/hr IVPB Q8 DEB PRN Reason: Protocol Last Admin: 03/01/18 17:20 Dose: 250 mls/hr Vancomycin HCl 1 gm/ Sodium (Chloride) 250 mls @ 166.667 mls/hr IVPB Q12 DEB PRN Reason: Protocol Last Admin: 03/01/18 10:44 Dose: 166.667 mls/hr Aztreonam 2 gm/ Sodium (Chloride) 100 mls @ 100 mls/hr IVPB Q12 [facility] Last Admin: 03/01/18 10:44 Dose: 100 mls/hr Morphine Sulfate (Morphine) 2 mg IVP Q4 PRN PRN Reason: Pain, severe (8-10) Last Admin: 03/01/18 15:18 Dose: 2 mg Multivitamins/Minerals (Therapeutic-M Tab) 1 tab PO DAILY [facility] Last Admin: 03/01/18 09:34 Dose: 1 tab Oxycodone/Acetaminophen (Percocet 5/325 Mg Tab) 1 tab PO Q6 PRN PRN Reason: Pain, severe (8-10) Stop: 03/03/18 16:01 Last Admin: 03/01/18 05:28 Dose: 1 tab - Labs Labs: 03/01/18 04:20 03/01/18 04:20 PT 12.6 Seconds (9.8-13.1) 02/28/18 12:45 INR 1.1 (0.9-1.2) 02/28/18 12:45 APTT 32.6 Seconds (25.6-37.1) 02/28/18 12:45
[2018-03-01] MEDS ORDERED: Magnesium Sulfate 1 GM in Dextrose 5% In Water 100 ML IVPB ONE (18:34)
[2018-03-01] MEDS ORDERED: Valproate 500 MG in Sodium Chloride 0.9% 100 ML IVPB ONE (18:34)
[2018-03-01] MEDS ORDERED: Dexamethasone 10 MG in Sodium Chloride 0.9% 50 ML IV ONE (18:34)
--- NOTE | 2018-03-01 18:34 | CP.PCM.CON ---
History of Present Illness - History of Present Illness History of Present Illness: Neurology Consultation Note: Mrs. Medina is a 47-year-old woman with a complicated past medical history of CAD s/p LCA stent placement (Jan, 2016), rheumatic fever, complex regional pain syndrome s/p trial cervical spine stimulator placement and removed on 12/2017, who presented to the ED with complaints of fever, headache and neck stiffness. There was concern for meningitis, was started on empiric antibiotics, and neurology was consulted. CT scan was normal. CSF was basically normal. Review of Systems - Review of Systems All systems: reviewed and no additional remarkable complaints except Past Patient History - Infectious Disease Hx of Infectious Diseases: None - Tetanus Immunizations Tetanus Immunization: Unknown - Past Medical History & Family History Past Medical History?: Yes - Past Social History Smoking Status: Current Some Days Smoker - CARDIAC Hx Hypercholesterolemia: Yes Hx Hypertension: Yes Hx Mitral Valve Prolapse: Yes Hx Pacemaker: No - PULMONARY Hx Asthma: Yes Hx Bronchitis: Yes Hx Pneumonia: Yes - NEUROLOGICAL Hx Neurological Disorder: Yes - HEENT Hx HEENT Problems: No - RENAL Hx Chronic Kidney Disease: Yes - ENDOCRINE/METABOLIC Hx Endocrine Disorders: No - HEMATOLOGICAL/ONCOLOGICAL Hx Human Immunodeficiency Virus (HIV): No - INTEGUMENTARY Hx Dermatological Problems: No - MUSCULOSKELETAL/RHEUMATOLOGICAL Hx Arthritis: Yes Hx Fractures: Yes (right arm) Hx Rheumatoid Arthritis: Yes - GASTROINTESTINAL Hx Crohn's Disease: Yes Hx Gall Bladder Disease: Yes (removed 2002) - GENITOURINARY/GYNECOLOGICAL Hx Genitourinary Disorders: Yes (Ovarian cysts, Hysterectomy) - PSYCHIATRIC Hx Psychophysiologic Disorder: No Hx Substance Use: No - SURGICAL HISTORY Hx Appendectomy: Yes (at 8 years old) Hx Cholecystectomy: Yes (2002) Hx Coronary Stent: Yes (x1; Left circumflex (January 2016)) Hx Tonsillectomy: Yes ("at young age") - ANESTHESIA Hx Anesthesia: Yes Hx Anesthesia Reactions: No Hx Malignant Hyperthermia: No Meds Allergies/Adverse Reactions: Allergies Allergy/AdvReac Type Severity Reaction Status Date / Time ceftriaxone Allergy RASH Verified 02/28/18 11:42 Iodine and Iodide Containing Allergy SHORTNESS Verified 02/28/18 11:42 Produc OF BREATH iohexol [From Omnipaque] AdvReac SWELLING Verified 02/28/18 11:42 - Medications Medications: Current Medications Acetaminophen (Tylenol 325mg Tab) 650 mg PO Q4 PRN PRN Reason: Pain, moderate (4-7) Aspirin (Ecotrin) 81 mg PO DAILY [facility] Atorvastatin Calcium (Lipitor) 20 mg PO HS [facility] Last Admin: 02/28/18 23:12 Dose: 20 mg Benzocaine/Menthol (Cepacol Sore Throat) 1 asha PO Q3 PRN PRN Reason: Sore Throat Last Admin: 03/01/18 17:19 Dose: 1 asha Doxepin HCl (Sinequan) 10 mg PO HS [facility] Last Admin: 02/28/18 23:12 Dose: 10 mg Enoxaparin Sodium (Lovenox) 40 mg SC DAILY [facility] PRN Reason: Protocol Gabapentin (Neurontin) 600 mg PO Q8 [facility] Last Admin: 03/01/18 17:19 Dose: 600 mg Acyclovir 800 mg/ Sodium (Chloride) 250 mls @ 250 mls/hr IVPB Q8 [facility] PRN Reason: Protocol Last Admin: 03/01/18 17:20 Dose: 250 mls/hr Vancomycin HCl 1 gm/ Sodium (Chloride) 250 mls @ 166.667 mls/hr IVPB Q12 [facility] PRN Reason: Protocol Last Admin: 03/01/18 10:44 Dose: 166.667 mls/hr Aztreonam 2 gm/ Sodium (Chloride) 100 mls @ 100 mls/hr IVPB Q12 [facility] Last Admin: 03/01/18 10:44 Dose: 100 mls/hr Morphine Sulfate (Morphine) 2 mg IVP Q4 PRN PRN Reason: Pain, severe (8-10) Last Admin: 03/01/18 15:18 Dose: 2 mg Multivitamins/Minerals (Therapeutic-M Tab) 1 tab PO DAILY [facility] Last Admin: 03/01/18 09:34 Dose: 1 tab Oxycodone/Acetaminophen (Percocet 5/325 Mg Tab) 1 tab PO Q6 PRN PRN Reason: Pain, severe (8-10) Stop: 03/03/18 16:01 Last Admin: 03/01/18 05:28 Dose: 1 tab Physical Exam - Neurological Exam Neurological exam: Alert, CN II-XII Intact, Oriented x3, Reflexes Normal Additional comments: Gait was not assessed. Full strength, normal sensation, normal reflexes, normal plantar responses. Results - Vital Signs Recent Vital Signs: Last Vital Signs Temp 99.8 F H 03/01/18 15:52 Pulse 86 03/01/18 15:52 Resp 20 03/01/18 15:52 BP 109/67 03/01/18 15:52 Pulse Ox 96 03/01/18 15:52 - Labs Result Diagrams: 03/01/18 04:20 03/01/18 04:20 Labs: Laboratory Results - last 24 hr 02/28/18 02/28/18 02/28/18 14:31 17:00 17:04 WBC RBC Hgb Hct MCV MCH MCHC RDW Plt Count MPV Neut % (Auto) Lymph % (Auto) Hooker % (Auto) Eos % (Auto) Baso % (Auto) Neut # (Auto) Lymph # (Auto) Hooker # (Auto) Eos # (Auto) Baso # (Auto) Sodium Potassium Chloride Carbon Dioxide Anion Gap BUN Creatinine Est GFR ( Amer) Est GFR (Non-Af Amer) Random Glucose Calcium Phosphorus Magnesium Total Bilirubin AST ALT Alkaline Phosphatase Total Protein Albumin Globulin Albumin/Globulin Ratio Procalcitonin 0.05 L HSV Source Description Fluid HIV-1 Ab Rapid Screen H.influenzae Type B Ag Negative N.meningitidis ACY/W135 Negative N.meningi B/E.coli K1 Ag Negative Group B Strep Antigen Negative S. pneumoniae Antigen Negative 03/01/18 03/01/18 03/01/18 04:20 04:20 04:20 WBC 17.3 H RBC 3.79 L Hgb 11.5 L Hct 35.1 MCV 92.4 MCH 30.3 MCHC 32.7 L RDW 13.8 Plt Count 262 MPV 7.2 Neut % (Auto) 77.9 H Lymph % (Auto) 13.7 L Hooker % (Auto) 7.0 Eos % (Auto) 1.3 Baso % (Auto) 0.1 Neut # (Auto) 13.4 H Lymph # (Auto) 2.4 Hooker # (Auto) 1.2 H Eos # (Auto) 0.2 Baso # (Auto) 0.0 Sodium 142 Potassium 3.9 Chloride 107 Carbon Dioxide 25 Anion Gap 14 BUN 16 Creatinine 0.6 L Est GFR ( Amer) > 60 Est GFR (Non-Af Amer) > 60 Random Glucose 102 Calcium 8.9 Phosphorus 5.2 H Magnesium 2.5 H Total Bilirubin 0.9 AST 25 ALT 29 Alkaline Phosphatase 64 Total Protein 7.0 Albumin 3.7 Globulin 3.3 Albumin/Globulin Ratio 1.1 Procalcitonin HSV Source Description HIV-1 Ab Rapid Screen Non reactive H.influenzae Type B Ag N.meningitidis ACY/W135 N.meningi B/E.coli K1 Ag Group B Strep Antigen S. pneumoniae Antigen Assessment & Plan (1) Fever in adult Assessment and Plan: Likely due to an underlying infection. But it does not appear to be involving the CSF. Continue treatment per ID. Status: Acute (2) Headache Assessment and Plan: Will treat headache with magnesium sulfate 1 gram IV, Decadron 10 mg IV and depakote 500 mg IV. Follow up with pain management. Status: Acute
[2018-03-02 05:44] LABS: BASO % 0.2 % (0.0-2.0); EOS # 0.1 K/uL (0.0-0.7); EOS % 0.7 % (0.0-4.0); LYMPH # 1.6 K/uL (1.0-4.3); LYMPH % 9.9 % (20.0-40.0); MEAN CELL VOLUME 91.7 fl (81.0-99.0); MEAN CORPUSCULAR HEMOGLOBIN 30.1 pg (27.0-31.0); MEAN CORPUSCULAR HGB CONC 32.9 g/dL (33.0-37.0); MEAN PLATELET VOLUME 7.5 fl (7.2-11.7); MONO # 0.4 K/uL (0.0-0.8); MONO % 2.3 % (0.0-10.0); NEUT % 86.9 % (50.0-75.0); RBC 3.97 Mil/uL (3.80-5.20); RED CELL DISTRIBUTION WIDTH 13.6 % (11.5-14.5); WHITE BLOOD COUNT 16.1 K/uL (4.8-10.8)
[2018-03-02 06:35] LABS: ALB/GLOB RATIO 1.1 (1.0-2.1); ALBUMIN 4.1 g/dL (3.5-5.0); ALT/SGPT 29 U/L (9-52); AST/SGOT 24 U/L (14-36); BLOOD UREA NITROGEN 11 mg/dl (7-17); CALCIUM 9.2 mg/dL (8.4-10.2); GFR AFRICAN-AMERICAN > 60; GFR NON-AFRICAN AMERICAN > 60
[2018-03-02] MEDS: Enoxaparin 40 mg Syringe SC SCH ×2 (09:00→10:33)
--- NOTE | 2018-03-02 10:31 | CP.PCM.PN ---
<Oma Anderson - Last Filed: 03/02/18 12:18> Subjective - Date & Time of Evaluation Date of Evaluation: 03/02/18 Time of Evaluation: 07:30 - Subjective Subjective: Patient seen and examined this morning at bedside. NAD, Improved headache and neck pain, no fever overnight. Patient denies any chest pain, SOB, urinary symptoms or f/c/n/v/d. See by Neuro yesterday S/p magnesium sulfate 1 gram IV, Decadron 10 mg IV and depakote 500 mg IV Objective - Vital Signs/Intake and Output Vital Signs (last 24 hours): Temp Pulse Resp BP Pulse Ox 97.7 F 67 20 90/50 L 95 03/02/18 08:00 03/02/18 08:00 03/02/18 08:00 03/02/18 08:00 03/02/18 08:00 - Medications Medications: Current Medications Acetaminophen (Tylenol 325mg Tab) 650 mg PO Q4 PRN PRN Reason: Pain, moderate (4-7) Aspirin (Ecotrin) 81 mg PO DAILY [facility] Atorvastatin Calcium (Lipitor) 20 mg PO HS [facility] Last Admin: 03/01/18 21:58 Dose: 20 mg Benzocaine/Menthol (Cepacol Sore Throat) 1 asha PO Q3 PRN PRN Reason: Sore Throat Last Admin: 03/01/18 20:17 Dose: 1 asha Doxepin HCl (Sinequan) 10 mg PO HS [facility] Last Admin: 03/01/18 21:54 Dose: 10 mg Enoxaparin Sodium (Lovenox) 40 mg SC DAILY [facility] PRN Reason: Protocol Gabapentin (Neurontin) 600 mg PO Q8 [facility] Last Admin: 03/02/18 00:29 Dose: 600 mg Aztreonam 2 gm/ Sodium (Chloride) 100 mls @ 100 mls/hr IVPB Q12 [facility] Last Admin: 03/01/18 21:48 Dose: 100 mls/hr Morphine Sulfate (Morphine) 2 mg IVP Q4 PRN PRN Reason: Pain, severe (8-10) Last Admin: 03/02/18 00:37 Dose: 2 mg Multivitamins/Minerals (Therapeutic-M Tab) 1 tab PO DAILY [facility] Last Admin: 03/01/18 09:34 Dose: 1 tab Oxycodone/Acetaminophen (Percocet 5/325 Mg Tab) 1 tab PO Q6 PRN PRN Reason: Pain, severe (8-10) Stop: 03/03/18 16:01 Last Admin: 03/01/18 05:28 Dose: 1 tab - Labs Labs: 03/02/18 05:33 03/02/18 05:33 PT 12.6 Seconds (9.8-13.1) 02/28/18 12:45 INR 1.1 (0.9-1.2) 02/28/18 12:45 APTT 32.6 Seconds (25.6-37.1) 02/28/18 12:45 - Constitutional Appears: No Acute Distress - Head Exam Head Exam: NORMAL INSPECTION - Eye Exam Eye Exam: Normal appearance - ENT Exam ENT Exam: Mucous Membranes Moist Additional comments: No throat swelling today - Neck Exam Neck Exam: Normal Inspection Additional comments: non tender - Respiratory Exam Respiratory Exam: Clear to Ausculation Bilateral, NORMAL BREATHING PATTERN - Cardiovascular Exam Cardiovascular Exam: REGULAR RHYTHM - GI/Abdominal Exam GI & Abdominal Exam: Soft, Normal Bowel Sounds - Extremities Exam Extremities Exam: Normal Capillary Refill, Normal Inspection. absent: Pedal Edema, Tenderness - Back Exam Back Exam: NORMAL INSPECTION. absent: CVA tenderness (L), CVA tenderness (R) - Neurological Exam Neurological Exam: Alert, Awake, CN II-XII Intact, Oriented x3 - Psychiatric Exam Psychiatric exam: Normal Affect - Skin Skin Exam: Dry, Intact, Normal Color, Warm Assessment and Plan - Assessment and Plan (Free Text) Assessment: A/P: 47 y/o Female w/ pmh of CAD s/p LCA stent placement (Jan, 2016), rheumatic fever , complex regional pain syndrome s/p trial cervical spine stimulator placement and removed on 12/2017 presents to ED and admitted for evaluation and treatment of 1 day history of severe headache, fever and neck pain. Headache, Neck pain and Fever - Possibly due to Meningitis/Encephalitis vs migraine vs tension headache vs muscle spasms - LP/CSF result: WBC 3.0, RBC 2, N 0, L 2, G 59, P 44 - Dr. Yanick TORRES consult, recs appreciated - Dr. Barrios, Pain management consulted, "current presentation could be an exacerbation of her usual neck pain,will consider repeat medial branch nerve blocks once cleared by ID" - Neuro, Dr. Larry Consult, recommendations appreciated - Follow up VDRL, Herpes, blood Cx;NGPD, - Pain management: Percocet, Morphine and tylenol - Supportive management, Encourage PO intake - D/c Vanco 1gm IV Q12 day 1, Aztreonam 2gm Q12 day 1 as per ID - C/w Acyclovir 800mg Q8H day 2 as per ID, IF no fever till tomorrow Possibly cleared for Nerve blocks CAD - Asymptomatic - C/w Statin and Aspirin DVT PPx - Lovenox 40mg SC daily <Telma Hardin - Last Filed: 03/02/18 13:17> Objective - Vital Signs/Intake and Output Vital Signs (last 24 hours): Temp Pulse Resp BP Pulse Ox 98.6 F 85 20 105/67 93 L 03/02/18 12:00 03/02/18 12:00 03/02/18 12:00 03/02/18 12:00 03/02/18 12:00 - Medications Medications: Current Medications Acetaminophen (Tylenol 325mg Tab) 650 mg PO Q4 PRN PRN Reason: Pain, moderate (4-7) Aspirin (Ecotrin) 81 mg PO DAILY [facility] Last Admin: 03/02/18 10:34 Dose: 81 mg Atorvastatin Calcium (Lipitor) 20 mg PO HS [facility] Last Admin: 03/01/18 21:58 Dose: 20 mg Benzocaine/Menthol (Cepacol Sore Throat) 1 asha PO Q3 PRN PRN Reason: Sore Throat Last Admin: 03/01/18 20:17 Dose: 1 asha Doxepin HCl (Sinequan) 10 mg PO HS [facility] Last Admin: 03/01/18 21:54 Dose: 10 mg Enoxaparin Sodium (Lovenox) 40 mg SC DAILY [facility] PRN Reason: Protocol Last Admin: 03/02/18 10:33 Dose: 40 mg Gabapentin (Neurontin) 600 mg PO Q8 [facility] Last Admin: 03/02/18 10:33 Dose: 600 mg Aztreonam 2 gm/ Sodium (Chloride) 100 mls @ 100 mls/hr IVPB Q12 [facility] Last Admin: 03/02/18 10:32 Dose: 100 mls/hr Morphine Sulfate (Morphine) 2 mg IVP Q4 PRN PRN Reason: Pain, severe (8-10) Last Admin: 03/02/18 10:37 Dose: 2 mg Multivitamins/Minerals (Therapeutic-M Tab) 1 tab PO DAILY [facility] Last Admin: 03/02/18 10:34 Dose: 1 tab Oxycodone/Acetaminophen (Percocet 5/325 Mg Tab) 1 tab PO Q6 PRN PRN Reason: Pain, severe (8-10) Stop: 03/03/18 16:01 Last Admin: 03/01/18 05:28 Dose: 1 tab - Labs Labs: 03/02/18 05:33 03/02/18 05:33 PT 12.6 Seconds (9.8-13.1) 02/28/18 12:45 INR 1.1 (0.9-1.2) 02/28/18 12:45 APTT 32.6 Seconds (25.6-37.1) 02/28/18 12:45 Attending/Attestation - Attestation I have personally seen and examined this patient.: Yes I have fully participated in the care of the patient.: Yes I have reviewed all pertinent clinical information, including history, physical exam and plan: Yes
[2018-03-02] MEDS: Aztreonam 2 GM in Sodium Chloride 0.9% 100 ML IVPB SCH (10:32)
[2018-03-02] MEDS: Multivitamin With Minerals Tab PO SCH (10:34)
[2018-03-02 11:41] LABS: N MENINGITIS ACY/W135 NEGATIVE (NEGATIVE); N MENINGITIS B/ECOLI K1 NEGATIVE (NEGATIVE); STREP PNEUMONIAE NEGATIVE (NEGATIVE); STREPTOCOCCUS B NEGATIVE (NEGATIVE)
[2018-03-02 11:59] LABS: SPECIMEN SOURCE CSF
[2018-03-02] MEDS: Benzocaine/Menthol (Cepacol) Lozenge PO PRN ×2 (16:17→20:49)
--- NOTE | 2018-03-02 18:53 | CP.PCM.PN ---
Subjective - Date & Time of Evaluation Date of Evaluation: 03/02/18 Time of Evaluation: 18:47 - Subjective Subjective: I D NOTE CONTINUES TO BE AFEBRILE ANTIBIOTICS & ANTIVIRALS(ACYCLOVIR )DISCONTINUED ALL LABS FOR BACTERIAL AND HERPES MENINGITIS/ENCEPHALITIS ARE NEGATIVE IF AFEBRILE IN AM MAY HAVE NERVE BLOCK BY ANAESTHESIA/PAIN MANAGEMENT Objective - Vital Signs/Intake and Output Vital Signs (last 24 hours): Temp Pulse Resp BP Pulse Ox 97.9 F 87 20 107/64 98 03/02/18 16:33 03/02/18 16:33 03/02/18 16:33 03/02/18 16:33 03/02/18 16:33 - Medications Medications: Current Medications Acetaminophen (Tylenol 325mg Tab) 650 mg PO Q4 PRN PRN Reason: Pain, moderate (4-7) Aspirin (Ecotrin) 81 mg PO DAILY [facility] Last Admin: 03/02/18 10:34 Dose: 81 mg Atorvastatin Calcium (Lipitor) 20 mg PO HS [facility] Last Admin: 03/01/18 21:58 Dose: 20 mg Benzocaine/Menthol (Cepacol Sore Throat) 1 asha PO Q3 PRN PRN Reason: Sore Throat Last Admin: 03/02/18 16:17 Dose: 1 asha Doxepin HCl (Sinequan) 10 mg PO HS [facility] Last Admin: 03/01/18 21:54 Dose: 10 mg Enoxaparin Sodium (Lovenox) 40 mg SC DAILY [facility] PRN Reason: Protocol Last Admin: 03/02/18 09:00 Dose: Not Given Gabapentin (Neurontin) 600 mg PO Q8 [facility] Last Admin: 03/02/18 16:17 Dose: 600 mg Morphine Sulfate (Morphine) 2 mg IVP Q4 PRN PRN Reason: Pain, severe (8-10) Last Admin: 03/02/18 16:15 Dose: 2 mg Multivitamins/Minerals (Therapeutic-M Tab) 1 tab PO DAILY [facility] Last Admin: 03/02/18 10:34 Dose: 1 tab Oxycodone/Acetaminophen (Percocet 5/325 Mg Tab) 1 tab PO Q6 PRN PRN Reason: Pain, severe (8-10) Stop: 03/03/18 16:01 Last Admin: 03/01/18 05:28 Dose: 1 tab - Labs Labs: 03/02/18 05:33 03/02/18 05:33 PT 12.6 Seconds (9.8-13.1) 02/28/18 12:45 INR 1.1 (0.9-1.2) 02/28/18 12:45 APTT 32.6 Seconds (25.6-37.1) 02/28/18 12:45
[2018-03-02] MEDS: Oxycodone/Acetaminophen 5/325 mg Tab PO PRN (23:33)
[2018-03-03 05:30] LABS: HEMOGLOBIN 11.3 g/dL (12.0-16.0); LYMPH # 1.8 K/uL (1.0-4.3); LYMPH % 6.8 % (20.0-40.0); MEAN CELL VOLUME 90.8 fl (81.0-99.0); MEAN CORPUSCULAR HEMOGLOBIN 30.4 pg (27.0-31.0); MEAN CORPUSCULAR HGB CONC 33.5 g/dL (33.0-37.0); MEAN PLATELET VOLUME 7.2 fl (7.2-11.7); MONO # 1.4 K/uL (0.0-0.8); MONO % 5.4 % (0.0-10.0); NEUT # 22.9 K/uL (1.8-7.0); NEUT % 87.8 % (50.0-75.0); RBC 3.73 Mil/uL (3.80-5.20); RED CELL DISTRIBUTION WIDTH 13.5 % (11.5-14.5); WHITE BLOOD COUNT 26.1 K/uL (4.8-10.8)
[2018-03-03 06:03] LABS: ALB/GLOB RATIO 1.2 (1.0-2.1); ALBUMIN 3.9 g/dL (3.5-5.0); ALT/SGPT 20 U/L (9-52); AST/SGOT 16 U/L (14-36); BLOOD UREA NITROGEN 17 mg/dl (7-17); CALCIUM 9.3 mg/dL (8.4-10.2); GFR AFRICAN-AMERICAN > 60; GFR NON-AFRICAN AMERICAN > 60
[2018-03-03] MEDS ORDERED: DiphenhydrAMINE 50 mg/ml Inj ONE (07:59)
[2018-03-03] MEDS ORDERED: Iohexol 300 10 ML ONE (08:03)
[2018-03-03] MEDS ORDERED: MethylPREDNISolone Depo 40 mg/ml Inj ONE (08:03)
[2018-03-03] MEDS ORDERED: methylPREDNISolone Depo 80 mg/ml Inj ONE (08:04)
[2018-03-03] MEDS ORDERED: Propofol 10 mg/ml Inj (20 ML) ONE ×2 (08:07→08:23)
[2018-03-03] MEDS ORDERED: Lidocaine 1% Inj (20ml) IJ ONE (08:21)
[2018-03-03] MEDS ORDERED: Bupivacaine 0.25% Inj(30mL) IJ ONE (08:22)
[2018-03-03] MEDS ORDERED: Lactated Ringer's 500 ML IV ONE (08:37)
[2018-03-03] MEDS ORDERED: Lactated Ringer's 1,000 ML IV ONE (09:12)
--- NOTE | 2018-03-03 09:18 | CP.PCM.PN ---
Subjective - Date & Time of Evaluation Date of Evaluation: 03/03/18 Time of Evaluation: 09:00 - Subjective Subjective: Patient is s/p bilateral cervical medial branch nerve blocks for spondylosis and cervicogenic headache. Patient was admitted for r/o meningitis, but subsequently cleared by ID for injection. Abx has been discontinued. She tolerated the procedure well and is resting comfortably in PACU. Objective - Vital Signs/Intake and Output Vital Signs (last 24 hours): Temp Pulse Resp BP Pulse Ox 98.3 F 75 18 107/58 L 95 03/03/18 05:09 03/03/18 05:09 03/03/18 05:09 03/03/18 05:09 03/03/18 05:09 Intake and Output: 03/03/18 03/03/18 06:59 18:59 Intake Total 100 Balance 100 - Medications Medications: Current Medications Acetaminophen (Tylenol 325mg Tab) 650 mg PO Q4 PRN PRN Reason: Pain, moderate (4-7) Aspirin (Ecotrin) 81 mg PO DAILY [facility] Last Admin: 03/02/18 10:34 Dose: 81 mg Atorvastatin Calcium (Lipitor) 20 mg PO HS [facility] Last Admin: 03/02/18 21:14 Dose: 20 mg Benzocaine/Menthol (Cepacol Sore Throat) 1 asha PO Q3 PRN PRN Reason: Sore Throat Last Admin: 03/02/18 20:49 Dose: 1 asha Doxepin HCl (Sinequan) 10 mg PO HS [facility] Last Admin: 03/02/18 21:14 Dose: 10 mg Enoxaparin Sodium (Lovenox) 40 mg SC DAILY [facility] PRN Reason: Protocol Last Admin: 03/02/18 09:00 Dose: Not Given Gabapentin (Neurontin) 600 mg PO Q8 [facility] Last Admin: 03/03/18 00:43 Dose: 600 mg Hydromorphone HCl (Dilaudid) 0.5 mg IVP Q5M PRN PRN Reason: Pain, moderate (4-7) Stop: 03/03/18 10:41 Lactated Ringer's (Lactated Ringer's) 1,000 mls @ 100 mls/hr IV .Q10H [facility] Morphine Sulfate (Morphine) 2 mg IVP Q4 PRN PRN Reason: Pain, severe (8-10) Last Admin: 03/03/18 06:30 Dose: 2 mg Multivitamins/Minerals (Therapeutic-M Tab) 1 tab PO DAILY [facility] Last Admin: 03/02/18 10:34 Dose: 1 tab Oxycodone/Acetaminophen (Percocet 5/325 Mg Tab) 1 tab PO Q6 PRN PRN Reason: Pain, severe (8-10) Stop: 03/03/18 16:01 Last Admin: 03/02/18 23:33 Dose: 1 tab - Labs Labs: 03/03/18 05:11 03/03/18 05:11 PT 12.6 Seconds (9.8-13.1) 02/28/18 12:45 INR 1.1 (0.9-1.2) 02/28/18 12:45 APTT 32.6 Seconds (25.6-37.1) 02/28/18 12:45 Assessment and Plan (1) Complex regional pain syndrome Assessment & Plan: 47 yo woman w/ chronic pain, ruled out for meningitis, is s/p cervical medial branch nerve blocks for cervicogenic headache. - patient may be discharged from pain management's point of view if she's clinically stable - patient can follow up as an outpatient Status: Acute
[2018-03-03] MEDS: HYDROmorphone 0.5 mg/0.5 ml ISec IVP PRN ×2 (09:25→09:51)
[2018-03-03] MEDS: Enoxaparin 40 mg Syringe SC SCH (12:41)
[2018-03-03] MEDS: Benzocaine/Menthol (Cepacol) Lozenge PO PRN ×2 (12:42→22:22)
[2018-03-03] MEDS: Multivitamin With Minerals Tab PO SCH (12:42)
[2018-03-03] MEDS: Lactated Ringer's 1,000 ML IV SCH ×2 (12:44→22:20)
--- NOTE | 2018-03-03 15:17 | CP.PCM.PN ---
<Oma Anderson - Last Filed: 03/03/18 15:32> Subjective - Date & Time of Evaluation Date of Evaluation: 03/03/18 Time of Evaluation: 08:00 - Subjective Subjective: Patient seen and examined this morning at bedside before her Nerve block procedure. NAD, NPO, patient is still c/o headache and neck pain but denies any f/c/n/v/d, chest pain, SOB, abdominal pain or urinary symptoms. Objective - Vital Signs/Intake and Output Vital Signs (last 24 hours): Temp Pulse Resp BP Pulse Ox 97.7 F 76 18 120/72 95 03/03/18 12:16 03/03/18 12:16 03/03/18 12:16 03/03/18 12:16 03/03/18 12:16 Intake and Output: 03/03/18 03/03/18 06:59 18:59 Intake Total 200 Balance 200 - Medications Medications: Current Medications Acetaminophen (Tylenol 325mg Tab) 650 mg PO Q4 PRN PRN Reason: Pain, moderate (4-7) Aspirin (Ecotrin) 81 mg PO DAILY [facility] Last Admin: 03/03/18 12:40 Dose: 81 mg Atorvastatin Calcium (Lipitor) 20 mg PO HS [facility] Last Admin: 03/02/18 21:14 Dose: 20 mg Benzocaine/Menthol (Cepacol Sore Throat) 1 asha PO Q3 PRN PRN Reason: Sore Throat Last Admin: 03/03/18 12:42 Dose: 1 asha Doxepin HCl (Sinequan) 10 mg PO HS [facility] Last Admin: 03/02/18 21:14 Dose: 10 mg Enoxaparin Sodium (Lovenox) 40 mg SC DAILY [facility] PRN Reason: Protocol Last Admin: 03/03/18 12:41 Dose: Not Given Gabapentin (Neurontin) 600 mg PO Q8 [facility] Last Admin: 03/03/18 12:41 Dose: 600 mg Lactated Ringer's (Lactated Ringer's) 1,000 mls @ 100 mls/hr IV .Q10H [facility] Last Admin: 03/03/18 12:44 Dose: 100 mls/hr Morphine Sulfate (Morphine) 2 mg IVP Q4 PRN PRN Reason: Pain, severe (8-10) Last Admin: 03/03/18 14:53 Dose: 2 mg Multivitamins/Minerals (Therapeutic-M Tab) 1 tab PO DAILY [facility] Last Admin: 03/03/18 12:42 Dose: 1 tab Oxycodone/Acetaminophen (Percocet 5/325 Mg Tab) 1 tab PO Q6 PRN PRN Reason: Pain, severe (8-10) Stop: 03/03/18 16:01 Last Admin: 03/02/18 23:33 Dose: 1 tab - Labs Labs: 03/03/18 05:11 03/03/18 05:11 PT 12.6 Seconds (9.8-13.1) 02/28/18 12:45 INR 1.1 (0.9-1.2) 02/28/18 12:45 APTT 32.6 Seconds (25.6-37.1) 02/28/18 12:45 - Constitutional Appears: No Acute Distress - Head Exam Head Exam: NORMAL INSPECTION - Eye Exam Eye Exam: Normal appearance - ENT Exam ENT Exam: Mucous Membranes Moist - Neck Exam Neck Exam: Normal Inspection - Respiratory Exam Respiratory Exam: Clear to Ausculation Bilateral - Cardiovascular Exam Cardiovascular Exam: REGULAR RHYTHM - GI/Abdominal Exam GI & Abdominal Exam: Soft, Normal Bowel Sounds - Extremities Exam Extremities Exam: Normal Capillary Refill, Normal Inspection - Back Exam Back Exam: NORMAL INSPECTION - Neurological Exam Neurological Exam: Alert, Awake, CN II-XII Intact, Oriented x3 - Psychiatric Exam Psychiatric exam: Anxious - Skin Skin Exam: Dry, Intact, Normal Color, Warm Assessment and Plan - Assessment and Plan (Free Text) Assessment: A/P: 47 y/o Female w/ pmh of CAD s/p LCA stent placement (Jan, 2016), rheumatic fever , complex regional pain syndrome s/p trial cervical spine stimulator placement and removed on 12/2017 presents to ED and admitted for evaluation and treatment of 1 day history of severe headache, fever and neck pain. Headache, Neck pain and Fever/ Headache and neck pain due to her Chronic neck pain/ Fever, unknown etiology, no bacteremia or infections - LP/CSF result: WBC 3.0, RBC 2, N 0, L 2, G 59, P 44 - ID, Dr. Herndon consult, recs appreciated - Dr. Barrios, Pain management consulted, "current presentation could be an exacerbation of her usual neck pain,will consider repeat medial branch nerve blocks once cleared by ID" - Neuro, Dr. Larry Consult, recommendations appreciated - Follow up VDRL, Herpes, blood Cx;NGPD, - Pain management: Percocet, Morphine and tylenol - Supportive management, Encourage PO intake - S/p Vanco 1gm IV, Aztreonam 2gm and Acyclovir 800mg - S/p bilateral cervical medial branch nerve blocks for spondylosis and cervicogenic headache Elevated WBCs - WBC 26.1 today, Afebrile - Patient received steroids during this admission - Awaiting ID clearance before discharge CAD - Asymptomatic - C/w Statin and Aspirin DVT PPx - Lovenox 40mg SC daily <Telma Hardin - Last Filed: 03/04/18 09:07> Objective - Vital Signs/Intake and Output Vital Signs (last 24 hours): Temp Pulse Resp BP Pulse Ox 98.2 F 58 L 18 96/57 L 97 03/04/18 08:07 03/04/18 08:07 03/04/18 08:07 03/04/18 08:07 03/04/18 08:07 - Medications Medications: Current Medications Acetaminophen (Tylenol 325mg Tab) 650 mg PO Q4 PRN PRN Reason: Pain, moderate (4-7) Aspirin (Ecotrin) 81 mg PO DAILY [facility] Last Admin: 03/03/18 12:40 Dose: 81 mg Atorvastatin Calcium (Lipitor) 20 mg PO HS [facility] Last Admin: 03/03/18 22:19 Dose: 20 mg Benzocaine/Menthol (Cepacol Sore Throat) 1 asha PO Q3 PRN PRN Reason: Sore Throat Last Admin: 03/03/18 22:22 Dose: 1 asha Doxepin HCl (Sinequan) 10 mg PO HS [facility] Last Admin: 03/03/18 22:19 Dose: 10 mg Enoxaparin Sodium (Lovenox) 40 mg SC DAILY [facility] PRN Reason: Protocol Last Admin: 03/03/18 12:41 Dose: Not Given Gabapentin (Neurontin) 600 mg PO Q8 [facility] Last Admin: 03/04/18 01:16 Dose: 600 mg Lactated Ringer's (Lactated Ringer's) 1,000 mls @ 100 mls/hr IV .Q10H [facility] Last Admin: 03/04/18 04:26 Dose: 100 mls/hr Morphine Sulfate (Morphine) 2 mg IVP Q4 PRN PRN Reason: Pain, severe (8-10) Last Admin: 03/04/18 04:25 Dose: 2 mg Morphine Sulfate (Morphine) 4 mg IVP Q4 PRN PRN Reason: severe pain Last Admin: 03/03/18 22:10 Dose: 4 mg Multivitamins/Minerals (Therapeutic-M Tab) 1 tab PO DAILY [facility] Last Admin: 03/03/18 12:42 Dose: 1 tab - Labs Labs: 03/04/18 06:30 03/03/18 05:11 PT 12.6 Seconds (9.8-13.1) 02/28/18 12:45 INR 1.1 (0.9-1.2) 02/28/18 12:45 APTT 32.6 Seconds (25.6-37.1) 02/28/18 12:45 Attending/Attestation - Attestation I have personally seen and examined this patient.: Yes I have fully participated in the care of the patient.: Yes I have reviewed all pertinent clinical information, including history, physical exam and plan: Yes Notes (Text): 03/04/18 09:06 Attending Note ATTESTATION Patient seen and examined. Case discussed with resident. Agree with findings and plan. Headache pain decreased from 7/10 to 4/ 10. Acute elelvation of WBC with left shift. Remains afebrile. Await re ID consult.
--- NOTE | 2018-03-03 19:52 | OP ---
PROCEDURE DATE: 03/03/2018 PREOPERATIVE DIAGNOSIS: Cervical facet syndrome. POSTOPERATIVE DIAGNOSIS: Cervical facet syndrome. PROCEDURE: Bilateral C3, C4, and C5 medial branch nerve block. ANESTHESIOLOGIST: Osito Mcqueen MD SURGEON: Sylvester Barrios MD TYPE OF ANESTHESIA: Monitored anesthesia care. COMPLICATIONS: None. SPECIMEN: None. DESCRIPTION OF PROCEDURE: As follows. After we had discussion of the procedure with the patient including its risks, benefits, alternatives, outcome data, possibility of no effect or increased pain, the patient consented to the procedure. She denies any recent infection, bleeding tendencies, or being on anticoagulation. Decision was then made to proceed to the OR. The patient had been admitted for rule out meningitis, but cultures and specimens has been negative thus far. The patient has been cleared by infectious disease specialist for the procedure. The patient was placed on the fluoroscopy table in a prone position, using the head positioner. The neck was prepped and draped in usual sterile fashion and a sterile technique was adhered during the entire procedure. The C3, C4, and C5 vertebral levels were first identified in the anteroposterior view. The medial branch nerves are located at the lateral facet border at the mid point of the vertebral height. The procedure was first performed on the right side by turning the fluoroscopy towards the contralateral level approximately 5 degrees. The skin overlying the three above target areas were then infiltrated with 1% lidocaine using 25-gauge needle. Subsequently, a 25-gauge 3.5 inch spinal needle was incrementally advanced under fluoroscopic guidance until the tip of needle made bony contact with all three target areas. After satisfactory positioning of all three needles, approximately 0.5 mL of Isovue contrast was injected to rule out intravenous uptake. After doing so, approximately 2 mL of 0.25% Marcaine and Depo-Medrol mixture was injected. The needle was then removed and the same exact procedure was performed on the contralateral left side using the same medications and techniques. At the end of the case, the patient's neck was cleaned and dried, and bandages were applied. The patient was then transferred to recovery area in good condition without any signs of PREBOARDER toxicity or any neurological deficit. She will be followed up in our office in approximately two to four weeks. En-Davy Barrios MD
[2018-03-04 00:26] VITALS: RESP 18
[2018-03-04] MEDS: Lactated Ringer's 1,000 ML IV SCH (04:26)
[2018-03-04 07:10] LABS: BASO % 0.2 % (0.0-2.0); HEMOGLOBIN 11.3 g/dL (12.0-16.0); LYMPH # 3.3 K/uL (1.0-4.3); MEAN CELL VOLUME 91.2 fl (81.0-99.0); MEAN CORPUSCULAR HEMOGLOBIN 29.8 pg (27.0-31.0); MEAN CORPUSCULAR HGB CONC 32.7 g/dL (33.0-37.0); MEAN PLATELET VOLUME 7.1 fl (7.2-11.7); MONO # 1.4 K/uL (0.0-0.8); MONO % 7.3 % (0.0-10.0); NEUT # 14.8 K/uL (1.8-7.0); NEUT % 75.5 % (50.0-75.0); NRBC % 0.1 % (0.0-0.0); RBC 3.8 Mil/uL (3.80-5.20); RED CELL DISTRIBUTION WIDTH 13.6 % (11.5-14.5); WHITE BLOOD COUNT 19.5 K/uL (4.8-10.8)
[2018-03-04 08:08] VITALS: TEMP 98.2
--- NOTE | 2018-03-04 09:00 | CP.PCM.PN ---
Subjective - Date & Time of Evaluation Date of Evaluation: 03/04/18 Time of Evaluation: 07:15 - Subjective Subjective: Patient seen and examined this morning at bedside. NAD, Still c/o same headache , s/p nerve blocks. Patient denies any f/c/n/v/d, chest pain, SOB, abdominal pain or urinary symptoms. Objective - Vital Signs/Intake and Output Vital Signs (last 24 hours): Temp Pulse Resp BP Pulse Ox 98.2 F 58 L 18 96/57 L 97 03/04/18 08:07 03/04/18 08:07 03/04/18 08:07 03/04/18 08:07 03/04/18 08:07 - Medications Medications: Current Medications Acetaminophen (Tylenol 325mg Tab) 650 mg PO Q4 PRN PRN Reason: Pain, moderate (4-7) Aspirin (Ecotrin) 81 mg PO DAILY [facility] Last Admin: 03/03/18 12:40 Dose: 81 mg Atorvastatin Calcium (Lipitor) 20 mg PO HS [facility] Last Admin: 03/03/18 22:19 Dose: 20 mg Benzocaine/Menthol (Cepacol Sore Throat) 1 asha PO Q3 PRN PRN Reason: Sore Throat Last Admin: 03/03/18 22:22 Dose: 1 asha Doxepin HCl (Sinequan) 10 mg PO HS [facility] Last Admin: 03/03/18 22:19 Dose: 10 mg Enoxaparin Sodium (Lovenox) 40 mg SC DAILY [facility] PRN Reason: Protocol Last Admin: 03/03/18 12:41 Dose: Not Given Gabapentin (Neurontin) 600 mg PO Q8 [facility] Last Admin: 03/04/18 01:16 Dose: 600 mg Lactated Ringer's (Lactated Ringer's) 1,000 mls @ 100 mls/hr IV .Q10H [facility] Last Admin: 03/04/18 04:26 Dose: 100 mls/hr Morphine Sulfate (Morphine) 2 mg IVP Q4 PRN PRN Reason: Pain, severe (8-10) Last Admin: 03/04/18 04:25 Dose: 2 mg Morphine Sulfate (Morphine) 4 mg IVP Q4 PRN PRN Reason: severe pain Last Admin: 03/03/18 22:10 Dose: 4 mg Multivitamins/Minerals (Therapeutic-M Tab) 1 tab PO DAILY [facility] Last Admin: 03/03/18 12:42 Dose: 1 tab - Labs Labs: 03/04/18 06:30 03/03/18 05:11 PT 12.6 Seconds (9.8-13.1) 02/28/18 12:45 INR 1.1 (0.9-1.2) 02/28/18 12:45 APTT 32.6 Seconds (25.6-37.1) 02/28/18 12:45 - Constitutional Appears: No Acute Distress - Head Exam Head Exam: NORMAL INSPECTION - Eye Exam Eye Exam: Normal appearance - ENT Exam ENT Exam: Mucous Membranes Moist - Neck Exam Neck Exam: Full ROM, Normal Inspection - Respiratory Exam Respiratory Exam: Clear to Ausculation Bilateral, NORMAL BREATHING PATTERN - Cardiovascular Exam Cardiovascular Exam: REGULAR RHYTHM - GI/Abdominal Exam GI & Abdominal Exam: Soft, Normal Bowel Sounds. absent: Tenderness - Back Exam Back Exam: absent: CVA tenderness (L), CVA tenderness (R) - Neurological Exam Neurological Exam: Alert, Awake, CN II-XII Intact, Oriented x3 - Psychiatric Exam Psychiatric exam: Normal Affect - Skin Skin Exam: Normal Color Assessment and Plan - Assessment and Plan (Free Text) Assessment: A/P: 47 y/o Female w/ pmh of CAD s/p LCA stent placement (Jan, 2016), rheumatic fever , complex regional pain syndrome s/p trial cervical spine stimulator placement and removed on 12/2017 presents to ED and admitted for evaluation and treatment of 1 day history of severe headache, fever and neck pain. Headache, Neck pain and Fever/ Headache and neck pain due to her Chronic neck pain/ Fever, unknown etiology, no bacteremia or infections - LP/CSF result: WBC 3.0, RBC 2, N 0, L 2, G 59, P 44 - IDDr. Herndon consult, recs appreciated - Dr. Barrios, Pain management consulted, "current presentation could be an exacerbation of her usual neck pain,will consider repeat medial branch nerve blocks once cleared by ID" - Neuro, Dr. Larry Consult, recommendations appreciated - Follow up VDRL, Herpes, blood Cx;NGPD, - Pain management: Percocet, Morphine and tylenol - Supportive management, Encourage PO intake - S/p Vanco 1gm IV, Aztreonam 2gm and Acyclovir 800mg - S/p bilateral cervical medial branch nerve blocks for spondylosis and cervicogenic headache Elevated WBCs - WBC 19.5 today, Afebrile - Patient received steroids during this admission - Awaiting ID clearance before discharge CAD - Asymptomatic - C/w Statin and Aspirin DVT PPx - Lovenox 40mg SC daily
[2018-03-04] MEDS: Multivitamin With Minerals Tab PO SCH (10:31)
[2018-03-04] MEDS: Enoxaparin 40 mg Syringe SC SCH (10:31)
--- NOTE | 2018-03-04 11:45 | CP.PCM.DIS ---
<Oma Anderson - Last Filed: 03/04/18 11:53> Provider - Provider Date of Admission: 02/28/18 14:55 Attending physician: Telma Hardin MD Primary care physician: Dr. Diaz Consults: MELISSA, Dr. Herndon Neuro, Dr. Larry Pain management, Dr. Barrios Time Spent in preparation of Discharge (in minutes): 40 Diagnosis - Discharge Diagnosis (1) Chronic neck pain Status: Chronic (2) Spondylosis of cervical joint Status: Chronic (3) Fever of unknown origin Status: Acute (4) Elevated WBC count Status: Chronic Hospital Course - Lab Results Lab Results: Micro Results 02/28/18 14:31 Cerebral Spinal Fluid Gram Stain - Final 02/28/18 14:31 Cerebral Spinal Fluid CSF Culture - Preliminary NO GROWTH AFTER 4 DAYS 02/28/18 17:14 Blood-Venous Blood Culture - Preliminary NO GROWTH AFTER 3 DAYS 02/28/18 17:04 Blood-Venous Blood Culture - Preliminary NO GROWTH AFTER 3 DAYS 02/28/18 13:00 Throat Group A Strep Throat Culture - Final NO BETA STREP GROUP A ISOLATED. Most Recent Lab Values WBC 19.5 K/uL (4.8-10.8) H 03/04/18 06:30 RBC 3.80 Mil/uL (3.80-5.20) 03/04/18 06:30 Hgb 11.3 g/dL (12.0-16.0) L 03/04/18 06:30 Hct 34.6 % (34.0-47.0) 03/04/18 06:30 MCV 91.2 fl (81.0-99.0) 03/04/18 06:30 MCH 29.8 pg (27.0-31.0) 03/04/18 06:30 MCHC 32.7 g/dL (33.0-37.0) L 03/04/18 06:30 RDW 13.6 % (11.5-14.5) 03/04/18 06:30 Plt Count 364 K/uL (130-400) 03/04/18 06:30 MPV 7.1 fl (7.2-11.7) L 03/04/18 06:30 Neut % (Auto) 75.5 % (50.0-75.0) H 03/04/18 06:30 Lymph % (Auto) 17.0 % (20.0-40.0) L 03/04/18 06:30 [place] % (Auto) 7.3 % (0.0-10.0) 03/04/18 06:30 Eos % (Auto) 0.0 % (0.0-4.0) 03/04/18 06:30 Baso % (Auto) 0.2 % (0.0-2.0) 03/04/18 06:30 Neut # (Auto) 14.8 K/uL (1.8-7.0) H 03/04/18 06:30 Lymph # (Auto) 3.3 K/uL (1.0-4.3) 03/04/18 06:30 [place] # (Auto) 1.4 K/uL (0.0-0.8) H 03/04/18 06:30 Eos # (Auto) 0.0 K/uL (0.0-0.7) 03/04/18 06:30 Baso # (Auto) 0.0 K/uL (0.0-0.2) 03/04/18 06:30 Neutrophils % (Manual) 85 % (42-75) H 02/28/18 12:45 Band Neutrophils % 1 % (0-2) 02/28/18 12:45 Lymphocytes % (Manual) 8 % (20-50) L 02/28/18 12:45 Monocytes % (Manual) 4 % (0-10) 02/28/18 12:45 Eosinophils % (Manual) 2 % (0-7) 02/28/18 12:45 Platelet Estimate Normal (NORMAL) 02/28/18 12:45 RBC Morphology Normal (NORMAL) 02/28/18 12:45 PT 12.6 Seconds (9.8-13.1) 02/28/18 12:45 INR 1.1 (0.9-1.2) 02/28/18 12:45 APTT 32.6 Seconds (25.6-37.1) 02/28/18 12:45 pO2 66 mm/Hg (30-55) H 02/28/18 12:00 VBG pH 7.41 (7.32-7.43) 02/28/18 12:00 VBG pCO2 35 mmHg (40-60) L 02/28/18 12:00 VBG HCO3 23.3 mmol/L 02/28/18 12:00 VBG Total CO2 23.3 mmol/L (22-28) 02/28/18 12:00 VBG O2 Sat (Calc) 97.6 % (40-65) H 02/28/18 12:00 VBG Base Excess -1.9 mmol/L (0.0-2.0) L 02/28/18 12:00 VBG Potassium 3.6 mmol/L (3.6-5.2) 02/28/18 12:00 Sodium 135.0 mmol/L (132-148) 02/28/18 12:00 Chloride 106.0 mmol/L (98-107) 02/28/18 12:00 Glucose 105 mg/dL (65-105) 02/28/18 12:00 Lactate 1.0 mmol/L (0.7-2.1) 02/28/18 12:00 FiO2 21.0 % 02/28/18 12:00 Sodium 142 mmol/l (132-148) 03/03/18 05:11 Potassium 4.4 MMOL/L (3.6-5.0) 03/03/18 05:11 Chloride 110 mmol/L (98-107) H 03/03/18 05:11 Carbon Dioxide 21 mmol/L (22-30) L 03/03/18 05:11 Anion Gap 15 (10-20) 03/03/18 05:11 BUN 17 mg/dl (7-17) 03/03/18 05:11 Creatinine 0.4 mg/dl (0.7-1.2) L 03/03/18 05:11 Est GFR ( Amer) > 60 03/03/18 05:11 Est GFR (Non-Af Amer) > 60 03/03/18 05:11 Random Glucose 171 mg/dL (65-105) H 03/03/18 05:11 Calcium 9.3 mg/dL (8.4-10.2) 03/03/18 05:11 Phosphorus 5.2 mg/dl (2.5-4.5) H 03/01/18 04:20 Magnesium 2.5 MG/DL (1.6-2.3) H 03/01/18 04:20 Total Bilirubin 0.2 mg/dl (0.2-1.3) 03/03/18 05:11 AST 16 U/L (14-36) 03/03/18 05:11 ALT 20 U/L (9-52) 03/03/18 05:11 Alkaline Phosphatase 64 U/L (38-126) 03/03/18 05:11 Total Creatine Kinase 36 U/L (30-135) 02/28/18 12:45 Total Protein 7.2 G/DL (6.3-8.2) 03/03/18 05:11 Albumin 3.9 g/dL (3.5-5.0) 03/03/18 05:11 Globulin 3.3 gm/dL (2.2-3.9) 03/03/18 05:11 Albumin/Globulin Ratio 1.2 (1.0-2.1) 03/03/18 05:11 Lipase 37 U/L (23-300) 02/28/18 12:15 Procalcitonin 0.05 NG/ML (0.19-0.49) L 02/28/18 17:04 Venous Blood Potassium 3.6 mmol/L (3.6-5.2) 02/28/18 12:00 Urine Color Yellow (YELLOW) 02/28/18 12:15 Urine Clarity Cloudy (Clear) 02/28/18 12:15 Urine pH 6.0 (5.0-8.0) 02/28/18 12:15 Ur Specific [place] 1.012 (1.003-1.030) 02/28/18 12:15 Urine Protein Negative mg/dL (NEGATIVE) 02/28/18 12:15 Urine Glucose (UA) Neg mg/dL (Normal) 02/28/18 12:15 Urine Ketones Negative mg/dL (NEGATIVE) 02/28/18 12:15 Urine Blood Small (NEGATIVE) 02/28/18 12:15 Urine Nitrate Negative (NEGATIVE) 02/28/18 12:15 Urine Bilirubin Negative (NEGATIVE) 02/28/18 12:15 Urine Urobilinogen 0.2-1.0 mg/dL (0.2-1.0) 02/28/18 12:15 Ur Leukocyte Esterase Neg Karen/uL (Negative) 02/28/18 12:15 Urine RBC (Auto) 3 /hpf (0-3) 02/28/18 12:15 Urine Microscopic WBC 5 /hpf (0-5) 02/28/18 12:15 Ur Squamous Epith Cells 29 /hpf (0-5) H 02/28/18 12:15 Urine Bacteria Rare (<OCC) 02/28/18 12:15 Fluid Type Spinal fluid 02/28/18 14:31 CSF Volume 2 mL (0-1) H 02/28/18 14:31 CSF Appearance Clear/colorless (CLEAR) 02/28/18 14:31 CSF WBC 3.0 /mm3 (0.0-5.0) 02/28/18 14:31 CSF RBC 2.0 /mm3 (0.0-0.0) H 02/28/18 14:31 CSF Total Cell Counted TEST NOT PERFORMED 02/28/18 14:31 CSF Neutrophils 0 % (0-0) 02/28/18 14:31 CSF Lymphocytes 2.0 % (0-0) H 02/28/18 14:31 CSF Monos/Macrophages 0 % (0-0) 02/28/18 14:31 CSF Comment Tube #4 02/28/18 14:31 CSF Glucose 59 mg/dL (40-70) 02/28/18 14:31 CSF Total Protein 44.0 mg/dL (12-60) 02/28/18 14:22 CSF VDRL Nonreactive (Nonreactive) 02/28/18 17:00 Vancomycin Trough < 5.0 ug/mL (5.0-10.0) L 03/02/18 10:14 HSV Source Description Csf 02/28/18 14:31 HSV I DNA PCR Not detected (Not Detected) 02/28/18 14:31 HSV II DNA PCR Not detected (Not Detected) 02/28/18 14:31 HIV-1 Ab Rapid Screen Non reactive (NON REAC) 03/01/18 04:20 Influenza Typ A,B (EIA) Negative for flu a/b (NEGATIVE) 02/28/18 12:50 H.influenzae Type B Ag Negative (NEGATIVE) 02/28/18 17:25 N.meningitidis ACY/W135 Negative (NEGATIVE) 02/28/18 17:25 N.meningi B/E.coli K1 Ag Negative (NEGATIVE) 02/28/18 17:25 Grp A Beta Strep Ag Negative (NEGATIVE) 02/28/18 13:00 Group B Strep Antigen Negative (NEGATIVE) 02/28/18 17:25 S. pneumoniae Antigen Negative (NEGATIVE) 02/28/18 17:25 - Hospital Course Hospital Course: 47 y/o Female w/ pmh of CAD s/p LCA stent placement (Jan, 2016), rheumatic fever , complex regional pain syndrome s/p trial cervical spine stimulator placement and removed on 12/2017 presents to ED and admitted for evaluation and treatment of 1 day history of severe headache, fever and neck pain. Dr. Herndon, ID was consulted who ruled out meningitis and other infectious causes after appropriate work ups. Dr. Larry, neurology consulted who treated patient with Mg, Decadron and Depakot. Dr. Barrios, pain management, consulted, patient is s/p bilateral cervical medial branch nerve blocks for spondylosis and cervicogenic headache. Patient was found to have chronically elevated WBCs (may require outpatient further workups). Patients pain improved and afebrile for 48 hours, cleared by ID and Neuro for discharge with instruction to follow up with Dr. Barrios and PMD/Dr. Diaz. Discharge Exam - Head Exam Head Exam: NORMAL INSPECTION - Eye Exam Eye Exam: Normal appearance - Neck Exam Neck exam: Full Rom, Normal Inspection - Respiratory Exam Respiratory Exam: Clear to PA & Lateral, NORMAL BREATHING PATTERN - Cardiovascular Exam Cardiovascular Exam: REGULAR RHYTHM, +S1, +S2 - GI/Abdominal Exam GI & Abdominal Exam: Normal Bowel Sounds - Extremities Exam Extremities exam: normal inspection - Back Exam Back exam: absent: CVA tenderness (L), CVA tenderness (R) - Neurological Exam Neurological exam: Alert, CN II-XII Intact, Oriented x3, Reflexes Normal - Psychiatric Exam Psychiatric exam: Normal Affect - Skin Skin Exam: Normal Color Discharge Plan - Follow Up Plan Condition: STABLE Disposition: HOME/ ROUTINE Instructions: Neck Pain Additional Instructions: - Return to the ER for fever not controlled by Tylenol, shortness of breath, chest pain or palpitations, weakness in legs or arms, visual changes. - Follow up with Neurologist in [place], Follow up with GI as per previous hospital discharge. - Follow up with Dr. Diaz on 03/07/18 at 9:20am - Follow up chronically elevated WBC as outpatient Referrals: Jenifer Diaz MD [Family Provider] - 03/07/18 9:20 am Sagar Barrios-Davy Sinha MD [Staff Provider] - <Telma Hardin - Last Filed: 03/05/18 08:32> Provider - Provider Date of Admission: 02/28/18 14:55 Attending physician: Telma Hardin MD Hospital Course - Lab Results Lab Results: Micro Results 02/28/18 17:14 Blood-Venous Blood Culture - Preliminary NO GROWTH AFTER 4 DAYS 02/28/18 17:04 Blood-Venous Blood Culture - Preliminary NO GROWTH AFTER 4 DAYS 02/28/18 14:31 Cerebral Spinal Fluid Gram Stain - Final 02/28/18 14:31 Cerebral Spinal Fluid CSF Culture - Preliminary NO GROWTH AFTER 4 DAYS 02/28/18 13:00 Throat Group A Strep Throat Culture - Final NO BETA STREP GROUP A ISOLATED. Most Recent Lab Values WBC 19.5 K/uL (4.8-10.8) H 03/04/18 06:30 RBC 3.80 Mil/uL (3.80-5.20) 03/04/18 06:30 Hgb 11.3 g/dL (12.0-16.0) L 03/04/18 06:30 Hct 34.6 % (34.0-47.0) 03/04/18 06:30 MCV 91.2 fl (81.0-99.0) 03/04/18 06:30 MCH 29.8 pg (27.0-31.0) 03/04/18 06:30 MCHC 32.7 g/dL (33.0-37.0) L 03/04/18 06:30 RDW 13.6 % (11.5-14.5) 03/04/18 06:30 Plt Count 364 K/uL (130-400) 03/04/18 06:30 MPV 7.1 fl (7.2-11.7) L 03/04/18 06:30 Neut % (Auto) 75.5 % (50.0-75.0) H 03/04/18 06:30 Lymph % (Auto) 17.0 % (20.0-40.0) L 03/04/18 06:30 [place] % (Auto) 7.3 % (0.0-10.0) 03/04/18 06:30 Eos % (Auto) 0.0 % (0.0-4.0) 03/04/18 06:30 Baso % (Auto) 0.2 % (0.0-2.0) 03/04/18 06:30 Neut # (Auto) 14.8 K/uL (1.8-7.0) H 03/04/18 06:30 Lymph # (Auto) 3.3 K/uL (1.0-4.3) 03/04/18 06:30 [place] # (Auto) 1.4 K/uL (0.0-0.8) H 03/04/18 06:30 Eos # (Auto) 0.0 K/uL (0.0-0.7) 03/04/18 06:30 Baso # (Auto) 0.0 K/uL (0.0-0.2) 03/04/18 06:30 Neutrophils % (Manual) 85 % (42-75) H 02/28/18 12:45 Band Neutrophils % 1 % (0-2) 02/28/18 12:45 Lymphocytes % (Manual) 8 % (20-50) L 02/28/18 12:45 Monocytes % (Manual) 4 % (0-10) 02/28/18 12:45 Eosinophils % (Manual) 2 % (0-7) 02/28/18 12:45 Platelet Estimate Normal (NORMAL) 02/28/18 12:45 RBC Morphology Normal (NORMAL) 02/28/18 12:45 PT 12.6 Seconds (9.8-13.1) 02/28/18 12:45 INR 1.1 (0.9-1.2) 02/28/18 12:45 APTT 32.6 Seconds (25.6-37.1) 02/28/18 12:45 pO2 66 mm/Hg (30-55) H 02/28/18 12:00 VBG pH 7.41 (7.32-7.43) 02/28/18 12:00 VBG pCO2 35 mmHg (40-60) L 02/28/18 12:00 VBG HCO3 23.3 mmol/L 02/28/18 12:00 VBG Total CO2 23.3 mmol/L (22-28) 02/28/18 12:00 VBG O2 Sat (Calc) 97.6 % (40-65) H 02/28/18 12:00 VBG Base Excess -1.9 mmol/L (0.0-2.0) L 02/28/18 12:00 VBG Potassium 3.6 mmol/L (3.6-5.2) 02/28/18 12:00 Sodium 135.0 mmol/L (132-148) 02/28/18 12:00 Chloride 106.0 mmol/L (98-107) 02/28/18 12:00 Glucose 105 mg/dL (65-105) 02/28/18 12:00 Lactate 1.0 mmol/L (0.7-2.1) 02/28/18 12:00 FiO2 21.0 % 02/28/18 12:00 Sodium 142 mmol/l (132-148) 03/03/18 05:11 Potassium 4.4 MMOL/L (3.6-5.0) 03/03/18 05:11 Chloride 110 mmol/L (98-107) H 03/03/18 05:11 Carbon Dioxide 21 mmol/L (22-30) L 03/03/18 05:11 Anion Gap 15 (10-20) 03/03/18 05:11 BUN 17 mg/dl (7-17) 03/03/18 05:11 Creatinine 0.4 mg/dl (0.7-1.2) L 03/03/18 05:11 Est GFR ( Amer) > 60 03/03/18 05:11 Est GFR (Non-Af Amer) > 60 03/03/18 05:11 Random Glucose 171 mg/dL (65-105) H 03/03/18 05:11 Calcium 9.3 mg/dL (8.4-10.2) 03/03/18 05:11 Phosphorus 5.2 mg/dl (2.5-4.5) H 03/01/18 04:20 Magnesium 2.5 MG/DL (1.6-2.3) H 03/01/18 04:20 Total Bilirubin 0.2 mg/dl (0.2-1.3) 03/03/18 05:11 AST 16 U/L (14-36) 03/03/18 05:11 ALT 20 U/L (9-52) 03/03/18 05:11 Alkaline Phosphatase 64 U/L (38-126) 03/03/18 05:11 Total Creatine Kinase 36 U/L (30-135) 02/28/18 12:45 Total Protein 7.2 G/DL (6.3-8.2) 03/03/18 05:11 Albumin 3.9 g/dL (3.5-5.0) 03/03/18 05:11 Globulin 3.3 gm/dL (2.2-3.9) 03/03/18 05:11 Albumin/Globulin Ratio 1.2 (1.0-2.1) 03/03/18 05:11 Lipase 37 U/L (23-300) 02/28/18 12:15 Procalcitonin 0.05 NG/ML (0.19-0.49) L 02/28/18 17:04 Venous Blood Potassium 3.6 mmol/L (3.6-5.2) 02/28/18 12:00 Urine Color Yellow (YELLOW) 02/28/18 12:15 Urine Clarity Cloudy (Clear) 02/28/18 12:15 Urine pH 6.0 (5.0-8.0) 02/28/18 12:15 Ur Specific [place] 1.012 (1.003-1.030) 02/28/18 12:15 Urine Protein Negative mg/dL (NEGATIVE) 02/28/18 12:15 Urine Glucose (UA) Neg mg/dL (Normal) 02/28/18 12:15 Urine Ketones Negative mg/dL (NEGATIVE) 02/28/18 12:15 Urine Blood Small (NEGATIVE) 02/28/18 12:15 Urine Nitrate Negative (NEGATIVE) 02/28/18 12:15 Urine Bilirubin Negative (NEGATIVE) 02/28/18 12:15 Urine Urobilinogen 0.2-1.0 mg/dL (0.2-1.0) 02/28/18 12:15 Ur Leukocyte Esterase Neg Karen/uL (Negative) 02/28/18 12:15 Urine RBC (Auto) 3 /hpf (0-3) 02/28/18 12:15 Urine Microscopic WBC 5 /hpf (0-5) 02/28/18 12:15 Ur Squamous Epith Cells 29 /hpf (0-5) H 02/28/18 12:15 Urine Bacteria Rare (<OCC) 02/28/18 12:15 Fluid Type Spinal fluid 02/28/18 14:31 CSF Volume 2 mL (0-1) H 02/28/18 14:31 CSF Appearance Clear/colorless (CLEAR) 02/28/18 14:31 CSF WBC 3.0 /mm3 (0.0-5.0) 02/28/18 14:31 CSF RBC 2.0 /mm3 (0.0-0.0) H 02/28/18 14:31 CSF Total Cell Counted TEST NOT PERFORMED 02/28/18 14:31 CSF Neutrophils 0 % (0-0) 02/28/18 14:31 CSF Lymphocytes 2.0 % (0-0) H 02/28/18 14:31 CSF Monos/Macrophages 0 % (0-0) 02/28/18 14:31 CSF Comment Tube #4 02/28/18 14:31 CSF Glucose 59 mg/dL (40-70) 02/28/18 14:31 CSF Total Protein 44.0 mg/dL (12-60) 02/28/18 14:22 CSF VDRL Nonreactive (Nonreactive) 02/28/18 17:00 Vancomycin Trough < 5.0 ug/mL (5.0-10.0) L 03/02/18 10:14 HSV Source Description Csf 02/28/18 14:31 HSV I DNA PCR Not detected (Not Detected) 02/28/18 14:31 HSV II DNA PCR Not detected (Not Detected) 02/28/18 14:31 HIV-1 Ab Rapid Screen Non reactive (NON REAC) 03/01/18 04:20 Influenza Typ A,B (EIA) Negative for flu a/b (NEGATIVE) 02/28/18 12:50 H.influenzae Type B Ag Negative (NEGATIVE) 02/28/18 17:25 N.meningitidis ACY/W135 Negative (NEGATIVE) 02/28/18 17:25 N.meningi B/E.coli K1 Ag Negative (NEGATIVE) 02/28/18 17:25 Grp A Beta Strep Ag Negative (NEGATIVE) 02/28/18 13:00 Group B Strep Antigen Negative (NEGATIVE) 02/28/18 17:25 S. pneumoniae Antigen Negative (NEGATIVE) 02/28/18 17:25 Attending/Attestation - Attestation I have personally seen and examined this patient.: Yes I have fully participated in the care of the patient.: Yes I have reviewed all pertinent clinical information, including history, physical exam and plan: Yes Notes (Text): 03/05/18 08:31 Attendiing Note - ATTESTATION - Patient feeling improved. WBC improved. No fevers in past 24 hours. Patient will be discharged to outpatient follow up.
--- NOTE | 2018-03-04 12:21 | CP.PCM.PN ---
Subjective - Date & Time of Evaluation Date of Evaluation: 03/04/18 Time of Evaluation: 12:00 - Subjective Subjective: Patient is being discharged. WBC trending down, no fever. Headache and neck pain have improved. She had spasms and discomfort from the injection itself yesterday, but that has since subsided. Subjectively she feels better and wants to go home. Objective - Vital Signs/Intake and Output Vital Signs (last 24 hours): Temp Pulse Resp BP Pulse Ox 98.2 F 58 L 18 96/57 L 97 03/04/18 08:07 03/04/18 08:07 03/04/18 08:07 03/04/18 08:07 03/04/18 08:07 - Medications Medications: Current Medications Acetaminophen (Tylenol 325mg Tab) 650 mg PO Q4 PRN PRN Reason: Pain, moderate (4-7) Aspirin (Ecotrin) 81 mg PO DAILY [facility] Last Admin: 03/04/18 10:30 Dose: 81 mg Atorvastatin Calcium (Lipitor) 20 mg PO HS [facility] Last Admin: 03/03/18 22:19 Dose: 20 mg Benzocaine/Menthol (Cepacol Sore Throat) 1 asha PO Q3 PRN PRN Reason: Sore Throat Last Admin: 03/03/18 22:22 Dose: 1 asha Doxepin HCl (Sinequan) 10 mg PO HS [facility] Last Admin: 03/03/18 22:19 Dose: 10 mg Enoxaparin Sodium (Lovenox) 40 mg SC DAILY DEB PRN Reason: Protocol Last Admin: 03/04/18 10:31 Dose: 40 mg Gabapentin (Neurontin) 600 mg PO Q8 [facility] Last Admin: 03/04/18 10:30 Dose: 600 mg Lactated Ringer's (Lactated Ringer's) 1,000 mls @ 100 mls/hr IV .Q10H [facility] Last Admin: 03/04/18 04:26 Dose: 100 mls/hr Morphine Sulfate (Morphine) 2 mg IVP Q4 PRN PRN Reason: Pain, severe (8-10) Last Admin: 03/04/18 04:25 Dose: 2 mg Morphine Sulfate (Morphine) 4 mg IVP Q4 PRN PRN Reason: severe pain Last Admin: 03/04/18 10:34 Dose: 4 mg Multivitamins/Minerals (Therapeutic-M Tab) 1 tab PO DAILY DEB Last Admin: 03/04/18 10:31 Dose: 1 tab - Labs Labs: 03/04/18 06:30 03/03/18 05:11 PT 12.6 Seconds (9.8-13.1) 02/28/18 12:45 INR 1.1 (0.9-1.2) 02/28/18 12:45 APTT 32.6 Seconds (25.6-37.1) 02/28/18 12:45 - Neck Exam Neck Exam: Full ROM, Normal Inspection, Tenderness Assessment and Plan (1) Complex regional pain syndrome Assessment & Plan: 47 yo woman w/ headache + neck pain from unclear etiology. Current episode is likely secondary to pain, although infectious etiology can't be entirely ruled out. Work-up negative thus far, patient has been cleared for discharge. - f/u with pain clinic as outpatient Status: Acute
[2018-03-04 12:25] VITALS: BP 107/64; PULSE 64; O2SAT 98
--- NOTE | 2018-03-06 15:39 | RAD ---
PROCEDURE: Fluoroscopy up to 1 hr. HISTORY: PAIN MANAGEMENT COMPARISON: None TECHNIQUE: Standard protocol for this study/examination. FINDINGS: Total fluoroscopic time (continuous mode) utilized during the procedure (seconds) 40.0. Total exam DLP: (mGy) 8.15 IMPRESSION: Less than 1 hr fluoroscopic time utilized during performance of the procedure.
== END 2018-03-04 13:30 | disposition home or self-care (01) | DRG 243 ==
LOC: H.ER 10:45 → H.ERHOLD 14:55 → H.TEL 16:45
PROVIDERS: ADMIT Emergency Medicine; ATTEND Emergency Medicine
PROC: 009U3ZX Drainage of Spinal Canal, Percutaneous Approach, Diagnostic (ICD-10-PCS; 2018-02-28)
PROC: 3E0R33Z Introduction of Anti-inflammatory into Spinal Canal, Percutaneous Approach (ICD-10-PCS; 2018-03-03)
PROC: 3E0R3BZ Introduction of Anesthetic Agent into Spinal Canal, Percutaneous Approach (ICD-10-PCS; principal; 2018-03-03 08:00)
DX: M47.812 Spondylosis without myelopathy or radiculopathy, cervical region (principal); N18.9 Chronic kidney disease, unspecified; G90.50 Complex regional pain syndrome I, unspecified; R50.9 Fever, unspecified; D72.829 Elevated white blood cell count, unspecified; I25.10 Atherosclerotic heart disease of native coronary artery without angina pectoris; Z95.5 Presence of coronary angioplasty implant and graft; I12.9 Hypertensive chronic kidney disease with stage 1 through stage 4 chronic kidney disease, or unspecified chronic kidney disease; E78.00 Pure hypercholesterolemia, unspecified; E78.5 Hyperlipidemia, unspecified; I34.1 Nonrheumatic mitral (valve) prolapse; M06.9 Rheumatoid arthritis, unspecified; Z88.3 Allergy status to other anti-infective agents; Z91.041 Radiographic dye allergy status; J45.909 Unspecified asthma, uncomplicated; K50.90 Crohn's disease, unspecified, without complications; F17.200 Nicotine dependence, unspecified, uncomplicated

== ENCOUNTER 2018-04-05 20:34 | Emergency (ER) | payer MEDICAID ==
[2018-04-05 20:48] VITALS: BMI 28.8
[2018-04-05 20:51] VITALS: O2SAT 98
[2018-04-05 21:27] LABS: SQUAMOUS EPITHIAL 3 /hpf (0-5); URINE BILIRUBIN NEGATIVE (NEGATIVE); URINE BLOOD NEGATIVE (NEGATIVE); URINE CLARITY SLIGHTY-CLOUDY (Clear); URINE COLOR YELLOW (YELLOW); URINE GLUCOSE (UA) NEG (Normal); URINE HYALINE CAST 0-2 /hpf (0-2); URINE LEUKOCYTE ESTERASE NEG Leu/uL (Negative); URINE PROTEIN NEGATIVE (NEGATIVE); URINE UROBILINOGEN 0.2-1.0 mg/dL (0.2-1.0)
--- NOTE | 2018-04-05 21:54 | ED PDOC ---
Syncope/Near Syncope/Dizziness Time Seen by Provider: 04/05/18 20:53 Chief Complaint (Nursing): Dizziness/Lightheaded Chief Complaint (Provider): Dizziness and nausea History Per: Patient History/Exam Limitations: no limitations Onset/Duration Of Symptoms: Hrs (x24), Intermittent Episodes Current Symptoms Are (Timing): Still Present Additional Complaint(s): Missy Medina is a 47 year old female, with a past medical history of inflammatory bowel disease, dyslipidemia, and chronic pain with complex regional pain syndrome, who presents to the emergency department for evaluation of intermittent dizziness and nausea onset for x24 hrs. Patient state she was admitted a month ago and had work up for meningitis which was ultimately excluded. Patient reports an occasional headache but denies any fever, chills or other medical complaints. PMD: Jenifer Diaz Past Medical History Reviewed: Historical Data, Nursing Documentation, Vital Signs Vital Signs: Last Vital Signs Temp 98.1 F 04/05/18 20:48 Pulse 67 04/05/18 20:48 Resp 18 04/05/18 20:48 BP 115/74 04/05/18 20:48 Pulse Ox 98 04/05/18 20:48 - Medical History PMH: Arthritis, Asthma, Bronchitis, CAD, Crohn's Disease, Fractures (right arm) , Gall Bladder Disease (removed 2002), HTN, Hypercholesterolemia, Hyperlipidemia , Mitral Valve Prolapse, Pneumonia, Chronic Kidney Disease, Rheumatoid Arthritis , Chronic Pain (CRPS) Denies: HIV Other PMH: IBD - Surgical History Surgical History: Appendectomy (at 8 years old), Cholecystectomy (2002), Coronary Stent (x1; Left circumflex (January 2016)), Tonsillectomy ("at young age") , (x1) Denies: Pacemaker - Family History Family History: States: Unknown Family Hx, SD (Father had SD at 50 y/o), CAD - Social History Current smoker - smoking cessation education provided: No Alcohol: None Drugs: Denies - Immunization History Hx Tetanus Toxoid Vaccination: No Hx Influenza Vaccination: Yes Hx Pneumococcal Vaccination: No - Home Medications Home Medications: Ambulatory Orders Medication Instructions Recorded Aspirin [Ecotrin] 81 mg PO DAILY 01/28/17 Gabapentin [Neurontin] 600 mg PO Q8 12/27/17 Multivitamin [Multi-Vitamin Daily] 1 tab PO DAILY 01/17/18 oxyCODONE/Acetaminophen [Percocet 1 tab PO Q8 PRN 01/17/18 5/325 mg Tab] Doxepin [Sinequan] 10 mg PO HS cap 01/18/18 Atorvastatin [Lipitor] 20 mg PO HS 02/22/18 Ondansetron ODT [Zofran ODT] 4 mg PO Q6 PRN #8 odt 04/05/18 - Allergies Allergies/Adverse Reactions: Allergies Allergy/AdvReac Type Severity Reaction Status Date / Time ceftriaxone Allergy RASH Verified 04/05/18 20:47 Iodine and Iodide Containing Allergy SHORTNESS Verified 04/05/18 20:47 Produc OF BREATH iohexol [From Omnipaque] AdvReac SWELLING Verified 04/05/18 20:47 Review of Systems ROS Statement: Except As Marked, All Systems Reviewed And Found Negative Constitutional: Negative for: Fever, Chills Gastrointestinal: Positive for: Nausea Neurological: Positive for: Headache (occasional), Dizziness Physical Exam - Reviewed Nursing Documentation Reviewed: Yes Vital Signs Reviewed: Yes - Physical Exam Appears: Positive for: Non-toxic, No Acute Distress Head Exam: Positive for: ATRAUMATIC, NORMAL INSPECTION, NORMOCEPHALIC Skin: Positive for: Normal Color, Warm, Dry Eye Exam: Positive for: Normal appearance, EOMI, PERRL Neck: Positive for: Painless ROM Cardiovascular/Chest: Positive for: Regular Rate, Rhythm. Negative for: Murmur Respiratory: Positive for: Normal Breath Sounds. Negative for: Respiratory Distress Gastrointestinal/Abdominal: Positive for: Normal Exam, Soft. Negative for: Tenderness Extremity: Positive for: Normal ROM (upper and lower extremities), Other ( contractor of her left 4th and 5th digit related to her CRPS.). Negative for: Deformity, Swelling Neurologic/Psych: Positive for: Alert, Oriented. Negative for: Motor/Sensory Deficits - Laboratory Results Result Diagrams: 04/05/18 21:58 04/05/18 21:58 - ECG O2 Sat by Pulse Oximetry: 98 (RA) Pulse Ox Interpretation: Normal Medical Decision Making Medical Decision Making: Time: 20:53 Initial impression: 47 y/o female with non specific dizziness and nausea. Initial Plan: --CMP --Lipase --Urine --Urine dipstick --CBC w/ differential --Zofran Inj 4 mg IV --Accucheck --Urinalysis --Reevaluation Labs were reviewed with no clinically significant abnormalities. Patient reports mild improvement in symptoms. She states that she will schedule an outpatient MRI. Upon provider reevaluation patient is feeling better, is medically stable, and requires no further treatment in the ED at this time. Patient will be discharged. Counseling was provided and all questions were answered regarding diagnosis and need for follow up with PMD. There is agreement to discharge plan. Return if symptoms persist or worsen. ----- Scribe Attestation: Documented by Channing Thompson, acting as a scribe for Mike Huerta MD. Provider Scribe Attestation: All medical record entries made by the Scribe were at my direction and personally dictated by me. I have reviewed the chart and agree that the record accurately reflects my personal performance of the history, physical exam, medical decision making, and the department course for this patient. I have also personally directed, reviewed, and agree with the discharge instructions and disposition. Disposition - Clinical Impression Clinical Impression: Dizziness of unknown cause - Patient ED Disposition Is Patient to be Admitted: No - Disposition Disposition: Routine/Home Disposition Time: 00:05 Condition: STABLE Prescriptions: Ondansetron ODT [Zofran ODT] 4 mg PO Q6 PRN #8 odt PRN Reason: Nausea/Vomiting Instructions: Dizziness, Nonvertigo, (DC) Forms: [employer] (Maori)
[2018-04-05 22:14] LABS: BASO % 0.3 % (0.0-2.0); EOS # 0.1 K/uL (0.0-0.7); EOS % 0.9 % (0.0-4.0); HEMOGLOBIN 12.4 g/dL (12.0-16.0); LYMPH # 3.3 K/uL (1.0-4.3); MEAN CORPUSCULAR HEMOGLOBIN 30.2 pg (27.0-31.0); MEAN CORPUSCULAR HGB CONC 33.6 g/dL (33.0-37.0); MEAN PLATELET VOLUME 7.3 fl (7.2-11.7); MONO # 0.7 K/uL (0.0-0.8); MONO % 6.4 % (0.0-10.0); NEUT % 62.4 % (50.0-75.0); RBC 4.09 Mil/uL (3.80-5.20); RED CELL DISTRIBUTION WIDTH 13.2 % (11.5-14.5); WHITE BLOOD COUNT 11.1 K/uL (4.8-10.8)
[2018-04-05 22:25] LABS: ALB/GLOB RATIO 1.2 (1.0-2.1); ALBUMIN 4.4 g/dL (3.5-5.0); ALT/SGPT 27 U/L (9-52); AST/SGOT 33 U/L (14-36); BLOOD UREA NITROGEN 20 mg/dl (7-17); CALCIUM 9.6 mg/dL (8.4-10.2); GFR AFRICAN-AMERICAN > 60; GFR NON-AFRICAN AMERICAN > 60; LIPASE 53 U/L (23-300)
[2018-04-06] MEDS: Sodium Chloride 0.9% 1,000 ML IV STA (00:08)
[2018-04-06 00:12] VITALS: BP 122/78; PULSE 86; RESP 16; TEMP 98.2
== END 2018-04-06 00:20 | disposition home or self-care (01) ==
LOC: H.ER 20:34
DX: R42 Dizziness and giddiness (principal); E78.00 Pure hypercholesterolemia, unspecified; G89.29 Other chronic pain; I25.10 Atherosclerotic heart disease of native coronary artery without angina pectoris; K50.90 Crohn's disease, unspecified, without complications; K58.9 Irritable bowel syndrome, unspecified; Z88.1 Allergy status to other antibiotic agents; Z95.5 Presence of coronary angioplasty implant and graft
CPT/HCPCS: 80053; 81003; 81025; 82948; 83690; 85025; 96360; 99285; J1885; J2405; J7030

== ENCOUNTER 2018-04-19 10:37 | Day surgery (SDC) | payer MEDICAID ==
[2018-04-19 11:39] VITALS: BMI 29.0
[2018-04-19] MEDS ORDERED: DiphenhydrAMINE 50 mg/ml Inj IVP ONE (12:18)
[2018-04-19] MEDS ORDERED: Lidocaine 2% MPF (5 ml) Inj INJ ONE (12:20)
[2018-04-19] MEDS ORDERED: Iohexol 300 10 ML IJ ONE (12:21)
[2018-04-19] MEDS ORDERED: Bupivacaine HCl 0.25% PF (30 ml) Inj IJ ONE (12:27)
[2018-04-19] MEDS ORDERED: Lactated Ringer's 1,000 ML IV ONE (12:29)
[2018-04-19] MEDS ORDERED: Lactated Ringer's 500 ML IV ONE (12:35)
[2018-04-19] MEDS ORDERED: Lactated Ringer's 1,000 ML IV SCH (12:45)
[2018-04-19] MEDS: HYDROmorphone 0.5 mg/0.5 ml ISec IVP PRN ×3 (13:05→14:05)
[2018-04-19] MEDS ORDERED: HYDROmorphone 0.5 mg/0.5 ml ISec IVP ONE (14:50)
--- NOTE | 2018-04-19 15:08 | RAD ---
Date of service: 04/19/2018 HISTORY: post left stellate ganglion nerve block COMPARISON: 02/28/2018 FINDINGS: LUNGS: Lung volumes currently more shallow than before - is accentuates the prominent pulmonary vasculature. No consolidation bleed present. PLEURA: No significant pleural effusion identified, no pneumothorax apparent. CARDIOVASCULAR: Cardiomegaly -similar. Probable mild pulmonary venous congestion - probably accentuated due to the shallow lung volumes. OSSEOUS STRUCTURES: No significant abnormalities. VISUALIZED UPPER ABDOMEN: Normal. OTHER FINDINGS: Asymmetrically elevated right hemidiaphragm- similar to a 02/22/2018 study. IMPRESSION: Shallow lung volumes not present as before. The cardiomegaly status is similar. A pulmonary venous congestion mild status is also suspect probably essential rated due to the shallow lung volumes.
[2018-04-19 15:32] VITALS: O2SAT 97
[2018-04-19 15:33] VITALS: BP 136/72; PULSE 85; RESP 18; TEMP 98.5
--- NOTE | 2018-04-20 01:28 | OP ---
Copied To: Sylvester Barrios MD Attending MD: Sylvester Barrios MD PROCEDURE DATE: 04/19/2018 PREOPERATIVE DIAGNOSIS: Left complex regional pain syndrome. POSTOPERATIVE DIAGNOSIS: Left complex regional pain syndrome. PROCEDURE: Left stellate ganglion block at C7. ANESTHESIOLOGIST: Junior Cutler DO SURGEON: Sylvester Barrios MD ANESTHESIA TYPE: Monitored anesthesia care. COMPLICATIONS: None. SPECIMEN: None. DESCRIPTION OF PROCEDURE: As follows: After we had discussion of the procedure with the patient including its risks, benefits, alternatives, outcome data, possibility of no effect or increased pain, the patient consented to the procedure. Two previous procedures were performed at the level of C6, but the patient did not have significant improvement. As a result, the decision was made to perform the procedure at C7. The patient understands that there is a increased risk of pneumothorax and vascular puncture. Consent was signed and the patient was then brought into the OR. The patient was placed on the fluoroscopic table in a supine position over the shoulder roll. The left neck was prepped and draped in the usual sterile fashion, and a sterile technique was adhered during the entire procedure. The target is at the junction of the vertebral body and the transverse process on the left side of the C7 vertebrae. This was identified and the skin overlying this area was infiltrated with 1% lidocaine using a 25-gauge needle. Subsequently, a 25-gauge 3-1/2-inch spinal needle was incrementally advanced under fluoroscopic guidance until the tip of the needle made bony contact. The needle was then slightly pulled back. Contrast injection at this level showed appropriate spread along the lateral border between the vertebral body and transverse process. The contrast was seen spreading down to the T1 level on the left side. There were no signs of CSF or intravenous uptake. At this point, approximately 10 mL of 0.25% Marcaine mixed with 20 of Decadron was gradually injected. Slight pressure was placed above the needle, so most of the solution spread distally. At the end of the procedure, the needle was removed. The patient's neck was cleaned and dry bandages were applied. The patient was transferred to the recovery area in good condition without any signs of [employer] toxicity or any neurological deficit. She did not have any pain going down the left arm. She does have a slight chest discomfort. Chest x-ray will be obtained to rule out pneumothorax. Sylvester Barrios MD [facility] # [phone]
== END 2018-04-19 15:45 | disposition home or self-care (01) ==
LOC: H.OPSURG 10:37
PROVIDERS: ATTEND Anesthesiology
DX: G90.512 Complex regional pain syndrome I of left upper limb (principal); I25.10 Atherosclerotic heart disease of native coronary artery without angina pectoris
CPT/HCPCS: 64510; 71045; J1100; J1170; J1200; J7120; Q9967

== ENCOUNTER 2018-04-25 21:01 | Emergency (ER) | payer MEDICAID ==
[2018-04-25 21:01] VITALS: BMI 29.0
[2018-04-25 21:09] VITALS: RESP 16
[2018-04-25] MEDS ORDERED: Sodium Chloride 0.9% 1,000 ML IV STA (22:49)
--- NOTE | 2018-04-25 22:55 | ED PDOC ---
HPI: Abdomen Time Seen by Provider: 04/25/18 22:16 Chief Complaint (Nursing): Chest Pain Chief Complaint (Provider): abdominal pain History Per: Patient History/Exam Limitations: no limitations Onset/Duration Of Symptoms: Days (2) Current Symptoms Are (Timing): Still Present Location Of Pain/Discomfort: RUQ, Epigastric, LUQ Quality Of Discomfort: Burning, "Pain", Gas Associated Symptoms: Chest Pain Additional Complaint(s): 47 y/o female presents for evaluation of upper abdominal pain x 2 days. Patient states pain radiates across to back and up in to chest, describes as "burning". Associated vomiting x 2. Patient also states she is feeling dizzy and has a headache due to the pain. Denies fever, shortness of breath, palpitations, changes in bowel movements, urinary symptoms, leg pain/swelling, recent travel. Past Medical History Reviewed: Historical Data, Nursing Documentation, Vital Signs Vital Signs: Last Vital Signs Temp 98.4 F 04/26/18 03:22 Pulse 81 04/26/18 03:22 Resp 16 04/26/18 03:22 BP 130/75 04/26/18 03:22 Pulse Ox 99 04/26/18 03:22 - Medical History PMH: Arthritis, Asthma, Bronchitis, CAD, Crohn's Disease, Fractures (right arm) , Gall Bladder Disease (removed 2002), HTN, Hypercholesterolemia, Hyperlipidemia , Mitral Valve Prolapse, Pneumonia, Chronic Kidney Disease, Rheumatoid Arthritis , Chronic Pain (CRPS) Denies: HIV - Surgical History Surgical History: Appendectomy (at 8 years old), Cholecystectomy (2002), Coronary Stent (x1; Left circumflex (January 2016)), Tonsillectomy ("at young age") , (x1) Denies: Pacemaker - Family History Family History: States: Unknown Family Hx, MS (Father had MS at 50 y/o), CAD - Immunization History Hx Tetanus Toxoid Vaccination: No Hx Influenza Vaccination: Yes Hx Pneumococcal Vaccination: No - Home Medications Home Medications: Ambulatory Orders Medication Instructions Recorded Aspirin [Ecotrin] 81 mg PO DAILY 01/28/17 Gabapentin [Neurontin] 600 mg PO Q8 12/27/17 Multivitamin [Multi-Vitamin Daily] 1 tab PO DAILY 01/17/18 oxyCODONE/Acetaminophen [Percocet 1 tab PO Q8 PRN 01/17/18 5/325 mg Tab] Doxepin [Sinequan] 10 mg PO HS cap 01/18/18 Atorvastatin [Lipitor] 20 mg PO HS 02/22/18 Cyclobenzaprine [Cyclobenzaprine 10 mg PO BID PRN #14 tab 04/26/18 HCl] Famotidine [Pepcid] 20 mg PO BID #20 tab 04/26/18 - Allergies Allergies/Adverse Reactions: Allergies Allergy/AdvReac Type Severity Reaction Status Date / Time ceftriaxone Allergy RASH Verified 04/19/18 10:50 Iodine and Iodide Containing Allergy SHORTNESS Verified 04/19/18 10:50 Produc OF BREATH iohexol [From Omnipaque] AdvReac SWELLING Verified 04/19/18 10:50 Review of Systems ROS Statement: Except As Marked, All Systems Reviewed And Found Negative Cardiovascular: Positive for: Chest Pain Gastrointestinal: Positive for: Nausea, Vomiting, Abdominal Pain Physical Exam - Reviewed Nursing Documentation Reviewed: Yes Vital Signs Reviewed: Yes - Physical Exam Appears: Positive for: Well, Non-toxic, No Acute Distress Head Exam: Positive for: ATRAUMATIC, NORMAL INSPECTION, NORMOCEPHALIC Skin: Positive for: Normal Color Eye Exam: Positive for: Normal appearance ENT: Positive for: Normal ENT Inspection Cardiovascular/Chest: Positive for: Regular Rate, Rhythm. Negative for: Chest Non Tender (tender to palpate anterior chest wall) Respiratory: Positive for: Normal Breath Sounds Gastrointestinal/Abdominal: Positive for: Bowel Sounds, Soft, Tenderness ( epigastric, RUQ, LUQ) Back: Positive for: Normal Inspection Extremity: Positive for: Normal ROM Neurologic/Psych: Positive for: Alert, Oriented (x3) - Laboratory Results Result Diagrams: 04/25/18 23:10 04/26/18 01:00 - ECG ECG: Positive for: Viewed By Me (reviewed by ED attending) ECG Rhythm: Positive for: Sinus Rhythm O2 Sat by Pulse Oximetry: 98 - Radiology X-Ray: Viewed By Me X-Ray Interpretation: No Acute Disease - Progress ED Course And Treament: labs, urine, ekg, chest xray, IV fluids, IV pepcid, IV zofran On re-eval, patient still with pain; Percocet PO ordered Patient admitted 02/22 for same symptoms, was advised to f/up with GI but patient states she has not yet done so. Patient evaluated by FP resident to arrange expedited outpatient follow up On re-eval, patient states she is feeling better. Tolerated PO Rx Flexeril, Pepcid provided Advised follow up PMD 2-3 days. Diet modification Return precautions given Disposition - Clinical Impression Clinical Impression: GERD (gastroesophageal reflux disease), Atypical chest pain - Patient ED Disposition Is Patient to be Admitted: No Counseled Patient/Family Regarding: Studies Performed, Diagnosis, Need For Followup, Rx Given - Disposition Referrals: Grant Cavanaugh MD [Medical Doctor] - Jenifer Diaz MD [Family Provider] - Disposition: Routine/Home Disposition Time: 02:36 Condition: IMPROVED Additional Instructions: Follow up with your primary doctor within 2 days Follow up with GI Take medications as directed Diet modification Return to ED for worsening/concerning symptoms Prescriptions: Cyclobenzaprine [Cyclobenzaprine HCl] 10 mg PO BID PRN #14 tab PRN Reason: Muscle Spasm Famotidine [Pepcid] 20 mg PO BID #20 tab Instructions: Chest Pain That Is Not Caused by the Heart (DC), Acid Reflux ( Gastroesophageal Reflux Disease), Adult (DC) Forms: [employer] (Welsh)
[2018-04-25 23:37] LABS: BASO # 0.1 K/uL (0.0-0.2); BASO % 0.8 % (0.0-2.0); EOS # 0.3 K/uL (0.0-0.7); EOS % 2.2 % (0.0-4.0); HEMOGLOBIN 12.7 g/dL (12.0-16.0); LYMPH # 3.7 K/uL (1.0-4.3); LYMPH % 27.3 % (20.0-40.0); MEAN CELL VOLUME 90.6 fl (81.0-99.0); MEAN CORPUSCULAR HEMOGLOBIN 30.1 pg (27.0-31.0); MEAN CORPUSCULAR HGB CONC 33.2 g/dL (33.0-37.0); MEAN PLATELET VOLUME 7.4 fl (7.2-11.7); MONO # 0.8 K/uL (0.0-0.8); MONO % 6.1 % (0.0-10.0); NEUT # 8.6 K/uL (1.8-7.0); NEUT % 63.6 % (50.0-75.0); RBC 4.22 Mil/uL (3.80-5.20); RED CELL DISTRIBUTION WIDTH 13.2 % (11.5-14.5); WHITE BLOOD COUNT 13.5 K/uL (4.8-10.8)
[2018-04-26] MEDS ORDERED: Oxycodone/Acetaminophen 5/325 mg Tab PO ONE (01:20)
[2018-04-26 01:22] LABS: SQUAMOUS EPITHIAL 3 /hpf (0-5); URINE BILIRUBIN NEGATIVE (NEGATIVE); URINE BLOOD NEGATIVE (NEGATIVE); URINE CLARITY CLOUDY (Clear); URINE COLOR YELLOW (YELLOW); URINE GLUCOSE (UA) NEG (Normal); URINE LEUKOCYTE ESTERASE NEG Leu/uL (Negative); URINE PROTEIN NEGATIVE (NEGATIVE); URINE UROBILINOGEN 0.2-1.0 mg/dL (0.2-1.0)
[2018-04-26 01:29] LABS: BLOOD UREA NITROGEN 23 mg/dl (7-17); CALCIUM 9.4 mg/dL (8.4-10.2); GFR NON-AFRICAN AMERICAN > 60
[2018-04-26 01:30] LABS: ALB/GLOB RATIO 1.4 (1.0-2.1); ALBUMIN 4.2 g/dL (3.5-5.0); AST/SGOT 20 U/L (14-36)
[2018-04-26 01:31] LABS: ALT/SGPT 22 U/L (9-52); LIPASE 136 U/L (23-300)
[2018-04-26] MEDS ORDERED: Alum-Mag Hydrox-Simethicone Susp (30 mL) PO ONE (02:32)
[2018-04-26] MEDS ORDERED: Atrop/Hyos/Scop/PhenoB Elixir PO ONE (02:32)
[2018-04-26] MEDS ORDERED: Alum-Mag Hydrox-Simethicone Susp (30 mL) ONE (02:45)
[2018-04-26] MEDS ORDERED: Oxycodone/Acetaminophen 5/325 mg Tab ONE (02:45)
[2018-04-26 03:24] VITALS: BP 130/75; PULSE 81; TEMP 98.4
--- NOTE | 2018-04-26 07:28 | CARD ---
APPROVED REPORT Date of service: 04/25/2018 <Conclusion> Normal sinus rhythm Cannot rule out Inferior infarct, age undetermined Cannot rule out Anterior infarct, age undetermined Abnormal ECG
--- NOTE | 2018-04-26 08:39 | RAD ---
Date of service: 04/25/2018 HISTORY: chest pain COMPARISON: 04/19/2018 FINDINGS: LUNGS: Thread-like interval discoid atelectatic changes bordering the right and left heart borders noted. No more significant appearing consolidation suggested. PLEURA: No significant pleural effusion identified, no pneumothorax apparent. CARDIOVASCULAR: Cardiomegaly-as before. Probable mild pulmonary venous congestion not significantly changed. OSSEOUS STRUCTURES: No significant abnormalities. VISUALIZED UPPER ABDOMEN: Normal. OTHER FINDINGS: None. IMPRESSION: Cardiomegaly-as before. Probable mild pulmonary venous congestion not significantly changed. Thread-like interval discoid atelectatic changes bordering the right and left heart borders
[2018-04-27 04:24] VITALS: O2SAT 98
== END 2018-04-26 03:05 | disposition home or self-care (01) ==
LOC: H.ER 21:01
DX: K21.9 Gastro-esophageal reflux disease without esophagitis (principal); R07.89 Other chest pain; K50.90 Crohn's disease, unspecified, without complications; Z88.1 Allergy status to other antibiotic agents; Z95.5 Presence of coronary angioplasty implant and graft; I12.9 Hypertensive chronic kidney disease with stage 1 through stage 4 chronic kidney disease, or unspecified chronic kidney disease; E78.00 Pure hypercholesterolemia, unspecified
CPT/HCPCS: 71045; 80053; 81003; 83690; 84484; 85025; 93005; 96374; 99284; J2405; J7030

== ENCOUNTER 2018-06-17 21:09 | Emergency (ER) | payer MEDICAID ==
[2018-06-17 21:09] VITALS: BMI 29.0
[2018-06-17 21:28] VITALS: RESP 18; O2SAT 99
[2018-06-17] MEDS ORDERED: Sodium Chloride 0.9% 1,000 ML IV SCH (22:00)
--- NOTE | 2018-06-17 22:09 | ED PDOC ---
HPI: Headache Chief Complaint (Provider): headache History Per: Patient History/Exam Limitations: no limitations Onset/Duration Of Symptoms: Hrs (earlier today) Current Symptoms Are (Timing): Still Present Pain Scale Rating Of: 10 Associated Symptoms: Photophobia, Vomiting Additional Complaint(s): Missy Medina is a 47 year old female, with a past medical history of CAD with cardiac stents, rheumatic fever and regional pain syndrome, who presents to the emergency department for evaluation of a headache, neck pain, bilateral shoulder pain, upper back pain, body aches and photosensitivity since earlier today. She denies any history of similar headache and states current headache is a 10/10 and associated with x2 episodes of vomiting this evening, non bloody and non bilious. She also reports a tactile fever. She took 1000mg of Tylenol x2 hrs ago and 600mg of Motrin x6 hrs [employer]. She denies any cough, shortness of breath, chest pain, sick contacts, recent travel, abdominal pain, ear or throat pain. No further medical complaints. PMD: Jenifer Diaz <Edwige Hubbard - Last Filed: 06/18/18 01:21> <Chaparrita Gay - Last Filed: 06/18/18 23:56> Time Seen by Provider: 06/17/18 21:39 Chief Complaint (Nursing): Headache Supervising Attending Note - Attestation: I have personally seen and examined this patient.: No I have reviewed all pertinent clinical information: Yes <Chaparrita Gay - Last Filed: 06/18/18 23:56> Past Medical History Reviewed: Historical Data, Nursing Documentation, Vital Signs Vital Signs: Last Vital Signs Temp 98.2 F 06/17/18 21:26 Pulse 72 06/17/18 21:26 Resp 18 06/17/18 21:26 BP 143/83 06/17/18 21:26 Pulse Ox 99 06/17/18 21:26 - Medical History PMH: Arthritis, Asthma, Bronchitis, CAD, Crohn's Disease, Fractures (right arm), Gall Bladder Disease (removed 2002), HTN, Hypercholesterolemia, Hyperlipidemia, Mitral Valve Prolapse, Pneumonia, Chronic Kidney Disease, Rheumatoid Arthritis, Chronic Pain (CRPS) Denies: HIV - Surgical History Surgical History: Appendectomy (at 8 years old), Cholecystectomy (2002), Coronary Stent (x1; Left circumflex (January 2016)), Tonsillectomy ("at young age"), (x1) Denies: Pacemaker Other surgeries: PLATE IN RIGHT ARM x3 yrs ago - Family History Family History: States: Unknown Family Hx, IA (Father had IA at 50 y/o), CAD - Immunization History Hx Tetanus Toxoid Vaccination: No Hx Influenza Vaccination: Yes Hx Pneumococcal Vaccination: No <Edwige Hubbard K - Last Filed: 06/18/18 01:21> Vital Signs: Last Vital Signs Temp 97.8 F 06/18/18 01:26 Pulse 60 06/18/18 01:26 Resp 18 06/18/18 01:26 BP 104/65 06/18/18 01:26 Pulse Ox 99 06/18/18 01:47 <GayChaparrita F - Last Filed: 06/18/18 23:56> - Home Medications Home Medications: Ambulatory Orders Medication Instructions Recorded RX: Aspirin [Ecotrin] 81 mg PO DAILY 01/28/17 RX: Gabapentin [Neurontin] 600 mg PO Q8 12/27/17 RX: Multivitamin [Multi-Vitamin 1 tab PO DAILY 01/17/18 Daily] RX: oxyCODONE/Acetaminophen 1 tab PO Q8 PRN 01/17/18 [Percocet 5/325 mg Tab] RX: Doxepin [Sinequan] 10 mg PO HS cap 01/18/18 RX: Atorvastatin [Lipitor] 20 mg PO HS 02/22/18 Cyclobenzaprine [Cyclobenzaprine 10 mg PO BID PRN #14 tab 04/26/18 HCl] Famotidine [Pepcid] 20 mg PO BID #20 tab 04/26/18 Cyclobenzaprine [Cyclobenzaprine 10 mg PO Q8 PRN #12 tab 06/18/18 HCl] Meloxicam [Mobic] 15 mg PO DAILY #14 tab 06/18/18 - Allergies Allergies/Adverse Reactions: Allergies Allergy/AdvReac Type Severity Reaction Status Date / Time ceftriaxone Allergy RASH Verified 06/17/18 21:25 Iodine and Iodide Containing Allergy SHORTNESS Verified 06/17/18 21:25 Produc OF BREATH iohexol [From Omnipaque] AdvReac SWELLING Verified 06/17/18 21:25 Review of Systems ROS Statement: Except As Marked, All Systems Reviewed And Found Negative Constitutional: Positive for: Fever (subjective), Other (body aches) Eyes: Positive for: Other (photosensitivity) ENT: Negative for: Ear Pain, Throat Pain Cardiovascular: Negative for: Chest Pain Respiratory: Negative for: Cough, Shortness of Breath Gastrointestinal: Positive for: Vomiting (x2). Negative for: Abdominal Pain Musculoskeletal: Positive for: Neck Pain, Shoulder Pain (b/l), Back Pain (upper) Neurological: Positive for: Headache <StevieBeena nibeth Tisha - Last Filed: 06/18/18 01:21> Physical Exam - Reviewed Nursing Documentation Reviewed: Yes Vital Signs Reviewed: Yes - Physical Exam Comments: GENERAL APPEARANCE: Patient is awake, alert, oriented x 3, in no acute distress. SKIN: Warm, dry; (-) cyanosis; (-) rash. HEAD: (-) scalp swelling or tenderness, (-) temporal artery tenderness. EYES: (-) conjunctival pallor, (-) scleral icterus. (+) Photophobia on b/l eyes. ENMT: (-) sinus tenderness; mucous membranes are moist. NECK: (+) paracervical tenderness, (-) stiffness, (-) meningismus, (-) lymp hadenopathy. CHEST AND RESPIRATORY: (-) rales, (-) rhonchi, (-) wheezes; breath sounds equal bilaterally. HEART AND CARDIOVASCULAR: (-) irregularity; (-) murmur, (-) gallop. ABDOMEN AND GI: Soft; (-) tenderness. BACK: (+) Trapezius tenderness EXTREMITIES: (-) deformity. NEURO AND PSYCH: Mental status as above. match up person: Pupils equal and reactive; EOMI; (-) facial asymmetry; tongue and uvula midline. Strength and DTRs symmetric. Babinski normal bilaterally. <StevieEdwige Tisha - Last Filed: 06/18/18 01:21> - Laboratory Results Result Diagrams: 06/17/18 22:05 06/17/18 22:05 Urine POC: Negative Urine dip results: Negative for: Leukocyte Esterase, Blood, Nitrate, Ketones, Glucose, Bilirubin, Protein - ECG O2 Sat by Pulse Oximetry: 99 (RA) Pulse Ox Interpretation: Normal <StevieEdwige Tisha - Last Filed: 10/14/18 01:21> - Laboratory Results Result Diagrams: 06/17/18 22:05 06/17/18 22:05 <Chaparrita Gay - Last Filed: 06/18/18 23:56> Medical Decision Making Medical Decision Making: Time: 21:39 Initial Impression: Headache to consider migraine Initial Plan: --Head w/o contrast [CT] --BMP --Drug screen, urine --Urine dipstick --CBC w/ differential --Erythrocyte sedimentation rate --Flexeril 10 mg PO --Toradol 30 mg IVP --Reglan 10 mg IVP --Toradol 30 mg IVP --Sodium Chloride 1,000 ml IV 1,000 mls/hr --Influenza A B --Reevaluation 5 Udip reviewed and unremarkable. Upreg: negative Accucheck: [address] reviewed: No acute intracranial abnormality. Electronically signed on Jun 17, 2018 10:49:18 PM EDT by Fer Fernandez M.D. ([facility]) Toradol 30mg IVP ordered for additional pain relief. Labs reviewed and grossly unremarkable. Utox negative. 2340 Patient complains of persistent bodyaches and shoulder stiffness. Headache improved. Flexeril PO and Influenza testing ordered. 0045 Influenza: Negative On re-evaluation, patient resting comfortably on cell phone. Patient ambulatory in ED without assistance. On exam, patient remains AAOx3, in no acute distress. Lungs clear to auscultation, cardiac RRR, abdomen soft, non-tender, repeat neuro exam shows no focal findings. VSS, stable for discharge. Lab/Diagnostic results d/w the patient in great detail. Diagnosis of muscle spasm of neck/shoulders, headache (tension vs migraine) d/w the patient. Based on history, exam and diagnostic results, plan will be for outpatient follow up with PMD and neuro. Patient instructed to follow-up with pmd / referral provided / the clinic in 1- 2 days without fail. Advised to take medication as prescribed. Return to the emergency room at any time for any new or worsening symptoms. Patient states she fully agrees with and understands discharge instructions. States that she agrees with the plan and disposition. Verbalized and repeated discharge instructions and plan. I have given the patient opportunity to ask any additional questions. ----- Scribe Attestation: Documented by Channing Thompson, acting as a scribe for Edwige Hubbard PA-C. Provider Scribe Attestation: All medical record entries made by the Scribe were at my direction and personally dictated by me. I have reviewed the chart and agree that the record accurately reflects my personal performance of the history, physical exam, medical decision making, and the department course for this patient. I have also personally directed, reviewed, and agree with the discharge instructions and disposition. <Edwige Hubbard - Last Filed: 06/18/18 01:21> Disposition - Patient ED Disposition Is Patient to be Admitted: No Counseled Patient/Family Regarding: Studies Performed, Diagnosis, Need For Followup, Rx Given - Disposition Disposition: Routine/Home Disposition Time: 00:50 - POA Present On Arrival: None <Edwige Hubbard - Last Filed: 06/18/18 01:21> <Chaparrita Gay - Last Filed: 06/18/18 23:56> - Clinical Impression Clinical Impression: Headache, Muscle spasm, Body aches - Disposition Referrals: Deyvi Larry MD [Medical Doctor] - Jenifer Diaz MD [Staff Provider] - Condition: STABLE Additional Instructions: The emergency medical care you received today was directed towards the acute presenting symptoms. If you were prescribed any medication, please fill it and give as directed. It may take several days for your symptoms to resolve. Return to the Emergency Department at any time if symptoms worsen, do not improve, or if any other problems arise. Please contact your doctor in 2 days for re-evaluation and follow up / or call one of the physicians/clinics you have been referred to that are listed on the Patient Visit Information form that is included in your discharge packet. Bring any paperwork you were given at discharge with you along with any medications to your follow up visit. Our treatment cannot replace ongoing medical care by a primary care provider (PCP) outside of the emergency department. Prescriptions: Cyclobenzaprine [Cyclobenzaprine HCl] 10 mg PO Q8 PRN #12 tab PRN Reason: Muscle Spasm Meloxicam [Mobic] 15 mg PO DAILY #14 tab Instructions: Tension Headache, Headache, Adult, Migraine Headache (DC), Muscle Spasms (DC), Muscle and Bone Pain (DC) Forms: [employer] (Sudanese) Print Language: NEPALI Results - Lab Results Lab Results: 06/17/18 06/17/18 06/17/18 23:52 23:42 23:24 WBC RBC Hgb Hct MCV MCH MCHC RDW Plt Count MPV Neut % (Auto) Lymph % (Auto) Owen % (Auto) Eos % (Auto) Baso % (Auto) Neut # (Auto) Lymph # (Auto) Owen # (Auto) Eos # (Auto) Baso # (Auto) ESR Sodium Potassium Chloride Carbon Dioxide Anion Gap BUN Creatinine Est GFR ( Amer) Est GFR (Non-Af Amer) POC Glucose (mg/dL) 120 H 72 Random Glucose Calcium Urine Opiates Screen Urine Methadone Screen Ur Barbiturates Screen Ur Phencyclidine Scrn Ur Amphetamines Screen U Benzodiazepines Scrn U Oth Cocaine Metabols U Cannabinoids Screen Influenza Typ A,B (EIA) Negative for flu a/b 06/17/18 06/17/18 06/17/18 23:12 22:05 22:05 WBC 11.5 H RBC 4.39 Hgb 13.0 Hct 38.8 MCV 88.4 D MCH 29.5 MCHC 33.4 RDW 13.9 Plt Count 336 MPV 7.2 Neut % (Auto) 61.5 Lymph % (Auto) 27.7 Owen % (Auto) 7.9 Eos % (Auto) 1.6 Baso % (Auto) 1.3 Neut # (Auto) 7.1 H Lymph # (Auto) 3.2 Owen # (Auto) 0.9 H Eos # (Auto) 0.2 Baso # (Auto) 0.1 ESR 41 H Sodium 142 Potassium 3.8 Chloride 109 H Carbon Dioxide 27 Anion Gap 10 BUN 22 H Creatinine 0.5 L Est GFR ( Amer) > 60 Est GFR (Non-Af Amer) > 60 POC Glucose (mg/dL) 68 Random Glucose 82 Calcium 9.5 Urine Opiates Screen Urine Methadone Screen Ur Barbiturates Screen Ur Phencyclidine Scrn Ur Amphetamines Screen U Benzodiazepines Scrn U Oth Cocaine Metabols U Cannabinoids Screen Influenza Typ A,B (EIA) 06/17/18 22:03 WBC RBC Hgb Hct MCV MCH MCHC RDW Plt Count MPV Neut % (Auto) Lymph % (Auto) Owen % (Auto) Eos % (Auto) Baso % (Auto) Neut # (Auto) Lymph # (Auto) Owen # (Auto) Eos # (Auto) Baso # (Auto) ESR Sodium Potassium Chloride Carbon Dioxide Anion Gap BUN Creatinine Est GFR ( Amer) Est GFR (Non-Af Amer) POC Glucose (mg/dL) Random Glucose Calcium Urine Opiates Screen Negative Urine Methadone Screen Negative Ur Barbiturates Screen Negative Ur Phencyclidine Scrn Negative Ur Amphetamines Screen Negative U Benzodiazepines Scrn Negative U Oth Cocaine Metabols Negative U Cannabinoids Screen Negative Influenza Typ A,B (EIA) <Beena Hubbardbeth Tisha - Last Filed: 06/18/18 01:21> - Lab Results Lab Results: 06/17/18 06/17/18 06/17/18 23:52 23:42 23:24 WBC RBC Hgb Hct MCV MCH MCHC RDW Plt Count MPV Neut % (Auto) Lymph % (Auto) Owen % (Auto) Eos % (Auto) Baso % (Auto) Neut # (Auto) Lymph # (Auto) Owen # (Auto) Eos # (Auto) Baso # (Auto) ESR Sodium Potassium Chloride Carbon Dioxide Anion Gap BUN Creatinine Est GFR ( Amer) Est GFR (Non-Af Amer) POC Glucose (mg/dL) 120 H 72 Random Glucose Calcium Urine Opiates Screen Urine Methadone Screen Ur Barbiturates Screen Ur Phencyclidine Scrn Ur Amphetamines Screen U Benzodiazepines Scrn U Oth Cocaine Metabols U Cannabinoids Screen Influenza Typ A,B (EIA) Negative for flu a/b 06/17/18 06/17/18 06/17/18 23:12 22:05 22:05 WBC 11.5 H RBC 4.39 Hgb 13.0 Hct 38.8 MCV 88.4 D MCH 29.5 MCHC 33.4 RDW 13.9 Plt Count 336 MPV 7.2 Neut % (Auto) 61.5 Lymph % (Auto) 27.7 Owen % (Auto) 7.9 Eos % (Auto) 1.6 Baso % (Auto) 1.3 Neut # (Auto) 7.1 H Lymph # (Auto) 3.2 Owen # (Auto) 0.9 H Eos # (Auto) 0.2 Baso # (Auto) 0.1 ESR 41 H Sodium 142 Potassium 3.8 Chloride 109 H Carbon Dioxide 27 Anion Gap 10 BUN 22 H Creatinine 0.5 L Est GFR ( Amer) > 60 Est GFR (Non-Af Amer) > 60 POC Glucose (mg/dL) 68 Random Glucose 82 Calcium 9.5 Urine Opiates Screen Urine Methadone Screen Ur Barbiturates Screen Ur Phencyclidine Scrn Ur Amphetamines Screen U Benzodiazepines Scrn U Oth Cocaine Metabols U Cannabinoids Screen Influenza Typ A,B (EIA) 06/17/18 22:03 WBC RBC Hgb Hct MCV MCH MCHC RDW Plt Count MPV Neut % (Auto) Lymph % (Auto) Owen % (Auto) Eos % (Auto) Baso % (Auto) Neut # (Auto) Lymph # (Auto) Owen # (Auto) Eos # (Auto) Baso # (Auto) ESR Sodium Potassium Chloride Carbon Dioxide Anion Gap BUN Creatinine Est GFR ( Amer) Est GFR (Non-Af Amer) POC Glucose (mg/dL) Random Glucose Calcium Urine Opiates Screen Negative Urine Methadone Screen Negative Ur Barbiturates Screen Negative Ur Phencyclidine Scrn Negative Ur Amphetamines Screen Negative U Benzodiazepines Scrn Negative U Oth Cocaine Metabols Negative U Cannabinoids Screen Negative Influenza Typ A,B (EIA) <Chaparrita Gay - Last Filed: 06/18/18 23:56>
[2018-06-17 22:18] LABS: BASO # 0.1 K/uL (0.0-0.2); BASO % 1.3 % (0.0-2.0); EOS # 0.2 K/uL (0.0-0.7); EOS % 1.6 % (0.0-4.0); LYMPH # 3.2 K/uL (1.0-4.3); LYMPH % 27.7 % (20.0-40.0); MEAN CELL VOLUME 88.4 fl (81.0-99.0); MEAN CORPUSCULAR HEMOGLOBIN 29.5 pg (27.0-31.0); MEAN CORPUSCULAR HGB CONC 33.4 g/dL (33.0-37.0); MEAN PLATELET VOLUME 7.2 fl (7.2-11.7); MONO # 0.9 K/uL (0.0-0.8); MONO % 7.9 % (0.0-10.0); NEUT # 7.1 K/uL (1.8-7.0); NEUT % 61.5 % (50.0-75.0); NRBC % 0.1 % (0.0-0.0); RBC 4.39 Mil/uL (3.80-5.20); RED CELL DISTRIBUTION WIDTH 13.9 % (11.5-14.5); WHITE BLOOD COUNT 11.5 K/uL (4.8-10.8)
[2018-06-17 22:27] LABS: BLOOD UREA NITROGEN 22 mg/dl (7-17); CALCIUM 9.5 mg/dL (8.4-10.2); GFR NON-AFRICAN AMERICAN > 60
[2018-06-17 22:29] LABS: BARBITURATES, UR NEGATIVE (NEGATIVE); BENZODIAZEPINES, UR NEGATIVE (NEGATIVE); OPIATES, UR NEGATIVE (NEGATIVE); PHENCYCLIDINE, UR NEGATIVE (NEGATIVE)
[2018-06-18 01:28] VITALS: BP 104/65; PULSE 60; TEMP 97.8
--- NOTE | 2018-06-18 11:28 | CT ---
Date of service: 06/17/2018 PROCEDURE: CT HEAD WITHOUT CONTRAST. HISTORY: headache COMPARISON: Comparison is made with 02/28/2018 TECHNIQUE: Axial computed tomography images were obtained through the head/brain without intravenous contrast. Radiation dose: Total exam DLP = 796.2 mGy-cm. This CT exam was performed using one or more of the following dose reduction techniques: Automated exposure control, adjustment of the mA and/or kV according to patient size, and/or use of iterative reconstruction technique. FINDINGS: HEMORRHAGE: No intracranial hemorrhage. BRAIN: No mass effect or edema. No atrophy or chronic microvascular ischemic changes. VENTRICLES: Unremarkable. No hydrocephalus. CALVARIUM: Unremarkable. PARANASAL SINUSES: Unremarkable as visualized. No significant inflammatory changes. MASTOID AIR CELLS: Unremarkable as visualized. No inflammatory changes. OTHER FINDINGS: None. IMPRESSION: No evidence of acute intracranial hemorrhage intracranial collection mass effect or midline shift. No significant interval changes noted since the prior exam. Preliminary report with concordance findings was submitted by [facility] at 10:49 p.m. on 06/17/2018.
== END 2018-06-18 01:28 | disposition home or self-care (01) ==
LOC: H.ER 21:09
DX: R51 Headache (principal); M79.10 Myalgia, unspecified site; M62.838 Other muscle spasm; G89.29 Other chronic pain; I12.9 Hypertensive chronic kidney disease with stage 1 through stage 4 chronic kidney disease, or unspecified chronic kidney disease; J45.909 Unspecified asthma, uncomplicated; K50.90 Crohn's disease, unspecified, without complications; M06.9 Rheumatoid arthritis, unspecified; N18.9 Chronic kidney disease, unspecified; Z82.49 Family history of ischemic heart disease and other diseases of the circulatory system; Z95.5 Presence of coronary angioplasty implant and graft
CPT/HCPCS: 70450; 80048; 80324; 80345; 80346; 80349; 80353; 80358; 80361; 81025; 82948; 83992; 85025; 85651; 87804; 96361; 96374; 96375; 99285; J1885; J2765; J7030

== ENCOUNTER 2018-06-30 09:41 | Day surgery (SDC) | payer MEDICAID ==
[2018-06-30] MEDS ORDERED: Bupivacaine HCl 0.25% PF (30 ml) Inj ONE (10:24)
[2018-06-30] MEDS ORDERED: Lidocaine 1% Inj (20ml) ONE (10:25)
[2018-06-30] MEDS ORDERED: Iohexol 300 10 ML ONE (10:28)
[2018-06-30 10:30] VITALS: BMI 28.3
[2018-06-30] MEDS ORDERED: Propofol 10 mg/ml Inj (20 ML) ONE ×2 (11:07→11:35)
[2018-06-30] MEDS ORDERED: DiphenhydrAMINE 50 mg/ml Inj ONE (11:07)
[2018-06-30] MEDS ORDERED: Lidocaine 1% 5ml Abboject ONE (11:07)
[2018-06-30] MEDS ORDERED: Lactated Ringer's 1,000 ML IV ONE (11:10)
[2018-06-30] MEDS: MethylPREDNISolone Depo 40 mg/ml Inj ONE ×2 (11:32→11:33)
[2018-06-30] MEDS ORDERED: Lactated Ringer's 1,000 ML IV SCH (12:00)
[2018-06-30 12:08] VITALS: RESP 18
[2018-06-30] MEDS ORDERED: HYDROmorphone 0.5 mg/0.5 ml ISec ONE (12:26)
[2018-06-30 15:32] VITALS: BP 124/64; PULSE 77; TEMP 97.5; O2SAT 5
--- NOTE | 2018-07-01 01:52 | OP ---
PROCEDURE DATE: 06/30/2018 PREOPERATIVE DIAGNOSIS: Cervical spondylosis. POSTOPERATIVE DIAGNOSIS: Cervical spondylosis. PROCEDURE: Bilateral C3, C4, and C5 medial branch nerve block. TYPE OF ANESTHESIA: Monitored anesthesia care. ANESTHESIA ADMINISTERED BY: Juan Rodriguez MD SURGEON: Sylvester Barrios MD COMPLICATIONS: None. SPECIMEN: None. DESCRIPTION OF PROCEDURE: After we had a discussion of the procedure with the patient including its risks, benefits, alternatives, outcome data, possibility of no effect or increased pain, the patient consented to the procedure. She denied any recent infection, bleeding tendencies, or being on anticoagulants. A decision was then made to proceed to the OR. The patient was placed on the fluoroscopy table in a prone position using a head positioner. The neck was prepped and draped in a usual sterile fashion. A sterile technique was adhered to during the entire procedure. The C3, C4, and C5 vertebral levels were first identified in the anteroposterior view. The medial branch nerves are located at the lateral facet border at the three corresponding vertebrae. The skin overlying the three above targeted areas on the right side was then infiltrated with 1% lidocaine using a 25-gauge needle. Subsequently, a 25-gauge 3.5-inch spinal needle was then incrementally advanced under fluoroscopic guidance until tip of the needle made bony contact with the target areas. The needle was then worked slightly laterally and anteriorly. After satisfactory positioning of all three needles, approximately 0.5 mL Isovue contrast was injected. The patient was pretreated with Benadryl for her contrast allergies. After satisfactory positioning of all three needles to ruling out intravenous uptake with the contrast injection, approximately 2 mL of 0.25% Marcaine and Depo-Medrol mixture was injected into each level. The needle was then removed and same exact procedure was performed on the contralateral left side using the same medications and techniques. At the end of the case, the patient's neck was clean and dry bandages were applied. The patient was then transferred to the recovery area in good conditions without any signs of [employer] toxicity or any neurological deficit. She will be following up in office in approximately two to four weeks. Sylvester Barrios MD
== END 2018-06-30 15:41 | disposition home or self-care (01) ==
LOC: H.OPSURG 09:41
PROVIDERS: ATTEND Anesthesiology
DX: M47.812 Spondylosis without myelopathy or radiculopathy, cervical region (principal); M19.90 Unspecified osteoarthritis, unspecified site; I25.10 Atherosclerotic heart disease of native coronary artery without angina pectoris
CPT/HCPCS: 64490; 64491; J1030; J1170; J1200; J2704; J7120; Q9967

== ENCOUNTER 2018-08-09 21:14 | Emergency (ER) | payer MEDICAID ==
[2018-08-09 21:15] VITALS: BMI 28.3
[2018-08-09 22:10] VITALS: RESP 16; O2SAT 98
[2018-08-09] MEDS ORDERED: Morphine 4 MG/ML VIAL ONE (22:47)
--- NOTE | 2018-08-09 22:52 | ED PDOC ---
HPI: Fever Time Seen by Provider: 08/09/18 22:32 Symptoms Associated With Fever: Cough. denies: Vomiting, Diarrhea Additional Comments: Missy Barrios is a 47 year old female with a past medical history of CAD, hypertension, hyperlipidemia, and CRPS who is presenting to the ED for evaluation of neck pain and swelling associated with fever and cough onset 2 weeks ago. Patient states that she has pain when pressure is put on neck and with movement of neck but she denies any throat or dental pain. She reports that she is able to swallow and experiences some chest tightness when she breathes deeply. She admits that she takes Percocet for pain and took tablet for pain today with no relief. Her pain management doctor is Dr. Lomax, who gives her injections for pain. Patient denies any similar symptoms in the past as well as no abdominal pain, nausea, vomiting, and diarrhea. PMD: Jenifer Diaz Past Medical History Reviewed: Historical Data, Nursing Documentation, Vital Signs Vital Signs: Last Vital Signs Temp 97.7 F 08/09/18 22:05 Pulse 67 08/09/18 22:05 Resp 16 08/09/18 22:05 BP 126/76 08/09/18 22:05 Pulse Ox 98 08/09/18 22:05 - Medical History PMH: Arthritis, Asthma, Bronchitis, CAD, Crohn's Disease, Fractures (right arm), Gall Bladder Disease (removed 2002), HTN, Hypercholesterolemia, Hyperlipidemia, Mitral Valve Prolapse, Pneumonia, Chronic Kidney Disease, Rheumatoid Arthritis, Chronic Pain (CRPS) Denies: HIV - Surgical History Surgical History: Appendectomy (at 8 years old), Cholecystectomy (2002), Coronary Stent (x1; Left circumflex (January 2016)), Tonsillectomy ("at young age"), (x1) Denies: Pacemaker - Family History Family History: States: Unknown Family Hx, MA (Father had MA at 50 y/o), CAD - Social History Current smoker - smoking cessation education provided: No Alcohol: None Drugs: Denies - Immunization History Hx Tetanus Toxoid Vaccination: No Hx Influenza Vaccination: Yes Hx Pneumococcal Vaccination: No - Home Medications Home Medications: Ambulatory Orders Medication Instructions Recorded RX: Aspirin [Ecotrin] 81 mg PO DAILY 01/28/17 RX: Gabapentin [Neurontin] 600 mg PO Q8 12/27/17 RX: Multivitamin [Multi-Vitamin 1 tab PO DAILY 01/17/18 Daily] RX: oxyCODONE/Acetaminophen 1 tab PO Q8 PRN 01/17/18 [Percocet 5/325 mg Tab] RX: Doxepin [Sinequan] 10 mg PO HS cap 01/18/18 RX: Atorvastatin [Lipitor] 20 mg PO HS 02/22/18 Cyclobenzaprine [Cyclobenzaprine 10 mg PO BID PRN #14 tab 04/26/18 HCl] Famotidine [Pepcid] 20 mg PO BID #20 tab 04/26/18 Meloxicam [Mobic] 15 mg PO DAILY #14 tab 06/18/18 Cyclobenzaprine [Cyclobenzaprine 10 mg PO Q8 PRN #12 tab 08/10/18 HCl] RX: Azithromycin [Z-Jama] 250 mg PO ASDIR #6 tab 08/10/18 RX: Naproxen 500 mg PO BID #20 tab 08/10/18 - Allergies Allergies/Adverse Reactions: Allergies Allergy/AdvReac Type Severity Reaction Status Date / Time ceftriaxone Allergy RASH Verified 08/09/18 22:05 Iodine and Iodide Containing Allergy SHORTNESS Verified 08/09/18 22:05 Produc OF BREATH iohexol [From Omnipaque] AdvReac SWELLING Verified 08/09/18 22:05 Review of Systems ROS Statement: Except As Marked, All Systems Reviewed And Found Negative Constitutional: Positive for: Fever ENT: Negative for: Throat Pain, Other (dental pain ) Cardiovascular: Positive for: Chest Pain Respiratory: Positive for: Cough Gastrointestinal: Negative for: Nausea, Vomiting, Abdominal Pain, Diarrhea Musculoskeletal: Positive for: Neck Pain Physical Exam - Reviewed Nursing Documentation Reviewed: Yes Vital Signs Reviewed: Yes - Physical Exam Appears: Positive for: Non-toxic, No Acute Distress Head Exam: Positive for: ATRAUMATIC, NORMAL INSPECTION, NORMOCEPHALIC Skin: Positive for: Normal Color, Warm, DRY Eye Exam: Positive for: EOMI, Normal appearance, PERRL ENT: Positive for: Normal ENT Inspection, Pharynx Is (clear) Neck: Positive for: Pain On Movement Of Neck (tenderness to right lateral aspect of neck, no erythema but positive for mild swelling and induration) Cardiovascular/Chest: Positive for: Regular Rate, Rhythm. Negative for: Murmur Respiratory: Positive for: Normal Breath Sounds. Negative for: Respiratory Distress Gastrointestinal/Abdominal: Positive for: Normal Exam, Soft. Negative for: Tenderness Back: Positive for: Normal Inspection. Negative for: L CVA Tenderness, R CVA Tenderness, Vertebral Tenderness Extremity: Positive for: Normal ROM. Negative for: Deformity, Swelling Neurologic/Psych: Positive for: Alert, Oriented. Negative for: Motor/Sensory Deficits - Laboratory Results Result Diagrams: 08/09/18 23:11 08/09/18 23:11 - ECG O2 Sat by Pulse Oximetry: 98 (RA) Pulse Ox Interpretation: Normal - Progress Re-evaluation Time: 02:30 Condition: Re-examined, Improved Medical Decision Making Medical Decision Making: Time: 22:43 Impression: fever, cough, neck pain Differentials: Deep neck infection/abscess, pneumonia Plan: --BMP --CBC --Erythrocyte Sedimentation rate --CT Neck --Chest X-Ray --Morphine 4 mg IVP --Blood Culture 01:38 CT Neck FINDINGS: PHARYNX: The nasopharynx, oropharyx, and hypopharynx are unremarkable. No pharyngeal mucosal based lesions. LARYNX: The larynx is unremarkable. Normal epiglottis. RETROPHARYNGEAL SPACE: No retropharyngeal soft tissue swelling or gas. SALIVARY GLANDS: The parotid, submandibular, and sublingual glands are unremarkable. LYMPH NODES: No lymphadenopathy is evident. THYROID: The thyroid gland is unremarkable. No nodule. BONES: No acute osseous abnormality. IMPRESSION: Unremarkable CT neck without IV contrast Scribe Attestation: Documented by Karin Winslow, acting as a scribe for Shawn Britton MD. Provider Scribe Attestation: All medical record entries made by the Scribe were at my direction and personally dictated by me. I have reviewed the chart and agree that the record accurately reflects my personal performance of the history, physical exam, medical decision making, and the department course for this patient. I have also personally directed, reviewed, and agree with the discharge instructions and disposition. Disposition - Clinical Impression Clinical Impression: Neck swelling, Cough - Patient ED Disposition Is Patient to be Admitted: No Doctor Will See Patient In The: Office Counseled Patient/Family Regarding: Studies Performed, Diagnosis, Need For Followup - Disposition Referrals: Jenifer Diaz MD [Family Provider] - Disposition: Routine/Home Disposition Time: 02:35 Condition: GOOD Additional Instructions: MISSY BARRIOS, thank you for letting us take care of you today. Your provider was Shawn Britton MD and you were treated for FEVER. The emergency medical care you received today was directed at your acute symptoms. If you were prescribed any medication, please fill it and take as directed. It may take several days for your symptoms to resolve. Return to the Emergency Department if your symptoms worsen, do not improve, or if you have any other problems. Please contact your doctor or call one of the physicians/clinics you have been referred to that are listed on the Patient Visit Information form that is included in your discharge packet. Bring any paperwork you were given at discharge with you along with any medications you are taking to your follow up visit. Our treatment cannot replace ongoing medical care by a primary care provider outside of the emergency department. Thank you for allowing the [facility] team to be part of your care today. If you had an X-Ray or CT scan: A Radiologist will review the ED reading if any change in treatment is needed we will contact you. If you had a blood, urine, or wound culture: It will take several days for the results, if any change in treatment is needed we will contact you. If you had an STI test: It will take 48 hours for the results. Please call after 1 week if you have not heard back. Prescriptions: RX: Azithromycin [Z-Jama] 250 mg PO ASDIR #6 tab Cyclobenzaprine [Cyclobenzaprine HCl] 10 mg PO Q8 PRN #12 tab PRN Reason: Muscle Spasm RX: Naproxen 500 mg PO BID #20 tab Instructions: Neck Pain, Acute Bronchitis Forms: [employer] (Belgian)
[2018-08-09] MEDS: Morphine 4 MG/ML VIAL IVP ONE (23:04)
[2018-08-09 23:14] LABS: BASO % 0.3 % (0.0-2.0); EOS # 0.2 K/uL (0.0-0.7); EOS % 1.3 % (0.0-4.0); HEMOGLOBIN 12.4 g/dL (12.0-16.0); LYMPH # 3.3 K/uL (1.0-4.3); LYMPH % 27.9 % (20.0-40.0); MEAN CELL VOLUME 88.9 fl (81.0-99.0); MEAN CORPUSCULAR HEMOGLOBIN 29.2 pg (27.0-31.0); MEAN CORPUSCULAR HGB CONC 32.8 g/dL (33.0-37.0); MEAN PLATELET VOLUME 7.2 fl (7.2-11.7); MONO # 0.7 K/uL (0.0-0.8); MONO % 5.9 % (0.0-10.0); NEUT # 7.7 K/uL (1.8-7.0); NEUT % 64.6 % (50.0-75.0); RBC 4.24 Mil/uL (3.80-5.20); RED CELL DISTRIBUTION WIDTH 14.2 % (11.5-14.5)
[2018-08-09 23:23] LABS: BLOOD UREA NITROGEN 25 mg/dl (7-17); CALCIUM 9.5 mg/dL (8.4-10.2); GFR NON-AFRICAN AMERICAN > 60
[2018-08-10 06:30] VITALS: BP 132/79; PULSE 72; TEMP 98.1
--- NOTE | 2018-08-10 08:04 | CARD ---
APPROVED REPORT Date of service: 08/10/2018 EKG Measurement Heart [id number] <Conclusion> Normal sinus rhythm Low voltage QRS Nonspecific ST abnormality Abnormal ECG
--- NOTE | 2018-08-10 09:25 | RAD ---
Date of service: 08/09/2018 HISTORY: fever cough COMPARISON: 04/25/2018 TECHNIQUE: Chest PA and lateral FINDINGS: LUNGS: Minimal linear scar at left lung base, unchanged. No acute infiltrate. PLEURA: No significant pleural effusion identified. No pneumothorax apparent. CARDIOVASCULAR: No aortic atherosclerotic calcification present. Normal cardiac size. No pulmonary vascular congestion. OSSEOUS STRUCTURES: No significant abnormalities. VISUALIZED UPPER ABDOMEN: Normal. OTHER FINDINGS: None. IMPRESSION: No active disease.
--- NOTE | 2018-08-10 13:28 | CT ---
Date of service: 08/10/2018 PROCEDURE: CT NECK WITHOUT CONTRAST HISTORY: RIGHT NECK PAIN , SWELLING Fever COMPARISON: 02/03/2016. CT neck TECHNIQUE: CT of the neck without intravenous contrast. Coronal and sagittal reformats generated. Radiation dose: Total exam DLP = 307.22 mGy-cm. This CT exam was performed using one or more of the following dose reduction techniques: Automated exposure control, adjustment of the mA and/or kV according to patient size, and/or use of iterative reconstruction technique. FINDINGS: NASOPHARYNX: Unremarkable. SUPRAHYOID NECK: Unremarkable oropharynx, oral cavity, parapharyngeal space and retropharyngeal space. INFRAHYOID NECK: Unremarkable larynx, hypopharynx, and supraglottic space. Vocal cords intact. MASS: None. GLANDS: Parotid and submandibular glands unremarkable. Normal size thyroid gland, without nodule. LYMPH NODES: Normal. No lymphadenopathy. CERVICAL SPINE: No fracture or focal lesion. OTHER FINDINGS: None. IMPRESSION: Unremarkable non-contrast enhanced CT of the neck. Concordant results (preliminary interpretation) provided by [employer]. Procedure Completed: 00:41. Preliminary Report: Dictated and Authenticated: 01:38. Final Interpretation: 13:23. August 10, 2018
== END 2018-08-10 01:30 | disposition home or self-care (01) ==
LOC: H.ER 21:14
DX: R05 Cough (principal); R22.1 Localized swelling, mass and lump, neck
CPT/HCPCS: 70490; 71046; 80048; 85025; 85651; 87040; 93005; 96374; 99284; J2270

== ENCOUNTER 2018-09-05 14:10 | Emergency (ER) | payer MEDICAID ==
[2018-09-05 14:10] VITALS: BMI 28.3
[2018-09-05] MEDS ORDERED: Sodium Chloride 0.9% 1,000 ML IV STA ×2 (14:47→17:50)
[2018-09-05 15:16] LABS: BASO % 0.6 % (0.0-2.0); EOS # 0.1 K/uL (0.0-0.7); EOS % 1.8 % (0.0-4.0); LYMPH # 2.4 K/uL (1.0-4.3); LYMPH % 34.5 % (20.0-40.0); MEAN CELL VOLUME 90.6 fl (81.0-99.0); MEAN CORPUSCULAR HEMOGLOBIN 29.7 pg (27.0-31.0); MEAN CORPUSCULAR HGB CONC 32.8 g/dL (33.0-37.0); MEAN PLATELET VOLUME 7.3 fl (7.2-11.7); MONO # 0.7 K/uL (0.0-0.8); MONO % 9.8 % (0.0-10.0); NEUT # 3.8 K/uL (1.8-7.0); NEUT % 53.3 % (50.0-75.0); NRBC % 0.3 % (0.0-0.0); RBC 4.39 Mil/uL (3.80-5.20); RED CELL DISTRIBUTION WIDTH 14.4 % (11.5-14.5); WHITE BLOOD COUNT 7.1 K/uL (4.8-10.8)
[2018-09-05 15:19] LABS: SQUAMOUS EPITHIAL 1 /hpf (0-5); URINE BILIRUBIN NEGATIVE (NEGATIVE); URINE BLOOD NEGATIVE (NEGATIVE); URINE CLARITY SLIGHTY-CLOUDY (Clear); URINE COLOR YELLOW (YELLOW); URINE GLUCOSE (UA) NEG (NEGATIVE); URINE LEUKOCYTE ESTERASE NEG Leu/uL (Negative); URINE PROTEIN NEGATIVE (NEGATIVE); URINE UROBILINOGEN 0.2-1.0 mg/dL (0.2-1.0)
[2018-09-05 15:25] LABS: ALB/GLOB RATIO 1.1 (1.0-2.1); ALBUMIN 4.2 g/dL (3.5-5.0); ALT/SGPT 28 U/L (9-52); AST/SGOT 29 U/L (14-36); BLOOD UREA NITROGEN 17 mg/dl (7-17); CALCIUM 9.2 mg/dL (8.4-10.2); GFR NON-AFRICAN AMERICAN > 60
[2018-09-05] MEDS ORDERED: Morphine 4 MG/ML VIAL ONE ×2 (15:51→17:55)
--- NOTE | 2018-09-05 17:15 | ED PDOC ---
HPI: Influenza Time Seen by Provider: 09/05/18 14:29 Chief Complaint: Flu-like Symptoms History Per: Patient Additional complaint(s):: Pt. states Past Medical History Vital Signs: Last Vital Signs Temp 98.8 F 09/05/18 14:23 Pulse 76 09/05/18 14:23 Resp 18 09/05/18 14:23 BP 143/79 09/05/18 14:23 Pulse Ox 99 09/05/18 14:23 - Medical History PMH: Arthritis, Asthma, Bronchitis, CAD, Crohn's Disease, Fractures (right arm), Gall Bladder Disease (removed 2002), HTN, Hypercholesterolemia, Hyperlipidemia, Mitral Valve Prolapse, Pneumonia, Chronic Kidney Disease, Rheumatoid Arthritis, Chronic Pain (CRPS) Denies: HIV - Surgical History Surgical History: Appendectomy (at 8 years old), Cholecystectomy (2002), Coronary Stent (x1; Left circumflex (January 2016)), Tonsillectomy ("at young age"), (x1) Denies: Pacemaker - Family History Family History: States: Unknown Family Hx, NC (Father had NC at 50 y/o), CAD - Immunization History Hx Tetanus Toxoid Vaccination: No Hx Influenza Vaccination: Yes Hx Pneumococcal Vaccination: No - Home Medications Home Medications: Ambulatory Orders Medication Instructions Recorded Aspirin [Ecotrin] 81 mg PO DAILY 01/28/17 Gabapentin [Neurontin] 600 mg PO Q8 12/27/17 Multivitamin [Multi-Vitamin Daily] 1 tab PO DAILY 01/17/18 oxyCODONE/Acetaminophen [Percocet 1 tab PO Q8 PRN 01/17/18 5/325 mg Tab] Doxepin [Sinequan] 10 mg PO HS cap 01/18/18 Atorvastatin [Lipitor] 20 mg PO HS 02/22/18 Cyclobenzaprine [Cyclobenzaprine 10 mg PO BID PRN #14 tab 04/26/18 HCl] Famotidine [Pepcid] 20 mg PO BID #20 tab 04/26/18 Meloxicam [Mobic] 15 mg PO DAILY #14 tab 06/18/18 Azithromycin [Z-Jama] 250 mg PO ASDIR #6 tab 08/10/18 Cyclobenzaprine [Cyclobenzaprine 10 mg PO Q8 PRN #12 tab 08/10/18 HCl] Naproxen 500 mg PO BID #20 tab 08/10/18 - Allergies Allergies/Adverse Reactions: Allergies Allergy/AdvReac Type Severity Reaction Status Date / Time ceftriaxone Allergy RASH Verified 08/09/18 22:05 Iodine and Iodide Containing Allergy SHORTNESS Verified 08/09/18 22:05 Produc OF BREATH iohexol [From Omnipaque] AdvReac SWELLING Verified 08/09/18 22:05 - Laboratory Results Result Diagrams: 09/05/18 15:00 09/05/18 15:00 - ECG O2 Sat by Pulse Oximetry: 99 Disposition - Disposition Forms: [employer] (Persian)
--- NOTE | 2018-09-05 17:21 | CT ---
Date of service: 09/05/2018 PROCEDURE: CT Abdomen and Pelvis without intravenous contrast HISTORY: Right flank pain COMPARISON: The TECHNIQUE: Contiguous helical/transaxial sections of the abdomen pelvis performed without oral or intravenous contrast material. Additional 2D sagittal and coronal reformats generated. The a this is epiphysis Radiation dose: Total exam DLP = 554.86 mGy-cm. This CT exam was performed using one or more of the following dose reduction techniques: Automated exposure control, adjustment of the mA and/or kV according to patient size, and/or use of iterative reconstruction technique. FINDINGS: LOWER THORAX: Heart size is mildly enlarged. No significant pericardial effusion. There is a small hiatal hernia. Minor linear scarring changes left lung base including the lingular region. There is also some mild scarring and or atelectasis left lung base. LIVER: Unremarkable. No gross lesion or ductal dilatation. GALLBLADDER AND BILE DUCTS: Gallbladder is not seen with certainty on this study however there are no metallic clips or obvious suture material in the right upper quadrant of the abdomen.. Clinical correlation with surgical history recommended. A its me at PANCREAS: Unremarkable. No gross lesion or ductal dilatation. SPLEEN: Spleen exhibits normal size and attenuation pattern. ADRENALS: No adrenal lesions. KIDNEYS AND URETERS: The kidneys demonstrate relatively symmetric size.. There is a small approximately 3.7 mm nonobstructing calculus upper/mid pole collecting system left kidney. VASCULATURE: Unremarkable. No aortic aneurysm. Minimal aortic atherosclerotic calcification or mural plaque present. BOWEL: Evaluation of the bowel is limited by the lack of oral contrast material. The stomach is collapsed with thick-walled appearance. Visualized loops of small bowel exhibit normal contour and caliber. No evidence of acute mechanical small bowel obstruction. Stool and air seen throughout the large bowel. APPENDIX: Appendix is not seen with complete certainty however no obvious inflammatory changes right lower quadrant of the abdomen. PERITONEUM: Unremarkable. No free fluid. No free air. LYMPH NODES: Few small nonspecific mesenteric lymph nodes are present. BLADDER: Urinary bladder incompletely distended which may in part account for slight thick-walled appearance. Correlation with urinalysis recommended to exclude a cystitis. REPRODUCTIVE: Hysterectomy. BONES: Minor multilevel degenerative spondylosis of the lower thoracic and lumbar spine OTHER FINDINGS: None. IMPRESSION: Nonobstructing small 3.8 mm calculus upper/midpole left renal collecting system without evidence of hydronephrosis.. No evidence of right-sided nephrolithiasis. The appendix is not seen with complete certainty however no evidence of inflammatory changes right lower quadrant of the abdomen. Gallbladder is not visualized however there are no metallic clips seen in the gallbladder fossa region. Clinical correlation with surgical history. Hysterectomy.
--- NOTE | 2018-09-05 17:26 | ED PDOC ---
HPI: CCC, URI, Sore Throat Time Seen by Provider: 09/05/18 14:29 Chief Complaint (Nursing): Flu-like Symptoms Chief Complaint (Provider): Flu-like Symptoms History Per: Patient History/Exam Limitations: no limitations Onset/Duration Of Symptoms: Days (x2) Current Symptoms Are (Timing): Still Present Location Of Pain: Sinus/es Sick Contacts (Context): None Associated Symptoms: Fever, Cough, Nasal Congestion, Nausea, Vomiting Additional Complaint(s): 47 y/o female with a HTN, Asthma, Bronchitis, CAD, Pneumonia and CKD presents to the ED for evaluation of a cough, onset two days ago. Patient states cough is associated with congestion, fever (Tmax of 102), nausea, vomiting, and right sided flank pain. Patient reports of taking Tylenol and Motrin for symptom relief. Patient states last dose was two hours prior to arrival. Otherwise, patient denies shortness of breath, trauma, hematuria, incontinence, abdominal pain, postprandial pain and leg pain. PMD: Marlena Diaz Past Medical History Reviewed: Historical Data, Nursing Documentation, Vital Signs Vital Signs: Last Vital Signs Temp 98.8 F 09/05/18 14:23 Pulse 76 09/05/18 14:23 Resp 18 09/05/18 14:23 BP 143/79 09/05/18 14:23 Pulse Ox 99 09/05/18 14:23 - Medical History PMH: Arthritis, Asthma, Bronchitis, CAD, Crohn's Disease, Fractures (right arm), Gall Bladder Disease (removed 2002), HTN, Hypercholesterolemia, Hyperlipidemia, Mitral Valve Prolapse, Pneumonia, Chronic Kidney Disease, Rheumatoid Arthritis, Chronic Pain (CRPS) Denies: HIV - Surgical History Surgical History: Appendectomy (at 8 years old), Cholecystectomy (2002), Coronary Stent (x1; Left circumflex (January 2016)), Tonsillectomy ("at young age"), (x1) Denies: Pacemaker - Family History Family History: States: Unknown Family Hx, NC (Father had NC at 50 y/o), CAD - Immunization History Hx Tetanus Toxoid Vaccination: No Hx Influenza Vaccination: Yes Hx Pneumococcal Vaccination: No - Home Medications Home Medications: Ambulatory Orders Medication Instructions Recorded Aspirin [Ecotrin] 81 mg PO DAILY 01/28/17 Gabapentin [Neurontin] 600 mg PO Q8 12/27/17 Multivitamin [Multi-Vitamin Daily] 1 tab PO DAILY 01/17/18 oxyCODONE/Acetaminophen [Percocet 1 tab PO Q8 PRN 01/17/18 5/325 mg Tab] Doxepin [Sinequan] 10 mg PO HS cap 01/18/18 Atorvastatin [Lipitor] 20 mg PO HS 02/22/18 Cyclobenzaprine [Cyclobenzaprine 10 mg PO BID PRN #14 tab 04/26/18 HCl] Famotidine [Pepcid] 20 mg PO BID #20 tab 04/26/18 Meloxicam [Mobic] 15 mg PO DAILY #14 tab 06/18/18 Azithromycin [Z-Jama] 250 mg PO ASDIR #6 tab 08/10/18 Cyclobenzaprine [Cyclobenzaprine 10 mg PO Q8 PRN #12 tab 08/10/18 HCl] Naproxen 500 mg PO BID #20 tab 08/10/18 Benzonatate [Tessalon Perle] 100 mg PO Q8 PRN #10 capsule 09/05/18 Fluticasone Propionate [Flonase] 2 spr NS DAILY PRN #1 bottle 09/05/18 Oseltamivir Cap [Tamiflu] 75 mg PO BID #9 cap 09/05/18 - Allergies Allergies/Adverse Reactions: Allergies Allergy/AdvReac Type Severity Reaction Status Date / Time ceftriaxone Allergy RASH Verified 08/09/18 22:05 Iodine and Iodide Containing Allergy SHORTNESS Verified 08/09/18 22:05 Produc OF BREATH iohexol [From Omnipaque] AdvReac SWELLING Verified 08/09/18 22:05 Review of Systems ROS Statement: Except As Marked, All Systems Reviewed And Found Negative Constitutional: Positive for: Fever ENT: Positive for: Nose Congestion Respiratory: Positive for: Cough Gastrointestinal: Positive for: Nausea, Vomiting Musculoskeletal: Positive for: Back Pain (right sided flank pain) Physical Exam - Reviewed Nursing Documentation Reviewed: Yes Vital Signs Reviewed: Yes - Physical Exam Appears: Positive for: No Acute Distress Head Exam: Positive for: ATRAUMATIC, NORMOCEPHALIC Skin: Positive for: Normal Color, Warm, Dry Eye Exam: Positive for: Normal appearance, EOMI, PERRL Neck: Positive for: Normal, Painless ROM, Supple Cardiovascular/Chest: Positive for: Regular Rate, Rhythm. Negative for: Murmur Respiratory: Positive for: Normal Breath Sounds. Negative for: Respiratory Distress Gastrointestinal/Abdominal: Positive for: Normal Exam, Soft. Negative for: Tenderness Back: Positive for: R CVA Tenderness Extremity: Positive for: Normal ROM. Negative for: Deformity Neurologic/Psych: Positive for: Alert, Oriented (x3). Negative for: Motor/Sensory Deficits - Laboratory Results Result Diagrams: 09/05/18 15:00 09/05/18 15:00 - ECG O2 Sat by Pulse Oximetry: 99 (RA) Pulse Ox Interpretation: Normal Medical Decision Making Medical Decision Making: Time: 1446 Plan: -- CMP -- ED Urine Dipstick -- CBC with Differentials -- Sodium Chloride IV 1000 mls/hr -- Tamiflu 75 mg PO -- Toradol 30 mg IVP -- Blood Culture -- Throat Culture -- IV Insertion -- Influenza A B -- Rapid Strep Group A Antigen -- Urinalysis Time: 154 Plan: -- Zofran 4 mg IVP -- CT Abd/Pelvis w/o PO or IV Contrast Time: 171 Plan: -- CXR -- Vital Signs CT abd/pelvis: Nonobstructing small 3.8 mm calculus upper/midpole left renal collecting system without evidence of hydronephrosis.. No evidence of right- sided nephrolithiasis. The appendix is not seen with complete certainty however no evidence of inflammatory changes right lower quadrant of the abdomen. Gallbladder is not visualized however there are no metallic clips seen in the gallbladder fossa region. Clinical correlation with surgical history. Hysterectomy. 1739 On re-evaluation, pt. reports no relief in R flank pain or sore throat. Case d/w Dr. William who agrees with D-Dimer order. Additional Morphine 4mg IV ordered. Repeat VS stable. 1939 D-Dimer normal. On re-evaluation, pt. reports feeling much better. Informed of results and advised to f/u with PMD but is to return to ED immediately if symptoms worsen. Scribe Attestation: Documented by Sunny Del Toro, acting as a scribe for Bharath Ordaz PA-C. Provider Scribe Attestation: All medical record entries made by the Scribe were at my direction and personally dictated by me. I have reviewed the chart and agree that the record accurately reflects my personal performance of the history, physical exam, medical decision making, and the department course for this patient. I have also personally directed, reviewed, and agree with the discharge instructions and disposition. Disposition - Clinical Impression Clinical Impression: Influenza-like symptoms - Patient ED Disposition Is Patient to be Admitted: No - Disposition Referrals: [facility] [Outside] Disposition: Routine/Home Disposition Time: 19:43 Condition: IMPROVED Additional Instructions: FOLLOW UP WITH [facility] FOR FURTHER EVALUATION RETURN TO ED IMMEDIATELY IF SYMPTOMS WORSEN VICKY BARRIOS, thank you for letting us take care of you today. Your provider was eLon William MD and you were treated for THROAT PAIN. The emergency medical care you received today was directed at your acute symptoms. If you were prescribed any medication, please fill it and take as directed. It may take several days for your symptoms to resolve. Return to the Emergency Department if your symptoms worsen, do not improve, or if you have any other problems. Please contact your doctor or call one of the physicians/clinics you have been referred to that are listed on the Patient Visit Information form that is included in your discharge packet. Bring any paperwork you were given at discharge with you along with any medications you are taking to your follow up visit. Our treatment cannot replace ongoing medical care by a primary care provider outside of the emergency department. Thank you for allowing the [facility] team to be part of your care today. If you had an X-Ray or CT scan: A Radiologist will review the ED reading if any change in treatment is needed we will contact you. If you had a blood, urine, or wound culture: It will take several days for the results, if any change in treatment is needed we will contact you. If you had an STI test: It will take 48 hours for the results. Please call after 1 week if you have not heard back. Prescriptions: Benzonatate [Tessalon Perle] 100 mg PO Q8 PRN #10 capsule PRN Reason: Cough Fluticasone Propionate [Flonase] 2 spr NS DAILY PRN #1 bottle PRN Reason: Allergy Symptoms Oseltamivir Cap [Tamiflu] 75 mg PO BID #9 cap Instructions: Flu, Adult (DC) Forms: [employer] (Greek) Print Language: SINGAPORE[place]
[2018-09-05] MEDS ORDERED: Morphine 4 MG/ML VIAL IVP STA ×2 (17:50→17:55)
[2018-09-05 17:52] VITALS: O2SAT 99
--- NOTE | 2018-09-05 18:26 | RAD ---
Date of service: 09/05/2018 HISTORY: cough COMPARISON: The correlation also made with CT scan abdomen pelvis obtain 2 hr prior. Comparison also made with prior chest radiograph 08/09/2018 TECHNIQUE: Chest PA and lateral FINDINGS: LUNGS: No active pulmonary disease. PLEURA: No significant pleural effusion identified. No pneumothorax apparent. CARDIOVASCULAR: No aortic atherosclerotic calcification present. Cardiomegaly. No pulmonary vascular congestion. OSSEOUS STRUCTURES: No significant abnormalities. VISUALIZED UPPER ABDOMEN: Normal. OTHER FINDINGS: None. IMPRESSION: No active disease.
[2018-09-05 20:01] VITALS: BP 106/76; PULSE 66; RESP 16; TEMP 97.9
== END 2018-09-05 20:01 | disposition home or self-care (01) ==
LOC: H.ER 14:10
DX: J11.1 Influenza due to unidentified influenza virus with other respiratory manifestations (principal)
CPT/HCPCS: 71046; 74176; 80053; 81003; 85025; 85378; 87040; 87070; 87430; 87804; 96374; 96375; 96376; 99285; J1885; J2270; J2405; J7030

== ENCOUNTER 2018-09-20 21:56 | Emergency (ER) | payer MEDICAID ==
[2018-09-20 21:56] VITALS: BMI 28.3
[2018-09-20] MEDS ORDERED: Sodium Chloride 0.9% 1,000 ML IV STA (22:58)
--- NOTE | 2018-09-20 23:03 | ED PDOC ---
HPI: Abdomen Time Seen by Provider: 09/20/18 22:45 Chief Complaint (Nursing): Abdominal Pain Chief Complaint (Provider): Rectal bleeding History Per: Patient History/Exam Limitations: no limitations Additional Complaint(s): Pt reports three episodes of bright red blood per rectum today, associated with abdominal pain and nausea. Denies fever, SOB, vomiting, diarrhea, dysuria, hematuria, vaginal bleeding. States she took 1/2 Percocet at home without relief. Past Medical History Reviewed: Nursing Documentation, Vital Signs Vital Signs: Last Vital Signs Temp 98.2 F 09/20/18 22:29 Pulse 71 09/20/18 22:29 Resp 16 09/20/18 22:29 BP 121/69 09/20/18 22:29 Pulse Ox 98 09/20/18 22:29 - Medical History PMH: Arthritis, Asthma, Bronchitis, CAD, Crohn's Disease, Fractures (right arm), Gall Bladder Disease (removed 2002), HTN, Hypercholesterolemia, Hyperlipidemia, Mitral Valve Prolapse, Pneumonia, Chronic Kidney Disease, Rheumatoid Arthritis, Chronic Pain (CRPS) Denies: HIV - Surgical History Surgical History: Appendectomy (at 8 years old), Cholecystectomy (2002), Coronary Stent (x1; Left circumflex (January 2016)), Tonsillectomy ("at young age"), (x1) Denies: Pacemaker - Family History Family History: States: Unknown Family Hx, MS (Father had MS at 50 y/o), CAD - Immunization History Hx Tetanus Toxoid Vaccination: No Hx Influenza Vaccination: Yes Hx Pneumococcal Vaccination: No - Home Medications Home Medications: Ambulatory Orders Medication Instructions Recorded Aspirin [Ecotrin] 81 mg PO DAILY 01/28/17 Gabapentin [Neurontin] 600 mg PO Q8 12/27/17 Multivitamin [Multi-Vitamin Daily] 1 tab PO DAILY 01/17/18 oxyCODONE/Acetaminophen [Percocet 1 tab PO Q8 PRN 01/17/18 5/325 mg Tab] Doxepin [Sinequan] 10 mg PO HS cap 01/18/18 Atorvastatin [Lipitor] 20 mg PO HS 02/22/18 Cyclobenzaprine [Cyclobenzaprine 10 mg PO BID PRN #14 tab 04/26/18 HCl] Famotidine [Pepcid] 20 mg PO BID #20 tab 04/26/18 Meloxicam [Mobic] 15 mg PO DAILY #14 tab 06/18/18 Azithromycin [Z-Jama] 250 mg PO ASDIR #6 tab 08/10/18 Cyclobenzaprine [Cyclobenzaprine 10 mg PO Q8 PRN #12 tab 08/10/18 HCl] Naproxen 500 mg PO BID #20 tab 08/10/18 Benzonatate [Tessalon Perle] 100 mg PO Q8 PRN #10 capsule 09/05/18 Fluticasone Propionate [Flonase] 2 spr NS DAILY PRN #1 bottle 09/05/18 Oseltamivir Cap [Tamiflu] 75 mg PO BID #9 cap 09/05/18 - Allergies Allergies/Adverse Reactions: Allergies Allergy/AdvReac Type Severity Reaction Status Date / Time ceftriaxone Allergy RASH Verified 09/20/18 22:35 Iodine and Iodide Containing Allergy SHORTNESS Verified 08/09/18 22:05 Produc OF BREATH iohexol [From Omnipaque] AdvReac SWELLING Verified 08/09/18 22:05 Review of Systems Constitutional: Negative for: Fever, Chills Cardiovascular: Negative for: Chest Pain, Palpitations Respiratory: Negative for: Cough, Shortness of Breath Gastrointestinal: Positive for: Nausea, Abdominal Pain, Hematochezia. Negative for: Vomiting, Diarrhea, Constipation, Melena, Hematemesis, Rectal Pain Genitourinary Female: Negative for: Dysuria, Hematuria, Vaginal Discharge, Vaginal Bleeding Musculoskeletal: Positive for: Back Pain Skin: Negative for: Rash, Lesions Neurological: Negative for: Headache Physical Exam - Reviewed Nursing Documentation Reviewed: Yes Vital Signs Reviewed: Yes - Physical Exam Appears: Positive for: Well, No Acute Distress Skin: Positive for: Normal Color, Warm, Dry Eye Exam: Positive for: Normal appearance, EOMI, PERRL Cardiovascular/Chest: Positive for: Regular Rate, Rhythm Respiratory: Positive for: Normal Breath Sounds Gastrointestinal/Abdominal: Positive for: Bowel Sounds, Soft, Tenderness (Generalized). Negative for: Mass, Distended, Guarding, Rebound Rectal: Positive for: Hemorrhoids (External, nonthrombosed), Other (Heel Layer: CHEY [place]). Negative for: Black Stool, Blood Streaked Stool, Tenderness Extremity: Positive for: Normal ROM Neurologic/Psych: Positive for: Alert, Oriented - ECG O2 Sat by Pulse Oximetry: 98 Medical Decision Making Medical Decision Makin yo female with rectal bleeding and abdominal pain. - labs - EKG - CT abd/pelvis - IVF - Bentyl - Zofran Disposition - Disposition
[2018-09-20] MEDS ORDERED: DiphenhydrAMINE 50 mg/ml Inj IVP STA (23:05)
[2018-09-20] MEDS ORDERED: DiphenhydrAMINE 50 mg/ml Inj ONE (23:56)
[2018-09-21 00:30] LABS: BASO # 0.1 K/uL (0.0-0.2); BASO % 0.7 % (0.0-2.0); EOS # 0.2 K/uL (0.0-0.7); EOS % 1.7 % (0.0-4.0); HEMOGLOBIN 12.5 g/dL (12.0-16.0); LYMPH # 3.1 K/uL (1.0-4.3); LYMPH % 29.5 % (20.0-40.0); MEAN CELL VOLUME 88.7 fl (81.0-99.0); MEAN CORPUSCULAR HEMOGLOBIN 29.9 pg (27.0-31.0); MEAN CORPUSCULAR HGB CONC 33.6 g/dL (33.0-37.0); MEAN PLATELET VOLUME 7.7 fl (7.2-11.7); MONO # 0.6 K/uL (0.0-0.8); MONO % 5.8 % (0.0-10.0); NEUT # 6.5 K/uL (1.8-7.0); NEUT % 62.3 % (50.0-75.0); RBC 4.18 Mil/uL (3.80-5.20); WHITE BLOOD COUNT 10.5 K/uL (4.8-10.8)
[2018-09-21 00:35] LABS: PROTHROMBIN TIME 11.6 Seconds (9.8-13.1)
[2018-09-21 00:38] LABS: PARTIAL THROMBOPLASTIN TIME 33.6 Seconds (25.6-37.1); SQUAMOUS EPITHIAL < 1 /hpf (0-5); URINE BACTERIA RARE (<OCC); URINE BILIRUBIN NEGATIVE (NEGATIVE); URINE BLOOD NEGATIVE (NEGATIVE); URINE CALCIUM OXALATE CRYSTALS RARE /hpf (<OCC); URINE CLARITY CLOUDY (Clear); URINE COLOR YELLOW (YELLOW); URINE GLUCOSE (UA) NEG (NEGATIVE); URINE LEUKOCYTE ESTERASE NEG Leu/uL (Negative); URINE PROTEIN NEGATIVE (NEGATIVE); URINE UROBILINOGEN 0.2-1.0 mg/dL (0.2-1.0)
[2018-09-21 00:44] LABS: ALB/GLOB RATIO 1.1 (1.0-2.1); ALBUMIN 4.1 g/dL (3.5-5.0); ALT/SGPT 21 U/L (9-52); AST/SGOT 30 U/L (14-36); BLOOD UREA NITROGEN 22 mg/dl (7-17); CALCIUM 9.9 mg/dL (8.4-10.2); GFR NON-AFRICAN AMERICAN > 60; LIPASE 60 U/L (23-300)
--- NOTE | 2018-09-21 00:52 | ED PDOC ---
- Laboratory Results Result Diagrams: 09/21/18 00:18 09/21/18 00:18 Lab Results: PT 11.6 Seconds (9.8-13.1) 09/21/18 00:18 INR 1.0 09/21/18 00:18 APTT 33.6 Seconds (25.6-37.1) 09/21/18 00:18 Total Bilirubin 0.3 mg/dl (0.2-1.3) 09/21/18 00:18 AST 30 U/L (14-36) 09/21/18:18 ALT 21 U/L (9-52) 09/21/18 00:18 Alkaline Phosphatase 69 U/L (38-126) 09/21/18 00:18 Total Protein 7.7 G/DL (6.3-8.2) 09/21/18 00:18 Albumin 4.1 g/dL (3.5-5.0) 09/21/18 00:18 Globulin 3.6 gm/dL (2.2-3.9) 09/21/18 00:18 Albumin/Globulin Ratio 1.1 (1.0-2.1) 09/21/18 00: Lipase 60 U/L (23-300) 09/21/18 00:18 Urine Color Yellow (YELLOW) 09/21/18: Urine Clarity Cloudy (Clear) 09/21/18 00:18 Urine pH 6.0 (5.0-8.0) 09/21/18 00:18 Ur Specific [place] 1.015 (1.003-1.030) 09/21/18 00:18 Urine Protein Negative mg/dL (NEGATIVE) 09/21/18 00: Urine Glucose (UA) Neg mg/dL (NEGATIVE) 09/21/18 00:18 Urine Ketones Negative mg/dL (NEGATIVE) 09/21/18 00: Urine Blood Negative (NEGATIVE) 09/21/18 00: Urine Nitrate Negative (NEGATIVE) 09/21/18 00: Urine Bilirubin Negative (NEGATIVE) 09/21/18 00:18 Urine Urobilinogen 0.2-1.0 mg/dL (0.2-1.0) 09/21/18 00:18 Ur Leukocyte Esterase Neg Karen/uL (Negative) 09/21/18 00: Urine RBC (Auto) 2 /hpf (0-3) 09/21/18 00:18 Urine Microscopic WBC 3 /hpf (0-5) 09/21/18 00:18 Ur Squamous Epith Cells < 1 /hpf (0-5) 09/21/18 00:18 Calcium Oxalate Crystal Rare /hpf (<OCC) 09/21/18 00:18 Urine Bacteria Rare (<OCC) 09/21/18 00:18 - ECG O2 Sat by Pulse Oximetry: 98 (RA) Pulse Ox Interpretation: Normal Medical Decision Making Medical Decision Making: Time: 00:00 Patient care endorsed from Dr. Gay to provider pending labs and CT. 520 CT shows 4mm, non-obstructing renal stone. Moderate amount of stool in large intestine. Pt to be discharged home with instructions for constipation and referral for urology. Return parameters discussed. Scribe Attestation: Documented by Kvng Finley acting as a scribe for Edwige Goldberg MD. Provider Scribe Attestation: All medical record entries made by the Scribe were at my direction and persona lly dictated by me. I have reviewed the chart and agree that the record accurately reflects my personal performance of the history, physical exam, medical decision making, and the department course for this patient. I have also personally directed, reviewed, and agree with the discharge instructions and disposition. Disposition - Clinical Impression Clinical Impression: Constipation, Constipation due to opioid therapy, Renal stone - POA Present On Arrival: None - Disposition Referrals: Ronald Rainey Jr., MD [Staff Provider] - Disposition: Routine/Home Disposition Time: 05:28 Condition: IMPROVED Instructions: Kidney Stones (DC), Constipation, Adult (DC) Forms: [employer] (Latvian)
[2018-09-21] MEDS ORDERED: Iohexol 240 (50 ml) PO STA (01:49)
[2018-09-21] MEDS ORDERED: Iohexol 240 (50 ml) ONE (02:12)
[2018-09-21] MEDS ORDERED: Sodium Chloride 0.9% 1,000 ML IV STA (02:15)
[2018-09-21] MEDS ORDERED: Iodixanol 320 MG/ML 100 ML BOTTLE IV ONE (03:48)
[2018-09-21] MEDS ORDERED: Sodium Chloride 0.9% 50 ML IV ONE (03:48)
[2018-09-21] MEDS ORDERED: DiphenhydrAMINE 50 mg/ml Inj IVP STA (03:50)
[2018-09-21 06:06] VITALS: BP 128/64; PULSE 88; RESP 20; TEMP 98.1; O2SAT 99
--- NOTE | 2018-09-21 07:55 | CARD ---
APPROVED REPORT Date of service: 09/21/2018 EKG Measurement Heart [id number] <Conclusion> Normal sinus rhythm Possible Inferior infarct, age undetermined Abnormal ECG
--- NOTE | 2018-09-21 09:22 | CT ---
Date of service: 09/21/2018 PROCEDURE: CT Abdomen and Pelvis with contrast HISTORY: abd pain COMPARISON: CT abdomen and pelvis 09/05/2018 TECHNIQUE: CT scan of the abdomen pelvis was performed after the administration of IV contrast and oral contrast. Coronal and sagittal reconstructions were also acquired. Radiation dose: Total exam DLP = 472.71 mGy-cm. FINDINGS: LOWER THORAX: Visualized lung bases demonstrate mild dependent bibasilar atelectasis. Heart size is mildly enlarged. LIVER: Unremarkable. GALLBLADDER AND BILE DUCTS: Not identified. No surgical clips seen in the gallbladder fossa. Correlate clinically for possible cholecystectomy. PANCREAS: There is a 0.4 cm hypodensity within the tail of the pancreas, likely IPMN and unchanged. SPLEEN: Unremarkable. ADRENALS: Unremarkable. KIDNEYS AND URETERS: 0.4 cm nonobstructing stone noted in the left kidney, unchanged. Right kidney is unremarkable. Mild fullness of the bilateral collecting systems, right greater than left. VASCULATURE: The aorta is normal in caliber. No aortic atherosclerotic calcification or mural plaque present. STOMACH AND BOWEL: There is no abnormal small or large bowel dilatation. Large volume of stool noted throughout the colon. APPENDIX: Not identified. No evidence of appendicitis. PERITONEUM: Unremarkable. No free fluid. No free air. LYMPH NODES: There is no significant abdominal or pelvic lymphadenopathy. BLADDER: Distended with fluid. REPRODUCTIVE: Uterus appears surgically absent. BONES: Mild degenerative changes noted of the spine. OTHER FINDINGS: None. IMPRESSION: Large volume of stool throughout the colon. Stable 0.4 cm nonobstructing stone left kidney. Mild fullness of the bilateral renal collecting systems, likely secondary to distended urinary bladder. Additional findings as above. Preliminary impression was provided by the Teleradiology service. Findings are concordant.
== END 2018-09-21 05:45 | disposition home or self-care (01) ==
LOC: H.ER 21:56
DX: N20.0 Calculus of kidney (principal); K59.03 Drug induced constipation; T40.2X5A Adverse effect of other opioids, initial encounter; Y92.89 Other specified places as the place of occurrence of the external cause; I12.9 Hypertensive chronic kidney disease with stage 1 through stage 4 chronic kidney disease, or unspecified chronic kidney disease; N18.9 Chronic kidney disease, unspecified; E78.00 Pure hypercholesterolemia, unspecified; Z87.891 Personal history of nicotine dependence
CPT/HCPCS: 74177; 80053; 81003; 81025; 83690; 85025; 85610; 85730; 93005; 96374; 96375; 96376; 99283; G0328; J1200; J1885; J2405; J2930; J7030; Q9966; Q9967

== ENCOUNTER 2018-12-06 20:10 | Emergency (ER) | payer MEDICAID ==
[2018-12-06 20:10] VITALS: BMI 28.3
[2018-12-06 20:21] VITALS: O2SAT 98
--- NOTE | 2018-12-06 21:36 | ED PDOC ---
HPI: General Adult Time Seen by Provider: 12/06/18 21:12 Chief Complaint (Nursing): Palpitations History Per: Patient Onset/Duration Of Symptoms: Days (1) Current Symptoms Are (Timing): Still Present Severity: Mild Additional Complaint(s): Fever, headache, bodyaches, neck pain and congestion x 1 day. Scant nonproductive cough. No urinary sxs. Past Medical History Vital Signs: Last Vital Signs Temp 98.1 F 12/06/18 20:19 Pulse 76 12/06/18 20:19 Resp 16 12/06/18 20:19 BP 128/73 12/06/18 20:19 Pulse Ox 98 12/06/18 20:19 - Medical History PMH: Arthritis, Asthma, Bronchitis, CAD, Crohn's Disease, Fractures (right arm), Gall Bladder Disease (removed 2002), HTN, Hypercholesterolemia, Hyperlipidemia, Kidney Stones, Mitral Valve Prolapse, Pneumonia, Chronic Kidney Disease, Rheumatoid Arthritis, Chronic Pain (CRPS) Denies: HIV - Surgical History Surgical History: Appendectomy (at 8 years old), Cholecystectomy (2002), Coronary Stent (x1; Left circumflex (January 2016)), Tonsillectomy ("at young age"), (x1) Denies: Pacemaker - Family History Family History: States: Unknown Family Hx, [place] (Father had [place] at 50 y/o), CAD - Immunization History Hx Tetanus Toxoid Vaccination: No Hx Influenza Vaccination: Yes Hx Pneumococcal Vaccination: No - Home Medications Home Medications: Ambulatory Orders Medication Instructions Recorded Aspirin [Ecotrin] 81 mg PO DAILY 01/28/17 Gabapentin [Neurontin] 600 mg PO BID 12/27/17 Multivitamin [Multi-Vitamin Daily] 1 tab PO DAILY 01/17/18 oxyCODONE/Acetaminophen [Percocet 1 tab PO Q8 PRN 01/17/18 5/325 mg Tab] Atorvastatin [Lipitor] 20 mg PO HS 02/22/18 Famotidine [Pepcid] 20 mg PO BID #20 tab 04/26/18 Fluticasone Propionate [Flonase] 2 spr NS DAILY PRN #1 bottle 09/05/18 Ranolazine [Ranexa] 500 mg PO BID 09/28/18 Docusate [Colace] 100 mg PO TID 30 Days cap 10/03/18 Naproxen [Naprosyn] 500 mg PO Q12H #20 tab 12/06/18 Oseltamivir Cap [Tamiflu] 75 mg PO BID #10 cap 12/06/18 - Allergies Allergies/Adverse Reactions: Allergies Allergy/AdvReac Type Severity Reaction Status Date / Time ceftriaxone Allergy RASH Verified 09/20/18 22:35 Iodine and Iodide Containing Allergy SHORTNESS Verified 08/09/18 22:05 Produc OF BREATH iohexol [From Omnipaque] AdvReac SWELLING Verified 08/09/18 22:05 Review of Systems ROS Statement: Except As Marked, All Systems Reviewed And Found Negative Constitutional: Positive for: Fever, Malaise ENT: Positive for: Nose Congestion Respiratory: Positive for: Cough Physical Exam - Reviewed Nursing Documentation Reviewed: Yes Vital Signs Reviewed: Yes - Physical Exam Appears: Positive for: Non-toxic, No Acute Distress Head Exam: Positive for: ATRAUMATIC, NORMAL INSPECTION, NORMOCEPHALIC Skin: Positive for: Normal Color, Warm, DRY Eye Exam: Positive for: EOMI, Normal appearance, PERRL ENT: Positive for: Normal ENT Inspection Neck: Positive for: Normal, Painless ROM Cardiovascular/Chest: Positive for: Regular Rate, Rhythm Respiratory: Positive for: CNT, Normal Breath Sounds Gastrointestinal/Abdominal: Positive for: Normal Exam, Soft Back: Positive for: Normal Inspection Extremity: Positive for: Normal ROM Neurological/Psych: Positive for: Awake, Alert, Normal Tone - ECG O2 Sat by Pulse Oximetry: 98 Disposition - Clinical Impression Clinical Impression: Flu - Patient ED Disposition Is Patient to be Admitted: No Counseled Patient/Family Regarding: Studies Performed, Diagnosis, Need For Followup, Rx Given - Disposition Referrals: [facility] [Outside] Disposition: Routine/Home Disposition Time: 21:57 Condition: FAIR Prescriptions: Naproxen [Naprosyn] 500 mg PO Q12H #20 tab Oseltamivir Cap [Tamiflu] 75 mg PO BID #10 cap Instructions: Flu Forms: [employer] ([place]uxem[place]ish)
[2018-12-06 22:50] VITALS: BP 135/81; PULSE 76; RESP 17; TEMP 98.6
--- NOTE | 2018-12-07 11:01 | CARD ---
APPROVED REPORT Date of service: 12/06/2018 EKG Measurement Heart [id number] <Conclusion> Normal sinus rhythm Low voltage QRS Inferior infarct, age undetermined Abnormal ECG
== END 2018-12-06 22:35 | disposition home or self-care (01) ==
LOC: H.ER 20:10
DX: J11.1 Influenza due to unidentified influenza virus with other respiratory manifestations (principal); R00.2 Palpitations; E78.00 Pure hypercholesterolemia, unspecified; I12.9 Hypertensive chronic kidney disease with stage 1 through stage 4 chronic kidney disease, or unspecified chronic kidney disease; K50.90 Crohn's disease, unspecified, without complications; Z88.1 Allergy status to other antibiotic agents; Z88.8 Allergy status to other drugs, medicaments and biological substances; Z87.442 Personal history of urinary calculi; Z95.5 Presence of coronary angioplasty implant and graft
CPT/HCPCS: 81025; 87804; 93005; 96372; 99283; J1885

== ENCOUNTER 2018-12-08 09:32 | Observation (INO) | payer MEDICAID ==
[2018-12-08 09:58] VITALS: BMI 27.8
--- NOTE | 2018-12-08 11:03 | ED PDOC ---
HPI: General Adult Time Seen by Provider: 12/08/18 10:12 Chief Complaint (Nursing): Pain, Chronic Chief Complaint (Provider): Pain, Chronic History Per: Patient History/Exam Limitations: no limitations Onset/Duration Of Symptoms: Days Current Symptoms Are (Timing): Still Present Additional Complaint(s): 48 year old female with a past medical history of CAD, rheumatoid arthritis and hypertension who is presenting to the Ed for evaluation of intractable pain to right side of neck and head worsening over the last week. Patient states that she has chronic pain to this area which has been worsening and admits that the pain is not relieved by Percocet which she takes for complex regional pain syndrome (CRPS). She reports that she sees Dr. Barrios for pain management who told her to come to the ED. Patient denies any other medical complaints at this time including chest pain or shortness of breath. PMD: [place] Past Medical History Reviewed: Historical Data, Nursing Documentation, Vital Signs Vital Signs: Last Vital Signs Temp 98.1 F 12/08/18 09:58 Pulse 72 12/08/18 09:58 Resp 17 12/08/18 09:58 BP 105/65 12/08/18 09:58 Pulse Ox 96 12/08/18 09:58 - Medical History PMH: Arthritis, Asthma, Bronchitis, CAD, Crohn's Disease, Fractures (right arm), Gall Bladder Disease (removed 2002), HTN, Hypercholesterolemia, Hyperlipidemia, Kidney Stones, Mitral Valve Prolapse, Pneumonia, Chronic Kidney Disease, Rheumatoid Arthritis, Chronic Pain (CRPS) Denies: HIV - Surgical History Surgical History: Appendectomy (at 8 years old), Cholecystectomy (2002), Coronary Stent (x1; Left circumflex (January 2016)), Tonsillectomy ("at young age"), (x1) Denies: Pacemaker - Family History Family History: States: Unknown Family Hx, [place] (Father had DC at 50 y/o), CAD - Social History Current smoker - smoking cessation education provided: No Ex-Smoker (has not smoked in the last 12 months): Yes Alcohol: None Drugs: Denies - Immunization History Hx Tetanus Toxoid Vaccination: No Hx Influenza Vaccination: Yes Hx Pneumococcal Vaccination: No - Home Medications Home Medications: Ambulatory Orders Medication Instructions Recorded Aspirin [Ecotrin] 81 mg PO DAILY 01/28/17 Multivitamin [Multi-Vitamin Daily] 1 tab PO DAILY 01/17/18 oxyCODONE/Acetaminophen [Percocet 1 tab PO Q6 PRN 01/17/18 5/325 mg Tab] Atorvastatin [Lipitor] 20 mg PO HS 02/22/18 Cyclobenzaprine [Flexeril] 10 mg PO Q12 PRN 12/08/18 Naproxen [Naprosyn] 500 mg PO Q12H PRN 12/08/18 - Allergies Allergies/Adverse Reactions: Allergies Allergy/AdvReac Type Severity Reaction Status Date / Time ceftriaxone Allergy RASH Verified 09/20/18 22:35 Iodine and Iodide Containing Allergy SHORTNESS Verified 08/09/18 22:05 Produc OF BREATH iohexol [From Omnipaque] AdvReac SWELLING Verified 08/09/18 22:05 Review of Systems ROS Statement: Except As Marked, All Systems Reviewed And Found Negative Cardiovascular: Negative for: Chest Pain Respiratory: Negative for: Shortness of Breath Musculoskeletal: Positive for: Neck Pain Neurological: Positive for: Headache Physical Exam - Reviewed Nursing Documentation Reviewed: Yes Vital Signs Reviewed: Yes - Physical Exam Appears: Positive for: Non-toxic, No Acute Distress Head Exam: Positive for: ATRAUMATIC, NORMAL INSPECTION, NORMOCEPHALIC Skin: Positive for: Normal Color, Warm, DRY Eye Exam: Positive for: EOMI, Normal appearance, PERRL Neck: Positive for: Decreased ROM (tenderness to right neck, limited rom of neck due to CRPS) Cardiovascular/Chest: Positive for: Regular Rate, Rhythm. Negative for: Murmur Respiratory: Positive for: Normal Breath Sounds. Negative for: Respiratory Distress Gastrointestinal/Abdominal: Positive for: Normal Exam, Soft. Negative for: Tenderness Extremity: Positive for: Normal ROM. Negative for: Deformity, Swelling Neurological/Psych: Positive for: Awake, Alert, Normal Tone, Oriented. Negative for: Motor/Sensory Deficits - ECG O2 Sat by Pulse Oximetry: 96 (RA) Pulse Ox Interpretation: Normal Medical Decision Making Medical Decision Making: Time: 10:30 Impression: acute on chromic pain, intractable Case discussed with Dr. Barrios who states he will perform regional anesthesia in OR. Provider will admit patient under his service for intractable pain that failed outpatient treatment. Scribe Attestation: Documented by Karin Winslow, acting as a scribe for Shawn Britton MD. Provider Scribe Attestation: All medical record entries made by the Scribe were at my direction and personally dictated by me. I have reviewed the chart and agree that the record accurately reflects my personal performance of the history, physical exam, medical decision making, and the department course for this patient. I have also personally directed, reviewed, and agree with the discharge instructions and disposition. Disposition - Clinical Impression Clinical Impression: Complex regional pain syndrome - Patient ED Disposition Is Patient to be Admitted: Yes Discussed With : Sylvester Barrios Doctor Will See Patient In The: Hospital Counseled Patient/Family Regarding: Studies Performed, Diagnosis - Disposition Disposition Time: 10:30 Condition: FAIR Instructions: Complex Regional Pain Syndrome - Pt Status Changed To: Hospital Disposition Of: SDS- Endo,OR,Cath,IR - POA Present On Arrival: None
[2018-12-08] MEDS ORDERED: Propofol 10 mg/ml Inj (20 ML) ONE (11:18)
[2018-12-08] MEDS ORDERED: Midazolam 2 MG/2 ML VIAL ONE (11:18)
[2018-12-08] MEDS ORDERED: Lidocaine 1% 5ml Abboject ONE (11:18)
[2018-12-08] MEDS ORDERED: Lactated Ringer's 1,000 ML IV ONE (11:40)
[2018-12-08] MEDS ORDERED: Bupivacaine 0.5% 50 ML IJ ONE (11:45)
[2018-12-08] MEDS ORDERED: Iohexol 300 10 ML IJ ONE (11:45)
[2018-12-08] MEDS ORDERED: Lidocaine 1% Inj (20ml) IJ ONE (11:45)
[2018-12-08] MEDS ORDERED: methylPREDNISolone Depo 80 mg/ml Inj IAA ONE (11:45)
[2018-12-08] MEDS ORDERED: DiphenhydrAMINE 50 mg/ml Inj ONE (11:51)
[2018-12-08] MEDS: HYDROmorphone 0.5 mg/0.5 ml ISec IVP PRN ×3 (12:45→13:45)
[2018-12-08] MEDS ORDERED: HYDROmorphone 0.5 mg/0.5 ml ISec ONE (12:45)
--- NOTE | 2018-12-08 12:57 | RAD ---
Date of service: 12/08/2018 PROCEDURE: Intraoperative Fluoroscopy. HISTORY: EPIDURAL FINDINGS: Fluoroscopic assistance was provided. Fluoroscopy time = 33 sec. Radiation dose = 11.72 mGy. Please refer to the operative report from ANGEL LUIS Watson.
[2018-12-08] MEDS ORDERED: Lactated Ringer's 1,000 ML IV SCH (13:00)
[2018-12-08 13:01] VITALS: RESP 18
[2018-12-08 15:32] VITALS: BP 107/66; PULSE 82; TEMP 98
[2018-12-08 15:38] VITALS: O2SAT 98
--- NOTE | 2018-12-12 10:24 | OP ---
PROCEDURE DATE: 12/08/2018 PREOPERATIVE DIAGNOSIS: Right cervical spondylosis. POSTOPERATIVE DIAGNOSIS: Right cervical spondylosis. PROCEDURE: Right C3, C4, C5, and C6 medial branch nerve blocks. ANESTHESIOLOGIST: Juan Rodriguez MD SURGEON: Sylvester Barrios MD ANESTHESIA TYPE: Monitored anesthesia care. COMPLICATIONS: None. SPECIMEN: None. DESCRIPTION OF THE PROCEDURE: Procedure is as follows: After we had discussion of the procedure with the patient including its risks, benefits, alternatives, outcome data, and possibility of no effect or increased pain, the patient consented to the procedure. She denies any recent infection, bleeding tendencies, or being on anticoagulants. A decision was then made to proceed to the OR. The patient had come to the ER two days prior due to intractable pain. A decision was then made to admit her to the ER due to severe pain refractory to pain medications at home. The patient was placed on the fluoroscopy table in a prone position using a head positioner. The neck was prepped and draped in the usual sterile fashion. A sterile technique was adhered to during the entire procedure. The C3, C4, C5 and C6 vertebral levels were first identified in the anteroposterior view. The medial branch nerves were located at the midpoint of the facet border on the right side. The skin overlying the four above targeted areas was then infiltrated with 1% lidocaine using 25-gauge needle. Subsequently, a 22-gauge 3-1/2-inch spinal needle was then incrementally advanced under fluoroscopic guidance until the tip of needle made bony contact with the lateral facet border. The needle was then walked slightly laterally and anteriorly. After satisfactory positioning of all four needles, approximately 0.5 mL of Isovue contrast was injected to rule out intravenous uptake. After doing so, approximately 2 mL of 0.25% of Marcaine and Depo-Medrol mixture was injected. The needle was then removed. The patient's neck was cleaned, and dry bandage was applied. 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 She will have a followup in our office in approximately two to four weeks. Sylvester Barrios MD
== END 2018-12-08 15:39 | disposition home or self-care (01) ==
LOC: H.ER 09:32 → H.ERHOLD 10:28
PROVIDERS: ADMIT Anesthesiology; ATTEND Anesthesiology
DX: M47.812 Spondylosis without myelopathy or radiculopathy, cervical region (principal); E78.00 Pure hypercholesterolemia, unspecified; E78.5 Hyperlipidemia, unspecified; I12.9 Hypertensive chronic kidney disease with stage 1 through stage 4 chronic kidney disease, or unspecified chronic kidney disease; I34.1 Nonrheumatic mitral (valve) prolapse; J45.909 Unspecified asthma, uncomplicated; K50.90 Crohn's disease, unspecified, without complications; N18.9 Chronic kidney disease, unspecified; Z79.82 Long term (current) use of aspirin; Z87.442 Personal history of urinary calculi; Z87.891 Personal history of nicotine dependence; Z95.5 Presence of coronary angioplasty implant and graft; M19.90 Unspecified osteoarthritis, unspecified site; Z79.899 Other long term (current) drug therapy; I25.10 Atherosclerotic heart disease of native coronary artery without angina pectoris; M06.9 Rheumatoid arthritis, unspecified
CPT/HCPCS: 62321; 81025; 99284; G0378; J1040; J1170; J1200; J2250; J2704; J3010; J7120; Q9967

== ENCOUNTER 2019-01-03 18:25 | Observation (INO) | payer MEDICAID ==
[2019-01-03 18:25] VITALS: BMI 27.8
--- NOTE | 2019-01-03 19:20 | ED PDOC ---
HPI: Chest Pain Time Seen by Provider: 01/03/19 18:41 Chief Complaint (Nursing): Dizziness/Lightheaded Chief Complaint (Provider): dizziness and chest pain History Per: Patient History/Exam Limitations: no limitations Additional Complaint(s): 48 y/o F with hx of CAD s/p stent in 2017, TIA, HL who presents with persistent dizziness and chest pain. Pt states that she has had dizziness for 2 months and has seen a neurologist peinding workup but worse today since about 5am, unable to walk, unrelated to position. Denies room spinning. States that she was having palpitations and SOB with dizziness. Has been taking Meclizine but causes nausea so does not take it. She has also had episode of chest tightness that began a round that time, that has been occurring intermittently. She took Ibuprofen and 1/2 tab Percocet around 5am with no improvement in pain. States that she has weakness on left hand today but denies speech/visual/gait disturbance. Past Medical History Reviewed: Historical Data, Nursing Documentation, Vital Signs Vital Signs: Last Vital Signs Temp 98 F 01/03/19 18:38 Pulse 75 01/03/19 18:38 Resp 16 01/03/19 18:38 BP 111/68 01/03/19 18:38 Pulse Ox 96 01/03/19 18:38 Primary Care Provider: Karen Biggs - Medical History PMH: Arthritis, Asthma, Bronchitis, CAD, Crohn's Disease, Fractures (right arm), Gall Bladder Disease (removed 2002), Hypercholesterolemia, Hyperlipidemia, Kidney Stones, Mitral Valve Prolapse, Pneumonia, Chronic Kidney Disease, Rheumatoid Arthritis, Chronic Pain (CRPS) Denies: HIV - Surgical History Surgical History: Appendectomy (at 8 years old), Cholecystectomy (2002), Coronary Stent (x1; Left circumflex (January 2016)), Tonsillectomy ("at young age"), (x1) Denies: Pacemaker - Family History Family History: States: Unknown Family Hx, ND (Father had ND at 50 y/o), CAD - Immunization History Hx Tetanus Toxoid Vaccination: No Hx Influenza Vaccination: Yes Hx Pneumococcal Vaccination: No - Home Medications Home Medications: Ambulatory Orders Medication Instructions Recorded Aspirin [Ecotrin] 81 mg PO DAILY 01/28/17 Multivitamin [Multi-Vitamin Daily] 1 tab PO DAILY 01/17/18 oxyCODONE/Acetaminophen [Percocet 1 tab PO Q6 PRN 01/17/18 5/325 mg Tab] Atorvastatin [Lipitor] 20 mg PO HS 02/22/18 Cyclobenzaprine [Flexeril] 10 mg PO Q12 PRN 12/08/18 Naproxen [Naprosyn] 500 mg PO Q12H PRN 12/08/18 Acetaminophen [Tylenol Extra 2 tab PO Q6 #30 tablet 12/21/18 Strength] Azithromycin 1 tab PO DAILY #4 tab 12/21/18 Benzonatate [Tessalon Perles] 200 mg PO TID PRN #15 sgl 12/21/18 Cyclobenzaprine [Flexeril] 10 mg PO TID #15 tab 12/21/18 Ibuprofen [Motrin] 600 mg PO Q6 #30 tab 12/21/18 - Allergies Allergies/Adverse Reactions: Allergies Allergy/AdvReac Type Severity Reaction Status Date / Time ceftriaxone Allergy RASH Verified 01/03/19 18:33 Iodine and Iodide Containing Allergy SHORTNESS Verified 01/03/19 18:33 Produc OF BREATH iohexol [From Omnipaque] AdvReac SWELLING Verified 01/03/19 18:33 MARLEE Risk Score for UA/NSTEMI - MARLEE Risk Score Age > 64: NO 3 or more CAD Risk Factors: NO Known CAD (Stenosis greater than 50%): YES Aspirin use in past 7 days: YES Severe Angina: NO EKG ST changes greater than 0.5mm: NO Positive Cardiac Marker: NO MARLEE Score: 2 Risk %: 8% Review of Systems Constitutional: Negative for: Fever, Chills Cardiovascular: Positive for: Chest Pain Respiratory: Positive for: Shortness of Breath. Negative for: Cough Gastrointestinal: Negative for: Nausea, Vomiting Physical Exam - Reviewed Nursing Documentation Reviewed: Yes Vital Signs Reviewed: Yes - Physical Exam Appears: Positive for: No Acute Distress Skin: Positive for: Normal Color Eye Exam: Positive for: EOMI, PERRL Neck: Positive for: Normal Cardiovascular/Chest: Positive for: Regular Rate, Rhythm Respiratory: Positive for: Normal Breath Sounds Gastrointestinal/Abdominal: Positive for: Normal Exam Extremity: Positive for: Normal ROM (flexion/extension of left elbow/wrist) Neurological/Psych: Positive for: Awake, Alert, Symmetric/Intact Strength (strength 3/6 on left and 6/6 on Right.), Oriented, Mood/Affect (appropriate), Gait (steady), Cerebellar Tests (able to perform alternating finger to nose, negative Romber), Motor/Sensory Deficits (no pronator drift), quantitative consultant II-XII (no tonue deviation, smile is symmetric, brow furrows equally. ). Negative for: Facial Droop - Laboratory Results Result Diagrams: 01/03/19 19:30 01/03/19 19:30 - ECG O2 Sat by Pulse Oximetry: 96 Medical Decision Making Medical Decision Making: CBC, CMP EKG Tele orthostatic BP Head CT w/o contrast Toradol 30mg IV x 1 CXR PA and lateral EKG: sinus, HR 80, non-specific T wave abnormality in anterior leads. labs: WBCs 12.5K, otherwise unremarkable. 20:00: pt endorsed to [facility] pending head CT, CXR and re-evaluation. Disposition - Clinical Impression Clinical Impression: Severe dizziness - Patient ED Disposition Is Patient to be Admitted: Transfer of Care ([facility]) - Disposition Disposition: Transfer of Care Disposition Time: 20:00 Condition: FAIR Forms: [employer] (French)
[2019-01-03 19:48] LABS: BASO % 0.2 % (0.0-2.0); EOS # 0.2 K/uL (0.0-0.7); EOS % 1.6 % (0.0-4.0); HEMOGLOBIN 12.3 g/dL (12.0-16.0); LYMPH # 3.2 K/uL (1.0-4.3); LYMPH % 25.3 % (20.0-40.0); MEAN CELL VOLUME 89.6 fl (81.0-99.0); MEAN CORPUSCULAR HEMOGLOBIN 29.5 pg (27.0-31.0); MEAN CORPUSCULAR HGB CONC 32.9 g/dL (33.0-37.0); MEAN PLATELET VOLUME 7.3 fl (7.2-11.7); MONO # 0.7 K/uL (0.0-0.8); MONO % 5.9 % (0.0-10.0); NEUT # 8.4 K/uL (1.8-7.0); NRBC % 0.1 % (0.0-0.0); RBC 4.17 Mil/uL (3.80-5.20); RED CELL DISTRIBUTION WIDTH 14.1 % (11.5-14.5); WHITE BLOOD COUNT 12.6 K/uL (4.8-10.8)
[2019-01-03 19:55] LABS: BLOOD UREA NITROGEN 23 mg/dl (7-17); CALCIUM 8.9 mg/dL (8.4-10.2); GFR NON-AFRICAN AMERICAN > 60
[2019-01-03] MEDS ORDERED: Sodium Chloride 0.9% 0 ML IV ONE (19:58)
[2019-01-03] MEDS ORDERED: Iohexol 300 100 ML IJ ONE (19:58)
--- NOTE | 2019-01-03 20:37 | ED PDOC ---
- Laboratory Results Result Diagrams: 01/03/19 19:30 01/03/19 19:30 Lab Results: Troponin I < 0.0120 ng/mL (0.00-0.120) 01/03/19 19:30 - ECG ECG: Positive for: Viewed By Me ECG Rhythm: Positive for: Sinus Rhythm, Nonspecific Changes O2 Sat by Pulse Oximetry: 96 Pulse Ox Interpretation: Normal - Radiology X-Ray: Viewed By Me X-Ray Interpretation: No Acute Disease - Progress ED Course And Treament: Case endorsed to check writer salesperson from [facility] pending labs, imaging EXAM: CT Head Without IV contrast. CLINICAL HISTORY: Severe dizziness, left arm weakness TECHNIQUE: Axial computed tomography images of the head/brain without intravenous contrast. COMPARISON: None provided. FINDINGS: BRAIN: No acute intraparenchymal hemorrhage. No mass lesion. No CT evidence for acute territorial infarct. No midline shift or extra-axial collections. Bilateral basal ganglia calcifications are noted. VENTRICLES: No hydrocephalus. ORBITS: The orbits are unremarkable. SINUSES AND MASTOIDS: The paranasal sinuses and mastoid air cells are clear. BONES: No fracture. SOFT TISSUES: Unremarkable. IMPRESSION: No acute intracranial abnormality Patient still complaining of intermittent left-sided chest "pressure" on re-eval ASA PO ordered Case discussed with Jeramie Doll ANTHROPOLOGY AND ARCHEOLOGY INSTRUCTOR for admission for observation on telemetry Disposition - Clinical Impression Clinical Impression: Severe dizziness, Chest pain - POA Present On Arrival: None - Disposition Disposition: Hospitalized as Observation Patient Disposition Time: 21:30 Condition: FAIR
[2019-01-03] MEDS ORDERED: Oxycodone/Acetaminophen 5/325 mg Tab PO ONE (22:05)
[2019-01-03] MEDS ORDERED: Oxycodone/Acetaminophen 5/325 mg Tab ONE (22:10)
[2019-01-03] MEDS ORDERED: Oxycodone/Acetaminophen 5/325 mg Tab PO PRN (23:39)
[2019-01-04 06:08] LABS: BASO % 0.3 % (0.0-2.0); EOS # 0.2 K/uL (0.0-0.7); HEMOGLOBIN 11.8 g/dL (12.0-16.0); LYMPH # 3.2 K/uL (1.0-4.3); MEAN CELL VOLUME 89.7 fl (81.0-99.0); MEAN CORPUSCULAR HEMOGLOBIN 29.8 pg (27.0-31.0); MEAN CORPUSCULAR HGB CONC 33.2 g/dL (33.0-37.0); MEAN PLATELET VOLUME 7.5 fl (7.2-11.7); MONO # 0.6 K/uL (0.0-0.8); MONO % 5.4 % (0.0-10.0); NEUT # 6.4 K/uL (1.8-7.0); NEUT % 61.3 % (50.0-75.0); NRBC % 0.1 % (0.0-0.0); RBC 3.96 Mil/uL (3.80-5.20); RED CELL DISTRIBUTION WIDTH 13.8 % (11.5-14.5); WHITE BLOOD COUNT 10.4 K/uL (4.8-10.8)
[2019-01-04 06:20] LABS: ALB/GLOB RATIO 1.1 (1.0-2.1); ALBUMIN 3.8 g/dL (3.5-5.0); ALT/SGPT 23 U/L (9-52); AST/SGOT 26 U/L (14-36); BLOOD UREA NITROGEN 23 mg/dl (7-17); CALCIUM 8.8 mg/dL (8.4-10.2); GFR NON-AFRICAN AMERICAN > 60
[2019-01-04 08:25] VITALS: RESP 20
--- NOTE | 2019-01-04 08:43 | RAD ---
Date of service: 01/03/2019 HISTORY: shortness of breath, cough COMPARISON: Chest radiographs 09/05/2018. TECHNIQUE: Chest PA and lateral views FINDINGS: LUNGS: Linear atelectasis identified at the mid left lung zone laterally with fibrotic changes again seen the inferior left lung zone. Right hemidiaphragm is further elevated. No acute infiltrates bilaterally. PLEURA: No significant pleural effusion identified. No pneumothorax apparent. CARDIOVASCULAR: No aortic atherosclerotic calcification present. Borderline cardiomegaly. No pulmonary vascular congestion. OSSEOUS STRUCTURES: No significant abnormalities. VISUALIZED UPPER ABDOMEN: Normal. OTHER FINDINGS: None. IMPRESSION: Borderline cardiomegaly. No pulmonary vascular congestion, infiltrate or pleural effusion. Limited linear atelectasis noted at the mid left lung zone with limited fibrotic changes noted left base once again.
--- NOTE | 2019-01-04 08:59 | CARD ---
APPROVED REPORT Date of service: 01/03/2019 EKG Measurement Heart [id number] <Conclusion> Normal sinus rhythm Nonspecific T wave abnormality Abnormal ECG
[2019-01-04] MEDS ORDERED: Multivitamin With Minerals Tab PO SCH (09:00)
[2019-01-04] MEDS ORDERED: Patient's Own Med (Multivitamin [Multi-Vitamin Daily] 1 TAB) PO SCH (09:00)
[2019-01-04] MEDS ORDERED: Enoxaparin 40 mg Syringe SC SCH (09:00)
--- NOTE | 2019-01-04 10:24 | CT ---
Date of service: 01/03/2019 PROCEDURE: CT HEAD WITHOUT CONTRAST. HISTORY: severe dizziness, left arm weakness COMPARISON: None available. TECHNIQUE: Axial computed tomography images were obtained through the head/brain without intravenous contrast. Radiation dose: Total exam DLP = 736.92 mGy-cm. This CT exam was performed using one or more of the following dose reduction techniques: Automated exposure control, adjustment of the mA and/or kV according to patient size, and/or use of iterative reconstruction technique. FINDINGS: HEMORRHAGE: No intracranial hemorrhage. BRAIN: Normal dawn-white matter differentiation and density are appreciated throughout the cerebrum and cerebellum with the brainstem appearing unremarkable as well. There is no mass effect. There is no suspicious extra-axial fluid collection and the midline brain anatomy appears diffusely unremarkable. VENTRICLES: Unremarkable. No hydrocephalus. CALVARIUM: Unremarkable. PARANASAL SINUSES: Unremarkable as visualized. No significant inflammatory changes. MASTOID AIR CELLS: Unremarkable as visualized. No inflammatory changes. OTHER FINDINGS: None. IMPRESSION: Unremarkable unenhanced head CT. Concordant preliminary report from [facility], 01/03/2019, 8:25 p.m..
--- NOTE | 2019-01-04 11:04 | CP.PCM.HP ---
History of Present Illness - History of Present Illness History of Present Illness: 48 y/o F with hx of CAD s/p stent in 2017, TIA, HLD who presented to ED with persistent dizziness and chest pain. 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 After ED evaluation and treatment, patient with persistent symptoms. Patient seen and examined at bedside. Symptoms of dizziness and chest pain improving though still present at times. No fever, chills, palpitations, headaches. No abdominal pain, n/v/d/c. Meds: as per chart Allergies: as per chart Fam hx: non-contributory Follows with Dr. Vides as neurology Present on Admission - Present on Admission Any Indicators Present on Admission: No Review of Systems - Review of Systems All systems: reviewed and no additional remarkable complaints except (mentioned above) Past Patient History - Infectious Disease Hx of Infectious Diseases: None - Tetanus Immunizations Tetanus Immunization: Unknown - Past Medical History & Family History Past Medical History?: Yes - Past Social History Smoking Status: Former Smoker - CARDIAC Hx Cardiac Disorders: Yes Hx Hypercholesterolemia: Yes Hx Mitral Valve Prolapse: Yes Hx Pacemaker: No - PULMONARY Hx Respiratory Disorders: Yes Hx Asthma: Yes Hx Bronchitis: Yes Hx Pneumonia: Yes - NEUROLOGICAL Hx Neurological Disorder: Yes Hx Dizziness: Yes - HEENT Hx HEENT Problems: No Other/Comment: wears corrective lenses for distance - RENAL Hx Chronic Kidney Disease: Yes - ENDOCRINE/METABOLIC Hx Endocrine Disorders: No - HEMATOLOGICAL/ONCOLOGICAL Hx AIDS: No Hx Human Immunodeficiency Virus (HIV): No - INTEGUMENTARY Hx Dermatological Problems: No - MUSCULOSKELETAL/RHEUMATOLOGICAL Hx Musculoskeletal Disorders: Yes Hx Arthritis: Yes Hx Falls: No Hx Fractures: Yes (right arm) Hx Rheumatoid Arthritis: Yes - GASTROINTESTINAL Hx Gastrointestinal Disorders: Yes Hx Crohn's Disease: Yes Hx Gall Bladder Disease: Yes (removed 2002) - GENITOURINARY/GYNECOLOGICAL Hx Genitourinary Disorders: Yes (Ovarian cysts, Hysterectomy) Other/Comment: Hx Ovarian cysts and fibroids - PSYCHIATRIC Hx Psychophysiologic Disorder: No Hx Substance Use: No - SURGICAL HISTORY Hx Surgeries: Yes Hx Appendectomy: Yes (at 8 years old) Hx Cholecystectomy: Yes (2002) Hx Coronary Stent: Yes (x1; Left circumflex (January 2016)) Hx Tonsillectomy: Yes ("at young age") - ANESTHESIA Hx Anesthesia: Yes Hx Anesthesia Reactions: No Hx Malignant Hyperthermia: No Meds Allergies/Adverse Reactions: Allergies Allergy/AdvReac Type Severity Reaction Status Date / Time ceftriaxone Allergy RASH Verified 01/03/19 18:33 Iodine and Iodide Containing Allergy SHORTNESS Verified 01/03/19 18:33 Produc OF BREATH iohexol [From Omnipaque] AdvReac SWELLING Verified 01/03/19 18:33 Physical Exam - Constitutional Appears: Non-toxic, No Acute Distress - Head Exam Head Exam: NORMAL INSPECTION - Eye Exam Eye Exam: Normal appearance - Respiratory Exam Respiratory Exam: NORMAL BREATHING PATTERN - Cardiovascular Exam Cardiovascular Exam: +S1, +S2 - GI/Abdominal Exam GI & Abdominal Exam: Soft - Neurological Exam Neurological exam: Alert, Oriented x3 - Psychiatric Exam Psychiatric exam: Normal Affect, Normal Mood - Skin Skin Exam: Normal Color, Warm Results - Vital Signs Recent Vital Signs: Last Vital Signs Temp 98.0 F 01/04/19 08:25 Pulse 65 01/04/19 08:25 Resp 20 01/04/19 08:25 BP 98/61 L 01/04/19 08:25 Pulse Ox 97 01/04/19 08:25 - Labs Result Diagrams: 01/04/19 04:30 01/04/19 04:30 Labs: Laboratory Results - last 24 hr 01/03/19 01/03/19 01/04/19 19:30 19:30 04:30 WBC 12.6 H RBC 4.17 Hgb 12.3 Hct 37.3 MCV 89.6 MCH 29.5 MCHC 32.9 L RDW 14.1 Plt Count 303 MPV 7.3 Neut % (Auto) 67.0 Lymph % (Auto) 25.3 [place] % (Auto) 5.9 Eos % (Auto) 1.6 Baso % (Auto) 0.2 Neut # (Auto) 8.4 H Lymph # (Auto) 3.2 [place] # (Auto) 0.7 Eos # (Auto) 0.2 Baso # (Auto) 0.0 Sodium 141 141 Potassium 3.9 4.1 Chloride 105 106 Carbon Dioxide 25 27 Anion Gap 15 12 BUN 23 H 23 H Creatinine 0.4 L 0.5 L Est GFR ( Amer) > 60 > 60 Est GFR (Non-Af Amer) > 60 > 60 Random Glucose 80 95 Calcium 8.9 8.8 Total Bilirubin 0.6 AST 26 ALT 23 Alkaline Phosphatase 71 Troponin I < 0.0120 < 0.0120 Total Protein 7.1 Albumin 3.8 Globulin 3.3 Albumin/Globulin Ratio 1.1 01/04/19 04:30 WBC 10.4 RBC 3.96 Hgb 11.8 L Hct 35.5 MCV 89.7 MCH 29.8 MCHC 33.2 RDW 13.8 Plt Count 287 MPV 7.5 Neut % (Auto) 61.3 Lymph % (Auto) 31.0 [place] % (Auto) 5.4 Eos % (Auto) 2.0 Baso % (Auto) 0.3 Neut # (Auto) 6.4 Lymph # (Auto) 3.2 [place] # (Auto) 0.6 Eos # (Auto) 0.2 Baso # (Auto) 0.0 Sodium Potassium Chloride Carbon Dioxide Anion Gap BUN Creatinine Est GFR ( Amer) Est GFR (Non-Af Amer) Random Glucose Calcium Total Bilirubin AST ALT Alkaline Phosphatase Troponin I Total Protein Albumin Globulin Albumin/Globulin Ratio Assessment & Plan (1) Chest pain Status: Acute Onset Date: ~09/27/17 (2) Severe dizziness Status: Acute - Assessment and Plan (Free Text) Plan: available diagnostic data reviewed monitor vitals monitor labs trop x 2 neg, pending #3 meclizine/reglan workup in progress for chronic dizziness rest of plan as ordered
[2019-01-04 11:44] VITALS: BP 95/59; PULSE 87; TEMP 98.6; O2SAT 98
--- NOTE | 2019-01-04 12:17 | CP.PCM.PCO ---
Assessment and Plan - Assessment and Plan (Free Text) Assessment: Patient seen and examined. Aox3, VSS, chest pain free. Denies shortness of breath, nausea vomiting or diarrheal Trop negative x3 Received one dose of antivert and reglan Dizziness improved, Will rx reglan for home Patient has follow up appt with Dr Biggs tuesday, adviced to follow up with him. Discussed with Dr Salas who agrees with discharge plan.
== END 2019-01-04 14:47 | disposition home or self-care (01) ==
LOC: H.ER 18:25 → H.ERHOLD 21:29 → H.TEL 23:09
PROVIDERS: ADMIT Family Medicine; ATTEND Family Medicine
DX: R07.89 Other chest pain (principal); I25.10 Atherosclerotic heart disease of native coronary artery without angina pectoris; K50.90 Crohn's disease, unspecified, without complications; E78.00 Pure hypercholesterolemia, unspecified; E78.5 Hyperlipidemia, unspecified; M06.9 Rheumatoid arthritis, unspecified; G89.29 Other chronic pain; Z95.5 Presence of coronary angioplasty implant and graft; Z86.73 Personal history of transient ischemic attack (TIA), and cerebral infarction without residual deficits; Z79.82 Long term (current) use of aspirin; Z87.891 Personal history of nicotine dependence; R42 Dizziness and giddiness
CPT/HCPCS: 36415; 70450; 71046; 80048; 80053; 81025; 84484; 85025; 93005; 96372; 96374; 96375; 99285; G0378; J1650; J1885; J2270